=== PATIENT | male | born 1935 | race Caucasian/White ===

== ENCOUNTER 2017-12-18 17:34 | Observation (INO) | payer OTHER ==
[2017-12-18 18:30] LABS: Absolute Lymphocytes (CBC) 0.6 K/uL (0.7-4.9); Absolute Neutrophil 6.5 K/uL (1.8-8.0); Basophils % 0.2 % (0-1.3); Eosinophils % 0.1 % (0-4.4); Hematocrit 42.3 % (39.6-49.0); Lymphocytes % 7.2 % (15.3-44.8); MCH 31.5 pg (27.0-35.0); MCV 92.6 fL (80-100); MPV 8.5 fL (7.6-11.3); Monocytes % 12.8 % (3.3-12.3); RBC Red Blood Cell Count 4.57 M/uL (4.33-5.43)
[2017-12-18] MEDS ORDERED: ONDANSETRON 4 MG/2 ML VIAL ONE (18:49)
[2017-12-18] MEDS ORDERED: NA CHLORIDE 0.9% 500 ML ONE (18:49)
[2017-12-18] MEDS ORDERED: ACETAMINOPHEN 325 MG TABLET ONE (18:49)
[2017-12-18 18:51] LABS: Albumin 3.5 g/dL (3.4-5.0); Bilirubin Direct 0.5 mg/dL (0-0.2); Bilirubin Total 1.7 mg/dL (0.2-1.0); Potassium 3.5 mmol/L (3.5-5.1); Protein, Total 6.7 g/dL (6.4-8.2); Troponin (Emerg Dept Use Only) 0.02 ng/mL (0.0-0.045)
--- NOTE | 2017-12-18 18:55 | RAD REPORT ---
EXAM DESCRIPTION: RAD - Chest Single View - 12/18/2017 6:27 pm CLINICAL HISTORY: Transient alteration of awareness, fever COMPARISON: February 2016 TECHNIQUE: AP portable chest image was obtained 1823 hours . FINDINGS: Chronic interstitial lung disease is evident accentuated by a slightly shallow inspiration . No peripheral consolidation or mass. Mild cardiomegaly is present accentuated by shallow inspiratio n and portable imaging. Left costophrenic angle blunting is present. Minimal pleural effusion on the left is possible. Upper lobe vasculature within normal limits. Sternotomy wires in place. No pneumoth orax. No acute bony abnormality seen. No acute aortic findings suspected. IMPRESSION: Heart, vasculature and lung markings are all minimally prominent. Chest findings are likely the affects of portable imaging and shallow inspiration. However, a mild or very early failure or volume overload are possible.
[2017-12-18 19:14] LABS: Urine Blood 2+ (NEG); Urine Glucose TRACE (NEG); Urine Protein 1+ (NEG); Urine Specific Gravity 1.025 (1.005-1.030); Urine pH 5.5 (5.0-7.0)
[2017-12-18 19:24] LABS: Urine Bacteria <20 /HPF (NONE SEEN); Urine Culture Reflex Order NOT NEEDED; Urine RBC TNTC /HPF (NONE SEEN)
--- NOTE | 2017-12-18 20:06 | RAD REPORT ---
EXAM DESCRIPTION: US - Abdomen Exam Limited - 12/18/2017 7:27 pm COMPARISON: None. FINDINGS: No gallstones, sludge or other abnormalities within the gallbladder lumen. Gallbladder is partially contracted. Patient was not fasting for the examination. The contraction accentuates wall t hickness. True wall thickening or edema are doubtful. No pericholecystic fluid. No common duct stone or biliary tree dilatation identified. IMPRESSION: Normal gallbladder and biliary tree ultrasound in a nonfasting patient.
[2017-12-18] MEDS ORDERED: ALBUTEROL 2.5 MG/3 ML NEB SOL ONE (20:15)
[2017-12-18] MEDS ORDERED: VANCOMYCIN 1 GM/250 ML BAG ONE (20:16)
[2017-12-18] MEDS ORDERED: PIPER/TAZO/NS 3.375gm 3.375 GM/100 ML BAG ONE (20:16)
--- NOTE | 2017-12-18 21:49 | RAD REPORT ---
EXAM DESCRIPTION: CT - Abdomen Pelvis W Contrast - 12/18/2017 9:17 pm CLINICAL HISTORY: Abdominal pain COMPARISON: Gallbladder ultrasound December 18. TECHNIQUE: Biphasic, helical CT imaging of the abdomen and pelvis was performed following 100 ml non -ionic IV contrast. Oral contrast was given. All CT scans are performed using dose optimization technique as appropriate and may include automated exposure control or mA/KV adjustment according to patient size. FINDINGS: Fibrotic lung changes are present. Cardiomegaly present without pericardial thickening or effusion. Multiple benign-appearing cysts are present in a normal size liver. No suspicious liver parenchymal l esion. Spleen and pancreas without suspicious findings. No biliary tree dilatation. Punctate gallston es are suspected in the nondependent portion of the gallbladder. Gallbladder was contracted at the ti me of the ultrasound. Symmetric renal function is seen with no hydronephrosis or suspicious renal mass. Renal cysts are pre sent. Nonobstructing caliceal calculi noted on the right. No urinary bladder abnormality. Prostate gl and without acute finding. No gastric dilatation or wall thickening. No dilated small bowel loops. Sigmoid diverticulosis withou t diverticulitis. No acute colon process seen. No free air, free fluid or inflammatory stranding. N o hernia, mass or bulky lymphadenopathy. No adrenal abnormality. Disc and bony degenerative changes are present. No pathologic bone process seen. Prominent vascular c alcifications are present. Distal left common iliac artery dilated to 2.3 cm. There is dilatation of the distal right common iliac artery to 1.7 cm. Ectasia of the right internal iliac artery origin. Theodore th femoral artery's are prominent. Left femoral artery is dilated to 19 mm. IMPRESSION: No bowel obstruction, free air or surgically emergent finding. Punctate gallstones are suspected. No gallstones were seen on the earlier ultrasound study; however, the patient was not fully fasting for that study and the gallbladder was partially contracted. No pyelonephritis or acute finding. Additional nonacute findings detailed in the body of the report.
--- NOTE | 2017-12-18 22:30 | ER ---
Nurse's Notes [facility] Name: Sudarshan Rao Age: 82 yrs Sex: Male : 1935 Arrival Date: 12/18/2017 Time: 17:35 Bed 7 Private MD: Raj Ferrell Diagnosis: Acute Fever;Altered Mental Status Presentation: 12/18 17:40 Presenting complaint: states: She woke him at 1:00 this afternoon and he was aj1 acting strange, talking to her about a big white bird that flew at him from the tree outside, he's been acting really tired all day and has just wanted to stay in bed. He was hallucinating, he thought his dog was coming to him, but he was petting nothing. Yesterday he was complaining of abdominal pain and back pain. Transition of care: patient was not received from another setting of care. Onset of symptoms was December 18, 2017 at 13:00. Risk Assessment: Do you want to hurt yourself or someone else? Patient reports no desire to harm self or others. Initial Sepsis Screen: Does the patient meet any 2 criteria? Altered Mental Status. HR > 90 bpm. Yes Does the patient have a suspected source of infection? Yes: Other: unknown at this time. If YES to both, name of provider notified: Andrea Berrios MD Care prior to arrival: None. 17:40 Method Of Arrival: Wheelchair aj1 17:40 Acuity: STACEY 3 aj1 Triage Assessment: 17:45 General: Appears uncomfortable, Behavior is calm, cooperative. Pain: Denies pain. aj1 Neuro: Level of Consciousness is awake, alert, obeys commands, Oriented to person, place, time, situation, Egg Processing Supervisor are equal bilaterally Moves all extremities. Full function Speech is normal, Facial symmetry appears normal. Cardiovascular: Patient's skin is warm and dry. Respiratory: Airway is patent Respiratory effort is even, unlabored, Respiratory pattern is regular, symmetrical. Historical: - Allergies: 17:45 sedatives; aj1 - Home Meds: 17:45 aspirin 325 mg Oral TbEC 1 tab once daily [Active]; B1 [Active]; famotidine 20 mg Oral aj1 tab [Active]; memantine 10 mg Oral tab 1 tab 2 times per day [Active]; metoprolol tartrate 25 mg oral tab 2 times per day [Active]; Potassium Chloride Oral [Active]; donepezil 5 mg oral tab 1 tab once daily [Active]; lisinopril 20 mg Oral tab 1 tab once daily [Active]; - PMHx: 17:45 Atrial Fib; CHF; Myocardial infarction; organic dementia; Pneumonia; Sepsis; Sleep aj1 Apnea; - Immunization history:: Flu vaccine is not up to date. - Social history:: Smoking status: Patient/guardian denies using tobacco. - Ebola Screening: : Patient denies travel to an Ebola-affected area in the 21 days before illness onset. - Family history:: not pertinent. - Hospitalizations: : No recent hospitalization is reported. Screenin:55 Abuse screen: Denies threats or abuse. Nutritional screening: No deficits noted. tw2 Tuberculosis screening: No symptoms or risk factors identified. Fall Risk Secondary diagnosis (15 points) dementia. Assessment: 17:50 General: Appears in no apparent distress. comfortable, slender, Behavior is calm, bp cooperative. Pain: Denies pain. Neuro: Level of Consciousness is awake, obeys commands, confused, Oriented to person. Cardiovascular: Rhythm is sinus rhythm. Respiratory: Airway is patent Respiratory effort is even, unlabored, Respiratory pattern is regular, symmetrical. GI: No signs and/or symptoms were reported involving the gastrointestinal system. : No signs and/or symptoms were reported regarding the genitourinary system. EENT: No deficits noted. Derm: No deficits noted. Musculoskeletal: Circulation, motion, and sensation intact. Range of motion: intact in all extremities. 18:53 Reassessment: Patient appears in no apparent distress at this time. No changes from tw2 previously documented assessment. Patient and/or family updated on plan of care and expected duration. Pain level reassessed. 19:14 Reassessment: technical specialist cytogenetics contacted, pt finished oral contrast. ak1 19:24 Reassessment: Patient appears in no apparent distress at this time. Patient and/or ak1 family updated on plan of care and expected duration. Pain level reassessed. Patient is alert, oriented x 3, equal unlabored respirations, skin warm/dry/pink. Patient denies pain at this time. Patient states feeling better. Vital Signs: 17:45 BP 152 / 99; Pulse 91; Resp 20; Temp 102.2; Pulse Ox 96% on R/A; Pain 0/10; aj1 18:00 BP 172 / 81; Pulse 79; Resp 23; Pulse Ox 97% ; bp 18:52 BP 150 / 77; Pulse 65; Resp 22; Pulse Ox 99% on R/A; tw2 19:23 BP 133 / 69; Pulse 69; Resp 20; Temp 99(O); Pulse Ox 97% on R/A; Pain 0/10; ak1 22:13 BP 131 / 64; Pulse 66; Resp 18; Temp 99; Pulse Ox 98% on R/A; Pain 0/10; ak1 ED Course: 17:35 Patient arrived in ED. sb2 17:36 Raj Ferrell DO is Private Physician. sb2 17:42 Triage completed. aj1 17:45 Arm band placed on Patient placed in an exam room. aj1 17:50 Andrea Beriros MD is Attending Physician. rn 17:55 Latesha Rush RN is Primary Nurse. tw2 17:55 Placed in gown. Bed in low position. Side rails up X2. Adult w/ patient. Cardiac tw2 monitor on. Pulse ox on. NIBP on. 18:06 Oral contrast given. jj2 18:28 Chest Single View XRAY In Process Unspecified. EDMS 18:30 Inserted saline lock: 22 gauge in left hand, using aseptic technique. Blood collected. tw2 18:35 Straight cath inserted, using sterile technique, 18 Fr. Specimen obtained. Returned tw2 lali urine. Patient tolerated well. pts remained at bedside at this time. 19:01 Report given to KENRICK Ashton. tw2 19:06 Attending Physician role handed off by Andrea Berrios MD wa 19:06 Jose Carvajal MD is Attending Physician. wa 19:14 Notified ED physician of a critical lab result(s). lactate of 2.7. fc 19:25 US Abdomen Limited In Process Unspecified. EDMS 19:26 Ultrasound completed. Patient tolerated well. cy 20:33 Radiology exam delayed due to IV insertion attempt and/or patient not having vm2 appropriate IV at this time. 20:40 Inserted saline lock: 20 gauge in right antecubital area, using aseptic technique. oe 21:17 CT Abd/Pelvis - W/Contrast In Process Unspecified. EDMS 21:19 Inserted saline lock: 22 gauge in left antecubital area, using aseptic technique. ak1 22:29 David He MD is Hospitalizing Provider. wa 22:47 No provider procedures requiring assistance completed. Patient admitted, IV remains in ak1 place. Administered Medications: 18:40 Drug: Zofran 4 mg Route: IVP; Site: left hand; tw2 19:16 Follow up: Response: No adverse reaction ak1 18:48 Drug: Tylenol 650 mg Route: PO; tw2 19:16 Follow up: Response: No adverse reaction ak1 18:49 Drug: NS 0.9% 500 ml Route: IV; Rate: bolus; Site: left hand; tw2 20:06 Follow up: IV Status: Completed infusion ak1 20:16 Drug: Zosyn 3.375 grams Route: IVPB; Infused Over: 60 mins; Site: left hand; ak1 21:59 Follow up: IV Status: Completed infusion ak1 20:29 Drug: Albuterol 2.5 mg Route: Inhalation; ak1 21:28 Drug: vancoMYCIN 1 grams Route: IVPB; Infused Over: 2 hrs; Site: left forearm; ak1 23:49 Follow up: IV Status: Infusion continued upon admission ak1 Outcome: 22:30 Decision to Hospitalize by Provider. wa 22:47 Condition: good ak1 22:47 Instructed on the need for admit. 23:15 Patient left the ED. ak1 Signatures: Dispatcher [employer] EDMS Maile Chavis RN RN aj1 Yevgeniy Rey Felicia, RN RN fc Nieto, Roman, MD MD rn Krenek, Amber, RN RN ak1 Latesha Rush RN RN 2 Behzad Aquino [facility] Jose Carvajal MD MD wa Peltier, Brian, RN RN bp Yong, Chheannith cy Billeau, Sheri 2 Corrections: (The following items were deleted from the chart) 19:02 17:40 Initial Sepsis Screen: Does the patient meet any 2 criteria? Altered Mental tw2 Status. HR > 90 bpm. Yes aj1
--- NOTE | 2017-12-18 22:30 | EDPHYS ---
Physician Documentation [facility] Name: Sudarshan Rao Age: 82 yrs Sex: Male : 1935 Arrival Date: 12/18/2017 Time: 17:35 Bed 7 Private MD: Raj Ferrell ED Physician Jose Carvajal HPI: 12/18 18:03 This 82 yrs old Male presents to ER via Wheelchair with complaints of Altered rn Mental Status. 18:03 The patient presents with confusion, decreased mental status, disorientation. Onset: rn The symptoms/episode began/occurred last night. Possible causes: unknown. Current symptoms: In the emergency department the patient's symptoms have improved. The patient has experienced a previous episode. reports ams since last night, was birthday, went to dinner, ate well, had large dessert, complained of abd pain and decreased appetite today, this morning noticed more confusion, not making sense, seems to be hallucinating, not eating. No cough/vomiting/diarrhea/rash. . Historical: - Allergies: 17:45 sedatives; aj1 - Home Meds: 17:45 aspirin 325 mg Oral TbEC 1 tab once daily [Active]; B1 [Active]; famotidine 20 mg Oral aj1 tab [Active]; memantine 10 mg Oral tab 1 tab 2 times per day [Active]; metoprolol tartrate 25 mg oral tab 2 times per day [Active]; Potassium Chloride Oral [Active]; donepezil 5 mg oral tab 1 tab once daily [Active]; lisinopril 20 mg Oral tab 1 tab once daily [Active]; - PMHx: 17:45 Atrial Fib; CHF; Myocardial infarction; organic dementia; Pneumonia; Sepsis; Sleep aj1 Apnea; - Immunization history:: Flu vaccine is not up to date. - Social history:: Smoking status: Patient/guardian denies using tobacco. - Ebola Screening: : Patient denies travel to an Ebola-affected area in the 21 days before illness onset. - Family history:: not pertinent. - Hospitalizations: : No recent hospitalization is reported. ROS: 18:03 Constitutional: Negative for weight loss, Eyes: Negative for injury, pain, redness, and thresher broomcorn, ENT: Negative for injury, pain, and discharge, Neck: Negative for injury, pain, and swelling, Cardiovascular: Negative for chest pain, palpitations, and edema, Respiratory: Negative for shortness of breath, cough, wheezing, and pleuritic chest pain, Abdomen/GI: Negative for vomiting, diarrhea, and constipation, Back: Negative for injury and pain, MS/Extremity: Negative for injury and deformity, Skin: Negative for injury, rash, and discoloration, Neuro: Negative for headache, numbness, tingling, and seizure. Exam: 18:03 Constitutional: Thin male, no acute distress, smiling, seems happy but confused rn Head/Face: Normocephalic, atraumatic. Eyes: Pupils equal round and reactive to light, extra-ocular motions intact. Lids and lashes normal. Conjunctiva and sclera are non-icteric and not injected. Cornea within normal limits. Periorbital areas with no swelling, redness, or edema. ENT: dry MM Neck: Non-tender cervical LAD Cardiovascular: Irregular rhythm, normal rate, no murmur Respiratory: Breath sounds diminished bilaterally, no wheezing, no retractions, + mild tachypnea Abdomen/GI: soft, non-tender, no masses MS/ Extremity: Pulses equal, no cyanosis. Neurovascular intact. Full, normal range of motion. Equal circumference. Neuro: Awake and alert, GCS 15, oriented to person, place,and situation. Cranial nerves II-XII grossly intact. Motor strength 5/5 in all extremities. Sensory grossly intact. Vital Signs: 17:45 BP 152 / 99; Pulse 91; Resp 20; Temp 102.2; Pulse Ox 96% on R/A; Pain 0/10; aj1 18:00 BP 172 / 81; Pulse 79; Resp 23; Pulse Ox 97% ; bp 18:52 BP 150 / 77; Pulse 65; Resp 22; Pulse Ox 99% on R/A; tw2 19:23 BP 133 / 69; Pulse 69; Resp 20; Temp 99(O); Pulse Ox 97% on R/A; Pain 0/10; ak1 22:13 BP 131 / 64; Pulse 66; Resp 18; Temp 99; Pulse Ox 98% on R/A; Pain 0/10; ak1 MDM: 17:50 Patient medically screened. rn 20:34 Differential Diagnosis: electrolyte abnormality, pneumonia, sepsis, UTI, volume wa depletion, intraabd infection?. Special discussion: took sign out from Dr. Berrios at 7 pm. Got my own history from pt's spouse as well. Briefly, pt awoke later than usual today, per . noted with fever of 102. pt noted with hallucinations per . denies complaints except c/o abd pain yesterday. deneis abd pain at the moment although history limited due to underlying dementia. my exam noted for course BS and non-productive cough. abd non-tender.. 20:42 Data reviewed: vital signs, nurses notes, lab test result(s), EKG, radiologic studies. wa Test interpretation: by ED physician or midlevel provider: EKG \T\ 1906 hrs. HR 70. noted AFib. diffuse ST-T changes. . 20:43 Test interpretation: by ED physician or midlevel provider: upper Abd US: negative for wa acute process. CXR: minimally prominent vasculature. abnml labs noted for elevated glucose 165. low platelets 122. elevated lactate 2.7. elevated liver enzymes AST 88, ALT 127, T. Bili 1.7. UA noted for TNTC RBCs. . Special discussion: delayed CT abd in elderly male with fever and potential abd pain. covered empirically with zosyn and vanc prior to CT findings. will reassess. 22:28 Test interpretation: by ED physician or midlevel provider: CT abd/pelvis: no acute wa findings to explain fever. . Response to treatment: the patient's symptoms have markedly improved after treatment. Physician consultation: David He MD. Admission orders: after a detailed discussion of the patient's condition and case, the admit orders are written by me. 12/18 18:02 Order name: Basic Metabolic Panel; Complete Time: 18:58 rn 12/18 18:02 Order name: Blood Culture Adult (2) rn 12/18 18:02 Order name: CBC with Diff; Complete Time: 18:47 rn 12/18 18:02 Order name: Lactate; Complete Time: 19:59 rn 12/18 18:02 Order name: LFT's; Complete Time: 18:58 rn 12/18 18:02 Order name: Lipase; Complete Time: 18:58 rn 12/18 18:02 Order name: Procalcitonin; Complete Time: 19:59 rn 12/18 18:02 Order name: Troponin (emerg Dept Use Only); Complete Time: 18:58 rn 12/18 18:02 Order name: Urine Microscopic Only; Complete Time: 19:59 rn 12/18 18:02 Order name: Strep; Complete Time: 18:47 rn 12/18 18:02 Order name: Flu; Complete Time: 18:47 rn 12/18 18:41 Order name: Throat Culture EDW[facility] 12/18 18:47 Order name: Urine Culture 12/18 18:49 Order name: Urine Dipstick--Ancillary (enter results); Complete Time: 19:58 bd 12/18 18:02 Order name: Chest Single View XRAY; Complete Time: 18:58 rn 12/18 18:02 Order name: CT Abd/Pelvis - W/Contrast; Complete Time: 22:24 rn 12/18 18:59 Order name: US Abdomen Limited; Complete Time: 20:39 rn 12/18 20:00 Order name: BNP; Complete Time: 20:39 wa 12/18 20:28 Order name: Lactate; Complete Time: 22:24 ak1 12/18 22:37 Order name: CBC with Automated Diff EDW[facility] 12/18 22:37 Order name: CBC with Automated Diff [facility] 12/18 22:37 Order name: Comprehensive Metabolic Panel [facility] 12/18 22:37 Order name: Comprehensive Metabolic Panel [facility] 12/18 22:38 Order name: Cortisol [facility] 12/18 22:38 Order name: T4 Free [facility] 12/18 22:38 Order name: Thyroid Stimulating Hormone [facility] 12/18 22:38 Order name: Vitamin B12 Level [facility] 12/18 22:38 Order name: Folic Acid, (Folate) [facility] 12/18 18:02 Order name: Cardiac monitoring; Complete Time: 18:10 rn 12/18 18:02 Order name: EKG - Nurse/Tech; Complete Time: 19:13 rn 12/18 18:02 Order name: IV Saline Lock - Large Bore; Complete Time: 20:44 rn 12/18 18:02 Order name: Labs collected and sent; Complete Time: 18:39 rn 12/18 18:02 Order name: O2 Per Protocol; Complete Time: 18:10 rn 12/18 18:02 Order name: O2 Sat Monitoring; Complete Time: 18:10 rn 12/18 18:02 Order name: Urine Dipstick-Ancillary (obtain specimen); Complete Time: 18:39 rn 12/18 22:37 Order name: CONS Pharmacy Consult ED[facility] 12/18 22:37 Order name: Regular EDMS Administered Medications: 18:40 Drug: Zofran 4 mg Route: IVP; Site: left hand; tw2 19:16 Follow up: Response: No adverse reaction ak1 18:48 Drug: Tylenol 650 mg Route: PO; tw2 19:16 Follow up: Response: No adverse reaction ak1 18:49 Drug: NS 0.9% 500 ml Route: IV; Rate: bolus; Site: left hand; tw2 20:06 Follow up: IV Status: Completed infusion ak1 20:16 Drug: Zosyn 3.375 grams Route: IVPB; Infused Over: 60 mins; Site: left hand; ak1 21:59 Follow up: IV Status: Completed infusion ak1 20:29 Drug: Albuterol 2.5 mg Route: Inhalation; ak1 21:28 Drug: vancoMYCIN 1 grams Route: IVPB; Infused Over: 2 hrs; Site: left forearm; ak1 23:49 Follow up: IV Status: Infusion continued upon admission ak1 Disposition: 12/18/17 22:30 Hospitalization ordered by David He for Observation. Preliminary diagnosis are Acute Fever, Altered Mental Status. - Bed requested for Telemetry/MedSurg (observation). - Status is Observation. ak1 - Condition is Stable. - Problem is new. - Symptoms have improved. UTI on Admission? No Signatures: Dispatcher [employer] EDWY Maile Chavis RN RN aj1 Kerri Mendez RN RN mw Nieto, Roman, MD MD rn Krenek, Amber, RN RN ak1 Latesha Rush RN RN tw2 Jose Carvajal MD MD wa Corrections: (The following items were deleted from the chart) 18:49 18:02 Accucheck ordered. rn tw2 22:46 22:30 Hospitalization Ordered by David He MD for Observation. Preliminary mw diagnosis is Acute Fever; Altered Mental Status. Bed requested for Telemetry/MedSurg (observation). Status is Observation. Condition is Stable. Problem is new. Symptoms have improved. UTI on Admission? No. anastacio 23:15 22:46 12/18/2017 22:30 Hospitalization Ordered by David He MD for Observation. ak1 Preliminary diagnosis is Acute Fever; Altered Mental Status. Bed requested for Telemetry/MedSurg (observation). Status is Observation. Condition is Stable. Problem is new. Symptoms have improved. UTI on Admission? No. mw
[2017-12-18] MEDS ORDERED: ACETAMINOPHEN 500 MG TAB PO PRN (22:34)
[2017-12-18] MEDS ORDERED: MORPHINE 2 MG/ML SYR IV PRN (22:34)
[2017-12-18] MEDS ORDERED: ONDANSETRON 4 MG/2 ML VIAL IV PRN (23:00)
[2017-12-18 23:38] VITALS: O2SAT 98
[2017-12-18] MEDS: NA CHLORIDE 0.9% 1,000 ML IV SCH (23:54)
[2017-12-19 00:23] VITALS: BMI 25.5
[2017-12-19 06:00] LABS: Absolute Lymphocytes (CBC) 1.4 K/uL (0.7-4.9); Absolute Monocytes 1.2 K/uL (0.1-1.3); Absolute Neutrophil 4.4 K/uL (1.8-8.0); Basophils % 0.4 % (0-1.3); Eosinophils % 0.7 % (0-4.4); Hematocrit 37.2 % (39.6-49.0); Lymphocytes % 19.4 % (15.3-44.8); MCH 32.2 pg (27.0-35.0); MPV 8.9 fL (7.6-11.3); Monocytes % 17.4 % (3.3-12.3); RBC Red Blood Cell Count 4.04 M/uL (4.33-5.43)
[2017-12-19] MEDS ORDERED: INFLUENZA VACCINE (for 3y+) 0.5 ML DOSE IMVAC ONE (06:00)
[2017-12-19] MEDS ORDERED: PNEUMOCOCCAL VACCINE 0.5 ML IMVAC ONE (06:00)
[2017-12-19 06:47] LABS: ALT/SGPT 95 U/L (12-78); AST/SGOT 58 U/L (15-37); Albumin 2.9 g/dL (3.4-5.0); Alkaline Phosphatase 87 U/L (45-117); BUN Blood Urea Nitrogen 11 mg/dL (7-18); Bicarbonate 28 mmol/L (21-32); Bilirubin Total 1.2 mg/dL (0.2-1.0); Folic Acid, (Folate) > 20.0 ng/mL (3.1-17.5); Glucose Level 122 mg/dL (74-106); Potassium 3.3 mmol/L (3.5-5.1); Protein, Total 5.7 g/dL (6.4-8.2); Sodium Level 144 mmol/L (136-145); Thyroid Stimulating Hormone 0.814 uIU/mL (0.360-3.740)
[2017-12-19 07:08] LABS: HDL Cholesterol 37 mg/dL (40-60); LDL Cholesterol, Calculated 68 (<130)
--- NOTE | 2017-12-19 08:11 | EKG ---
Test Date: 2017-12-18 Test Time: 19:06:52 Vending Machine Technician: DARIUS MEASUREMENT RESULTS: Intervals: Rate: 70 [place]: QRSD: 106 QT: 426 QTc: 460 [place]: P: [place]: QRS: -23 T: 128 INTERPRETIVE STATEMENTS: Atrial fibrillation Minimal voltage criteria for LVH, may be normal variant ST & T wave abnormality, consider lateral ischemia Prolonged QT Abnormal ECG Compared to ECG 03/12/2016 20:20:35 Prolonged QT interval now present ST (T wave) deviation still present Possible ischemia still present Electronically Signed On 12-19-17 08:10:21 DIRECTOR AUTOMOTIVE by Alon Piper
--- NOTE | 2017-12-19 08:32 | RAD REPORT ---
EXAM DESCRIPTION: US - CP - 12/19/2017 7:13 am CLINICAL HISTORY: Syncope, stroke-like symptoms COMPARISON: None. TECHNIQUE: Real-time sonographic evaluation of both carotid systems was performed. [place] scale and Do ppler interrogation were performed with waveform tracing bilaterally. FINDINGS: Normal high resistance waveforms are noted in both external carotid arteries. The common c arotid arteries and internal carotid arteries show normal low resistance waveforms. Calcified plaquing changes are present at the origin of the right internal carotid artery. Noncalcifi ed plaquing seen in the left proximal ICA. On visual inspection no significant luminal narrowing iden tifiable. No suspicious Doppler waveform pattern. The peak systolic velocity values and the ICA/ CCA ratios all fall within a normal range. Antegrade flow seen in both vertebral arteries. Velocity values and ratios were recorded and are retained in the patient's imaging records. IMPRESSION: Calcified and noncalcified plaquing changes are present in the proximal internal carotid artery's. Based on visual inspection, velocity values and ratios, no hemodynamically significant stenosis is id entifiable. Correlation can be made with pending MRA neck examination. No evidence of a hemodynamically significant stenosis.
--- NOTE | 2017-12-19 09:07 | RAD REPORT ---
EXAM DESCRIPTION: CT - Head Brain Wo Cont - 12/19/2017 8:47 am CLINICAL HISTORY: Transient alteration of awareness COMPARISON: CT head January 09, 2016, MR brain same date TECHNIQUE: Axial 5 mm thick images of the head were obtained without IV contrast. All CT scans are performed using dose optimization technique as appropriate and may include automated exposure control or mA/KV adjustment according to patient size. FINDINGS: No intracranial hemorrhage, mass, edema or shift of mid-line structures. No acute infarcti on changes seen. Moderately prominent atrophy and chronic ischemic changes are present. Ventricles ar e in proportion to the volume loss. Intracranial findings are not substantially different from compar amor. Mastoid air cells and visualized portions of the paranasal sinuses are clear. No acute bony findings. IMPRESSION: Prominent atrophy and chronic ischemic change with no acute intracranial finding. No significant change from comparison studies.
--- NOTE | 2017-12-19 09:10 | RAD REPORT ---
EXAM DESCRIPTION: MRI - Brain W/Wo Cont - 12/19/2017 8:47 am CLINICAL HISTORY: Transient alteration of awareness, stroke-like symptoms COMPARISON: CT head 2016, CT head same date TECHNIQUE: Sagittal and axial T1-weighted images were obtained. Axial PD/heavily T2-weighted and T2- FLAIR images were obtained along with axial DWI/ADC mapping sequences. Coronal heavily T2 weighted s equence obtained. Axial and coronal post-contrast T1-weighted images were also obtained. A 18 ml Mul tihance contrast following utilized. FINDINGS: No intracranial hemorrhage, mass or acute infarction. There is no edema or shift of midli ne structures. No extra-axial fluid collections. Redding-matter/white matter junction is preserved. Sig nal voids are seen as a normal finding in the major intracranial vessels. Patient has advanced atrophy and chronic ischemic change. Ventricles are in proportion to the volume loss. These changes are not substantially different from a 2016 study. Major venous sinuses are paten t. Post-contrast images show normal enhancement. No dural thickening. Mastoid air cells and paranasal sinuses are clear. No globe or orbital content acute finding. No sella or supra sella abnormality. Patient has empty shemar la configuration as a normal variant. IMPRESSION: Prominent atrophy and chronic ischemic change similar to 2016. No acute intracranial finding.
--- NOTE | 2017-12-19 09:15 | RAD REPORT ---
EXAM DESCRIPTION: MRI - MRA Head Wo Cont - 12/19/2017 8:45 am CLINICAL HISTORY: Altered mental status, stroke-like symptoms COMPARISON: None. TECHNIQUE: Axial and coronal 3D [id number] image acquisition was performed. 3D rotational images were generated with source and reconstruction images reviewed. Horizontal and vertical axis rotation al views generated using MIP protocol. FINDINGS: Major venous sinuses are patent. No aneurysm or vascular malformation. No basilar or internal carotid artery stenosis. The anterior and middle cerebral artery distribution show no significant findings. Moderate atherosclerotic changes are present throughout the bilateral p osterior cerebral artery distributions. Patient has normal variant persistent origin of each in ternal carotid artery. Small or absent P1 [employer]ELD [employer] segments noted. IMPRESSION: No significant intracranial atherosclerotic disease.
[2017-12-19] MEDS: MEMANTINE HCL 10 MG TABLET PO SCH ×2 (09:31→16:48)
[2017-12-19] MEDS: ASPIRIN EC 81 MG TAB PO SCH (09:31)
[2017-12-19] MEDS: DONEPEZIL HCL 5 MG TAB PO SCH (09:31)
[2017-12-19] MEDS: METOPROLOL TAR 50 MG TAB PO SCH ×2 (09:31→16:48)
[2017-12-19] MEDS: LISINOPRIL 20 MG TAB PO SCH (09:32)
--- NOTE | 2017-12-19 09:49 | RAD REPORT ---
EXAM DESCRIPTION: MRI - MRA Neck W/Wo Cont - 12/19/2017 8:47 am CLINICAL HISTORY: Transient alteration of awareness, stroke-like symptoms COMPARISON: Carotid ultrasound same date TECHNIQUE: Axial and coronal 3D [id number]-[id number] image acquisition was performed. 3D rotational images were generated with source and reconstruction images reviewed. Horizontal and vertical axis rotation al views generated using MIP protocol. FINDINGS: Aortic arch is 3 vessel. Innominate and left subclavian artery origins are well visualized without stenosis. Left subclavian origin is without stenosis. Approximately 2 cm distal to the origi n signal loss in the left subclavian artery is noted. This is believed to be a technical artifact rat her than stenosis or truncated flow. Vertebral artery origin on the left distal to this flow void brock ws no suspicious finding. The earlier carotid ultrasound showed no left vertebral artery flow reversa l. Bilateral common carotid artery show no significant disease. No significant atherosclerotic change at the origin of either internal carotid artery. From origin to skullbase the internal carotid arteries show no dissection or stenosis. Left vertebral artery is dominant. No acute vertebral artery finding. The small distal right vertebra l artery may terminate at the posterior inferior cerebellar artery. No basilar stenosis seen. IMPRESSION: No common carotid or internal carotid artery significant atherosclerotic change. Dominant left vertebral artery with the right vertebral artery probably terminating at the posterior inferior cerebellar artery. The basilar artery abnormality. Signal loss in the left subclavian artery proximal to the vertebral artery origin is believed to be a technical artifact at the edge of the field of view. Sonography showed no evidence of left vertebral flow reversal. Correlation can be made with any significant asymmetry in blood pressure between the upper extremities.
--- NOTE | 2017-12-19 10:16 | P.HP ---
Certification for Inpatient Patient admitted to: Observation With expected LOS: <2 Midnights Patient will require the following post-hospital care: None Practitioner: I am a practitioner with admitting privileges, knowledge of patient current condition, hospital course, and medical plan of care. Services: Services provided to patient in accordance with Admission requirements found in Title 42 Section 412.3 of the Code of Federal Regulations Patient History Date of Service: 12/18/17 Reason for admission: Altered mentation History of Present Illness: Patient is an 82-year-old gentleman who came into the hospital with some confusion. Patient was apparently looking out of the window in the morning. He normally wakes up and he goes to the kitchen and eats breakfast. However, this morning his states he was not coming out of the bedroom. she went to check on him and he was fast asleep. He apparently slipped total about 1:00 p.m.. He states that his dog had continuously checked on him. His dog has been trained to wake the patient up if he has an apneic episode. Apparently the dog had gone up to him throughout the morning and was laying on him to wake him up. She finally got him to wake up but he would not eat. She decided to take him out to get coffee where he was not drinking his coffee either. She got concerned and spoke to her family physician, Dr. Anne, and he advised her to go into the emergency room immediately. Patient arrived in the emergency room and currently is without new complaints. He states he is feeling better. Will probably need to get physical therapy to ambulate him and get imaging of the brain and if this is okay and go home. Allergies sedatives Allergy (Uncoded 06/13/16 04:46) Unknown Home Medications: Donepezil [Aricept*] 5 mg PO DAILY 12/19/17 Lisinopril [Prinivil*] 20 mg PO DAILY 12/19/17 Memantine HCl 10 mg PO BID 12/19/17 Metoprolol Tartrate [Lopressor*] 25 mg PO BID 12/19/17 - Past Medical/Surgical History Has patient received pneumonia vaccine in the past: No Diabetic: No -: afib -: Dementia -: Pneumonia -: [place] -: CABG -: Stent-2011 - Family History Father Medical History: Heart disease Brother Medical History: Heart disease Mother Medical History: Stroke - Social History Smoking Status: Never smoker Alcohol use: No CD- Drugs: No Caffeine use: No Place of Residence: Home Review of Systems 10-point ROS is otherwise unremarkable Physical Examination - Vital Signs Temperature: 97.9 F Blood Pressure: 136/70 Pulse: 53 Respirations: 20 Pulse Ox (%): 97 - Physical Exam General: Alert, In no apparent distress, Oriented x2 HEENT: Atraumatic, PERRLA, Mucous membr. moist/pink, EOMI, Sclerae nonicteric Neck: Supple, 2+ carotid pulse no bruit, No LAD, Without JVD or thyroid abnormality Respiratory: Clear to auscultation bilaterally, Normal air movement Cardiovascular: Regular rate/rhythm, Normal S1 S2, No murmurs Gastrointestinal: Normal bowel sounds, Soft and benign, Non-distended, No tenderness Musculoskeletal: No clubbing, No swelling, No tenderness Integumentary: No rashes Neurological: Normal speech, Normal tone, Sensation intact, Cranial nerves 3-12 intact, Normal affect, Abnormal gait, Abnormal strength Lymphatics: No axilla or inguinal lymphadenopathy - Studies Laboratory Data (last 24 hrs) 12/18/17 18:15: WBC 8.1, Hgb 14.4, Hct 42.3, Plt Count 122 L 12/18/17 18:15: Sodium 139, Potassium 3.5, BUN 12, Creatinine 1.00, Glucose 165 H, Total Bilirubin 1.7 H, AST 88 H, ALT 127 H, Alkaline Phosphatase 110, Lipase 82 Microbiology Data (last 24 hrs): 12/18/17 18:20 Nasopharnyx Influenza Type A Antigen Screen - Final 12/18/17 18:20 Nasopharnyx Influenza Type B Antigen Screen - Final 12/18/17 18:20 Throat Group A Streptococcus Rapid Screen - Final Assessment & Plan - Problems (Diagnosis) (1) Altered mental status Onset Date: 12/19/17 Current Visit: Yes Status: Acute (2) CAD (coronary artery disease) Onset Date: 01/09/16 Current Visit: No Status: Acute (3) CHF exacerbation Onset Date: 01/09/16 Current Visit: No Status: Acute Qualifiers: Qualified Code(s): I50.23 - Acute on chronic systolic (congestive) heart failure (4) CKD (chronic kidney disease), stage III Onset Date: 01/09/16 Current Visit: No Status: Acute (5) Sepsis Current Visit: No Status: Acute - Plan Plan: 1. CT of the brain(vs. MRI) 2. Echocardiogram and carotid Doppler if symptoms are not back to baseline in the am 3. Anti-platelet therapy and statin therapy 4. Neurology consultation if symptoms do not improve 5. Physical therapy evaluation 6. DVT prophylaxis Discharge Plan: Home Plan to discharge in: 48 Hours - Advance Directives Does patient have a Living Will: No Does patient have a Durable POA for Healthcare: No - Code Status/Comfort Care Code Status Assessed: Yes Code Status: Full Code Critical Care: No Time Spent Managing PTS Care (In Minutes): 50
[2017-12-19] MEDS: NA CHLORIDE 0.9% 1,000 ML IV SCH (11:38)
--- NOTE | 2017-12-19 11:48 | ECHO ---
HEIGHT: 5 ft 10 in WEIGHT: 178 lb 3 oz DATE OF STUDY: 12/19/[address]: Karthikeyan Adorno DO 2-DIMENSIONAL: YES M.MODE: YES DOPPLER: YES COLOR FLOW: YES TDS: NO PORTABLE: NO DEFINITY: NO BUBBLE STUDY: NO DIAGNOSIS: CORONARY ARTERY DISEASE CARDIAC HISTORY: CATHERIZATION: YES SURGERY: CABGx3 PROSTHETIC VALVE: NO PACEMAKER: NO MEASUREMENTS (cm) DIASTOLIC (NORMALS) SYSTOLIC (NORMALS) IVSd 1.5 (0.6-1.2) LA Diam 5.4 (1.9-4.0) LVEF 55% LVIDd 5.6 (3.5-5.7) LVIDs 4.0 (2.0-3.5) %FS 29% LVPWd 1.6 (0.6-1.2) Ao Diam 3.8 (2.0-3.7) 2 DIMENSIONAL ASSESSMENT: RIGHT ATRIUM: NORMAL LEFT ATRIUM: NORMAL RIGHT VENTRICLE: NORMAL LEFT VENTRICLE: NORMAL TRICUSPID VALVE: NORMAL MITRAL VALVE: NORMAL PULMONIC VALVE: NORMAL AORTIC VALVE: SCLEROSIS PERICARDIAL EFFUSION: NONE AORTIC ROOT: NORMAL LEFT VENTRICULAR WALL MOTION: NORMAL. DOPPLER/COLOR FLOW: NORMAL. COMMENTS: AORTIC SCLEROSIS NO STENOSIS. NORMAL LEFT VENTRICULAR SIZE AND FUNCTION. NO EFFUSION. EJECTION FRACTION 55%. TECHNOLOGIST: MATT HDEZ
--- NOTE | 2017-12-19 13:31 | P.PN ---
Subjective Date of Service: 12/19/17 Primary Care Provider: Dr. Ferrell; Neurology-Dr. Santos Chief Complaint: Altered mentation Subjective: Other (Patient improved. Patient without hallucinations at this time. Patient appears to be at his baseline level. No cough, congestion, shortness of breath, nausea or vomiting, abdominal pain.) Physical Examination - Vital Signs Temperature: 97.9 F Blood Pressure: 136/70 Pulse: 53 Respirations: 20 Pulse Ox (%): 97 - Physical Exam General: Alert, In no apparent distress, Cooperative, Demented HEENT: Atraumatic Neck: Supple Respiratory: Clear to auscultation bilaterally, Normal air movement Cardiovascular: Normal pulses, Regular rate/rhythm Gastrointestinal: Normal bowel sounds, Soft and benign, Non-distended, No tenderness, No masses, No rebound, No guarding Musculoskeletal: No erythema, No tenderness, No warmth Integumentary: No tenderness/swelling, No erythema, No warmth, No cyanosis Neurological: Normal speech, Normal strength at 5/5 x4 extr, Normal tone, Normal affect, Dementia - Studies Laboratory Data (last 24 hrs) 12/18/17 18:15: WBC 8.1, Hgb 14.4, Hct 42.3, Plt Count 122 L 12/18/17 18:15: Sodium 139, Potassium 3.5, BUN 12, Creatinine 1.00, Glucose 165 H, Total Bilirubin 1.7 H, AST 88 H, ALT 127 H, Alkaline Phosphatase 110, Lipase 82 Microbiology Data (last 24 hrs): 12/18/17 18:20 Nasopharnyx Influenza Type A Antigen Screen - Final 12/18/17 18:20 Nasopharnyx Influenza Type B Antigen Screen - Final 12/18/17 18:20 Throat Group A Streptococcus Rapid Screen - Final Medications List Reviewed: Yes Assessment & Plan Discharge Plan: Home Plan to discharge in: 24 Hours Physician Review Additional Text: Impression: Fever of unknown etiology possible viral infection Hallucinations, altered mental status likely secondary to metabolic versus infectious encephalopathy complicated with history of dementia Acute on chronic diastolic CHF Hypokalemia 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 Patient without fever at this time. Patient remained stable. Will continue monitor closely. Will discuss case further with Neurology. Will monitor overnight. Anticipate discharge tomorrow. Hallucinations, altered mental status likely secondary to metabolic versus infectious encephalopathy complicated with history of dementia: Hallucinations no longer present. Patient appears to be at his baseline level. Will continue with his dementia medication. MRI brain/neck unremarkable. MR brain unremarkable. EEG obtained. Echocardiogram unremarkable. Carotid Doppler unremarkable. Will continue with his dementia medication including Aricept 5 mg daily and Namenda 10 mg 1 pill twice daily. Await further recommendations from neurology. Acute on chronic diastolic CHF: Diastolic CHF possible. Will discontinue IV fluids. Will reassess. Hypokalemia: Will continue monitor and replace appropriately. 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 Will monitor closely. This can be further monitored as an outpatient by nephrology Multiple liver cysts, appears chronic: This appears chronic. Liver function tests elevated. CT abdomen and ultrasound negative. Will send for hepatitis panel. Will check Tylenol level. Fibrotic changes to the lung: Will monitor this closely. Right nonobstructing calculi: Overall stable. Will monitor closely. Hypertension: Will continue with his medication of lisinopril 20 mg daily and metoprolol 25 mg 1 pill twice daily. Hyperlipidemia: Will hold Lipitor. CAD: Will continue with aspirin. Time Spent Managing Pts Care (In Minutes): 55
[2017-12-19] MEDS ORDERED: ATORVASTATIN 40 MG TAB PO SCH (21:00)
--- NOTE | 2017-12-19 22:06 | CON ---
Reason For Consultation: Consultation called by Dr. Adorno because of altered mental status. History Of Present Illness: Mr. Rao is an 82-year-old patient, whom I have seen in clinic fo r advanced vascular dementia. The patient was brought in with more confusion, disorientation along w ith a visual hallucination. The patient's daughter is in the room and helped with information. He b april seeing out of his bedroom window, a large white bird. He said the bird looked straight at him, did not seem to be threatening, would not do any kind of communication with him, but it was a large b ird that was obviously not there. He also had some difficulty tying his shoes and was somewhat more disoriented than usual. He was brought in and found to have a fever. The temperature was up to 102. 2. He did not have an elevated white blood cell count and his toxicology screen was negative. Urina lysis did show red blood cells and protein and he does have hepatitis panel pending. His electrolyte panel showed some slight elevation in chloride with mildly elevated AST and ALT to 58 and 95 respect ively. His TSH was normal, cortisol normal, free T4 normal, B12 normal, folate normal, and liver fun ction studies normal. The patient's daughter said that since his hospitalization, he has actually be en back to baseline and the patient himself denies that he has a problem with the bird, but he is abl e to clearly describe what he is seeing. Workup includes head CT scan remarkable for prominent atrop hy and chronic ischemic change that has been present for at least 3 years. Subsequent brain MRI, str heather protocol, again confirmed prominent global cerebral atrophy that is advanced with ventricles in p roportion increase in size and it was not found to be substantially different from the 2016 study. M RA did not show any significant vascular occlusions. Echocardiogram showed ejection fraction 55% wit h some aortic sclerosis, but no stenosis and carotid artery ultrasound showed calcified and noncalcif ied plaque present and there was no however hemodynamically significant stenosis present. Past Medical History: As indicated in addition to hypertension, atrial fibrillation, myocardial infa rction, and recent pneumonia. Surgical History: Coronary artery bypass grafting and stent of heart vessels. Family History: Heart disease in father and brother. Mother had stroke. Social History: No alcohol, tobacco, or IV drug use. The patient resides at home with family includ ing his . Allergies: TO SEDATIVES. Home Medications: Aricept 5 mg daily, Prinivil 20 mg daily, memantine 10 mg twice daily, and metopro lol 25 mg twice daily. Review of Systems: Per the patient's daughter, no recent nausea or vomiting. He has had fevers as indicated, which have resolved. No myalgias, arthralgias, rash, weight change, or headache. No psychiatric issues. No d ermatological issues. No genitourinary issues. No other positives on a 10-point systems review. Physical Examination: Vital Signs: Blood pressure 131/64, pulse of 66, respiratory rate 18, temperature 97.9, weight 178 p ounds, height 5 feet and 10 inches, and BMI 25.6. General: Mr. Rao is resting comfortably. He was actually walking out of the bathroom back t o his bed and came to his room. HEENT: He is normocephalic, atraumatic. His sclerae are anicteric. Oropharynx is moist and pink. Neck: Supple. Chest: Clear. Heart: Regular. Extremities: Show no edema or cyanosis. Neurological: He is alert, oriented to person, situation, but not time and the exact place. He foll ows all commands appropriately. On cranial nerves, he has no focal deficits noted on 2 through 12. On motor examination, he has equal strength in upper and lower extremities with paratonia noted. Sen calvin exam, he has a stocking-glove loss to light touch and temperature in arms and legs. Reflexes ar e increased with palmomental reflexes being noted. His coordination is slow, but intact in the upper and lower extremities. Gait, he has good stance and stride along with arm swing. Assessment: Mr. Rao is an 82-year-old patient with advanced dementia with psychotic features . The patient may not necessarily have to be treated for psychotic features unless the events are lamar rmful to the patient self or to others. At this point, he had a fever, which may have aggravated the psychotic episodes. That has resolved. He does not have any active neurological issues such as str heather or ongoing evidence of any seizures. Plan: 1.Continue with aspirin 81 mg daily. 2.Continue with Lipitor for his dyslipidemia. 3.Continue with Aricept 5 mg daily. May increase to 10 mg daily in clinic. 4.Continue with Prinivil. 5.Continue with memantine 10 mg twice daily and continue with all medications as indicated. 6.May have available Geodon as needed for psychotic features that are harmful and the patient may be discharged home and follow up in Dr. Santos's clinic 1 month later. FLACA Voice ID: [id number] Report ID: [id number]
[2017-12-20] MEDS ORDERED: HYDRALAZINE HCL 20 MG/ML VIAL IV ONE (04:19)
[2017-12-20 07:54] VITALS: TEMP 98.5
--- NOTE | 2017-12-20 09:04 | P.DS ---
Admission Date: 12/18/17 Discharge Date: 12/20/17 Primary Care Provider: Dr. Ferrell; Neurology-Dr. Santos Disposition: ROUTINE DISCHARGE Discharge Condition: GOOD Reason for Admission: Altered mentation Consultations: Neurology-Dr. Santos Procedures: MRI Brain: COMPARISON: CT head 2016, CT head same date TECHNIQUE: Sagittal and axial T1-weighted images were obtained. Axial PD/ heavily T2-weighted and T2-FLAIR images were obtained along with axial DWI/ADC mapping sequences. Coronal heavily T2 weighted sequence obtained. Axial and coronal post-contrast T1-weighted images were also obtained. A 18 ml Multihance contrast following utilized. FINDINGS: No intracranial hemorrhage, mass or acute infarction. There is no edema or shift of midline structures. No extra-axial fluid collections. Redding- matter/white matter junction is preserved. Signal voids are seen as a normal finding in the major intracranial vessels. Patient has advanced atrophy and chronic ischemic change. Ventricles are in proportion to the volume loss. These changes are not substantially different from a 2016 study. Major venous sinuses are patent. Post-contrast images show normal enhancement. No dural thickening. Mastoid air cells and paranasal sinuses are clear. No globe or orbital content acute finding. No sella or supra sella abnormality. Patient has empty sella configuration as a normal variant. IMPRESSION: Prominent atrophy and chronic ischemic change similar to 2016. No acute intracranial finding. MRI/MRA Brain: COMPARISON: None. TECHNIQUE: Axial and coronal 3D [id number] image acquisition was performed. 3D rotational images were generated with source and reconstruction images reviewed. Horizontal and vertical axis rotational views generated using MIP protocol. FINDINGS: Major venous sinuses are patent. No aneurysm or vascular malformation. No basilar or internal carotid artery stenosis. The anterior and middle cerebral artery distribution show no significant findings. Moderate atherosclerotic changes are present throughout the bilateral posterior cerebral artery distributions. Patient has normal variant persistent origin of each internal carotid artery. Small or absent P1 [employer] segments noted. IMPRESSION: No significant intracranial atherosclerotic disease. MRA Neck: COMPARISON: Carotid ultrasound same date TECHNIQUE: Axial and coronal 3D [id number] image acquisition was performed. 3D rotational images were generated with source and reconstruction images reviewed. Horizontal and vertical axis rotational views generated using MIP protocol. FINDINGS: Aortic arch is 3 vessel. Innominate and left subclavian artery origins are well visualized without stenosis. Left subclavian origin is without stenosis. Approximately 2 cm distal to the origin signal loss in the left subclavian artery is noted. This is believed to be a technical artifact rather than stenosis or truncated flow. Vertebral artery origin on the left distal to this flow void shows no suspicious finding. The earlier carotid ultrasound showed no left vertebral artery flow reversal. Bilateral common carotid artery show no significant disease. No significant atherosclerotic change at the origin of either internal carotid artery. From origin to skullbase the internal carotid arteries show no dissection or stenosis. Left vertebral artery is dominant. No acute vertebral artery finding. The small distal right vertebral artery may terminate at the posterior inferior cerebellar artery. No basilar stenosis seen. IMPRESSION: No common carotid or internal carotid artery significant atherosclerotic change. Dominant left vertebral artery with the right vertebral artery probably terminating at the posterior inferior cerebellar artery. The basilar artery abnormality. Signal loss in the left subclavian artery proximal to the vertebral artery origin is believed to be a technical artifact at the edge of the field of view. Sonography showed no evidence of left vertebral flow reversal. Correlation can be made with any significant asymmetry in blood pressure between the upper extremities. Carotid Doppler: COMPARISON: None. TECHNIQUE: Real-time sonographic evaluation of both carotid systems was performed. Redding scale and Doppler interrogation were performed with waveform tracing bilaterally. FINDINGS: Normal high resistance waveforms are noted in both external carotid arteries. The common carotid arteries and internal carotid arteries show normal low resistance waveforms. Calcified plaquing changes are present at the origin of the right internal carotid artery. Noncalcified plaquing seen in the left proximal ICA. On visual inspection no significant luminal narrowing identifiable. No suspicious Doppler waveform pattern. The peak systolic velocity values and the ICA/ CCA ratios all fall within a normal range. Antegrade flow seen in both vertebral arteries. Velocity values and ratios were recorded and are retained in the patient's imaging records. IMPRESSION: Calcified and noncalcified plaquing changes are present in the proximal internal carotid artery's. Based on visual inspection, velocity values and ratios, no hemodynamically significant stenosis is identifiable. Correlation can be made with pending MRA neck examination. No evidence of a hemodynamically significant stenosis. ECHO: LEFT VENTRICULAR WALL MOTION: NORMAL. DOPPLER/COLOR FLOW: NORMAL. COMMENTS: AORTIC SCLEROSIS NO STENOSIS. NORMAL LEFT VENTRICULAR SIZE AND FUNCTION. NO EFFUSION. EJECTION FRACTION 55%. AbUS: COMPARISON: None. FINDINGS: No gallstones, sludge or other abnormalities within the gallbladder lumen. Gallbladder is partially contracted. Patient was not fasting for the examination. The contraction accentuates wall thickness. True wall thickening or edema are doubtful. No pericholecystic fluid. No common duct stone or biliary tree dilatation identified. IMPRESSION: Normal gallbladder and biliary tree ultrasound in a nonfasting patient. CT Scan: COMPARISON: Gallbladder ultrasound December 18. TECHNIQUE: Biphasic, helical CT imaging of the abdomen and pelvis was performed following 100 ml non-ionic IV contrast. Oral contrast was given. All CT scans are performed using dose optimization technique as appropriate and may include automated exposure control or mA/KV adjustment according to patient size. FINDINGS: Fibrotic lung changes are present. Cardiomegaly present without pericardial thickening or effusion. Multiple benign-appearing cysts are present in a normal size liver. No suspicious liver parenchymal lesion. Spleen and pancreas without suspicious findings. No biliary tree dilatation. Punctate gallstones are suspected in the nondependent portion of the gallbladder. Gallbladder was contracted at the time of the ultrasound. Symmetric renal function is seen with no hydronephrosis or suspicious renal mass. Renal cysts are present. Nonobstructing caliceal calculi noted on the right. No urinary bladder abnormality. Prostate gland without acute finding. No gastric dilatation or wall thickening. No dilated small bowel loops. Sigmoid diverticulosis without diverticulitis. No acute colon process seen. No free air , free fluid or inflammatory stranding. No hernia, mass or bulky lymphadenopathy. No adrenal abnormality. Disc and bony degenerative changes are present. No pathologic bone process seen. Prominent vascular calcifications are present. Distal left common iliac artery dilated to 2.3 cm. There is dilatation of the distal right common iliac artery to 1.7 cm. Ectasia of the right internal iliac artery origin. Both femoral artery's are prominent. Left femoral artery is dilated to 19 mm. IMPRESSION: No bowel obstruction, free air or surgically emergent finding. Punctate gallstones are suspected. No gallstones were seen on the earlier ultrasound study; however, the patient was not fully fasting for that study and the gallbladder was partially contracted. No pyelonephritis or acute finding. 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 Patient was disoriented and had a visual hallucination. He apparently saw white large bird at his window. It did not appear threatening. He also had some difficulty tying his shoes. No significant nausea, vomiting, shortness of breath, chest pain, or palpitations noted. Fever was reported at 102. No sick contacts noted. No significant cough, congestion noted. Patient came to the emergency room for further evaluation. White count slightly elevated. Tox screen unremarkable. Urinalysis showed no evidence of a UTI. Chest x-ray showed no evidence of pneumonia. Slight elevation in AST. Patient admitted for further evaluation. Hospital Course: Patient seen for fever, visual hallucinations and altered mental status. Patient has complicated history of dementia, chronic renal disease, hypertension , hyperlipidemia, CAD and CHF. Patient was admitted for further evaluation. Urinalysis unremarkable. Chest x-ray showed no evidence of pneumonia. Influenza test negative. Strep test negative. Blood cultures negative. Abdominal ultrasound and CT scan of the abdomen showed no acute GI abnormality. Patient has renal cysts, liver cysts, and right nonobstructing calculi. MRI brain showed no acute stroke. MRI/MRA of brain and neck showed no acute or significant stenosis. Carotid Doppler shows some plaque but no significant stenosis. Echocardiogram showed normal ejection fraction at 55%. Patient was monitored overnight. Patient appeared slightly dehydrated. Patient received IV fluids. Fever resolved. Patient back to his baseline. Patient was evaluated by a neurology. Neurology suspects that the patient has advanced dementia with psychotic features. Fever likely provoked hallucinations. Fever likely viral. No need for antibiotics at this time. Patient may take Tylenol as needed for fever. No significant intervention recommended at this time. At discharge neurology recommended for the patient to continue with aspirin 81 mg daily, Lipitor 10 mg daily, Aricept 5 mg daily, Namenda 10 mg 1 pill twice daily. Recommendation for the patient follow up with neurology in 2-4 weeks to monitor his progress. Aricept may need to be increased as an outpatient. Patient may required Geodon as needed for psychotic features. Both medications can be further addressed by neurology as an outpatient. Recommendations the patient follow up with his PCP in 1 week to follow up this hospitalization. Patient has atrial fibrillation not on chronic anti coagulation, carotid arterial disease and CAD. Echocardiogram shows ejection fraction 55%. CT scan revealed distal left common iliac dilation. Left femoral artery also dilated. This can be further addressed and monitored as an outpatient by Cardiology. Carotid Doppler showed plaque but no significant stenosis. Patient will continue Lipitor 10 mg daily and aspirin 81 mg daily for prevention of CVA/[place]. Patient not on chronic anti coagulation therapy due to risk of fall and bleeding. Recommendation for the patient follow up with cardiology to further monitor and address. Patient has hypertension. Patient will continue with his medications of lisinopril 20 mg daily and metoprolol 25 mg 1 pill twice daily. Recommendation is to maintain blood pressures less 150/80. Further adjustment can be done by his PCP. Patient has hyperlipidemia. Patient will continue with Lipitor 10 mg daily for prevention of CVA. Recommendation is to monitor his liver function tests as an outpatient as this was slightly elevated likely from dehydration. Recommendation to recheck CMP in 1 week to monitor his progress. Patient has fibrotic lung changes noted on CT scan. Patient with history of bilateral pneumonia. This can be further followed up as an outpatient. Patient may benefit with pulmonology referral as an outpatient to further address. Patient with multiple liver cysts. LFTs slightly elevated. Recommendation to monitor liver function tests as an outpatient. Recommendation is to follow up with GI in the future to further evaluate. Hepatitis panel pending at discharge. This can be followed up by his PCP. Patient with renal cysts with history of chronic renal disease stage II. Recommendations for the patient follow up with nephrology as an outpatient to further evaluate. Recommendation to recheck lab-CMP in 1 week to monitor his progress. Vital Signs/Physical Exam: Temp Pulse Resp BP Pulse Ox 98.5 F 63 16 167/79 H 95 12/20/17 04:00 12/20/17 05:30 12/20/17 04:00 12/20/17 05:30 12/20/17 04:00 General: Alert, In no apparent distress, Cooperative, Demented HEENT: Atraumatic Neck: Supple Respiratory: Clear to auscultation bilaterally, Normal air movement Cardiovascular: Normal pulses, Regular rate/rhythm Gastrointestinal: Normal bowel sounds, Soft and benign, Non-distended, No tenderness, No masses, No rebound, No guarding Musculoskeletal: No erythema, No tenderness, No warmth Integumentary: No tenderness/swelling, No erythema, No warmth, No cyanosis Neurological: Normal speech, Normal strength at 5/5 x4 extr, Normal tone, Normal affect Laboratory Data at Discharge: WBC 7.1 K/uL (4.3-10.9) 12/19/17 05:30 Hgb 13.0 g/dL (13.6-17.9) L 12/19/17 05:30 Hct 37.2 % (39.6-49.0) L 12/19/17 05:30 Plt Count 113 K/uL (152-406) L 12/19/17 05:30 Sodium 144 mmol/L (136-145) 12/19/17 05:30 Potassium 3.3 mmol/L (3.5-5.1) L 12/19/17 05:30 BUN 11 mg/dL (7-18) 12/19/17 05:30 Creatinine 0.90 mg/dL (0.55-1.3) 12/19/17 05:30 Glucose 122 mg/dL (74-106) H 12/19/17 05:30 Total Bilirubin 1.2 mg/dL (0.2-1.0) H 12/19/17 05:30 AST 58 U/L (15-37) H 12/19/17 05:30 ALT 95 U/L (12-78) H 12/19/17 05:30 Alkaline Phosphatase 87 U/L (45-117) 12/19/17 05:30 Triglycerides Cancelled 12/19/17 06:24 Cholesterol Cancelled 12/19/17 06:24 HDL Cholesterol Cancelled 12/19/17 06:24 Cholesterol/HDL Ratio Cancelled 12/19/17 06:24 Lipase 82 U/L (73-393) 12/18/17 18:15 Home Medications: Donepezil [Aricept*] 5 mg PO DAILY 12/19/17 Lisinopril [Prinivil*] 20 mg PO DAILY 12/19/17 Memantine HCl 10 mg PO BID 12/19/17 Metoprolol Tartrate [Lopressor*] 25 mg PO BID 12/19/17 Aspirin [Aspirin EC 81 MG] 81 mg PO DAILY #90 tablet 12/20/17 Atorvastatin Calcium [Lipitor] 10 mg PO BEDTIME #30 tab 12/20/17 New Medications: Aspirin [Aspirin EC 81 MG] 81 mg PO DAILY #90 tablet. Atorvastatin Calcium [Lipitor] 10 mg PO BEDTIME #30 tab Patient Discharge Instructions: 1. Patient will need a follow up with PCP in 1 week to follow up this hospitalization. 2. Patient seen for fever, visual hallucinations and altered mental status. Patient has complicated history of dementia, chronic renal disease, hypertension, hyperlipidemia, CAD and CHF. Patient was admitted for further evaluation. Urinalysis unremarkable. Chest x- ray showed no evidence of pneumonia. Influenza test negative. Strep test negative. Blood cultures negative. Abdominal ultrasound and CT scan of the abdomen showed no acute GI abnormality. Patient has renal cysts, liver cysts, and right nonobstructing calculi. MRI brain showed no acute stroke. MRI/MRA of brain and neck showed no acute or significant stenosis. Carotid Doppler shows some plaque but no significant stenosis. Echocardiogram showed normal ejection fraction at 55%. Patient was monitored overnight. Patient appeared slightly dehydrated. Patient received IV fluids. Fever resolved. Patient back to his baseline. Patient was evaluated by a neurology. Neurology suspects that the patient has advanced dementia with psychotic features. Fever likely provoked hallucinations. Fever likely viral. No need for antibiotics at this time. Patient may take Tylenol as needed for fever. No significant intervention recommended at this time. At discharge neurology recommended for the patient to continue with aspirin 81 mg daily, Lipitor 10 mg daily, Aricept 5 mg daily, Namenda 10 mg 1 pill twice daily. Recommendation for the patient follow up with neurology in 2-4 weeks to monitor his progress. Aricept may need to be increased as an outpatient. Patient may required Geodon as needed for psychotic features. Both medications can be further addressed by neurology as an outpatient. Recommendations the patient follow up with his PCP in 1 week to follow up this hospitalization. 3. Patient has atrial fibrillation not on chronic anti coagulation, carotid arterial disease and CAD. Echocardiogram shows ejection fraction 55%. CT scan revealed distal left common iliac dilation. Left femoral artery also dilated. This can be further addressed and monitored as an outpatient by Cardiology. Carotid Doppler showed plaque but no significant stenosis. Patient will continue Lipitor 10 mg daily and aspirin 81 mg daily for prevention of CVA/[place]. Patient not on chronic anti coagulation therapy due to risk of fall and bleeding. Recommendation for the patient follow up with cardiology to further monitor and address. 4. Patient has hypertension. Patient will continue with his medications of lisinopril 20 mg daily and metoprolol 25 mg 1 pill twice daily. Recommendation is to maintain blood pressures less 150/80. Further adjustment can be done by his PCP. 5. Patient has hyperlipidemia. Patient will continue with Lipitor 10 mg daily for prevention of CVA. Recommendation is to monitor his liver function tests as an outpatient as this was slightly elevated likely from dehydration. Recommendation to recheck CMP in 1 week to monitor his progress. 6. Patient has fibrotic lung changes noted on CT scan. Patient with history of bilateral pneumonia. This can be further followed up as an outpatient. Patient may benefit with pulmonology referral as an outpatient to further address. 7. Patient with multiple liver cysts. LFTs slightly elevated. Recommendation to monitor liver function tests as an outpatient. Recommendation is to follow up with GI in the future to further evaluate. Hepatitis panel pending at discharge. This can be followed up by his PCP. 8. Patient with renal cysts with history of chronic renal disease stage II. Recommendations for the patient follow up with nephrology as an outpatient to further evaluate. Recommendation to recheck lab-CMP in 1 week to monitor his progress. Diet: AHA Activity: Fall precautions Time spent managing pt's care (in minutes): 55
[2017-12-20] MEDS: MEMANTINE HCL 10 MG TABLET PO SCH (09:08)
[2017-12-20] MEDS: ASPIRIN EC 81 MG TAB PO SCH (09:08)
[2017-12-20] MEDS: METOPROLOL TAR 50 MG TAB PO SCH (09:09)
[2017-12-20] MEDS: LISINOPRIL 20 MG TAB PO SCH (09:09)
[2017-12-20 09:11] VITALS: BP 174/85
[2017-12-20] MEDS: DONEPEZIL HCL 5 MG TAB PO SCH (09:14)
[2017-12-22 03:32] LABS: HBsAG Nonreactive (Nonreactive); Hepatitis A IgM Antibody Nonreactive
--- NOTE | 2017-12-24 14:27 | EEG ---
CHART: [id number] TEST ID#: [id number] DATE OF STUDY: 12/19/17 THE EEG WAS RECORDED PORTABLE IN THE PATIENTS ROOM ON A 17 CHANNEL MACHINE. ELECTRODES WERE APPLIED IN THE USUAL MANNER USING THE INTERNATIONAL 10-20 SYSTEM. THE WAKING BACKGROUND RHYTHM IN THIS RECORD CONSISTS OF FAIRLY WELL DEVELOPED AND FAIRLY WELL ORGANIZED WAVES OF 10 HZ., MAXIMAL IN THE POSTERIOR HEAD REGIONS WHICH ATTENUATE NORMALLY WITH EYE OPENING. LOW-VOLTAGE 18-22 HZ ACTIVITY IS EXPRESSED IN ALL REGIONS. THERE ARE NO FOCAL OR LATERALIZING FEATURES. NO EPILEPTIFORM ACTIVITY APPEARS. SLEEP DID NOT OCCUR. HYPERVENTILATION WAS NOT PREFORMED. PHOTIC STIMULATION PRODUCED FAIR DRIVING BILATERALLY. IMPRESSION: NORMAL EEG FOR THE AGE OF THE PATIENT IN [place].
== END 2017-12-20 10:10 | disposition home or self-care (01) ==
LOC: ER 17:34 → ERHOLD 22:38 → 2ND 23:07
PROVIDERS: ADMIT Hospitalist; ATTEND Hospitalist
DX: R50.9 Fever, unspecified (principal); R44.1 Visual hallucinations; R41.82 Altered mental status, unspecified; I13.0 Hypertensive heart and chronic kidney disease with heart failure and stage 1 through stage 4 chronic kidney disease, or unspecified chronic kidney disease; N18.2 Chronic kidney disease, stage 2 (mild); I50.22 Chronic systolic (congestive) heart failure; E87.6 Hypokalemia; K76.89 Other specified diseases of liver; N20.0 Calculus of kidney; J84.10 Pulmonary fibrosis, unspecified; E78.5 Hyperlipidemia, unspecified; I48.91 Unspecified atrial fibrillation; I25.10 Atherosclerotic heart disease of native coronary artery without angina pectoris; I25.2 Old myocardial infarction; Z95.1 Presence of aortocoronary bypass graft; Z95.5 Presence of coronary angioplasty implant and graft
CPT/HCPCS: 36415; 51702; 70450; 70544; 70549; 70553; 71045; 74177; 76705; 80048; 80053; 80061; 80074; 80076; 80329; 82533; 82607; 82746; 83605 ×2; 83690; 83880; 84145; 84439; 84443; 84484; 85025 ×2; 87040 ×2; 87070; 87081; 87086; 87804 ×2; 93005; 93306; 93880; 95819; 96361; 96365; 96368; 96375; 97163; 99285; A9577; G0378 ×2; J0360; J2405; J2543; J3370; J7030; Q9967; 81003; 81015; 87088

== ENCOUNTER 2018-04-23 16:45 | Inpatient (IN) | payer OTHER ==
--- NOTE | 2018-04-23 17:30 | ER ---
Nurse's Notes [facility] Name: Sudarshan Rao Age: 82 yrs Sex: Male : 1935 Arrival Date: 04/23/2018 Time: 16:46 Bed 16 Private MD: Diagnosis: Syncope and collapse;Atrial fibrillation and flutter;Pneumonia due to other specified bacteria;Cardiomegaly;Elevated white blood cell count Presentation: 04/23 16:57 Presenting complaint: Child states: He has a history of Alzheimer's but Frieda noticed sg today that he is not as alert as he normally is, he is very drowsy and when I ask him what is wrong he reports that he doesn't know, pt daughter reports that he had recently had a history of sepsis with double pneumonia back in 2016, so Im not sure if anything is happening with that or what exactly. Also, today around lunch he got really pale and diaphoretic and just didn't look right, so I checked his BP and it was reading 109/60's which is really low for him so that's concerning as well. Transition of care: patient was not received from another setting of care. Onset of symptoms was April 23, 2018. Risk Assessment: Do you want to hurt yourself or someone else? Patient reports no desire to harm self or others. Initial Sepsis Screen: Does the patient meet any 2 criteria? No. Patient's initial sepsis screen is negative. Does the patient have a suspected source of infection? No. Patient's initial sepsis screen is negative. Care prior to arrival: None. 16:57 Method Of Arrival: Ambulatory 16:57 Acuity: STACEY 3 sg Historical: - Allergies: 17:01 sedatives; causes agitation; sg - PMHx: 17:01 Atrial Fib; CHF; Myocardial infarction; organic dementia; Pneumonia; Sepsis; Sleep sg Apnea; - Immunization history:: Adult Immunizations up to date. - Social history:: Smoking status: Patient/guardian denies using tobacco. - Ebola Screening: : Patient negative for fever greater than or equal to 101.5 degrees Fahrenheit, and additional compatible Ebola Virus Disease symptoms Patient denies exposure to infectious person Patient denies travel to an Ebola-affected area in the 21 days before illness onset No symptoms or risks identified at this time. - Family history:: not pertinent. Screenin:05 Abuse screen: No signs of abuse noted. aa5 17:05 Nutritional screening: No deficits noted. Tuberculosis screening: No symptoms or risk aa5 factors identified. Fall Risk Secondary diagnosis (15 points) Alzheimer's, IV access (20 points). Mental Status- Overestimates/Forgets Limitations (15 pts.). Total Glass Fall Scale indicates High Risk Score (45 or more points). Fall prevention measures have been instituted. Side Rails Up X 2. Assessment: 17:05 General: Appears comfortable, Behavior is calm, cooperative. Pain: Denies pain. Neuro: aa5 Level of Consciousness is awake, obeys commands, confused, Oriented to person, Biology Professor are weak bilaterally Moves all extremities. Speech is normal, Facial symmetry appears normal, Pupils are PERRLA. Cardiovascular: Heart tones S1 S2 present Rhythm is regular. Respiratory: Airway is patent Respiratory effort is even, unlabored, Respiratory pattern is regular, symmetrical, Breath sounds are clear bilaterally. Breath sounds are diminished in left posterior lower lobe, right posterior middle lobe and right posterior lower lobe. GI: Abdomen is round non-distended, Bowel sounds present X 4 quads. Abd is soft and non tender X 4 quads. : No signs and/or symptoms were reported regarding the genitourinary system. EENT: No signs and/or symptoms were reported regarding the EENT system. Derm: Skin is pink, warm \T\ dry. Musculoskeletal: Range of motion: intact in all extremities. 18:00 Neuro: Level of Consciousness is awake, obeys commands, confused, Oriented to person. aa5 Respiratory: Airway is patent Respiratory effort is even, unlabored, Respiratory pattern is regular, symmetrical. Derm: Skin is pink, warm \T\ dry. 19:20 General: Appears in no apparent distress. comfortable, Behavior is calm, cooperative. ao Pain: Denies pain. Neuro: Level of Consciousness is awake, obeys commands, confused, Oriented to person, Biology Professor are weak bilaterally Moves all extremities. Full function Speech is normal, Facial symmetry appears normal, Pupils are PERRLA. Cardiovascular: Heart tones S1 S2 present Rhythm is regular. Respiratory: Airway is patent Respiratory effort is even, unlabored, Respiratory pattern is regular, symmetrical, Breath sounds are clear Breath sounds are diminished. GI: Abdomen is round non-distended, Bowel sounds present X 4 quads. : No signs and/or symptoms were reported regarding the genitourinary system. EENT: No signs and/or symptoms were reported regarding the EENT system. Derm: Skin is pink, warm \T\ dry. normal. Musculoskeletal: Range of motion: intact in all extremities. 20:29 Reassessment: Received an verbal order from Dr He as the hospitalist doctor to ao medicate patient with Ativan 1 mg X2 if needed since patient wasn't able stay still on MRI. 21:30 Reassessment: Patient was brought back from MRI. radio tower technician stated that patient got more ao agitated after Ativan given and was not able to finish MRI. Patient is constant trying to get out of bed. Pt seem confused but is not violent at this time. Significant other at bedside trying to help relax patient. Dr He was notified. 22:50 Reassessment: Pt is waiting on a sitter to be taken to his room. Will wait for orders ao from guest house manager. 23:04 Reassessment: Patient appears in no apparent distress at this time. Patient sleeping ao with no ss of distress. Patient in front of nursing station. 23:06 Reassessment: Patient appears in no apparent distress at this time. Patient still ao anxious trying to get out of bed. Pt is in close observations in front of nursing station. 23:57 Reassessment: Report was given to KENRICK Blackwell. Pt to be taking to his room. ao Vital Signs: 16:59 BP 148 / 77; Pulse 71; Resp 16; Temp 98.2; Pulse Ox 98% on R/A; Weight 97.52 kg; Pain sg 0/10; 19:35 BP 154 / 78; Pulse 71; Resp 22; Temp 99.0(O); Pulse Ox 98% on R/A; Pain 0/10; ao 20:20 BP 147 / 69; Pulse 71; Resp 18; Pulse Ox 98% ; Pain 0/10; ao 21:30 BP 134 / 85; Pulse 82; Resp 18; Pulse Ox 98% on R/A; ao 22:45 BP 127 / 77; Pulse 84; Resp 18; Pulse Ox 100% on R/A; Pain 0/10; ao ED Course: 16:46 Patient arrived in ED. as 16:52 Lorraine Mosley RN is Primary Nurse. aa5 16:57 Noah Baker MD is Attending Physician. jose 16:59 Triage completed. sg 17:01 Arm band placed on. sg 17:05 Patient has correct armband on for positive identification. Placed in gown. Bed in low aa5 position. Call light in reach. Side rails up X2. school lunch monitor on. Pulse ox on. NIBP on. 17:29 Diane Banegas MD is Hospitalizing Provider. jose 17:29 EKG done, by radio tower technician. reviewed by Noah Baker MD. 3 17:30 Missed attempt(s): 22 gauge in left forearm. Bleeding controlled, band aid applied, aa5 catheter tip intact. 17:35 Initial lab(s) drawn, by dc, sent to lab. Inserted saline lock: 22 gauge in right aa5 forearm, using aseptic technique. Blood collected. 17:55 CT Head Brain wo Cont In Process Unspecified. EDMS 18:38 XRAY Chest (1 view) In Process Unspecified. EDMS 18:38 Urine collected: urina,l 40 cc, lali. 3 19:00 Report given to KENRICK Rolon. aa5 22:55 No provider procedures requiring assistance completed. ao 04/24 00:02 Patient admitted, IV remains in place. ao Administered Medications: 03 17:50 Drug: NS 0.9% 1000 ml Route: IV; Rate: 125 ml/hr; Site: right forearm; aa5 19:15 Drug: Zosyn 3.375 grams Route: IVPB; Infused Over: 60 mins; Site: right forearm; ao 21:35 Follow up: IV Status: Completed infusion ao 20:00 Drug: Ativan 1 mg Route: IVP; Site: right forearm; ao 21:35 Follow up: Response: Anxiety increased ao 20:38 Drug: Ativan 1 mg Route: IVP; Site: right forearm; ao 21:35 Follow up: Response: Anxiety increased ao 21:17 Drug: Zithromax 500 mg Route: IVPB; Infused Over: 1 hrs; Site: right forearm; ao 21:35 Follow up: IV Status: Completed infusion ao Outcome: 17:30 Decision to Hospitalize by Provider. jose 23:59 Admitted to Med/surg accompanied by tech, room 214. ao 23:59 Condition: stable 23:59 Instructed on the need for admit. 04/24 00:21 Patient left the ED. ao Signatures: Dispatcher [employer] Bruce Queen RN RN sg Anderson, Corey, MD MD cha Martinez, Amelia as Calderon, Audri, RN RN aa5 Gonzales Haskins RN RN ao Herrera, Paola 3 Priscilla Petty 3
--- NOTE | 2018-04-23 17:30 | EDPHYS ---
Physician Documentation [facility] Name: Sudarshan Rao Age: 82 yrs Sex: Male : 1935 Arrival Date: 04/23/2018 Time: 16:46 Bed 16 Private MD: ED Physician Noah Baker HPI: 04/23 17:16 This 82 yrs old Male presents to ER via Ambulatory with complaints of jose Decreased Appetite, Dizziness. 17:16 The patient presents with dizziness, feeling faint. Onset: The symptoms/episode jose began/occurred just prior to arrival. Context: occurred while the patient was at rest. Modifying factors: The symptoms are alleviated by nothing, the symptoms are aggravated by nothing. Associated signs and symptoms: The patient has no apparent associated signs or symptoms. Severity of symptoms: At their worst the symptoms were mild moderate in the emergency department the symptoms have improved moderately. Patient's baseline: Neuro:. The patient has not experienced similar symptoms in the past. Historical: - Allergies: 17:01 sedatives; causes agitation; sg - PMHx: 17:01 Atrial Fib; CHF; Myocardial infarction; organic dementia; Pneumonia; Sepsis; Sleep sg Apnea; - Immunization history:: Adult Immunizations up to date. - Social history:: Smoking status: Patient/guardian denies using tobacco. - Ebola Screening: : Patient negative for fever greater than or equal to 101.5 degrees Fahrenheit, and additional compatible Ebola Virus Disease symptoms Patient denies exposure to infectious person Patient denies travel to an Ebola-affected area in the 21 days before illness onset No symptoms or risks identified at this time. - Family history:: not pertinent. ROS: 17:17 Constitutional: Negative for fever, chills, and weight loss, Eyes: Negative for injury, jose pain, redness, and discharge, ENT: Negative for injury, pain, and discharge, Neck: Negative for injury, pain, and swelling, Cardiovascular: Negative for chest pain, palpitations, and edema, Respiratory: Negative for shortness of breath, cough, wheezing, and pleuritic chest pain, Abdomen/GI: Negative for abdominal pain, nausea, vomiting, diarrhea, and constipation, Back: Negative for injury and pain, : Negative for injury, bleeding, discharge, and swelling, MS/Extremity: Negative for injury and deformity, Skin: Negative for injury, rash, and discoloration, Psych: Negative for depression, anxiety, suicide ideation, homicidal ideation, and hallucinations, Allergy/Immunology: Negative for hives, rash, and allergies, Endocrine: Negative for neck swelling, polydipsia, polyuria, polyphagia, and marked weight changes, Hematologic/Lymphatic: Negative for swollen nodes, abnormal bleeding, and unusual bruising. 17:17 Neuro: Positive for near syncope, weakness. Exam: 17:17 Constitutional: This is a well developed, well nourished patient who is awake, alert, jose and in no acute distress. Head/Face: Normocephalic, atraumatic. Eyes: Pupils equal round and reactive to light, extra-ocular motions intact. Lids and lashes normal. Conjunctiva and sclera are non-icteric and not injected. Cornea within normal limits. Periorbital areas with no swelling, redness, or edema. ENT: Nares patent. No nasal discharge, no septal abnormalities noted. Tympanic membranes are normal and external auditory canals are clear. Oropharynx with no redness, swelling, or masses, exudates, or evidence of obstruction, uvula midline. Mucous membranes moist. Neck: Trachea midline, no thyromegaly or masses palpated, and no cervical lymphadenopathy. Supple, full range of motion without nuchal rigidity, or vertebral point tenderness. No Meningismus. Chest/axilla: Normal chest wall appearance and motion. Nontender with no deformity. No lesions are appreciated. Cardiovascular: Regular rate and rhythm with a normal S1 and S2. No gallops, murmurs, or rubs. Normal PMI, no JVD. No pulse deficits. Respiratory: Lungs have equal breath sounds bilaterally, clear to auscultation and percussion. No rales, rhonchi or wheezes noted. No increased work of breathing, no retractions or nasal flaring. Abdomen/GI: Soft, non-tender, with normal bowel sounds. No distension or tympany. No guarding or rebound. No evidence of tenderness throughout. Back: No spinal tenderness. No costovertebral tenderness. Full range of motion. Male : Normal genitalia with no discharge or lesions. Skin: Warm, dry with normal turgor. Normal color with no rashes, no lesions, and no evidence of cellulitis. MS/ Extremity: Pulses equal, no cyanosis. Neurovascular intact. Full, normal range of motion. Neuro: Awake and alert, GCS 15, oriented to person, place, time, and situation. Cranial nerves II-XII grossly intact. Motor strength 5/5 in all extremities. Sensory grossly intact. Cerebellar exam normal. Normal gait. Psych: Awake, alert, with orientation to person, place and time. Behavior, mood, and affect are within normal limits. 17:17 Cardiovascular: Rate: normal, Rhythm: irregularly irregular, Pulses: Pulses are 4+ in bilateral radial, brachial, femoral, popliteal, posterior tibial and and dorsalis pedis arteries.. Heart sounds: normal, Edema: is not appreciated, JVD: is not appreciated. Vital Signs: 16:59 BP 148 / 77; Pulse 71; Resp 16; Temp 98.2; Pulse Ox 98% on R/A; Weight 97.52 kg; Pain sg 0/10; 19:35 BP 154 / 78; Pulse 71; Resp 22; Temp 99.0(O); Pulse Ox 98% on R/A; Pain 0/10; ao 20:20 BP 147 / 69; Pulse 71; Resp 18; Pulse Ox 98% ; Pain 0/10; ao 21:30 BP 134 / 85; Pulse 82; Resp 18; Pulse Ox 98% on R/A; ao 22:45 BP 127 / 77; Pulse 84; Resp 18; Pulse Ox 100% on R/A; Pain 0/10; ao MDM: 16:58 Patient medically screened. [facility] 17:18 Data reviewed: vital signs, nurses notes, lab test result(s), EKG, radiologic studies, [facility] CT scan, plain films. 04/23 17:16 Order name: Basic Metabolic Panel [facility] 04/23 17:16 Order name: CBC with Diff [facility] 04/23 17:16 Order name: LFT's; Complete Time: 18:30 [facility] 04/23 17:16 Order name: Magnesium; Complete Time: 18:30 [facility] 04/23 17:16 Order name: NT PRO-BNP; Complete Time: 18:30 [facility] 04/23 17:16 Order name: PT-INR; Complete Time: 18:11 [facility] 04/23 17:16 Order name: Troponin (emerg Dept Use Only); Complete Time: 18:30 [facility] 04/23 17:16 Order name: Lipase; Complete Time: 18:30 [facility] 04/23 17:16 Order name: TSH; Complete Time: 18:30 [facility] 04/23 17:16 Order name: Blood Culture Adult (2) [facility] 04/23 17:16 Order name: Procalcitonin; Complete Time: 18:30 [facility] 04/23 17:17 Order name: Basic Metabolic Panel; Complete Time: 18:30 [facility] 04/23 17:57 Order name: CBC Smear Scan [facility] 04/23 18:39 Order name: Urine Culture dh3 04/23 17:16 Order name: XRAY Chest (1 view) [facility] 04/23 17:16 Order name: EKG; Complete Time: 17:17 [facility] 04/23 17:16 Order name: Cardiac monitoring; Complete Time: 17:51 [facility] 04/23 17:16 Order name: EKG - Nurse/Tech; Complete Time: 17:51 [facility] 04/23 17:16 Order name: CT Head Brain wo Cont; Complete Time: 18:11 [facility] 04/23 18:47 Order name: MRA Head Wo Cont [facility] 04/23 18:47 Order name: Brain W/Wo Cont [facility] 04/23 18:47 Order name: MRA Neck W/Wo Cont [facility] 04/23 18:54 Order name: Urine Dipstick--Ancillary (enter results) 04/23 18:56 Order name: Urine Dipstick-Ancillary [facility] 04/23 17:16 Order name: IV Saline Lock; Complete Time: 17:51 [facility] 04/23 17:16 Order name: Labs collected and sent; Complete Time: 17:51 [facility] 04/23 17:16 Order name: O2 Per Protocol; Complete Time: 17:51 [facility] 04/23 17:16 Order name: O2 Sat Monitoring; Complete Time: 17:51 [facility] Administered Medications: 17:50 Drug: NS 0.9% 1000 ml Route: IV; Rate: 125 ml/hr; Site: right forearm; aa5 19:15 Drug: Zosyn 3.375 grams Route: IVPB; Infused Over: 60 mins; Site: right forearm; ao 21:35 Follow up: IV Status: Completed infusion ao 20:00 Drug: Ativan 1 mg Route: IVP; Site: right forearm; ao 21:35 Follow up: Response: Anxiety increased ao 20:38 Drug: Ativan 1 mg Route: IVP; Site: right forearm; ao 21:35 Follow up: Response: Anxiety increased ao 21:17 Drug: Zithromax 500 mg Route: IVPB; Infused Over: 1 hrs; Site: right forearm; ao 21:35 Follow up: IV Status: Completed infusion ao Disposition: 04/23/18 17:30 Hospitalization ordered by Diane Banegas for Inpatient Admission. Preliminary diagnosis are Syncope and collapse, Atrial fibrillation and flutter, Pneumonia due to other specified bacteria, Cardiomegaly, Elevated white blood cell count. - Bed requested for Telemetry/MedSurg (Inpatient). - Status is Inpatient Admission. ao - Condition is Fair. - Problem is new. - Symptoms have improved. UTI on Admission? No Signatures: Dispatcher [employer] EDDC Bruce Nick RN RN sg Noah Baker MD MD cha Calderon, Audri RN RN aa5 Idalmis Rome RN RN cg Ortiz, Alex, RN RN ao Corrections: (The following items were deleted from the chart) 17:30 17:30 Hospitalization Ordered by Diane Banegas MD for Observation. Preliminary jose diagnosis is Syncope and collapse. Bed requested for Telemetry/MedSurg (observation). Status is Observation. Condition is Fair. Problem is new. Symptoms have improved. UTI on Admission? No. jose 18:14 17:30 04/23/2018 17:30 Hospitalization Ordered by Diane Banegas MD for Observation. jose Preliminary diagnosis is Syncope and collapse; Atrial fibrillation and flutter. Bed requested for Telemetry/MedSurg (observation). Status is Observation. Condition is Fair. Problem is new. Symptoms have improved. UTI on Admission? No. jose 18:32 18:14 04/23/2018 17:30 Hospitalization Ordered by Diane Banegas MD for Inpatient jose Admission. Preliminary diagnosis is Syncope and collapse; Atrial fibrillation and flutter; Pneumonia due to other specified bacteria. Bed requested for Telemetry/MedSurg (Inpatient). Status is Inpatient Admission. Condition is Fair. Problem is new. Symptoms have improved. UTI on Admission? No. jose 18:47 18:32 Stroke Protocol ordered. [facility] 20:04 18:32 04/23/2018 17:30 Hospitalization Ordered by Diane Banegas MD for Inpatient cg Admission. Preliminary diagnosis is Syncope and collapse; Atrial fibrillation and flutter; Pneumonia due to other specified bacteria; Cardiomegaly; Elevated white blood cell count. Bed requested for Telemetry/MedSurg (Inpatient). Status is Inpatient Admission. Condition is Fair. Problem is new. Symptoms have improved. UTI on Admission? No. jose 23:55 17:16 Urine Dipstick-Ancillary ordered. jose ao 04/24 00:21 04/23 20:04 04/23/2018 17:30 Hospitalization Ordered by Diane Banegas MD for Inpatient ao Admission. Preliminary diagnosis is Syncope and collapse; Atrial fibrillation and flutter; Pneumonia due to other specified bacteria; Cardiomegaly; Elevated white blood cell count. Bed requested for Telemetry/MedSurg (Inpatient). Status is Inpatient Admission. Condition is Fair. Problem is new. Symptoms have improved. UTI on Admission? No.
[2018-04-23 17:51] LABS: Absolute Monocytes 1.2 K/uL (0.1-1.3); Absolute Neutrophil 16.2 K/uL (1.8-8.0); Basophils % 0.3 % (0-1.3); Eosinophils % 0.1 % (0-4.4); Hematocrit 43.8 % (39.6-49.0); Lymphocytes % 5.2 % (15.3-44.8); MPV 9.2 fL (7.6-11.3); Monocytes % 6.5 % (3.3-12.3); RBC Red Blood Cell Count 4.84 M/uL (4.33-5.43)
[2018-04-23 17:54] LABS: Protime INR 1.17
[2018-04-23] MEDS ORDERED: NA CHLORIDE 0.9% 1,000 ML ONE (17:59)
--- NOTE | 2018-04-23 18:02 | RAD REPORT ---
EXAM DESCRIPTION: CT - Head Brain Wo Cont - 04/23/2018 5:54 pm CLINICAL HISTORY: Dizziness, weakness, syncope COMPARISON: December 2017 TECHNIQUE: Axial 5 mm thick images of the head were obtained without IV contrast. All CT scans are performed using dose optimization technique as appropriate and may include automated exposure control or mA/KV adjustment according to patient size. FINDINGS: No intracranial hemorrhage, mass, edema or shift of mid-line structures. No acute cortical based infarction. No cortical edema or sulcal effacement. Advanced atrophy and chronic ischemic emerson ges are present not substantially different from comparison. Old infarction change seen near the ante rior limb left internal capsule. No abnormal extra-axial fluid collections. Ventricles are in proport ion to volume loss. Arterial calcifications are present. Mastoid air cells and visualized portions of the paranasal sinuses are clear. No acute bony findings. IMPRESSION: No hemorrhage, mass or acute intracranial finding. No cortical based infarction seen. Patient has advanced atrophy and chronic ischemic change. The conversion man bogdan ischemic change can potentially mask nonhemorrhagic CVA.
[2018-04-23 18:17] LABS: ALT/SGPT 29 U/L (12-78); AST/SGOT 25 U/L (15-37); Albumin 3.6 g/dL (3.4-5.0); Alkaline Phosphatase 87 U/L (45-117); BUN Blood Urea Nitrogen 14 mg/dL (7-18); Bicarbonate 26 mmol/L (21-32); Bilirubin Direct 0.5 mg/dL (0-0.2); Bilirubin Total 1.6 mg/dL (0.2-1.0); Glucose Level 142 mg/dL (74-106); Lipase 62 U/L (73-393); Magnesium 1.9 mg/dL (1.8-2.4); NT PRO-BNP 8248 pg/mL (<450); Potassium 3.8 mmol/L (3.5-5.1); Protein, Total 7.3 g/dL (6.4-8.2); Sodium Level 140 mmol/L (136-145); Troponin (Emerg Dept Use Only) < 0.02 ng/mL (0.0-0.045)
[2018-04-23] MEDS: CEFTRIAXONE/SWI 1gm 1 GM/10 ML SYR IVP SCH (18:45)
[2018-04-23 18:46] LABS: Blood Morphology Comment NOT SEEN (NOT SEEN); Platelet Estimate ADEQ; Urine White Blood Cell Casts OK
[2018-04-23 18:56] LABS: Urine Blood TRACE (NEG); Urine Glucose NEGATIVE (NEG); Urine Protein 1+ (NEG)
--- NOTE | 2018-04-23 18:56 | RAD REPORT ---
EXAM DESCRIPTION: RAD - Chest Single View - 04/23/2018 6:34 pm CLINICAL HISTORY: Cough, altered mental status COMPARISON: December 2017 TECHNIQUE: AP portable chest image was obtained 1745 hours . FINDINGS: Lungs are fibrotic as a baseline. Interstitial and alveolar opacities have developed at th e right lung base. Cardiomegaly is present and stable. No vascular engorgement. No measurable pleural effusion and no pneumothorax. No acute bony abnormality seen. No acute aortic findings suspected. 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
[2018-04-23] MEDS: AZITHROMYCIN IV 500 MG in NA CHLORIDE 0.9% 250 ML IVPB SCH (19:00)
[2018-04-23] MEDS ORDERED: PIPER/TAZO/NS 3.375gm 3.375 GM/100 ML BAG IV ONE (19:00)
[2018-04-23] MEDS: NA CHLORIDE 0.9% 1,000 ML IV SCH (19:00)
[2018-04-23] MEDS ORDERED: LORazepam 2 MG/ML VIAL ONE (20:28)
[2018-04-24] MEDS ORDERED: ONDANSETRON 4 MG/2 ML VIAL IV PRN (00:08)
[2018-04-24] MEDS: INSULIN -REGULAR HUMAN 50 UNIT/0.5 ML ML SQ SCH ×5 (00:08→20:52)
[2018-04-24] MEDS ORDERED: CEFTRIAXONE 1000 MG/VIAL ONE (01:11)
[2018-04-24] MEDS ORDERED: NA CHLORIDE 0.9% 50 ML ONE (01:11)
[2018-04-24 06:08] LABS: Absolute Lymphocytes (CBC) 1.6 K/uL (0.7-4.9); Absolute Monocytes 0.9 K/uL (0.1-1.3); Basophils % 0.1 % (0-1.3); Eosinophils % 0.1 % (0-4.4); Hematocrit 43.7 % (39.6-49.0); MPV 9.8 fL (7.6-11.3); Monocytes % 6.1 % (3.3-12.3); RBC Red Blood Cell Count 4.82 M/uL (4.33-5.43)
[2018-04-24 06:23] LABS: Albumin 3.4 g/dL (3.4-5.0); Bilirubin Total 1.6 mg/dL (0.2-1.0); Magnesium 1.9 mg/dL (1.8-2.4); Potassium 3.2 mmol/L (3.5-5.1); Protein, Total 7.2 g/dL (6.4-8.2)
[2018-04-24] MEDS ORDERED: POTASSIUM PHOS IN 0.9 % NACL 15 MMOL/250 ML BAG IV ONE (08:00)
[2018-04-24] MEDS ORDERED: POTASSIUM 25 MEQ EFFERV TAB PO ONE (08:00)
[2018-04-24] MEDS: AZITHROMYCIN IV 500 MG in NA CHLORIDE 0.9% 250 ML IVPB SCH (09:41)
[2018-04-24] MEDS: NA CHLORIDE 0.9% 1,000 ML IV SCH (09:42)
[2018-04-24] MEDS: CEFTRIAXONE/SWI 1gm 1 GM/10 ML SYR IVP SCH (09:42)
--- NOTE | 2018-04-24 10:13 | P.HP ---
Certification for Inpatient Patient admitted to: Observation With expected LOS: <2 Midnights Patient will require the following post-hospital care: None Practitioner: I am a practitioner with admitting privileges, knowledge of patient current condition, hospital course, and medical plan of care. Services: Services provided to patient in accordance with Admission requirements found in Title 42 Section 412.3 of the Code of Federal Regulations Patient History Date of Service: 04/23/18 Reason for admission: Altered mental status History of Present Illness: Patient is an 82-year-old gentleman who came into the hospital with dizziness and anorexia. Patient is a history of at Alzheimer's dementia. He apparently has been getting worse over the last 24 hr. He really was able to identify and will was wrong with him. But today around lunch time he got really diaphoretic and his blood pressure was much lower than it normally res. The daughter brought him in for further workup. In the emergency room he had multiple studies done. Patient was found to have a right lower lobe pneumonia. Pt also had atrial fibrillation and near syncope. Patient was also scheduled to get an MRI of the brain. He was very agitated and would not rest so he was given Ativan. This made his symptoms worse. He became difficult to control. He will need a sitter with him at this time. Patient will be admitted to the hospital for further evaluation. Allergies sedatives Allergy (Uncoded 06/13/16 04:46) Unknown Home Medications: Ascorbic Acid [Vitamin C with Neyda Hips] 1 tab PO DAILY 04/24/18 Aspirin [Aspirin EC 81 MG] 81 mg PO DAILY 04/24/18 Atorvastatin Calcium [Lipitor] 10 mg PO BEDTIME 04/24/18 Donepezil [Aricept*] 5 mg PO DAILY 04/24/18 Ferrous Fumarate/Vit Bcomp&C [Super B-Complex Caplet] 1 tab PO DAILY 04/24/18 Lisinopril [Prinivil] 20 mg PO DAILY 04/24/18 Memantine HCl [Namenda*] 10 mg PO BID 04/24/18 Metoprolol Tartrate [Lopressor*] 25 mg PO BID 04/24/18 - Past Medical/Surgical History Has patient received pneumonia vaccine in the past: No Diabetic: No -: Atrial fibrillation -: Alzheimer's Dementia -: Pneumonia -: [place] -: CABG -: Stent-2011 - Family History Father Medical History: Heart disease Brother Medical History: Heart disease Mother Medical History: Stroke - Social History Smoking Status: Former smoker Alcohol use: No CD- Drugs: No Caffeine use: Yes Place of Residence: Home Review of Systems 10-point ROS is otherwise unremarkable Physical Examination - Vital Signs Temperature: 98.1 F Blood Pressure: 143/85 Pulse: 84 Respirations: 15 Pulse Ox (%): 97 - Physical Exam General: Alert, In no apparent distress, Confused HEENT: Atraumatic, PERRLA, Mucous membr. moist/pink, EOMI, Sclerae nonicteric Neck: Supple, 2+ carotid pulse no bruit, No LAD, Without JVD or thyroid abnormality Respiratory: Diminished, Rhonchi/gurgles Cardiovascular: Regular rate/rhythm, Normal S1 S2, No murmurs Gastrointestinal: Normal bowel sounds, Soft and benign, Non-distended, No tenderness, No rebound, No guarding Musculoskeletal: No clubbing, No swelling, No tenderness Integumentary: No rashes Neurological: Sensation intact, Cranial nerves 3-12 intact, Normal affect, Abnormal gait, Abnormal strength Lymphatics: No axilla or inguinal lymphadenopathy - Studies Laboratory Data (last 24 hrs) 04/23/18 17:35: PT 13.7 H, INR 1.17 04/23/18 17:35: WBC 18.4 H, Hgb 14.8, Hct 43.8, Plt Count 162 04/23/18 17:35: Sodium 140, Potassium 3.8, BUN 14, Creatinine 1.09, Glucose 142 H, Magnesium 1.9, Total Bilirubin 1.6 H, AST 25, ALT 29, Alkaline Phosphatase 87 , Lipase 62 L Assessment & Plan - Problems (Diagnosis) (1) Alzheimer's dementia Current Visit: Yes Status: Acute (2) Right lower lobe pneumonia Current Visit: Yes Status: Acute (3) Altered mental status Onset Date: 12/19/17 Current Visit: No Status: Acute (4) CAD (coronary artery disease) Onset Date: 01/09/16 Current Visit: No Status: Acute (5) CHF exacerbation Onset Date: 01/09/16 Current Visit: No Status: Acute Qualifiers: Qualified Code(s): I50.23 - Acute on chronic systolic (congestive) heart failure (6) CKD (chronic kidney disease), stage III Onset Date: 01/09/16 Current Visit: No Status: Acute - Plan 1. Continue with IV antibiotics 2. Awaiting sputum and blood culture 3. Repeat chest x-ray 4. Will proceed with CT scan of the chest if pneumonia is not improved 5. Hold all sedatives as it apparently has the opposite affect on the patient. Given Ativan for MRI and he became very difficult to handle. 6. Continue with nebs as needed 7. O2 per protocol 8. Continue with gentle hydration 9. Repeat labs including CBC and renal function in a.m. 10. GI and DVT prophylaxis Discharge Plan: Home Plan to discharge in: Greater than 2 days - Advance Directives Does patient have a Living Will: No Does patient have a Durable POA for Healthcare: No - Code Status/Comfort Care Code Status Assessed: Yes Code Status: Full Code Critical Care: No Time Spent Managing PTS Care (In Minutes): 50
--- NOTE | 2018-04-24 10:33 | EKG ---
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
[2018-04-24] MEDS ORDERED: HALOPERIDOL LACT 5 MG/ML INJ IV PRN (11:12)
[2018-04-24] MEDS ORDERED: HALOPERIDOL LACT 5 MG/ML INJ IV ONE (11:15)
--- NOTE | 2018-04-24 14:50 | P.PN ---
Subjective Date of Service: 04/24/18 Chief Complaint: Altered mental status Review of Systems 10-point ROS is otherwise unremarkable Physical Examination - Vital Signs Temperature: 98.9 F Blood Pressure: 142/83 Pulse: 99 Respirations: 15 Pulse Ox (%): 97 - Physical Exam General: In no apparent distress, Demented HEENT: Atraumatic, PERRLA, EOMI Neck: Supple, JVD not distended Respiratory: Clear to auscultation bilaterally, Normal air movement Cardiovascular: Regular rate/rhythm, Normal S1 S2 Gastrointestinal: Normal bowel sounds, No tenderness Musculoskeletal: No tenderness Integumentary: No rashes Neurological: Normal tone, Normal affect, Abnormal speech Lymphatics: No axilla or inguinal lymphadenopathy - Studies Laboratory Data (last 24 hrs) 04/24/18 05:31: Sodium 140, Potassium 3.2 L, BUN 13, Creatinine 0.97, Glucose 128 H, Phosphorus 2.0 L, Magnesium 1.9, Total Bilirubin 1.6 H, AST 16, ALT 26, Alkaline Phosphatase 80 04/24/18 05:31: WBC 14.5 H D, Hgb 14.9, Hct 43.7, Plt Count 146 L 04/23/18 17:35: PT 13.7 H, INR 1.17 04/23/18 17:35: WBC 18.4 H, Hgb 14.8, Hct 43.8, Plt Count 162 04/23/18 17:35: Sodium 140, Potassium 3.8, BUN 14, Creatinine 1.09, Glucose 142 H, Magnesium 1.9, Total Bilirubin 1.6 H, AST 25, ALT 29, Alkaline Phosphatase 87 , Lipase 62 L Medications List Reviewed: Yes Assessment And Plan - Current Problems (Diagnosis) (1) Altered mental status Onset Date: 12/19/17 Current Visit: No Status: Acute Plan: Most Likely Toxic Encephalopathy 2.2 to PNA -AAOx2 with underlying dementia. -Will monitor closely Qualifiers: Altered mental status type: delirium Qualified Code(s): R41.0 - Disorientation, unspecified (2) Right lower lobe pneumonia Current Visit: Yes Status: Acute Plan: RLL PNA -WBC trending down. procal Negative -Sputum Culture pending -Continue IV abx till culture result Qualifiers: Pneumonia type: due to unspecified organism Qualified Code(s): J18.1 - Lobar pneumonia, unspecified organism (3) Alzheimer's dementia Current Visit: Yes Status: Chronic Qualifiers: Alzheimer's disease onset: late-onset (4) CAD (coronary artery disease) Onset Date: 01/09/16 Current Visit: No Status: Chronic Qualifiers: Coronary Disease-Associated Artery/Lesion type: [place] artery [place] vs. transplanted heart: [place] heart Associated angina: without angina Qualified Code(s): I25.10 - Atherosclerotic heart disease of [place] coronary artery without angina pectoris (5) CHF exacerbation Onset Date: 01/09/16 Current Visit: No Status: Chronic Qualifiers: Qualified Code(s): I50.23 - Acute on chronic systolic (congestive) heart failure (6) CKD (chronic kidney disease), stage III Onset Date: 01/09/16 Current Visit: No Status: Chronic - Plan Awaiting Clinical Improvement. Pending culture. Continue IV abx till then. Awaiting discussion with family who are not present at bedside for placement and disposition. Discharge Plan: Other Plan to discharge in: Greater than 2 days - Code Status/Comfort Care Code Status Assessed: Yes Critical Care: No
[2018-04-24] MEDS ORDERED: METOPROLOL TARTRATE 5 MG/5 ML INJ IV STA (22:10)
[2018-04-24] MEDS: METOPROLOL TAR 25 MG TAB PO SCH (23:15)
[2018-04-25] MEDS: NA CHLORIDE 0.9% 1,000 ML IV SCH ×2 (01:04→12:22)
[2018-04-25 03:39] VITALS: BMI 20.3
[2018-04-25 06:11] LABS: Absolute Lymphocytes (CBC) 1.3 K/uL (0.7-4.9); Absolute Monocytes 1.1 K/uL (0.1-1.3); Absolute Neutrophil 9.3 K/uL (1.8-8.0); Basophils % 0.5 % (0-1.3); Eosinophils % 0.1 % (0-4.4); Hematocrit 42.1 % (39.6-49.0); Lymphocytes % 10.9 % (15.3-44.8); MPV 9.6 fL (7.6-11.3); Monocytes % 9.6 % (3.3-12.3); RBC Red Blood Cell Count 4.64 M/uL (4.33-5.43)
[2018-04-25 06:17] LABS: ALT/SGPT 27 U/L (12-78); AST/SGOT 71 U/L (15-37); Albumin 3.4 g/dL (3.4-5.0); Alkaline Phosphatase 77 U/L (45-117); BUN Blood Urea Nitrogen 10 mg/dL (7-18); Bicarbonate 26 mmol/L (21-32); Bilirubin Total 1.8 mg/dL (0.2-1.0); Glucose Level 122 mg/dL (74-106); Magnesium 1.8 mg/dL (1.8-2.4); Phosphorus 1.9 mg/dL (2.5-4.9); Potassium 3.5 mmol/L (3.5-5.1); Protein, Total 7.1 g/dL (6.4-8.2); Sodium Level 143 mmol/L (136-145)
[2018-04-25] MEDS: INSULIN -REGULAR HUMAN 50 UNIT/0.5 ML ML SQ SCH ×4 (07:30→21:00)
[2018-04-25] MEDS ORDERED: MAGNESIUM SULFATE 1 gm IVPB 1 GM/100 ML BAG IV ONE (08:00)
[2018-04-25] MEDS ORDERED: POTASSIUM PHOS IN 0.9 % NACL 15 MMOL/250 ML BAG IV ONE (09:00)
[2018-04-25] MEDS ORDERED: ASCORBIC ACID PO SCH (09:00)
[2018-04-25] MEDS ORDERED: BENZONATATE 100 MG CAP PO PRN (09:01)
--- NOTE | 2018-04-25 09:08 | P.DS ---
Admission Date: 04/24/18 Discharge Date: 04/25/18 Reason for Admission: Altered mental status - Problems (1) Right lower lobe pneumonia Current Visit: Yes Status: Acute Qualifiers: Pneumonia type: due to unspecified organism Qualified Code(s): J18.1 - Lobar pneumonia, unspecified organism (2) Alzheimer's dementia Current Visit: Yes Status: Chronic Qualifiers: Alzheimer's disease onset: late-onset (3) CKD (chronic kidney disease), stage III Onset Date: 01/09/16 Current Visit: No Status: Chronic Brief History of Present Illness: Mr. Rao was initially admitted for pneumonia. Patient had been on antibiotics and fluids. Doing much better. Without any complaint or acute physical exam findings. Patient well enough and strong enough to go home. Has adequate support at home. We are having social work assess for home health as well. <Eric Shankar - Last Filed: 04/25/18 09:03> Admission Date: 04/24/18 Discharge Date: 04/25/18 Consultations: Neurology-Dr. Santos Hospital Course: Patient with Dementia, HTN, chronic atrial fibrillation, and Chronic renal disease. He presented to the hospital with anorexia and dizziness. He was found to have RLL pneumonia. He was admitted for treatment. During the course of his stay, WBC improved. Procalcitonin was normal. Blood and urine cultures were also normal. Patient was restless during his stay. Patient was to get MRI brain but reports side effects with sedation medication. Initial CT head showed no acute findings. When I evaluated the patient with MARCIA Del Toro this am, he appeared to be at his baseline. I recommended discharge for the patient. was upset that he was not being evaluated for his hematuria. Notes and lab reviewed. Initial UA showed trace blood. But will order repeat UA and bladder US to address. If unremarkable, I will proceed with discharge. also upset that the patient is restless and had been given sedation during his stay. Patient was given sedation prior to CT head. This am he appeared stable. Patient with significant dementia. I will have Dr. Santos-Neurology evaluate his current mental state. Patient appears to be at his baseline. In my conversation with the , she was being very difficult and at times unreasonable about what was being done with the patient. I proceeded to explain to the that if workup unremarkable then patient may be discharged home. She reports that the patient has caregiver services at home. does not want any sedation for the patient. This makes it difficult to treat his restlessness and behavior issues. Await Neurology recommendations. <MarshallKarthikeyan menjivar - Last Filed: 04/25/18 14:14> Disposition: DC HOME/HOME HEALTH CARE Discharge Condition: GOOD Vital Signs/Physical Exam: Temp Pulse Resp BP Pulse Ox 98.6 F 96 H 16 165/76 H 98 04/25/18 08:00 04/25/18 08:00 04/25/18 08:00 04/25/18 08:00 04/25/18 08:00 General: Alert, In no apparent distress, Oriented x3, Demented HEENT: Normocephalic, PERRLA, Mucous membr. moist/pink Neck: Supple, JVD not distended, No Thyromegaly Respiratory: Clear to auscultation bilaterally, Normal air movement Cardiovascular: No edema, Normal pulses, Regular rate/rhythm, Normal S1 S2, No gallops, No rubs, No murmurs Capillary refill: <2 Seconds Gastrointestinal: Normal bowel sounds, Soft and benign, Non-distended, No tenderness, No masses, No rebound, No guarding Musculoskeletal: No clubbing, No swelling, No contractures, No erythema, No tenderness, No warmth Integumentary: No rashes, No breakdown, No significant lesion, No tenderness/ swelling, No erythema, No warmth, No cyanosis Neurological: Normal speech, Normal strength at 5/5 x4 extr, Normal tone, Sensation intact, Cranial nerves 3-12 intact, Normal reflexes 2+, Normal affect Laboratory Data at Discharge: WBC 11.8 K/uL (4.3-10.9) H D 04/25/18 05:08 Hgb 14.1 g/dL (13.6-17.9) 04/25/18 05:08 Hct 42.1 % (39.6-49.0) 04/25/18 05:08 Plt Count 155 K/uL (152-406) 04/25/18 05:08 PT 13.7 SECONDS (9.5-12.5) H 04/23/18 17:35 INR 1.17 04/23/18 17:35 Sodium 143 mmol/L (136-145) 04/25/18 05:00 Potassium 3.5 mmol/L (3.5-5.1) 04/25/18 05:00 BUN 10 mg/dL (7-18) 04/25/18 05:00 Creatinine 0.81 mg/dL (0.55-1.3) 04/25/18 05:00 Glucose 122 mg/dL (74-106) H 04/25/18 05:00 Phosphorus 1.9 mg/dL (2.5-4.9) L 04/25/18 05:00 Magnesium 1.8 mg/dL (1.8-2.4) 04/25/18 05:00 Total Bilirubin 1.8 mg/dL (0.2-1.0) H 04/25/18 05:00 AST 71 U/L (15-37) H 04/25/18 05:00 ALT 27 U/L (12-78) 04/25/18 05:00 Alkaline Phosphatase 77 U/L (45-117) 04/25/18 05:00 Lipase 62 U/L (73-393) L 04/23/18 17:35 <Eric Shankar - Last Filed: 04/25/18 09:03> Vital Signs/Physical Exam: Temp Pulse Resp BP Pulse Ox 98.6 F 77 16 152/80 H 95 04/25/18 12:00 04/25/18 12:00 04/25/18 12:00 04/25/18 12:00 04/25/18 12:00 Laboratory Data at Discharge: WBC 11.8 K/uL (4.3-10.9) H D 04/25/18 05:08 Hgb 14.1 g/dL (13.6-17.9) 04/25/18 05:08 Hct 42.1 % (39.6-49.0) 04/25/18 05:08 Plt Count 155 K/uL (152-406) 04/25/18 05:08 PT 13.7 SECONDS (9.5-12.5) H 04/23/18 17:35 INR 1.17 04/23/18 17:35 Sodium 143 mmol/L (136-145) 04/25/18 05:00 Potassium 3.5 mmol/L (3.5-5.1) 04/25/18 05:00 BUN 10 mg/dL (7-18) 04/25/18 05:00 Creatinine 0.81 mg/dL (0.55-1.3) 04/25/18 05:00 Glucose 122 mg/dL (74-106) H 04/25/18 05:00 Phosphorus 1.9 mg/dL (2.5-4.9) L 04/25/18 05:00 Magnesium 1.8 mg/dL (1.8-2.4) 04/25/18 05:00 Total Bilirubin 1.8 mg/dL (0.2-1.0) H 04/25/18 05:00 AST 71 U/L (15-37) H 04/25/18 05:00 ALT 27 U/L (12-78) 04/25/18 05:00 Alkaline Phosphatase 77 U/L (45-117) 04/25/18 05:00 Lipase 62 U/L (73-393) L 04/23/18 17:35 <Karthikeyan Adorno - Last Filed: 04/25/18 14:14> Patient Discharge Instructions: Continue and finish all antibiotics prescribed. Continue to hydrate with fluids. Continue home medicines otherwise prescribed by your PCP Diet: Regular Activity: Ad jameel <Eric Shankar - Last Filed: 04/25/18 09:03> Time spent managing pt's care (in minutes): 55 <Karthikeyan Adorno - Last Filed: 04/25/18 14:14> Home Medications: Ascorbic Acid [Vitamin C with Neyda Hips] 1 tab PO DAILY 04/24/18 Aspirin [Aspirin EC 81 MG] 81 mg PO DAILY 04/24/18 Atorvastatin Calcium [Lipitor*] 10 mg PO BEDTIME 04/24/18 Donepezil [Aricept*] 5 mg PO DAILY 04/24/18 Ferrous Fumarate/Vit Bcomp&C [Super B-Complex Caplet] 1 tab PO DAILY 04/24/18 Lisinopril [Prinivil*] 20 mg PO DAILY 04/24/18 Memantine HCl [Namenda*] 10 mg PO BID 04/24/18 Metoprolol Tartrate [Lopressor*] 25 mg PO BID 04/24/18 Amox/Clavulanate [Augmentin 500-125 mg Tab*] 500 mg PO BID #14 tab 04/25/18 New Medications: Amox/Clavulanate [Augmentin 500-125 mg Tab*] 500 mg PO BID #14 tab
[2018-04-25] MEDS: MEMANTINE HCL 10 MG TABLET PO SCH ×2 (09:34→22:13)
[2018-04-25] MEDS: VITAMIN B COMPLEX 1 CAP PO SCH (09:34)
[2018-04-25] MEDS: ASCORBIC ACID 500 MG TABLET PO SCH (09:35)
[2018-04-25] MEDS: METOPROLOL TAR 25 MG TAB PO SCH ×2 (09:35→22:13)
[2018-04-25] MEDS: LISINOPRIL 20 MG TAB PO SCH (09:36)
[2018-04-25] MEDS: DONEPEZIL HCL 5 MG TAB PO SCH (09:37)
[2018-04-25] MEDS: AMOX/K CLAV 500 MG TAB PO SCH ×2 (09:37→22:13)
[2018-04-25] MEDS: ASPIRIN EC 81 MG TAB PO SCH (09:37)
[2018-04-25] MEDS ORDERED: D50W 25 GM/50 ML SYRINGE IV PRN (14:11)
[2018-04-25] MEDS ORDERED: GLUCAGON 1 MG/VIAL IM PRN (14:11)
[2018-04-25 14:12] LABS: Urine Appearance CLOUDY; Urine Bilirubin NEGATIVE (NEG); Urine Blood 3+ (NEG); Urine Color DK YELLOW; Urine Glucose NEGATIVE (NEG); Urine Protein 2+ (NEG); Urine pH 5.5 (5.0-7.0)
[2018-04-25 14:16] LABS: Urine Microscopic Reflex ORDER UMIC
--- NOTE | 2018-04-25 14:22 | P.PN ---
Subjective Date of Service: 04/25/18 Chief Complaint: Altered mental status Subjective: No new changes, No C/O voiced, Tolerating diet, Ambulating Patient doing well this morning. Eating breakfast. Had done well throughout the night. No complaints when asked. Patient up and walking with help. WBC improved <Eric Shankar - Last Filed: 04/25/18 14:13> Date of Service: 04/25/18 <Karthikeyan Adorno - Last Filed: 04/25/18 14:47> Review of Systems General: Unremarkable Eyes: Unremarkable ENT: Unremarkable Respiratory: Unremarkable Cardiovascular: Unremarkable Gastrointestinal: Unremarkable Genitourinary: Unremarkable Musculoskeletal: Unremarkable Integumentary: Unremarkable Neurological: Confusion <Eric Shankar - Last Filed: 04/25/18 14:13> Physical Examination - Vital Signs Temperature: 98.6 F Blood Pressure: 152/80 Pulse: 77 Respirations: 16 Pulse Ox (%): 95 - Physical Exam General: Alert, In no apparent distress, Oriented x2 HEENT: Normocephalic, PERRLA, Mucous membr. moist/pink Neck: Supple, 2+ carotid pulse no bruit, No Thyromegaly Respiratory: Clear to auscultation bilaterally, Normal air movement Cardiovascular: No edema, Normal pulses, Regular rate/rhythm, Normal S1 S2, No gallops, No rubs, No murmurs Capillary refill: <2 Seconds Gastrointestinal: Normal bowel sounds, Soft and benign, Non-distended, No tenderness, No masses, No rebound, No guarding Musculoskeletal: No clubbing, No swelling, No contractures, No erythema, No tenderness, No warmth Integumentary: No rashes, No breakdown, No significant lesion, No tenderness/ swelling, No erythema, No warmth, No cyanosis Neurological: Normal speech, Normal strength at 5/5 x4 extr, Normal tone, Sensation intact, Cranial nerves 3-12 intact, Normal reflexes 2+, Normal affect - Studies Microbiology Data (last 24 hrs): 04/23/18 18:36 Clean Catch Urine Watson Count - Final 04/23/18 18:36 Clean Catch Urine - Final No growth. Medications List Reviewed: Yes <Eric Shankar - Last Filed: 04/25/18 14:13> - Studies Microbiology Data (last 24 hrs): 04/23/18 18:36 Clean Catch Urine Watson Count - Final 04/23/18 18:36 Clean Catch Urine - Final No growth. <Karthikeyan Adorno - Last Filed: 04/25/18 14:47> Assessment & Plan - Problems (Diagnosis) (1) Right lower lobe pneumonia Current Visit: Yes Status: Acute Qualifiers: (2) Alzheimer's dementia Current Visit: Yes Status: Chronic (3) CKD (chronic kidney disease), stage III Onset Date: 01/09/16 Current Visit: No Status: Chronic Discharge Plan: Home Physician Review Additional Text: Dr. Adorno had detailed discussion with patients daughter about how he has improved and does not meet criteria for Custodial home. Daughter was very irritated and non cooperative. Stated that she is worried for blood in urine that she found and that he has not slept for over 40 hours. Went on to say that he walked him and now is better. Wants Dr. Santos to assess him as well because he is hallucinating. Dr. Adorno tried to explain to family that it probably is dementia that is causing some of the confusion. Patient had no UTI but that we would re run urine, get another CXR, and more blood work along with Dr. Santos to consult patient. Patient understood but continued to argue with Dr. Adorno. We are now pending consult, labs, and imaging before sending him home <Eric Shankar - Last Filed: 04/25/18 14:13> Physician Review Additional Text: Case discussed with Dr. Santos. He recommends to continue with plan of care for discharge, if lab unremarkable. Patient may need to follow up with Urology as outpatient. <Karthikeyan Adorno - Last Filed: 04/25/18 14:47>
[2018-04-25 14:31] LABS: Urine Bacteria 20-50 /HPF (NONE SEEN); Urine Mucus 1+ /HPF (NONE SEEN)
[2018-04-25 14:34] LABS: Urine Culture Reflex Order NOT NEEDED
--- NOTE | 2018-04-25 14:39 | RAD REPORT ---
EXAM DESCRIPTION: RAD - Chest Single View - 04/25/2018 2:26 pm CLINICAL HISTORY: Shortness breath, pneumonia COMPARISON: April 23 TECHNIQUE: AP portable chest image was obtained 1424 hours . FINDINGS: Baseline chronic interstitial lung pattern is again noted. Right lung base pneumonia torres es are again identified. There has been no improvement. No substantial progression identifiable. Lung markings in the right upper lung field have increased slightly. This is not definitive for pneumonia and can be monitored on subsequent imaging. No new or progressive left lung field finding. Heart and vasculature are normal. No measurable pleural effusion and no pneumothorax. No acute bony abnormality seen. No acute aortic findings suspected. IMPRESSION: No improvement in the right lung base pneumonia findings. Slight increase in right upper lung field interstitial markings that can be monitored on subsequent i maging.
--- NOTE | 2018-04-25 18:39 | RAD REPORT ---
EXAM DESCRIPTION: US - Urinary Bladder - 04/25/2018 6:17 pm CLINICAL HISTORY: Hematuria FINDINGS: Bladder volume measures 120 cc. A mass is not seen. The prostate gland is mildly to moderately enlarged. No ascites noted IMPRESSION: No gross abnormality of bladder is seen
[2018-04-25] MEDS ORDERED: POTASSIUM 25 MEQ EFFERV TAB PO ONE (20:34)
[2018-04-25] MEDS: POTASS/SODIUM PHOSPHATE 1 PKT POWD.PACK PO SCH ×2 (22:11→23:36)
[2018-04-25] MEDS: ATORVASTATIN 10 MG TAB PO SCH (22:14)
[2018-04-26] MEDS: NA CHLORIDE 0.9% 1,000 ML IV SCH ×2 (00:20→13:40)
[2018-04-26] MEDS: POTASS/SODIUM PHOSPHATE 1 PKT POWD.PACK PO SCH (00:23)
[2018-04-26 06:27] LABS: Absolute Lymphocytes (CBC) 1.5 K/uL (0.7-4.9); Absolute Monocytes 1.1 K/uL (0.1-1.3); Absolute Neutrophil 6.2 K/uL (1.8-8.0); Basophils % 0.3 % (0-1.3); Eosinophils % 0.8 % (0-4.4); Hematocrit 38.4 % (39.6-49.0); Lymphocytes % 17.4 % (15.3-44.8); MPV 9.5 fL (7.6-11.3); Monocytes % 11.9 % (3.3-12.3); RBC Red Blood Cell Count 4.25 M/uL (4.33-5.43)
[2018-04-26 06:33] LABS: ALT/SGPT 27 U/L (12-78); AST/SGOT 63 U/L (15-37); Alkaline Phosphatase 60 U/L (45-117); BUN Blood Urea Nitrogen 13 mg/dL (7-18); Bicarbonate 23 mmol/L (21-32); Bilirubin Total 1.9 mg/dL (0.2-1.0); Glucose Level 108 mg/dL (74-106); Phosphorus 2.6 mg/dL (2.5-4.9); Potassium 3.4 mmol/L (3.5-5.1); Protein, Total 6.3 g/dL (6.4-8.2); Sodium Level 142 mmol/L (136-145)
[2018-04-26] MEDS: INSULIN -REGULAR HUMAN 50 UNIT/0.5 ML ML SQ SCH ×4 (07:30→20:05)
[2018-04-26] MEDS ORDERED: POTASSIUM 25 MEQ EFFERV TAB PO ONE (09:00)
[2018-04-26] MEDS: AMOX/K CLAV 500 MG TAB PO SCH ×2 (09:13→20:04)
[2018-04-26] MEDS: LISINOPRIL 20 MG TAB PO SCH (09:13)
[2018-04-26] MEDS: METOPROLOL TAR 25 MG TAB PO SCH ×2 (09:13→20:04)
[2018-04-26] MEDS: ASPIRIN EC 81 MG TAB PO SCH (09:13)
[2018-04-26] MEDS: DONEPEZIL HCL 5 MG TAB PO SCH (09:13)
[2018-04-26] MEDS: VITAMIN B COMPLEX 1 CAP PO SCH (09:13)
[2018-04-26] MEDS: ASCORBIC ACID 500 MG TABLET PO SCH (09:13)
[2018-04-26] MEDS: MEMANTINE HCL 10 MG TABLET PO SCH ×2 (09:13→20:04)
--- NOTE | 2018-04-26 16:27 | PN ---
Date of Progress Note: 04/26/2018 Subjective: Patient seen and examined. Chart reviewed and case discussed with RN. The patient's also present at the bedside. The patient seems to have improved significantly in terms of his medical condition. He is awake and alert , back to baseline. The patient has been able to tolerate his diet. No further episodes of agitation. According the , she refused any sedation due to previous reaction at a different hospitalization. Medications: List reviewed. Code Status: Full. Physical Examination: Vital Signs: Temperature 98.6, heart rate 63, blood pressure 151/72, respirations 17, O2 96% on room air. General: Awake, alert, and oriented x3, not in any acute distress, elderly male. CV: S1, S2, irregularly irregular. Peripheral pulses present. Respiratory: Moving air well bilaterally. No wheezing or stridor gastrointestinal. Abdomen: Abdomen is soft, nontender, nondistended. Positive bowel sounds. Extremities: No clubbing, cyanosis, or edema. Neuro: Cranial nerves 2-12 intact grossly. No focal neurological deficit. Speech is normal. Laboratory Data: Sodium 142, potassium 3.4, chloride 109 CO2 23, BUN 13, creatinine 0.77, glucose 108, calcium 8.2, phosphorus 2.6, magnesium 2. WBC 8.9 , H and H 13.5 and 38.4, platelets 145, neutrophils 69%. Blood cultures no growth to date. Wound culture shows no growth. Bladder ultrasound shows no gross abnormalities. Assessment And Plan: An 82-year-old male with. 1. Right lower lobe pneumonia, improving. Blood culture is negative to date. Continue antibiotics. The patient is not on any supplemental oxygenation. 2. Alzheimer's dementia, early onset with behavioral disturbance. Significantly improved with no further disturbances. The patient's mental status seems to be back to baseline. at the bedside confirms. 3. Chronic kidney disease stage 3, chronic. The patient's creatinine is normal and GFR is greater than 90. 4. Hypokalemia. We will replace and monitor. 5. Hypoalbuminemia. 6. Hematuria resolved. The patient will need outpatient urology workup including cystoscopy to rule out any sort of bladder mass, likely secondary to enlarged prostate. 7. DVT prophylaxis, addressed. Plan: Discharge home once appeal has been processed. The patient may need to be set up with home health. at this time states that the patient does not need a longterm facility. We will continue to monitor closely. Avoid any sedatives for agitation. Monitor kidney function. /JAY Voice ID: [id number] Report ID: [id number] [place]
[2018-04-26] MEDS: ATORVASTATIN 10 MG TAB PO SCH (20:04)
[2018-04-27] MEDS: NA CHLORIDE 0.9% 1,000 ML IV SCH ×2 (03:00→16:20)
[2018-04-27 06:50] LABS: BUN Blood Urea Nitrogen 14 mg/dL (7-18); Bicarbonate 24 mmol/L (21-32); Glucose Level 98 mg/dL (74-106); Potassium 3.4 mmol/L (3.5-5.1); Sodium Level 143 mmol/L (136-145)
[2018-04-27] MEDS: INSULIN -REGULAR HUMAN 50 UNIT/0.5 ML ML SQ SCH ×4 (07:17→21:00)
[2018-04-27] MEDS: VITAMIN B COMPLEX 1 CAP PO SCH (08:25)
[2018-04-27] MEDS: ASPIRIN EC 81 MG TAB PO SCH (08:25)
[2018-04-27] MEDS: AMOX/K CLAV 500 MG TAB PO SCH ×2 (08:25→20:29)
[2018-04-27] MEDS: ASCORBIC ACID 500 MG TABLET PO SCH (08:25)
[2018-04-27] MEDS: MEMANTINE HCL 10 MG TABLET PO SCH ×2 (08:25→20:30)
[2018-04-27] MEDS: DONEPEZIL HCL 5 MG TAB PO SCH ×2 (08:25→20:29)
[2018-04-27] MEDS: LISINOPRIL 20 MG TAB PO SCH (08:26)
[2018-04-27] MEDS: METOPROLOL TAR 25 MG TAB PO SCH ×2 (08:26→20:30)
[2018-04-27] MEDS ORDERED: POTASSIUM 25 MEQ EFFERV TAB PO ONE (09:00)
--- NOTE | 2018-04-27 17:50 | PN ---
Date of Progress Note: 04/27/2018 Subjective: The patient was seen and examined, chart reviewed and case discussed with RN. not present at the bedside. No family present at the bedside. The patient still has his discharged appealed by the , currently awaiting decision from Medicare. Medications: List reviewed. Physical Examination: Vital Signs: Temperature 98.2, heart rate 61, blood pressure 121/62, respirations 20, O2 96% on room air. General: Awake, alert, oriented x3, not in any acute distress, elderly male. CV: S1, S2, irregularly irregular. Peripheral pulses present. Respiratory: Moving air well bilaterally. No wheezing or stridor. Gastrointestinal: Abdomen is soft, nontender, nondistended. Positive bowel sounds. No guarding or rigidity. Extremities: No clubbing, cyanosis, or edema. Neurologic: Nonfocal. Laboratory Data: Sodium 143, potassium 3.4, chloride 109, CO2 of 24, BUN 14, creatinine 0.81, glucose 98, calcium 8.3. WBC pending. Cultures, negative to date. Assessment And Plan: An 82-year-old male with: 1. Right lower lobe pneumonia, improving. Cultures negative. White count normal. Continue antibiotics. The patient, not required any supplemental oxygen. 2. Alzheimer's dementia, early onset with behavioral disturbance, improved. Has not had any acute events overnight. No agitation, back at baseline. 3. Chronic kidney disease stage 3. Creatinine normal. GFR greater than 90. 4. Hypokalemia. We will replace and monitor. 5. Hypoalbuminemia. Plan, await decision process for Medicare regarding appeal. 6. Deep vein thrombosis prophylaxis, addressed. 7. Hematuria. The patient will need outpatient urology workup including cystoscopy to rule out malignancy. The patient is low risk. Does not smoke. Likely hematuria was caused by enlarged prostate. 8. Prostatic hyperplasia SA/MODL Voice ID: [id number] Report ID: [id number] [place]
[2018-04-27] MEDS: ATORVASTATIN 10 MG TAB PO SCH (20:30)
[2018-04-28] MEDS: NA CHLORIDE 0.9% 1,000 ML IV SCH (04:38)
[2018-04-28 06:04] LABS: BUN Blood Urea Nitrogen 15 mg/dL (7-18); Bicarbonate 25 mmol/L (21-32); Glucose Level 105 mg/dL (74-106); Potassium 3.7 mmol/L (3.5-5.1); Sodium Level 142 mmol/L (136-145)
[2018-04-28] MEDS: INSULIN -REGULAR HUMAN 50 UNIT/0.5 ML ML SQ SCH ×4 (07:30→21:00)
[2018-04-28] MEDS: ASCORBIC ACID 500 MG TABLET PO SCH (08:27)
[2018-04-28] MEDS: ASPIRIN EC 81 MG TAB PO SCH (08:27)
[2018-04-28] MEDS: MEMANTINE HCL 10 MG TABLET PO SCH ×2 (08:27→21:39)
[2018-04-28] MEDS: LISINOPRIL 20 MG TAB PO SCH (08:28)
[2018-04-28] MEDS: AMOX/K CLAV 500 MG TAB PO SCH ×2 (08:28→21:39)
[2018-04-28] MEDS: VITAMIN B COMPLEX 1 CAP PO SCH (08:28)
[2018-04-28] MEDS: METOPROLOL TAR 25 MG TAB PO SCH ×2 (08:29→21:40)
[2018-04-28] MEDS ORDERED: POTASSIUM 25 MEQ EFFERV TAB PO ONE (09:00)
--- NOTE | 2018-04-28 09:54 | CON ---
Reason For Consultation: Consultation called by Dr. Adorno because of altered mental status. History Of Present Illness: Mr. Rao is an 82-year-old right-handed patient who was seen in clinic for advanced vascular dementia and who comes in with altered mental status. The patient's daughter is at the bedside and helped with information. He was in his usual self until about 24-hours prior to admission on . He became more disoriented, confused and was not following any instructions and was more diaphoretic. The patient was brought back to the hospital by his daughter, found that his blood pressure was lower than usual. His evaluation identified a right lower lobe pneumonia and atrial fibrillation. He had CT scan, showed no acute ischemic change but identified advanced small vessel ischemic disease. The patient was given Ativan because of agitation; however it had paradoxical effect and became more agitated and was admitted for further evaluation and management. Since his admission over the last day and a half to 2 days, he has actually improved as the medication effect wore off. However, he did have some hallucinations about less than 24- hours ago. His daughter said he was reaching for things and seeing things not there. However, from earlier today to now he has been towards his baseline, no more hallucinations, interacting as he usually he does. He has been treated for his pneumonia with azithromycin and ceftriaxone. He was continued on donepezil and Memantine for his dementia. He was put on DVT prophylaxis with Lovenox and subsequently he had some blood in the urine. That is currently being evaluated. It should be noted that he is continued on oral antibiotics Augmentin scheduled from the to 14 of next month. Past Medical History: Significant for his atrial fibrillation, vascular dementia with Alzheimer's component, pneumonia, myocardial infarction, coronary artery bypass grafting. Surgery History: Stent placed in 2001. Family History: Heart disease in father, brother, and mother with strokes. Social History: Smoked in the past. Used caffeinated beverages. Alcohol or IV drug use, and I think he resided at home with daughter. Allergies: Per chart Medications At Home: Aspirin 81 mg daily, vitamin C 1000 mg daily, Lipitor 10 mg at bedtime, donepezil 5 mg daily, Super B complex daily, Namenda 10 mg twice daily, Prinivil 20 mg daily, Lopressor 25 mg twice daily. Review of Systems: There are no recent fevers, chills, nausea, vomiting, myalgias, arthralgias, headaches, weight changes, rash. No recent psychiatric issues, gastrointestinal or genitourinary issues. Physical Examination: Vital Signs: Blood pressure 152/80, pulse 77, respiration 16, temperature 98.6 , oxygen saturation 95%, weight 150 pounds, height 6 feet, BMI 20.3. General: Mr. Rao is sitting at side of his bed. Daughter at the bedside. He is no acute distress. HEENT: He is normocephalic, atraumatic. Sclerae anicteric. Oropharynx is pink and moist. Neck: Supple. Chest: Clear. Heart: Regular. Extremities: Show no significant edema, cyanosis or clubbing. Neurologic: He is alert and oriented to person if not the place, time and situation. He is able to tell us day versus night. His cranial nerve examination reveal no focal deficits in terms of facial asymmetry. Visual confrontation responses are full bilaterally. Tongue and palate are in midline. Motor examination, he has normal tone, but mild paratonia in the upper extremities and symmetrical strength in upper and lower extremities without focal deficits, at least 4+ bilaterally proximally and distally. Sensory exam shows stocking glove loss to light touch and temperature. Reflexes are present in upper and lower extremities. Coordination, slow but intact in the upper and lower extremities. Gait is intact, good stance and stride. Laboratory Studies: White blood cell count was 13.4 with 87.9% neutrophils on 04/23, is now 11.8 with 78.9% neutrophils on 04/25. His electrolyte panel unremarkable. Glucose ranged from 119 to 150s. Calcium 8.7. Liver function studies show slightly elevated AST of 71. He has procalcitonin 0.19. TSH 1.690 and urinalysis on admission showed 2+ estrace, 3+ blood but urine culture showed no growth. His electrocardiogram showed atrial fibrillation and chest x- ray showed right lung base pneumonia superimposed on fibrosis, but repeat chest x-ray today shows resolved pneumonia. Assessment: Mr. 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 Mr. Rao also has paradoxical reaction to the Ativan, which was given prior to attempted brain MRI, which could not be done due to his agitation. His neurologic exam and CT scan do not support the findings of a possible new stroke which is unlikely. At this point, he is resolving towards his baseline given his treatment for the pneumonia. His is worried about possible lung cancer manifesting with hematuria. Plan: Continue with Aricept and Namenda schedule. Continue aspirin 81 mg and folate 1 mg for stroke risk reduction. Consider full anticoagulation for his atrial fibrillation; either Eliquis, Xarelto, or Coumadin, that should be done with his learning and development coordinator involvement. OK to have urine cytology to work up for possible lung cancer and Mr. Rao will followup with urology for further workup. Followup with Dr. Santos in one month. The patient may be discharged home and follow up in Dr. Santos in clinic in 1 month. RUBEN/JAY Voice ID: [id number] Report ID: [id number] MTDD
[2018-04-28 10:34] LABS: Absolute Lymphocytes (CBC) 1.3 K/uL (0.7-4.9); Absolute Monocytes 1.2 K/uL (0.1-1.3); Absolute Neutrophil 5.3 K/uL (1.8-8.0); Basophils % 0.4 % (0-1.3); Eosinophils % 1.2 % (0-4.4); Lymphocytes % 16.9 % (15.3-44.8); MPV 9.1 fL (7.6-11.3); Monocytes % 14.7 % (3.3-12.3); RBC Red Blood Cell Count 4.57 M/uL (4.33-5.43)
--- NOTE | 2018-04-28 11:08 | RAD REPORT ---
EXAM DESCRIPTION: RAD - Chest Pa And Lat (2 Views) - 04/28/2018 10:43 am CLINICAL HISTORY: follow up pneumonia Chest pain. COMPARISON: Chest Single View dated 04/25/2018; Chest Single View dated 04/23/2018; Chest Single View dated 12/18/2017; Chest Pa And Lat (2 Views) dated 03/12/2016 FINDINGS: The lungs are emphysematous but clear. Minimal right base postinflammatory residual suspec gio, however the majority of the previously noted pneumonia has resolved. The heart is moderately enl arged in size with sternotomy wires present. No displaced fractures.
--- NOTE | 2018-04-28 16:37 | P.PN ---
Subjective Date of Service: 04/28/18 Chief Complaint: Altered mental status Subjective: Improving Physical Examination - Vital Signs Temperature: 98 F Blood Pressure: 127/73 Pulse: 83 Respirations: 18 Pulse Ox (%): 95 - Physical Exam General: Alert, In no apparent distress, Demented HEENT: Atraumatic Neck: Supple Respiratory: Clear to auscultation bilaterally, Normal air movement Cardiovascular: Normal pulses, Regular rate/rhythm Gastrointestinal: Normal bowel sounds, Soft and benign, Non-distended, No tenderness, No masses, No rebound, No guarding Musculoskeletal: No erythema, No tenderness, No warmth Integumentary: No tenderness/swelling, No erythema, No warmth, No cyanosis Neurological: Normal speech, Normal strength at 5/5 x4 extr, Normal tone, Dementia - Studies Medications List Reviewed: Yes Assessment & Plan Discharge Plan: Other (Skilled placement facility) Plan to discharge in: 24 Hours Physician Review Additional Text: Impression: Right lower lobe pneumonia Hypertension Alzheimer's dementia with behavioral disturbance Hematuria likely related to BPH Plan: Right lower lobe pneumonia: Repeat chest x-ray shows resolution of pneumonia. CBC unremarkable. Electrolytes unremarkable. Patient stable for discharge. Case discussed with Neurology and . Will pursue skilled placement facility placement. Social work to help in this process. Continue course of antibiotic therapy. Hypertension: Continue medication Alzheimer's dementia with behavioral disturbance: Continue medication. Education on dementia provided by neurology to . Hematuria likely related to BPH: Will send for cytology. Recommend urology evaluation as an outpatient. Patient will likely require further evaluation including cystoscopy. Time Spent Managing Pts Care (In Minutes): 55
[2018-04-28] MEDS: ATORVASTATIN 10 MG TAB PO SCH (21:39)
[2018-04-28] MEDS: DONEPEZIL HCL 5 MG TAB PO SCH (21:39)
[2018-04-29 06:53] LABS: Magnesium 2.3 mg/dL (1.8-2.4); Phosphorus 3.3 mg/dL (2.5-4.9)
[2018-04-29] MEDS: INSULIN -REGULAR HUMAN 50 UNIT/0.5 ML ML SQ SCH ×3 (07:30→16:30)
[2018-04-29] MEDS: VITAMIN B COMPLEX 1 CAP PO SCH (08:52)
[2018-04-29] MEDS: METOPROLOL TAR 25 MG TAB PO SCH (08:52)
[2018-04-29] MEDS: ASCORBIC ACID 500 MG TABLET PO SCH (08:52)
[2018-04-29] MEDS: ASPIRIN EC 81 MG TAB PO SCH (08:52)
[2018-04-29] MEDS: MEMANTINE HCL 10 MG TABLET PO SCH (08:52)
[2018-04-29] MEDS: LISINOPRIL 20 MG TAB PO SCH (08:53)
[2018-04-29] MEDS: AMOX/K CLAV 500 MG TAB PO SCH (08:53)
[2018-04-29 09:00] VITALS: O2SAT 95
[2018-04-29 13:42] VITALS: BP 137/65; TEMP 97
--- NOTE | 2018-04-29 14:14 | P.DS ---
Admission Date: 04/24/18 Discharge Date: 04/29/18 Primary Care Provider: Dr. Ferrell Disposition: DC HOME/HOME HEALTH CARE Discharge Condition: GOOD Reason for Admission: Altered mental status Consultations: Neurology-Dr. Santos Procedures: CXR: FINDINGS: The lungs are emphysematous but clear. Minimal right base postinflammatory residual suspected, however the majority of the previously noted pneumonia has resolved. The heart is moderately enlarged in size with sternotomy wires present. No displaced fractures Bladder US: FINDINGS: Bladder volume measures 120 cc. A mass is not seen. The prostate gland is mildly to moderately enlarged. No ascites noted IMPRESSION: No gross abnormality of bladder is seen Medical Problem List: Right lower lobe pneumonia Hypertension Alzheimer's dementia with behavioral disturbance Hematuria likely related to BPH Chronic atrial fibrillation Brief History of Present Illness: 82-year-old male presented emergency room with fatigue and mild shortness of breath. Patient found have right lower lobe pneumonia. This was complicated with history of chronic atrial fibrillation, hypertension, and dementia. Patient was admitted for treatment. Hospital Course: Patient was admitted for right lower lobe pneumonia. The patient received IV antibiotic therapy. This was transitioned to oral medication. At discharge chest x-ray shows significant improvement. White count within normal range. At discharge patient will go to a skilled facility to continue rehabilitation. Patient with hypertension and chronic atrial fibrillation. This has remained stable. Patient will continue with his current medication. Patient not on chronic anti coagulation therapy due to his risk of fall and bleeding. Patient with Alzheimer's dementia with behavioral disturbance. Patient was evaluated by neurology. Patient had some mild behavioral disturbance during his stay. This resolved. Patient back to his baseline status. At discharge she will continue the medication. Education on dementia provided by neurology to the . Patient did have some hematuria. This resolved. Bladder ultrasound shows enlarged prostate. Cytology of the urine was obtained. This can be followed up as an outpatient. Recommend to follow up with urology as an outpatient to further evaluate. Patient will likely require cystoscopy. Vital Signs/Physical Exam: Temp Pulse Resp BP Pulse Ox 97 F 58 17 137/65 96 04/29/18 11:00 04/29/18 11:00 04/29/18 11:00 04/29/18 11:00 04/29/18 11:00 General: Alert, In no apparent distress, Oriented x3, Cooperative HEENT: Atraumatic Neck: Supple Respiratory: Clear to auscultation bilaterally, Normal air movement Cardiovascular: Normal pulses, Regular rate/rhythm Gastrointestinal: Normal bowel sounds, Soft and benign, Non-distended, No tenderness, No masses, No rebound, No guarding Musculoskeletal: No erythema, No tenderness, No warmth Integumentary: No tenderness/swelling, No erythema, No warmth, No cyanosis Neurological: Normal speech, Normal strength at 5/5 x4 extr, Normal tone, Normal affect Laboratory Data at Discharge: WBC 8.0 K/uL (4.3-10.9) 04/28/18 10:18 Hgb 14.2 g/dL (13.6-17.9) 04/28/18 10:18 Hct 41.0 % (39.6-49.0) 04/28/18 10:18 Plt Count 182 K/uL (152-406) D 04/28/18 10:18 PT 13.7 SECONDS (9.5-12.5) H 04/23/18 17:35 INR 1.17 04/23/18 17:35 Sodium 144 mmol/L (136-145) 04/29/18 06:21 Potassium 4.0 mmol/L (3.5-5.1) 04/29/18 06:21 BUN 17 mg/dL (7-18) 04/29/18 06:21 Creatinine 0.97 mg/dL (0.55-1.3) 04/29/18 06:21 Glucose 101 mg/dL (74-106) 04/29/18 06:21 Phosphorus 3.3 mg/dL (2.5-4.9) 04/29/18 06:21 Magnesium 2.3 mg/dL (1.8-2.4) 04/29/18 06:21 Total Bilirubin 1.9 mg/dL (0.2-1.0) H 04/26/18 06:01 AST 63 U/L (15-37) H 04/26/18 06:01 ALT 27 U/L (12-78) 04/26/18 06:01 Alkaline Phosphatase 60 U/L (45-117) 04/26/18 06:01 Lipase 62 U/L (73-393) L 04/23/18 17:35 Home Medications: Ascorbic Acid [Vitamin C with Neyda Hips] 1 tab PO DAILY 04/24/18 Aspirin [Aspirin EC 81 MG] 81 mg PO DAILY 04/24/18 Atorvastatin Calcium [Lipitor*] 10 mg PO BEDTIME 04/24/18 Donepezil [Aricept*] 5 mg PO DAILY 04/24/18 Ferrous Fumarate/Vit Bcomp&C [Super B-Complex Caplet] 1 tab PO DAILY 04/24/18 Lisinopril [Prinivil*] 20 mg PO DAILY 04/24/18 Memantine HCl [Namenda*] 10 mg PO BID 04/24/18 Metoprolol Tartrate [Lopressor*] 25 mg PO BID 04/24/18 Amoxicillin/Potassium Clav [Augmentin 500-125 Tablet] 1 each PO BID #4 tablet New Medications: Amoxicillin/Potassium Clav [Augmentin 500-125 Tablet] 1 each PO BID #4 tablet Patient Discharge Instructions: 1. Patient be transferred to skilled facility. Patient will continue with his antibiotic therapy for right lower lobe pneumonia. 2. Patient with hypertension, chronic atrial fibrillation, Alzheimer's dementia with behavioral disturbance. Patient will continue with his current medication. Recommend to follow up with neurology in 2-4 weeks to monitor his progress. 3. Patient with hematuria. Bladder ultrasound shows BPH. Recommend to follow up with urology as an outpatient to further evaluate. Patient will likely require a cystoscopy. This can be done as an outpatient. Urine cytology obtained. This can be followed up by his PCP. Diet: Regular Activity: Ad jameel Time spent managing pt's care (in minutes): 55
== END 2018-04-29 18:08 | DRG 193 ==
LOC: ER 16:45 → ERHOLD 18:28 → 2ND 23:42 → OBSVTOIN 04-24 12:22
PROVIDERS: ADMIT Family Medicine; ATTEND Family Medicine
DX: J18.1 Lobar pneumonia, unspecified organism (principal); I50.23 Acute on chronic systolic (congestive) heart failure; I13.0 Hypertensive heart and chronic kidney disease with heart failure and stage 1 through stage 4 chronic kidney disease, or unspecified chronic kidney disease; F02.81 Dementia in other diseases classified elsewhere, unspecified severity, with behavioral disturbance; G93.49 Other encephalopathy; I10 Essential (primary) hypertension; N40.1 Benign prostatic hyperplasia with lower urinary tract symptoms; R31.9 Hematuria, unspecified; I48.2 Chronic atrial fibrillation; Z87.891 Personal history of nicotine dependence; N18.3 Chronic kidney disease, stage 3 (moderate); I25.10 Atherosclerotic heart disease of native coronary artery without angina pectoris; E87.6 Hypokalemia; E88.09 Other disorders of plasma-protein metabolism, not elsewhere classified; G30.0 Alzheimer's disease with early onset
CPT/HCPCS: 36415; 70450; 71045; 71046; 76857; 80048; 80053; 80076; 81003; 81015; 82962; 83690; 83735; 83880; 84100; 84132; 84145; 84443; 84484; 85025; 85610; 87040; 87086; 87088; 88108; 93005; 96365; 96375; 97163; 97166; 99285; G0378; J0456; J0696; J1630; J2543; J3475; J7030

== ENCOUNTER 2018-10-19 22:24 | Inpatient (IN) | payer OTHER ==
--- NOTE | 2018-10-19 23:51 | RAD REPORT ---
EXAM DESCRIPTION: RAD - Chest Single View - 10/19/2018 11:42 pm CLINICAL HISTORY: CHEST PAIN Chest pain. COMPARISON: Chest Pa And Lat (2 Views) dated 04/28/2018; Chest Single View dated 04/25/2018; Chest Sin gle View dated 04/23/2018; Chest Single View dated 12/18/2017 FINDINGS: Portable technique limits examination quality. Mild interstitial pulmonary edema seen. The heart is significantly enlarged in size with sternotomy w ires present. No displaced fractures.Tortuous thoracic aorta. IMPRESSION: Mild CHF versus volume overload pattern.
[2018-10-19 23:55] LABS: Bilirubin Direct 0.3 mg/dL (0-0.2); Magnesium 2.1 mg/dL (1.8-2.4); Potassium 4.2 mmol/L (3.5-5.1); Protein, Total 7.5 g/dL (6.4-8.2)
[2018-10-20 00:15] LABS: Troponin (Emerg Dept Use Only) 0.14 ng/mL (0.0-0.045)
[2018-10-20 00:19] LABS: Absolute Lymphocytes (CBC) 1.7 K/uL (0.7-4.9); Basophils % 0.3 % (0-1.3); Hematocrit 41.9 % (39.6-49.0); Lymphocytes % 21.3 % (15.3-44.8); MPV 9.4 fL (7.6-11.3)
[2018-10-20 00:20] LABS: Protime INR 1.1
[2018-10-20] MEDS ORDERED: FUROSEMIDE 40 MG/4 ML VIAL ONE (00:30)
[2018-10-20] MEDS ORDERED: ENALAPRILAT 1.25 MG/ML VIAL IV ONE (01:20)
[2018-10-20] MEDS ORDERED: ASPIRIN 81 MG CHEWABLE TABLET ONE (02:43)
--- NOTE | 2018-10-20 03:26 | P.HP ---
Certification for Inpatient Patient admitted to: Inpatient With expected LOS: >2 Midnights Patient will require the following post-hospital care: None Practitioner: I am a practitioner with admitting privileges, knowledge of patient current condition, hospital course, and medical plan of care. Services: Services provided to patient in accordance with Admission requirements found in Title 42 Section 412.3 of the Code of Federal Regulations Patient History Date of Service: 10/20/18 Primary Care Provider: Dr. Ferrell; Cardiology-Dr. Piper Reason for admission: Chest pain, fatigue with exertion History of Present Illness: 82-year-old male with history of hypertension, CAD with prior CABG x3 vessel, chronic atrial fibrillation, Alzheimer's dementia and hyperlipidemia. Patient presented with chest pain. Most of the information came from the as the patient has moderate to severe dementia. reported that over the past 3 days patient has been having chest pain. It has been associated with fatigue with exertion. He reports shortness of breath as well. The other day she gave aspirin for the chest pain. Apparently this all started when he picked up a bag of dog food into the house. He started to have some chest pain. thought it was a muscle sprain. The following day they went on his normal daily walk when she noted that he was more fatigued than normal. Today it chest pain continued. See also reported that blood pressure was elevated. She came to the ER with the patient to further address. In the ER patient evaluated. Blood pressure slightly elevated. EKG did not show significant ST elevation. Troponin was elevated at 0.63. BNP 5200. White count 7.9, hemoglobin 14. Sodium 143, potassium 4.3. BUN of 14, creatinine 1.28 with a GFR 54. Chest x-ray showed mild fluid overload. Patient received IV Lasix in the emergency room. Patient admitted for further evaluation. When I saw the patient the ER, he appeared comfortable. at bedside Allergies sedatives Allergy (Uncoded 06/13/16 04:46) Unknown Home medications list reviewed: Yes Home Medications: Ascorbic Acid [Vitamin C with Neyda Hips] 1 tab PO DAILY 04/24/18 Aspirin [Aspirin EC 81 MG] 81 mg PO DAILY 04/24/18 Atorvastatin Calcium [Lipitor*] 10 mg PO BEDTIME 04/24/18 Donepezil [Aricept*] 5 mg PO DAILY 04/24/18 Ferrous Fumarate/Vit Bcomp&C [Super B-Complex Caplet] 1 tab PO DAILY 04/24/18 Lisinopril [Prinivil*] 20 mg PO DAILY 04/24/18 Memantine HCl [Namenda*] 10 mg PO BID 04/24/18 Metoprolol Tartrate [Lopressor*] 25 mg PO BID 04/24/18 Amoxicillin/Potassium Clav [Augmentin 500-125 Tablet] 1 each PO BID #4 tablet - Past Medical/Surgical History Diabetic: No -: Chronic atrial fibrillation not on chronic anti coagulation therapy -: 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 He lives with the who takes care of him. - Family History Father -: Heart disease Brother -: Heart disease Mother -: Stroke - Social History Smoking Status: Unknown if ever smoked Alcohol use: No CD- Drugs: No Caffeine use: Yes Place of Residence: Home Review of Systems General: Weakness, As per HPI Eyes: Unremarkable ENT: Unremarkable Respiratory: SOB with Excertion, As per HPI Cardiovascular: Chest Pain, As per HPI Gastrointestinal: Unremarkable Genitourinary: Unremarkable Musculoskeletal: Unremarkable Integumentary: Unremarkable Neurological: Unremarkable Lymphatics: Unremarkable Physical Examination - Physical Exam General: Alert, In no apparent distress, Cooperative, Demented (Moderate to severe dementia) HEENT: Atraumatic, Normocephalic, Mucous membr. moist/pink Neck: Supple, No Thyromegaly Respiratory: Clear to auscultation bilaterally, Normal air movement Cardiovascular: Irregular heart rate/rhythm (Atrial fibrillation, rate controlled) Gastrointestinal: Normal bowel sounds, Soft and benign, Non-distended, No tenderness, No masses, No rebound, No guarding Musculoskeletal: No erythema, No tenderness, No warmth Integumentary: No tenderness/swelling, No erythema, No warmth, No cyanosis Neurological: Normal speech, Normal strength at 5/5 x4 extr, Normal tone, Dementia (Moderate to severe dementia) - Studies Laboratory Data (last 24 hrs) 10/20/18 00:05: PT 12.9 H, INR 1.10 10/20/18 00:05: WBC 7.9, Hgb 14.7, Hct 41.9, Plt Count 130 L 10/19/18 23:20: Sodium 143, Potassium 4.2, BUN 14, Creatinine 1.28, Glucose 100 , Magnesium 2.1, Total Bilirubin 1.0, AST 39 H, ALT 54, Alkaline Phosphatase 87 Assessment and Plan - Plan Impression: Chest pain, shortness of breath with exertion secondary to NSTEMI with history of CAD/CABG x3 vessel Hypertension Hyperlipidemia Moderate severe Alzheimer's dementia Highly sensitive to sedation medication Plan: Chest pain, shortness of breath with exertion secondary to NSTEMI with history of CAD/CABG x3 vessel: Patient will be admitted for further evaluation and treatment. Will keep the patient NPO as the patient will likely require heart catheterization to further evaluate. Cardiology consulted for further recommendation. Will start aspirin 81 mg daily, Lovenox at 1 milligram/ kilogram subcu twice daily, metoprolol 25 mg 1 pill twice daily, and lisinopril 20 mg daily. Will provide nitro as needed. Advanced directives address with the . Patient is do not resuscitate. also also mentions that the patient is highly sensitive to sedation medication. She would like to discuss with cardiology about plan of care. If sedation is required for heart catheterization she may not want this as this may increase risk for further complication. Risk and benefit addressed in detail with the patient's . Await recommendations from cardiology. Patient may benefit with medical management only. Will order echocardiogram to further evaluate. Continue to monitor cardiac enzymes and telemetry. Hospital team will continue his care. Hypertension: Restart lisinopril 20 mg daily, metoprolol 25 mg 1 pill twice daily. Will monitor and adjust appropriately. Hyperlipidemia: Will obtain fasting lipid panel. Increase Lipitor to 40 mg daily. Moderate/severe Alzheimer's dementia: Continue medication for Alzheimer's- Aricept 5 mg daily and Namenda 10 mg 1 pill twice daily. No sedation medication is to be given due to risk of complications Highly sensitive to sedation medication: NO SEDATION MEDICATION PER . Discharge Plan: Home Plan to discharge in: 48 Hours - Advance Directives Does patient have a Living Will: No Does patient have a Durable POA for Healthcare: No - Code Status/Comfort Care Code Status Assessed: Yes (PATIENT IS DO NOT RESUSCITATE. This was discussed in detail with ) Time Spent Managing Pts Care (In Minutes): 55
--- NOTE | 2018-10-20 03:32 | ER ---
Nurse's Notes [facility] Name: Sudarshan Rao Age: 82 yrs Sex: Male : 1935 Arrival Date: 10/19/2018 Time: 22:25 Bed 30 Private MD: Raj Ferrell Diagnosis: Acute systolic (congestive) heart failure;Non-ST elevation (NSTEMI) myocardial infarction Presentation: 10/19 22:50 Presenting complaint: daughter states pt has been c/o chest pain for the last 3 nights bb pt has cardiac history of bypass and stents. Transition of care: patient was not received from another setting of care. Onset of symptoms was October 16, 2018. Risk Assessment: Do you want to hurt yourself or someone else? Patient reports no desire to harm self or others. Initial Sepsis Screen: Does the patient meet any 2 criteria? No. Patient's initial sepsis screen is negative. Does the patient have a suspected source of infection? No. Patient's initial sepsis screen is negative. Care prior to arrival: None. 22:50 Method Of Arrival: Ambulatory bb 22:50 Acuity: STACEY 2 bb Historical: - Allergies: 23:03 sedatives; causes agitation; bb - Home Meds: 23:03 aspirin 325 mg Oral TbEC 1 tab once daily [Active]; B1 [Active]; d3 [Active]; donepezil bb 5 mg Oral tab 1 tab once daily [Active]; famotidine 20 mg Oral tab [Active]; Ferrous Sulfate Oral [Active]; lisinopril 20 mg Oral tab 1 tab once daily [Active]; memantine 10 mg Oral tab 1 tab 2 times per day [Active]; metoprolol tartrate 25 mg Oral tab 2 times per day [Active]; Potassium Chloride Oral [Active]; - PMHx: 23:03 Atrial Fib; CHF; Myocardial infarction; organic dementia; Pneumonia; Sepsis; Sleep bb Apnea; - PSHx: 23:03 CABG; Heart stents; bb - Immunization history:: Adult Immunizations not up to date. - Social history:: Smoking status: Patient/guardian denies using tobacco. - Ebola Screening: : No symptoms or risks identified at this time. Screenin/09 00:05 Abuse screen: Denies threats or abuse. Denies injuries from another. Nutritional wh screening: No deficits noted. Tuberculosis screening: No symptoms or risk factors identified. Fall Risk None identified. Assessment: 00:05 General: Appears in no apparent distress. Behavior is calm, cooperative, appropriate wh for age. Pain: Complains of pain in chest Pain does not radiate. Pain currently is 4 out of 10 on a pain scale. Quality of pain is described as aching, Pain began 2-3 days ago. Is intermittent. Neuro: Level of Consciousness is awake, alert, obeys commands, Oriented to person, place, time, Legal Billing Analyst are equal bilaterally. Cardiovascular: Heart tones S1 S2 Capillary refill < 3 seconds Rhythm is regular. Respiratory: Airway is patent Respiratory effort is even, unlabored, Respiratory pattern is regular, symmetrical, Breath sounds are clear bilaterally. GI: Abdomen is flat, non-distended, Abd is soft and non tender X 4 quads. : No signs and/or symptoms were reported regarding the genitourinary system. EENT: No signs and/or symptoms were reported regarding the EENT system. Derm: Skin is intact, is healthy with good turgor, Skin is pink, warm \T\ dry. normal. Musculoskeletal: Circulation, motion, and sensation intact. 01:15 Reassessment: Patient appears in no apparent distress at this time. No changes from previously documented assessment. Patient and/or family updated on plan of care and expected duration. Pain level reassessed. Patient is alert, oriented x 3, equal unlabored respirations, skin warm/dry/pink. 02:30 Reassessment: Patient appears in no apparent distress at this time. No changes from wh previously documented assessment. Patient and/or family updated on plan of care and expected duration. Pain level reassessed. Patient is alert, oriented x 3, equal unlabored respirations, skin warm/dry/pink. Dr Chaudhary explained Plan of care to family. Awaiting Admitting orders. 03:30 Reassessment: Patient appears in no apparent distress at this time. No changes from previously documented assessment. Patient and/or family updated on plan of care and expected duration. Pain level reassessed. Patient is alert, oriented x 3, equal unlabored respirations, skin warm/dry/pink. 04:47 Reassessment: Patient appears in no apparent distress at this time. No changes from previously documented assessment. Patient and/or family updated on plan of care and expected duration. Pain level reassessed. Patient is alert, oriented x 3, equal unlabored respirations, skin warm/dry/pink. Vital Signs: 10/19 23:03 BP 182 / 105; Pulse 77; Resp 14 S; Temp 98.1(O); Pulse Ox 99% on R/A; Weight 72.57 kg bb (R); Height 5 ft. 9 in. (175.26 cm) (R); Pain 0/10; 10/20 00:05 BP 179 / 95; Pulse 78; Resp 18; Pulse Ox 96% on R/A; wh 01:00 BP 176 / 99; Pulse 72; Resp 18; Pulse Ox 100% on R/A; wh 02:00 BP 164 / 88; Pulse 79; Resp 18; Pulse Ox 99% on R/A; wh 03:00 BP 160 / 96; Pulse 65; Resp 18; Pulse Ox 97% on R/A; wh 04:00 BP 170 / 92; Pulse 61; Resp 18; Pulse Ox 97% on R/A; wh 10/19 23:03 Body Mass Index 23.63 (72.57 kg, 175.26 cm) bb ED Course: 10/19 22:25 Patient arrived in ED. mr 22:25 Raj Ferrell DO is Private Physician. mr 22:58 Daniel Chaudhary MD is Attending Physician. gs 23:02 Triage completed. bb 23:03 Arm band placed on Patient placed in an exam room, on a stretcher, on site monitor, bb on pulse oximetry. EKG completed in triage. Results shown to MD. 23:11 Kevon Lang, KENRICK is Primary Nurse. rv 23:12 Sara Sylvester is Primary Nurse. wh 23:44 XRAY Chest (1 view) In Process Unspecified. EDMS 10/20 00:05 Patient has correct armband on for positive identification. Placed in gown. Bed in low wh position. Call light in reach. Side rails up X 1. monitor worker on. Pulse ox on. NIBP on. 00:05 Missed attempt(s): 20 gauge in right antecubital area. Bleeding controlled, band aid wh applied, catheter tip intact. 00:05 Patient maintains SpO2 saturation greater than 95% on room air. wh 00:10 Inserted saline lock: 22 gauge in right wrist, using aseptic technique. Blood collected.bb 03:30 Prezas, Karthikeyan, DO is Hospitalizing Provider. 04:47 No provider procedures requiring assistance completed. Patient admitted, IV remains in place. Administered Medications: 00:33 Drug: Lasix 40 mg Route: IVP; Site: right hand; 02:10 Follow up: Response: No adverse reaction; Blood pressure is lowered 01:26 Drug: Enalaprilat 1.25 mg Route: IV; Rate: bolus; Site: right hand; 02:10 Follow up: Response: No adverse reaction; Blood pressure is lowered; IV Status: Completed infusion 02:49 Drug: Aspirin Chewable Tablet 324 mg {Note: Only 3 aspirin given. Pt already took 1 aspirin CREDIT ANALYST.} Route: PO; 04:50 Follow up: Response: No adverse reaction Outcome: 03:31 Decision to Hospitalize by Provider. 04:32 Patient left the ED. bb 04:47 Admitted to Med/surg accompanied by nurse, family with patient, via wheelchair, room 202, with chart, Report called to Elizabeth Mcdowell RN 04:47 Condition: good 04:47 Instructed on the need for admit. Signatures: Dispatcher [employer] THERESETX Indy Bolden Brenda, RN RN Sara Sylvester Daniel Chaudhary MD MD gs Vicente, Ronaldo RN RN rv Corrections: (The following items were deleted from the chart) 02:08 00:05 Immunization history: Adult Immunizations up to date, [facility]
--- NOTE | 2018-10-20 03:33 | EDPHYS ---
Physician Documentation [facility] Name: Sudarshan Rao Age: 82 yrs Sex: Male : 1935 Arrival Date: 10/19/2018 Time: 22:25 Bed 30 Private MD: Raj Ferrell ED Physician Daniel Chaudhary HPI: 10/20 03:06 This 82 yrs old Male presents to ER via Ambulatory with complaints of Chest gs Pain. 03:06 The patient or guardian reports chest pain that is located primarily in the anterior gs chest wall. Onset: 3 day(s) ago. Associated signs and symptoms: Pertinent negatives: diaphoresis. Duration: The patient or guardian reports multiple episodes, that wax and wane. Modifying factors: the symptoms are aggravated by exertion. Severity of pain: At its worst the pain was moderate in the emergency department the pain has resolved and did so just prior to arrival. Historical: - Allergies: 10/19 23:03 sedatives; causes agitation; bb - Home Meds: 23:03 aspirin 325 mg Oral TbEC 1 tab once daily [Active]; B1 [Active]; d3 [Active]; donepezil bb 5 mg Oral tab 1 tab once daily [Active]; famotidine 20 mg Oral tab [Active]; Ferrous Sulfate Oral [Active]; lisinopril 20 mg Oral tab 1 tab once daily [Active]; memantine 10 mg Oral tab 1 tab 2 times per day [Active]; metoprolol tartrate 25 mg Oral tab 2 times per day [Active]; Potassium Chloride Oral [Active]; - PMHx: 23:03 Atrial Fib; CHF; Myocardial infarction; organic dementia; Pneumonia; Sepsis; Sleep bb Apnea; - PSHx: 23:03 CABG; Heart stents; bb - Immunization history:: Adult Immunizations not up to date. - Social history:: Smoking status: Patient/guardian denies using tobacco. - Ebola Screening: : No symptoms or risks identified at this time. ROS: 10/20 03:06 Unable to obtain ROS due to baseline dementia. gs Exam: 03:06 Head/Face: Normocephalic, atraumatic. Eyes: Pupils equal round and reactive to light, gs extra-ocular motions intact. Lids and lashes normal. Conjunctiva and sclera are non-icteric and not injected. Cornea within normal limits. Periorbital areas with no swelling, redness, or edema. ENT: Nares patent. No nasal discharge, no septal abnormalities noted. Tympanic membranes are normal and external auditory canals are clear. Oropharynx with no redness, swelling, or masses, exudates, or evidence of obstruction, uvula midline. Mucous membranes moist. Neck: Trachea midline, no thyromegaly or masses palpated, and no cervical lymphadenopathy. Supple, full range of motion without nuchal rigidity, or vertebral point tenderness. No Meningismus. Chest/axilla: Normal chest wall appearance and motion. Nontender with no deformity. No lesions are appreciated. Cardiovascular: Regular rate and rhythm with a normal S1 and S2. No gallops, murmurs, or rubs. Normal PMI, no JVD. No pulse deficits. Respiratory: Lungs have equal breath sounds bilaterally, clear to auscultation and percussion. No rales, rhonchi or wheezes noted. No increased work of breathing, no retractions or nasal flaring. Abdomen/GI: Soft, non-tender, with normal bowel sounds. No distension or tympany. No guarding or rebound. No evidence of tenderness throughout. Back: No spinal tenderness. No costovertebral tenderness. Full range of motion. Skin: Warm, dry with normal turgor. Normal color with no rashes, no lesions, and no evidence of cellulitis. MS/ Extremity: Pulses equal, no cyanosis. Neurovascular intact. Full, normal range of motion. Neuro: Awake and alert, GCS 15, oriented to person, place, time, and situation. Cranial nerves II-XII grossly intact. Motor strength 5/5 in all extremities. Sensory grossly intact. Cerebellar exam normal. Normal gait. 03:06 Constitutional: The patient appears in no acute distress, alert, awake. 03:06 ECG was reviewed by the Attending Physician. Vital Signs: 10/19 23:03 BP 182 / 105; Pulse 77; Resp 14 S; Temp 98.1(O); Pulse Ox 99% on R/A; Weight 72.57 kg bb (R); Height 5 ft. 9 in. (175.26 cm) (R); Pain 0/10; 10/20 00:05 BP 179 / 95; Pulse 78; Resp 18; Pulse Ox 96% on R/A; wh 01:00 BP 176 / 99; Pulse 72; Resp 18; Pulse Ox 100% on R/A; 02:00 BP 164 / 88; Pulse 79; Resp 18; Pulse Ox 99% on R/A; 03:00 BP 160 / 96; Pulse 65; Resp 18; Pulse Ox 97% on R/A; wh 04:00 BP 170 / 92; Pulse 61; Resp 18; Pulse Ox 97% on R/A; 10/19 23:03 Body Mass Index 23.63 (72.57 kg, 175.26 cm) bb MDM: 00:11 Patient medically screened. 03:06 Data reviewed: vital signs, nurses notes. 03:31 Response to treatment: the patient's symptoms have resolved after treatment, the patient's pain is gone. 10/19 22:58 Order name: Basic Metabolic Panel; Complete Time: 00:12 10/19 22:58 Order name: CBC with Diff; Complete Time: 01:05 10/19 22:58 Order name: LFT's; Complete Time: 00:12 10/19 22:58 Order name: Magnesium; Complete Time: 00:12 10/19 22:58 Order name: NT PRO-BNP; Complete Time: 01:05 10/19 22:58 Order name: PT-INR; Complete Time: 01:05 10/19 22:58 Order name: Troponin (emerg Dept Use Only); Complete Time: 01:05 10/19 22:58 Order name: XRAY Chest (1 view); Complete Time: 00:12 10/19 22:58 Order name: EKG; Complete Time: 23:00 10/19 22:58 Order name: Cardiac monitoring; Complete Time: 23:33 10/20 01:08 Order name: Troponin (emerg Dept Use Only); Complete Time: 02:24 10/19 22:58 Order name: EKG - Nurse/Tech; Complete Time: 23:33 10/19 22:58 Order name: IV Saline Lock; Complete Time: 23:33 10/19 22:58 Order name: Labs collected and sent; Complete Time: 23:33 10/19 22:58 Order name: O2 Per Protocol; Complete Time: 23:33 10/19 22:58 Order name: O2 Sat Monitoring; Complete Time: 23:33 10/19 23:38 Order name: Labs - recollect needed; Complete Time: 00:05 em1 10/20 02:31 Order name: EKG - Nurse/Tech; Complete Time: 02:44 gs EC:06 Rate is 76 beats/min. Rhythm is regular. PA interval is normal. QRS interval is gs prolonged. T waves are Inverted in leads I, aVL. Clinical impression: NSR w/ Non-specific ST/T Changes and Cardiac ischemia. Interpreted by me. Administered Medications: 00:33 Drug: Lasix 40 mg Route: IVP; Site: right hand; 02:10 Follow up: Response: No adverse reaction; Blood pressure is lowered 01:26 Drug: Enalaprilat 1.25 mg Route: IV; Rate: bolus; Site: right hand; 02:10 Follow up: Response: No adverse reaction; Blood pressure is lowered; IV Status: Completed infusion 02:49 Drug: Aspirin Chewable Tablet 324 mg {Note: Only 3 aspirin given. Pt already took 1 aspirin IMMUNOLOGIST.} Route: PO; 04:50 Follow up: Response: No adverse reaction Disposition: 10/20/18 03:31 Hospitalization ordered by Karthikeyan Adorno for Inpatient Admission. Preliminary diagnosis are Acute systolic (congestive) heart failure, Non-ST elevation (NSTEMI) myocardial infarction. - Bed requested for Telemetry/MedSurg (Inpatient). - Status is Inpatient Admission. bb - Condition is Stable. - Problem is new. - Symptoms have improved. UTI on Admission? No Signatures: Dispatcher [employer] EDMS Adilene Loomis RN RN bb Martinez, Eric em1 Idalmis Rome RN RN cg Habalo, Winsy Daniel Chaudhary MD MD gs Corrections: (The following items were deleted from the chart) 02:08 00:05 Immunization history: Adult Immunizations up to date, [facility] 03:41 03:31 Hospitalization Ordered by Karthikeyan Adorno DO for Inpatient Admission. Preliminary diagnosis is Acute systolic (congestive) heart failure; Non-ST elevation (NSTEMI) myocardial infarction. Bed requested for Telemetry/MedSurg (Inpatient). Status is Inpatient Admission. Condition is Stable. Problem is new. Symptoms have improved. UTI on Admission? No. 04:32 03:41 10/20/2018 03:31 Hospitalization Ordered by Karthikeyan Adorno DO for Inpatient bb Admission. Preliminary diagnosis is Acute systolic (congestive) heart failure; Non-ST elevation (NSTEMI) myocardial infarction. Bed requested for Telemetry/MedSurg (Inpatient). Status is Inpatient Admission. Condition is Stable. Problem is new. Symptoms have improved. UTI on Admission? No. cg
[2018-10-20] MEDS ORDERED: ACETAMINOPHEN 650MG/RECT SUPP RECT PRN (04:42)
[2018-10-20] MEDS ORDERED: ASPIRIN 81 MG CHEWABLE TABLET PO ONE (04:42)
[2018-10-20] MEDS ORDERED: ACETAMINOPHEN 500 MG TAB PO PRN (04:42)
[2018-10-20] MEDS ORDERED: ONDANSETRON 4 MG/2 ML VIAL IV PRN (04:42)
[2018-10-20] MEDS ORDERED: NITROGLYCERIN 0.4 MG/TAB SL PRN (04:42)
[2018-10-20] MEDS: METOPROLOL TAR 25 MG TAB PO SCH ×2 (06:25→18:02)
[2018-10-20 07:39] LABS: Urine Appearance CLEAR; Urine Bilirubin NEGATIVE (NEG); Urine Blood NEGATIVE (NEG); Urine Color YELLOW; Urine Glucose NEGATIVE (NEG); Urine Protein NEGATIVE (NEG); Urine Specific Gravity <=1.005 (1.005-1.030); Urine Urobilinogen 0.2 mg/dL (0.2-1.0)
[2018-10-20 07:49] LABS: Urine Microscopic Reflex ORDER UMIC
[2018-10-20 07:58] LABS: Urine Bacteria <20 /HPF (NONE SEEN); Urine Culture Reflex Order REFLEXED; Urine RBC NONE SEEN /HPF (NONE SEEN)
--- NOTE | 2018-10-20 08:01 | EKG ---
Test Date: 2018-10-20 Test Time: 02:35:53 Granite Installer: MONICA MEASUREMENT RESULTS: Intervals: Rate: 80 NV: QRSD: 112 QT: 410 QTc: 472 [place]: P: NV: QRS: -27 T: 106 INTERPRETIVE STATEMENTS: Atrial fibrillation Minimal voltage criteria for LVH, may be normal variant T wave abnormality, consider lateral ischemia Prolonged QT Abnormal ECG Compared to ECG 04/23/2018 17:09:11 T-wave abnormality now present Possible ischemia now present Prolonged QT interval now present Sinus rhythm is no longer present Electronically Signed On 10-20-18 08:01:13 CDT by Jaiden Minor
[2018-10-20] MEDS ORDERED: ENOXAPARIN 100 MG/ML SYR SQ SCH (09:00)
[2018-10-20] MEDS: ENOXAPARIN 80 MG/0.8 ML SQ SCH ×2 (09:10→20:08)
[2018-10-20] MEDS: LISINOPRIL 20 MG TAB PO SCH (09:11)
[2018-10-20] MEDS: ASCORBIC ACID 500 MG TABLET PO SCH (09:11)
[2018-10-20] MEDS: MEMANTINE HCL 10 MG TABLET PO SCH ×2 (09:12→20:08)
[2018-10-20 10:07] LABS: CKMB Creatine Kinase MB 12.4 ng/mL (0.3-3.6); Troponin I 4.39 ng/mL (0.0-0.045)
[2018-10-20] MEDS ORDERED: HYDRALAZINE HCL 20 MG/ML VIAL IV PRN (10:10)
--- NOTE | 2018-10-20 16:57 | EKG ---
Test Date: 2018-10-19 Test Time: 22:37:54 Public Improvement Inspector: MONICA MEASUREMENT RESULTS: Intervals: Rate: 76 NC: 182 QRSD: 106 QT: 408 QTc: 459 [place]: P: NC: 182 QRS: -33 T: 109 INTERPRETIVE STATEMENTS: Sinus rhythm with marked sinus arrhythmia Left axis deviation Left ventricular hypertrophy with repolarization abnormality Abnormal ECG Compared to ECG 04/23/2018 17:09:11 Left-axis deviation now present Electronically Signed On 10-20-18 16:55:20 CDT by Alon Piper
[2018-10-20 18:33] LABS: CKMB Creatine Kinase MB 11.2 ng/mL (0.3-3.6); Troponin I 6.49 ng/mL (0.0-0.045)
[2018-10-20] MEDS: ATORVASTATIN 40 MG TAB PO SCH (20:08)
[2018-10-20] MEDS: DONEPEZIL HCL 5 MG TAB PO SCH (20:08)
--- NOTE | 2018-10-21 01:55 | CON ---
Date of Consultation: 10/20/[address] Chao's service on 10/20/2018. I saw the patient on 10/20/2018. Reason For Consultation: Atrial fibrillation and non-ST elevation myocardial infarction. History Of Present Illness: Mr. Rao is an 82-year-old male has a history of CABG, PCIs, hype rtension, dyslipidemia, atrial fibrillation, dementia, congestive heart failure, and sleep apnea. He came in with chest pain, positive troponin. Atrial fibrillation. He is a do not resuscitate. He d enied PND, orthopnea, pedal edema, palpitations, or syncope. Allergies: TO SEDATIVES. Review of Systems: Negative. Social History: Negative. Family History: Noncontributory. Medications: Include Augmentin, aspirin Lipitor, Aricept, lisinopril, metoprolol, iron, Namenda, and Aricept. Physical Examination: Vital Signs: His blood pressure was 194/97. He was in atrial fibrillation with controlled rate when I saw him. HEENT: Negative. Neck: Supple without any bruit, lymphadenopathy, JVD, or thyromegaly. Chest: Reveals rales both bases. Cardiac: Revealed atrial fibrillation. Abdomen: Benign. Extremities: Revealed no clubbing, cyanosis, or edema. Skin: Dry and intact. Neurological: He was actually nonfocal. His pulses were present distally and bilaterally. Diagnostic Data: His troponin was 0.63. BNP was 5297. Chest x-ray showed mild failure. EKG showed atrial fibrillation. Heart catheterization in 2011 revealed the patent graft to the LAD and RCA. H is circumflex was okay. He had a carotid and an echocardiogram in December of 2017 that were negativ e. Impression And Plan: 1.History of coronary artery disease, status post coronary artery bypass grafting and stent with non -ST elevation myocardial infarction. I would like him to get a 2D echocardiogram. The family and th e patient are hesitant to have a heart catheterization considering he is DNR and has significant juan jose ntia. He is also allergic to sedatives. We will see what the echocardiogram shows prior to making a ny final decision and I will readdress the issue with the family again. We will see if he has any fu rther chest pain or further elevation with troponin. 2.Hypertension, poorly controlled. We need to go up on the metoprolol dose or lisinopril dose. 3.Mild congestive heart failure, probably diastolic. We will see what the echo shows. 4.Dyslipidemia, on Lipitor. 5.Dementia, on Aricept and Namenda. 6.Atrial fibrillation rate control. Patient is probably not a good candidate for anticoagulation, b ut I would at least put him on aspirin. 7.Sleep apnea, which is stable. DARWIN/JAY Voice ID: [id number] Report ID: [id number]
[2018-10-21] MEDS: METOPROLOL TAR 25 MG TAB PO SCH ×2 (05:02→17:31)
[2018-10-21 05:54] LABS: Absolute Lymphocytes (CBC) 2.4 K/uL (0.7-4.9); Basophils % 0.2 % (0-1.3); Hematocrit 44.6 % (39.6-49.0); Lymphocytes % 32.5 % (15.3-44.8); MPV 9.2 fL (7.6-11.3); RBC Red Blood Cell Count 4.98 M/uL (4.33-5.43)
[2018-10-21 05:59] LABS: Magnesium 2.2 mg/dL (1.8-2.4); Potassium 3.5 mmol/L (3.5-5.1)
--- NOTE | 2018-10-21 07:51 | ECHO ---
HEIGHT: 5 ft 9 in WEIGHT: 158 lb 14.4 oz DATE OF STUDY: 10/20/[address]: Karthikeyan Adorno DO 2-DIMENSIONAL: YES M.MODE: YES DOPPLER: YES COLOR FLOW: YES TDS: NO PORTABLE: NO DEFINITY: NO BUBBLE STUDY: NO DIAGNOSIS: NSTEMI CARDIAC HISTORY: CATHERIZATION: SURGERY: PROSTHETIC VALVE: PACEMAKER: MEASUREMENTS (cm) DIASTOLIC (NORMALS) SYSTOLIC (NORMALS) IVSd 1.5 (0.6-1.2) LA Diam 4.8 (1.9-4.0) LVEF 51% LVIDd 6.0 (3.5-5.7) LVIDs 3.6 (2.0-3.5) %FS % LVPWd 1.4 (0.6-1.2) Ao Diam 3.7 (2.0-3.7) 2 DIMENSIONAL ASSESSMENT: RIGHT ATRIUM: NORMAL LEFT ATRIUM: DILATED RIGHT VENTRICLE: NORMAL LEFT VENTRICLE: LEFT VENTRICULAR HYPERTROPHY TRICUSPID VALVE: NORMAL MITRAL VALVE: NORMAL PULMONIC VALVE: NORMAL AORTIC VALVE: NORMAL PERICARDIAL EFFUSION: NONE AORTIC ROOT: NORMAL LEFT VENTRICULAR WALL MOTION: ANTEROAPICAL HYPOKINESIS. DOPPLER/COLOR FLOW: MILD TRICUSPID REGURGITATION. COMMENTS: ANTEROAPICAL HYPOKINESIS CONSISTANT WITH CORONARY ARTERY DISEASE. NORMAL OVERALL LEFT VENTRICULAR EJECTION FRACTION. LEFT ATRIAL ENLARGEMENT. LEFT VENTRICULAR HYPERTROPHY. MILD TRICUSPID REGURGITATION. TECHNOLOGIST: Franki FARIAS
[2018-10-21] MEDS: MEMANTINE HCL 10 MG TABLET PO SCH ×2 (08:48→20:17)
[2018-10-21] MEDS: ASCORBIC ACID 500 MG TABLET PO SCH (08:48)
[2018-10-21] MEDS: LISINOPRIL 20 MG TAB PO SCH (08:48)
[2018-10-21] MEDS ORDERED: POTASSIUM CL SA 10 MEQ TAB PO ONE (09:00)
[2018-10-21] MEDS ORDERED: ENOXAPARIN 80 MG/0.8 ML SQ SCH (09:00)
--- NOTE | 2018-10-21 11:50 | P.PN ---
Subjective Date of Service: 10/21/18 Primary Care Provider: Dr. Ferrell; Cardiology-Dr. Piper Chief Complaint: Chest pain, fatigue with exertion Subjective: No C/O voiced Patient seen and examined at bedside. at bedside. Chart reviewed and case discussed with nursing staff. Reports a good night, no complaints or concerns this morning. Review of Systems 10-point ROS is otherwise unremarkable Physical Examination - Vital Signs Temperature: 97.9 F Blood Pressure: 143/77 Pulse: 60 Respirations: 17 Pulse Ox (%): 99 - Physical Exam General: Alert, In no apparent distress, Demented HEENT: Atraumatic, PERRLA, EOMI Neck: Supple, JVD not distended Respiratory: Clear to auscultation bilaterally, Normal air movement Cardiovascular: Normal S1 S2, Irregular heart rate/rhythm (Atrial fibrillation, rate control) Gastrointestinal: Normal bowel sounds, No tenderness Musculoskeletal: No tenderness Integumentary: No rashes Neurological: Normal speech, Normal tone, Normal affect Lymphatics: No axilla or inguinal lymphadenopathy Assessment And Plan - Current Problems (Diagnosis) (1) NSTEMI (non-ST elevated myocardial infarction) Current Visit: Yes Status: Acute Plan: Cardiology consulted, recommendations appreciated. -patient pending cardiac catheterization today -continue to keep NPO for further cardiac catheterization -continued chest pain guidelines: Aspirin 81 mg, Lovenox 1 made for gait, metoprolol 25 mg twice a day and lisinopril 20 mg. -nitro as needed for pain -echo: decreased ejection fraction and hypokinesis compared to previous echocardiogram. -continue to monitor via tele (2) HTN (hypertension) Current Visit: Yes Status: Chronic Plan: Continue current blood pressure medications. We will continue to monitor and adjust as needed Qualifiers: Hypertension type: essential hypertension Qualified Code(s): I10 - Essential (primary) hypertension (3) HLD (hyperlipidemia) Current Visit: No Status: Chronic Plan: Continue statin Qualifiers: Hyperlipidemia type: unspecified Qualified Code(s): E78.5 - Hyperlipidemia , unspecified (4) Alzheimer's dementia Current Visit: No Status: Chronic Plan: Continue medication for Alzheimer's-Aricept 5 mg daily and Namenda 10 mg 1 pill twice daily. No sedation medication is to be given due to risk of complications Qualifiers: Alzheimer's disease onset: late-onset (5) CAD (coronary artery disease) Onset Date: 01/09/16 Current Visit: No Status: Chronic Qualifiers: Coronary Disease-Associated Artery/Lesion type: [place] artery [place] vs. transplanted heart: [place] heart Associated angina: without angina Qualified Code(s): I25.10 - Atherosclerotic heart disease of [place] coronary artery without angina pectoris (6) Sensitive to Sedation Current Visit: Yes Status: Acute Plan: NO SEDATION MEDICATION PER . - Plan Disposition: Patient currently pending cardiac catheterization today. Anticipate discharge in the next 24-48 hr postcatheterization, pending clinical improvement.
[2018-10-21] MEDS ORDERED: HEPA 1000U/500MLS 2,000 UNIT/1,000 ML BAG IV ONE (14:18)
[2018-10-21] MEDS ORDERED: NA CHLORIDE 0.9% 500 ML ONE (14:18)
[2018-10-21] MEDS ORDERED: NA CHLORIDE 0.9% 0 ML ONE (14:19)
[2018-10-21] MEDS ORDERED: ATROPINE SULF 1 MG/10 ML SYR IV ONE (14:19)
--- NOTE | 2018-10-21 17:36 | PN ---
Subjective: Mr. Rao was seen yesterday with a non-ST elevation myocardial infarction. Has h ad a history of bypass in the past. He had a normal ejection fraction in December of 2017. However, an echocardiogram yesterday showed new wall motion abnormalities in the anterior apical wall. The c ase was discussed with the family. Patient is a DNR and has Alzheimer's, but I think doing a cathete rization on him to define his coronary anatomy would be reasonable. Hopefully, there will be somethi ng that we can treat medically or with a stent. We will avoid sedatives as he is very sensitive to t hat. They agreed to proceed with the catheterization. They understand the risks and the benefits of the procedure. We will proceed with the catheterization later on this afternoon. DARWIN/JAY Voice ID: [id number] Report ID: [id number]
[2018-10-21] MEDS: ENOXAPARIN 80 MG/0.8 ML SQ SCH (20:16)
[2018-10-21] MEDS: DONEPEZIL HCL 5 MG TAB PO SCH (20:17)
[2018-10-21] MEDS: ATORVASTATIN 40 MG TAB PO SCH (20:17)
--- NOTE | 2018-10-22 01:22 | OP ---
Date of Procedure: 10/21/2018 Surgeon: Alon Piper MD Watch Crystal Cutter: Yevgeniy Rojas. We will continue patient by medical therapy at home. Double up his metoprolol. Add nitroglycerin as needed. He can go home today and we will see him in the office in about 2 weeks. Procedure: Left heart catheterization, left internal mammary artery injection, selective vein graft injection. Indication: Non-ST elevation myocardial infarction with history of coronary artery disease. History Of Present Illness: Mr. Rao is 82, came in with a non-ST elevation myocardial infarc tion. The initial plan was conservative medical therapy. However, he continued to have some chest p ain. An echocardiogram showed some anteroapical hypokinesis. A decision along with discussion with the family was made to do a catheterization to see if we can intervene. Description Of Procedure: The patient was brought to the pathology laboratory aide as an inpatient, was given no padmini tion because of his allergy to sedatives. He was prepped and draped in the routine sterile fashion. A 6-[place] Citizen sheath was introduced in the right common femoral artery. Angiography there was normal. Angio-Seal was used to close the case. The 6-[place] Citizen catheters were used to do the angiography. A 6 -[place] Citizen Edwin JL4 catheter was used to cannulate the left main. He was found to have a totally occ luded mid LAD, totally occluded distal circumflex and 99% ostial LAD. The JR4 catheter was used to c annulate the RCA that was completely occluded. He had a vein graft that was a jump graft from the RC A, PDA to the obtuse marginal from the circumflex that was patent with about 50% distal stenosis. Th e DAO was patent, but it was very small with diffuse disease distally below the anastomotic site. Final Diagnosis: Severe coronary artery disease. Plan: Plan is for medical therapy. Complications: There were no complications. Blood Loss: 5 cc. Anesthesia: Total conscious sedation was 30 minutes. DARWIN/JAY Voice ID: [id number] Report ID: [id number]
[2018-10-22 01:29] VITALS: O2SAT 98
[2018-10-22] MEDS: METOPROLOL TAR 25 MG TAB PO SCH (05:22)
[2018-10-22 06:23] LABS: Absolute Lymphocytes (CBC) 2.3 K/uL (0.7-4.9); Basophils % 0.4 % (0-1.3); Hematocrit 49.2 % (39.6-49.0); Lymphocytes % 34.9 % (15.3-44.8); MPV 10.2 fL (7.6-11.3); RBC Red Blood Cell Count 5.43 M/uL (4.33-5.43)
[2018-10-22 06:28] LABS: Magnesium 2.3 mg/dL (1.8-2.4); Potassium 3.8 mmol/L (3.5-5.1)
[2018-10-22 06:55] VITALS: BMI 23.6
[2018-10-22] MEDS ORDERED: POTASSIUM CL SA 10 MEQ TAB PO ONE (09:00)
[2018-10-22] MEDS: LISINOPRIL 20 MG TAB PO SCH (09:49)
[2018-10-22] MEDS: ENOXAPARIN 80 MG/0.8 ML SQ SCH (09:50)
[2018-10-22] MEDS: ASCORBIC ACID 500 MG TABLET PO SCH (09:50)
[2018-10-22] MEDS: MEMANTINE HCL 10 MG TABLET PO SCH (09:50)
[2018-10-22 10:25] VITALS: BP 140/70; TEMP 97.3
--- NOTE | 2018-10-22 17:07 | P.DS ---
Admission Date: 10/20/18 Discharge Date: 10/22/18 Primary Care Provider: Dr. Ferrell; Cardiology-Dr. Piper Disposition: ROUTINE DISCHARGE Discharge Condition: GOOD Reason for Admission: Chest pain, fatigue with exertion Consultations: Cardiology Procedures: 10/21/2018: Cardiac catheterization, no interventions - Problems (1) NSTEMI (non-ST elevated myocardial infarction) Status: Acute (2) HTN (hypertension) Status: Chronic Qualifiers: Hypertension type: essential hypertension Qualified Code(s): I10 - Essential (primary) hypertension (3) HLD (hyperlipidemia) Status: Chronic Qualifiers: Hyperlipidemia type: unspecified Qualified Code(s): E78.5 - Hyperlipidemia , unspecified (4) Alzheimer's dementia Status: Chronic Qualifiers: Alzheimer's disease onset: late-onset (5) CAD (coronary artery disease) Onset Date: 01/09/16 Status: Chronic Qualifiers: Coronary Disease-Associated Artery/Lesion type: [place] artery [place] vs. transplanted heart: kas[place] heart Associated angina: without angina Qualified Code(s): I25.10 - Atherosclerotic heart disease of [place] coronary artery without angina pectoris (6) Sensitive to Sedation Status: Acute Brief History of Present Illness: 82-year-old male with history of hypertension, CAD with prior CABG x3 vessel, chronic atrial fibrillation, Alzheimer's dementia and hyperlipidemia. Patient presented with chest pain. Most of the information came from the as the patient has moderate to severe dementia. reported that over the past 3 days patient has been having chest pain. It has been associated with fatigue with exertion. He reports shortness of breath as well. The other day she gave aspirin for the chest pain. Apparently this all started when he picked up a bag of dog food into the house. He started to have some chest pain. thought it was a muscle sprain. The following day they went on his normal daily walk when she noted that he was more fatigued than normal. Today it chest pain continued. See also reported that blood pressure was elevated. She came to the ER with the patient to further address. In the ER patient evaluated. Blood pressure slightly elevated. EKG did not show significant ST elevation. Troponin was elevated at 0.63. BNP 5200. White count 7.9, hemoglobin 14. Sodium 143, potassium 4.3. BUN of 14, creatinine 1.28 with a GFR 54. Chest x-ray showed mild fluid overload. Patient received IV Lasix in the emergency room. Patient admitted for further evaluation. When I saw the patient the ER, he appeared comfortable. at bedside Hospital Course: Patient is admitted for chest pain, found to have non ST elevation myocardial infarction. Cardiology was consulted. An echocardiogram was done, which showed decreased ejection fraction and hypokinesis compared to the previous echocardiogram. He was continued on chest pain guidelines with aspirin, Lovenox , metoprolol and lisinopril. He underwent a cardiac catheterization, without any interventions. Per cardiology, he was cleared for discharge with outpatient follow up with cardiology in 2 weeks. Patient also has a history of Alzheimer's dementia, this remained stable on home medications. No sedation medication was to be given during risk complications as states that patient is very sensitive to sedation medications. Otherwise she remained stable throughout the stay. His diagnoses and treatment plan was explained to him and his at bedside. All questions were answered and they verbalized understanding. He was then discharged home in a safe and stable manner. He will follow up with cardiology in 2 weeks. Vital Signs/Physical Exam: Temp Pulse Resp BP Pulse Ox 97.3 F 57 18 140/70 98 10/22/18 08:00 10/22/18 08:00 10/22/18 08:00 10/22/18 08:00 10/22/18 08:00 General: Alert, In no apparent distress, Demented HEENT: Atraumatic, PERRLA, EOMI Neck: Supple, JVD not distended Respiratory: Clear to auscultation bilaterally, Normal air movement Cardiovascular: Regular rate/rhythm, Normal S1 S2 Gastrointestinal: Normal bowel sounds, No tenderness Musculoskeletal: No tenderness Integumentary: No rashes Neurological: Normal speech, Normal tone, Normal affect Lymphatics: No axilla or inguinal lymphadenopathy Laboratory Data at Discharge: WBC 6.5 K/uL (4.3-10.9) 10/22/18 05:47 Hgb 17.0 g/dL (13.6-17.9) 10/22/18 05:47 Hct 49.2 % (39.6-49.0) H 10/22/18 05:47 Plt Count 121 K/uL (152-406) L 10/22/18 05:47 PT 12.9 SECONDS (9.5-12.5) H 10/20/18 00:05 INR 1.10 10/20/18 00:05 Sodium 140 mmol/L (136-145) 10/22/18 05:47 Potassium 3.8 mmol/L (3.5-5.1) 10/22/18 05:47 BUN 21 mg/dL (7-18) H 10/22/18 05:47 Creatinine 1.02 mg/dL (0.55-1.3) 10/22/18 05:47 Glucose 83 mg/dL (74-106) 10/22/18 05:47 Magnesium 2.3 mg/dL (1.8-2.4) 10/22/18 05:47 Total Bilirubin 1.0 mg/dL (0.2-1.0) 10/19/18 23:20 AST 39 U/L (15-37) H 10/19/18 23:20 ALT 54 U/L (12-78) 10/19/18 23:20 Alkaline Phosphatase 87 U/L (45-117) 10/19/18 23:20 Troponin I 6.49 ng/mL (0.0-0.045) H* 10/20/18 17:16 Triglycerides 71 mg/dL (<150) 10/20/18 06:22 Cholesterol 149 mg/dL (<200) 10/20/18 06:22 HDL Cholesterol 51 mg/dL (40-60) 10/20/18 06:22 Cholesterol/HDL Ratio 2.92 10/20/18 06:22 Home Medications: Ascorbic Acid [Vitamin C with Neyda Hips] 1 tab PO DAILY 04/24/18 Aspirin [Aspirin EC 81 MG] 81 mg PO DAILY 04/24/18 Donepezil [Aricept*] 5 mg PO DAILY 04/24/18 Lisinopril [Prinivil*] 20 mg PO DAILY 04/24/18 Memantine HCl [Namenda*] 10 mg PO BID 04/24/18 B-Complex with Vitamin C [Super B Complex-Vitamin C] 1 tab PO DAILY 10/20/18 Atorvastatin Calcium [Lipitor] 40 mg PO BEDTIME #30 tab 10/22/18 Metoprolol Tartrate [Lopressor] 25 mg PO BID 6AM 6PM #60 tab 10/22/18 Nitroglycerin [Nitrostat*] 0.4 mg SL UD PRN #20 tab 10/22/18 New Medications: Atorvastatin Calcium [Lipitor] 40 mg PO BEDTIME #30 tab Metoprolol Tartrate [Lopressor] 25 mg PO BID 6AM 6PM #60 tab Nitroglycerin [Nitrostat*] 0.4 mg SL UD PRN #20 tab PRN Reason: Pain Scale 2-4 (Mild) Patient Discharge Instructions: Please follow up with the primary care physician in 2-3 days. Please follow up with cardiology in 2 weeks. Return to the emergency room for worsening symptoms. Diet: AHA Activity: Ad jameel Followup: Alon Piper MD [ACTIVE - CAN ADMIT] - 1-2 Weeks Raj Ferrell DO [Primary Care Provider] - 1-2 Weeks Time spent managing pt's care (in minutes): 55
--- NOTE | 2018-10-22 21:11 | PN ---
Date of Progress Note: 10/22/2018 Subjective: Mr. Rao underwent a heart catheterization yesterday after a ldd-MD-uqmpfwuae brenda cardial infarction. Decision was made to treat him medically. He had a DAO to the LAD that is open with severely diffuse distal disease after the anastomotic site. He had a jump graft to the circumf colin, OM, and the PDA of the RCA that was patent with about a 50% distal stenosis. Patient is asympto matic. He is in atrial fibrillation that is chronic. He is not a candidate for anticoagulation. He is a DNR and have significant dementia. Plan: We will send him home on his home medication. I would like to have the Lipitor increased to 8 0 mg daily and increase the metoprolol to 50 mg b.i.d. and I will see him in the office in the next 2 weeks. DARWIN Voice ID: [id number] Report ID: [id number]
== END 2018-10-22 11:22 | disposition home or self-care (01) | DRG 281 ==
LOC: ER 22:24 → ERHOLD 10-20 03:13 → 2ND 10-20 04:24
PROVIDERS: ADMIT Family Medicine; ATTEND Family Medicine
PROC: 4A023N7 Measurement of Cardiac Sampling and Pressure, Left Heart, Percutaneous Approach (ICD-10-PCS; principal; 2018-10-21)
PROC: B201YZZ Plain Radiography of Multiple Coronary Arteries using Other Contrast (ICD-10-PCS; 2018-10-21)
PROC: B203YZZ Plain Radiography of Multiple Coronary Artery Bypass Grafts using Other Contrast (ICD-10-PCS; 2018-10-21)
PROC: B205YZZ Plain Radiography of Left Heart using Other Contrast (ICD-10-PCS; 2018-10-21)
DX: I21.4 Non-ST elevation (NSTEMI) myocardial infarction (principal); I50.32 Chronic diastolic (congestive) heart failure; I10 Essential (primary) hypertension; E78.5 Hyperlipidemia, unspecified; G30.1 Alzheimer's disease with late onset; F02.80 Dementia in other diseases classified elsewhere, unspecified severity, without behavioral disturbance, psychotic disturbance, mood disturbance, and anxiety; I25.10 Atherosclerotic heart disease of native coronary artery without angina pectoris; Z66 Do not resuscitate; Z95.1 Presence of aortocoronary bypass graft; I48.91 Unspecified atrial fibrillation; I11.0 Hypertensive heart disease with heart failure; Z88.8 Allergy status to other drugs, medicaments and biological substances
CPT/HCPCS: 36415; 71045; 80048; 80061; 80076; 81003; 81015; 82550; 82553; 83735; 83880; 84439; 84443; 84484; 85025; 85610; 87086; 87088; 93005; 93306; 93455; 96365; 96375; 97116; 97161; 99285; C1760; C1893; J0360; J0583; J1650; J1940

== ENCOUNTER 2018-11-01 00:35 | Emergency (ER) | payer OTHER ==
[2018-11-01] MEDS ORDERED: NITROGLYCERIN 0.4 MG/TAB SL ONE (01:37)
[2018-11-01 01:42] LABS: Absolute Lymphocytes (CBC) 2.2 K/uL (0.7-4.9); Basophils % 0.4 % (0-1.3); Hematocrit 42.9 % (39.6-49.0); Lymphocytes % 29.9 % (15.3-44.8); MPV 9.5 fL (7.6-11.3); RBC Red Blood Cell Count 4.72 M/uL (4.33-5.43)
[2018-11-01 01:48] LABS: Protime INR 1.05
[2018-11-01 02:01] LABS: ALT/SGPT 45 U/L (12-78); AST/SGOT 25 U/L (15-37); Alkaline Phosphatase 74 U/L (45-117); BUN Blood Urea Nitrogen 16 mg/dL (7-18); Bicarbonate 28 mmol/L (21-32); Bilirubin Direct 0.3 mg/dL (0-0.2); Bilirubin Total 0.7 mg/dL (0.2-1.0); Glucose Level 96 mg/dL (74-106); Magnesium 2.3 mg/dL (1.8-2.4); NT PRO-BNP 4782 pg/mL (<450); Protein, Total 7.1 g/dL (6.4-8.2); Sodium Level 141 mmol/L (136-145); Troponin (Emerg Dept Use Only) < 0.02 ng/mL (0.0-0.045)
[2018-11-01] MEDS ORDERED: ONDANSETRON 4 MG/2 ML VIAL ONE (02:48)
[2018-11-01] MEDS ORDERED: MORPHINE 4 MG/ML SYR ONE (02:48)
--- NOTE | 2018-11-01 05:25 | EDPHYS ---
Physician Documentation [facility] Name: Sudarshan Rao Age: 82 yrs Sex: Male : 1935 Arrival Date: 11/01/2018 Time: 00:37 Bed 6 Private MD: ED Physician Noah Baker HPI: 11/01 01:00 This 82 yrs old Male presents to ER via Ambulatory with complaints of Chest pm1 Pain. 01:00 The patient or guardian reports chest pain that is located primarily in the mid-sternal pm1 area. Onset: yesterday, at 11:55. The pain does not radiate. Associated signs and symptoms: The patient has no apparent associated signs or symptoms, Pertinent negatives: abdominal pain, cough, diaphoresis, nausea, shortness of breath, vomiting. Duration: The patient or guardian reports a single episode. Modifying factors: The symptoms are alleviated by NTG, X1. the symptoms are aggravated by nothing. Severity of pain: in the emergency department the pain has resolved. The patient has not experienced similar symptoms in the past. The patient has been recently been admitted at [facility], was discharged a couple of weeks ago, for similar complaints, Diagnosed with NSTEMI and discharged home with medical management post heart cath. Historical: - Allergies: 00:50 sedatives; causes agitation; rv - PMHx: 00:50 Atrial Fib; CHF; Myocardial infarction; organic dementia; Pneumonia; Sepsis; Sleep rv Apnea; - PSHx: 00:50 cabg 2002; heart stent 2010; rv - Immunization history:: Adult Immunizations not up to date. - Social history:: Smoking status: Patient/guardian denies using tobacco. - Ebola Screening: : No symptoms or risks identified at this time. ROS: 01:00 Constitutional: Negative for fever, chills, and weight loss, Eyes: Negative for injury, pm1 pain, redness, and discharge, ENT: Negative for injury, pain, and discharge, Neck: Negative for injury, pain, and swelling. 01:00 Respiratory: Negative for shortness of breath, cough, wheezing, and pleuritic chest pain, Abdomen/GI: Negative for abdominal pain, nausea, vomiting, diarrhea, and constipation, Back: Negative for injury and pain, : Negative for injury, bleeding, discharge, and swelling, MS/Extremity: Negative for injury and deformity, Skin: Negative for injury, rash, and discoloration, Neuro: Negative for headache, weakness, numbness, tingling, and seizure. 01:00 Cardiovascular: Positive for chest pain, Negative for edema, orthopnea, palpitations. Exam: 01:00 Constitutional: This is a well developed, well nourished patient who is awake, alert, pm1 and in no acute distress. Head/Face: Normocephalic, atraumatic. Eyes: Pupils equal round and reactive to light, extra-ocular motions intact. Lids and lashes normal. Conjunctiva and sclera are non-icteric and not injected. Cornea within normal limits. Periorbital areas with no swelling, redness, or edema. ENT: Nares patent. No nasal discharge, no septal abnormalities noted. Tympanic membranes are normal and external auditory canals are clear. Oropharynx with no redness, swelling, or masses, exudates, or evidence of obstruction, uvula midline. Mucous membranes moist. Neck: Trachea midline, no thyromegaly or masses palpated, and no cervical lymphadenopathy. Supple, full range of motion without nuchal rigidity, or vertebral point tenderness. No Meningismus. Chest/axilla: Normal chest wall appearance and motion. Nontender with no deformity. No lesions are appreciated. Cardiovascular: Regular rate and rhythm with a normal S1 and S2. No gallops, murmurs, or rubs. Normal PMI, no JVD. No pulse deficits. Respiratory: Lungs have equal breath sounds bilaterally, clear to auscultation and percussion. No rales, rhonchi or wheezes noted. No increased work of breathing, no retractions or nasal flaring. Abdomen/GI: Soft, non-tender, with normal bowel sounds. No distension or tympany. No guarding or rebound. No evidence of tenderness throughout. Back: No spinal tenderness. No costovertebral tenderness. Full range of motion. Skin: Warm, dry with normal turgor. Normal color with no rashes, no lesions, and no evidence of cellulitis. MS/ Extremity: Pulses equal, no cyanosis. Neurovascular intact. Full, normal range of motion. 01:00 Neuro: Orientation: to person, Motor: is normal, moves all fours, Sensation: is normal, no obvious gross deficits. Vital Signs: 00:49 BP 180 / 101; Pulse 75; Resp 17; Pulse Ox 100% on R/A; rv 00:52 BP 178 / 105; Pulse 65; Resp 15; Pulse Ox 99% on R/A; rv 01:41 BP 188 / 94; Pulse 72; Resp 18; Pulse Ox 96% on R/A; ak1 02:09 BP 138 / 86; Pulse 62; Resp 16; Pulse Ox 99% on R/A; ak1 02:30 BP 166 / 92; Pulse 66; Resp 14; Pulse Ox 100% on R/A; ak1 03:00 BP 180 / 86; Pulse 81; Resp 14; Pulse Ox 100% on R/A; ak1 04:14 BP 182 / 104; Pulse 81; Resp 13 S; Pulse Ox 98% on R/A; cc3 04:59 BP 162 / 99; Pulse 76; Resp 12; Pulse Ox 98% on R/A; ak1 MDM: 00:55 Patient medically screened. pm1 02:30 Physician consultation: Karthikeyan Adorno DO was called at 02:30, was contacted at 02:30, pm1 regarding admission, patient's condition, would like further tests performed, repeat troponin prior to disposition decision. 02:38 Data reviewed: vital signs. Data interpreted: Pulse oximetry: on room air is 99 %. pm1 Interpretation: normal. 03:35 ED course: 325 ASA given at home prior to arrival. pm1 05:00 ED course: Patient's second troponin 4 hours after onset of chest pain negative. pm1 Pending return call from cardiology. 05:16 Physician consultation: Alon Piper MD was contacted at 05:17, regarding consult, pm1 patient's condition, and will see patient office on Saturday at 0830. would like medications started, Imdur 40 mg PO daily. 11/01 00:52 Order name: Basic Metabolic Panel rv 11/01 00:52 Order name: CBC with Diff; Complete Time: 01:54 11/01 00:52 Order name: LFT's; Complete Time: 02:14 11/01 00:52 Order name: Magnesium; Complete Time: 02:14 11/01 00:52 Order name: NT PRO-BNP; Complete Time: 02:14 11/01 00:52 Order name: PT-INR; Complete Time: 02:14 11/01 00:52 Order name: Troponin (emerg Dept Use Only); Complete Time: 02:14 rv 11/01 00:52 Order name: XRAY Chest (1 view) rv 11/01 00:52 Order name: EKG; Complete Time: 00:53 rv 11/01 00:53 Order name: Basic Metabolic Panel; Complete Time: 02:14 EDMS 11/01 03:49 Order name: Troponin (emerg Dept Use Only): Draw at 0400; Complete Time: 04:54 pm1 11/01 00:52 Order name: Cardiac monitoring; Complete Time: 00:52 rv 11/01 00:52 Order name: EKG - Nurse/Tech; Complete Time: 00:52 11/01 00:52 Order name: IV Saline Lock; Complete Time: 01:23 rv 11/01 00:52 Order name: Labs collected and sent; Complete Time: 00:56 11/01 00:52 Order name: O2 Per Protocol; Complete Time: 00:52 11/01 00:52 Order name: O2 Sat Monitoring; Complete Time: 00:52 rv 11/01 01:28 Order name: EKG - Nurse/Tech; Complete Time: 01:37 pm1 11/01 01:30 Order name: Labs - recollect needed; Complete Time: 01:43 em1 Administered Medications: 01:41 Drug: Nitroglycerin 0.4 mg Route: Sublingual; ak1 03:06 Follow up: Response: No adverse reaction ak1 02:51 Drug: morphine 4 mg Route: IVP; Site: left wrist; ak1 03:05 Follow up: Response: No adverse reaction; RASS: Alert and Calm (0) ak1 02:51 Drug: Zofran 4 mg Route: IVP; Site: left wrist; ak1 03:05 Follow up: Response: No adverse reaction ak1 Disposition: 11/01/18 05:24 Discharged to Home. Impression: Chest pain, unspecified. - Condition is Stable. - Discharge Instructions: Nonspecific Chest Pain. - Prescriptions for isosorbide mononitrate 20 mg Oral tablet - take 1 tablet by ORAL route 2 times per day given 7 hours apart; 30 tablet. - Medication Reconciliation Form, Thank You Letter, Antibiotic Education, Prescription Opioid Use form. - Follow up: Alon Piper MD; When: 11/03/2018; Reason: Recheck today's complaints, Continuance of care, Re-evaluation by your physician, at 0830. - Problem is new. - Symptoms have improved. Addendum: 11/03/2018 09:19 Co-signature as Attending Physician, Noah Baker MD I agree with the assessment and c lamar plan of care. Signatures: Dispatcher [employer] EDMS Noah Baker MD MD cha Martinez, Eric em1 Daisha Block RN RN ak1 Tyler Nichole, CLOTH BOIL OFF MACHINE OPERATOR CLOTH BOIL OFF MACHINE OPERATOR pm1 Kevon Lang RN RN rv Corrections: (The following items were deleted from the chart) 11/01 05:44 05:24 11/01/2018 05:24 Discharged to Home. Impression: Chest pain, unspecified. ak1 Condition is Stable. Forms are Medication Reconciliation Form, Thank You Letter, Antibiotic Education, Prescription Opioid Use. Follow up: Alon Piper; When: 11/03/2018; Reason: Recheck today's complaints, Continuance of care, Re-evaluation by your physician, at 0830. Problem is new. Symptoms have improved. pm1
--- NOTE | 2018-11-01 05:25 | ER ---
Nurse's Notes [facility] Name: Sudarshan Rao Age: 82 yrs Sex: Male : 1935 Arrival Date: 11/01/2018 Time: 00:37 Bed 6 Private MD: Diagnosis: Chest pain, unspecified Presentation: 11/01 00:47 Presenting complaint: family: I saw him at the hallway at 1155pm, grabbing his chest. rv he told me he's been in pain for a while now. I gave him Nitroglycerin and 1 big Aspirin. he has history of Alzheimer's so I am not sure how long has he been having the pain. Transition of care: patient was not received from another setting of care. Onset of symptoms was October 31, 2018 at 23:55. Risk Assessment: Do you want to hurt yourself or someone else? Patient reports no desire to harm self or others. Initial Sepsis Screen: Does the patient meet any 2 criteria? No. Patient's initial sepsis screen is negative. Does the patient have a suspected source of infection? No. Patient's initial sepsis screen is negative. Care prior to arrival: None. 00:47 Method Of Arrival: Ambulatory rv 00:47 Acuity: STACEY 3 rv Historical: - Allergies: 00:50 sedatives; causes agitation; rv - PMHx: 00:50 Atrial Fib; CHF; Myocardial infarction; organic dementia; Pneumonia; Sepsis; Sleep rv Apnea; - PSHx: 00:50 cabg 2002; heart stent 2010; rv - Immunization history:: Adult Immunizations not up to date. - Social history:: Smoking status: Patient/guardian denies using tobacco. - Ebola Screening: : No symptoms or risks identified at this time. Screenin:51 Abuse screen: Denies threats or abuse. Denies injuries from another. Nutritional rv screening: No deficits noted. Tuberculosis screening: No symptoms or risk factors identified. Fall Risk None identified. Assessment: 01:00 General: Appears in no apparent distress. Behavior is calm, cooperative, appropriate rv for age. Pain: Complains of pain in chest Pain does not radiate. Pain began. Neuro: Level of Consciousness is awake, alert, obeys commands, Oriented to person, situation, Moves all extremities. Cardiovascular: Reports chest pain, Denies nausea, shortness of breath, vomiting, Heart tones S1 S2. Respiratory: Airway is patent Respiratory effort is even, unlabored, Respiratory pattern is regular. GI: No signs and/or symptoms were reported involving the gastrointestinal system. : No signs and/or symptoms were reported regarding the genitourinary system. EENT: No signs and/or symptoms were reported regarding the EENT system. Derm: No signs and/or symptoms reported regarding the dermatologic system. Musculoskeletal: No signs and/or symptoms reported regarding the musculoskeletal system. 01:41 General: pt denies chest pain at this time. . ak1 02:51 Reassessment: pt c/o to provider of chest pain that is in center of chest. pt denies ak1 pain radiation. 05:29 Reassessment: Patient appears in no apparent distress at this time. Patient and/or ak1 family updated on plan of care and expected duration. Pain level reassessed. Patient is alert, oriented x 3, equal unlabored respirations, skin warm/dry/pink. provider at bedside speaking with family after speaking with graphic design intern. Patient denies pain at this time. Patient states feeling better. Vital Signs: 00:49 BP 180 / 101; Pulse 75; Resp 17; Pulse Ox 100% on R/A; rv 00:52 BP 178 / 105; Pulse 65; Resp 15; Pulse Ox 99% on R/A; rv 01:41 BP 188 / 94; Pulse 72; Resp 18; Pulse Ox 96% on R/A; ak1 02:09 BP 138 / 86; Pulse 62; Resp 16; Pulse Ox 99% on R/A; ak1 02:30 BP 166 / 92; Pulse 66; Resp 14; Pulse Ox 100% on R/A; ak1 03:00 BP 180 / 86; Pulse 81; Resp 14; Pulse Ox 100% on R/A; ak1 04:14 BP 182 / 104; Pulse 81; Resp 13 S; Pulse Ox 98% on R/A; cc3 04:59 BP 162 / 99; Pulse 76; Resp 12; Pulse Ox 98% on R/A; ak1 ED Course: 00:37 Patient arrived in ED. cl3 00:49 Triage completed. rv 00:50 Arm band placed on right wrist. cc3 00:55 Tyler Nichole NP is PHCP. pm1 00:55 Noah Baker MD is Attending Physician. pm1 01:00 Patient has correct armband on for positive identification. Placed in gown. Bed in low rv position. Call light in reach. Side rails up X 1. Adult w/ patient. color television console monitor on. Pulse ox on. NIBP on. 01:00 Missed attempt(s): 20 gauge in right antecubital area. Bleeding controlled, band aid rv applied, catheter tip intact. 01:00 Patient maintains SpO2 saturation greater than 95% on room air. rv 01:02 Kevon Lang RN is Primary Nurse. rv 01:05 Missed attempt(s): 20 gauge in right antecubital area. fc 01:07 Primary Nurse role handed off by Kevon Lang RN ak1 01:07 Daisha Block RN is Primary Nurse. ak1 01:08 XRAY Chest (1 view) In Process Unspecified. EDMS 01:20 Inserted saline lock: 22 gauge in left forearm, using aseptic technique. fc 04:17 Repeat lab(s) drawn. by bobcat driver/labor, sent to lab. ak1 05:23 Alon Piper MD is Referral Physician. pm1 05:25 No provider procedures requiring assistance completed. ak1 05:44 IV discontinued, intact, bleeding controlled, No redness/swelling at site. Pressure ak1 dressing applied. Administered Medications: 01:41 Drug: Nitroglycerin 0.4 mg Route: Sublingual; ak1 03:06 Follow up: Response: No adverse reaction ak1 02:51 Drug: morphine 4 mg Route: IVP; Site: left wrist; ak1 03:05 Follow up: Response: No adverse reaction; RASS: Alert and Calm (0) ak1 02:51 Drug: Zofran 4 mg Route: IVP; Site: left wrist; ak1 03:05 Follow up: Response: No adverse reaction ak1 Outcome: 05:24 Discharge ordered by . pm1 05:25 Condition: stable ak1 05:44 Discharged to home via wheelchair, with family. ak1 05:44 Discharge instructions given to family, Instructed on discharge instructions, follow up and referral plans. medication usage, Demonstrated understanding of instructions, follow-up care, medications, Prescriptions given X 1. 05:44 Patient left the ED. ak1 Signatures: Dispatcher [employer] EDMO Deb Watt RN RN Daisha Block RN RN ak1 Tyler Nichole, RUG BACKING STENCILER RUG BACKING STENCILER pm1 Kevon Lang, RN RN Shannon Candelario cc3 Judith Negro cl3 Corrections: (The following items were deleted from the chart) 02:57 01:20 Inserted saline lock: 22 gauge in left forearm, using aseptic technique. [facility] 05:25 05:25 Patient admitted, IV remains in place. ak1 ak1
[2018-11-01 06:41] VITALS: BP 182/104; O2SAT 98
--- NOTE | 2018-11-01 11:33 | RAD REPORT ---
EXAM DESCRIPTION: RAD - Chest Single View - 11/01/2018 1:09 am CLINICAL HISTORY: CHEST PAIN Chest pain. COMPARISON: Chest Single View dated 10/19/2018; Chest Pa And Lat (2 Views) dated 04/28/2018; Chest Sing le View dated 04/25/2018; Chest Single View dated 04/23/2018 FINDINGS: Portable technique limits examination quality. The lungs are emphysematous but grossly clear. The heart is significantly enlarged with sternotomy wi res present. No displaced fractures. IMPRESSION: COPD.
--- NOTE | 2018-11-01 14:14 | EKG ---
Test Date: 2018-11-01 Test Time: 01:35:51 Shipping Specialist: PUJA MEASUREMENT RESULTS: Intervals: Rate: 70 DE: QRSD: 108 QT: 422 QTc: 455 [place]: P: DE: QRS: -35 T: 106 INTERPRETIVE STATEMENTS: Atrial fibrillation Left axis deviation Incomplete left bundle branch block Voltage criteria for left ventricular hypertrophy ST & T wave abnormality, consider lateral ischemia or digitalis effect Abnormal ECG Compared to ECG 11/01/2018 00:50:23 Left bundle-branch block now present ST (T wave) deviation now present Possible ischemia now present Early repolarization no longer present Prolonged QT interval no longer present Electronically Signed On 11-01-18 14:13:21 CDT by Alon Piper
--- NOTE | 2018-11-01 14:14 | EKG ---
Test Date: 2018-11-01 Test Time: 00:50:23 Informaticist: MARGARITA MEASUREMENT RESULTS: Intervals: Rate: 76 AK: QRSD: 108 QT: 450 QTc: 506 [place]: P: AK: QRS: -30 T: 103 INTERPRETIVE STATEMENTS: Undetermined rhythm Left axis deviation Left ventricular hypertrophy with repolarization abnormality Prolonged QT Abnormal ECG Compared to ECG 10/20/2018 02:35:53 Left-axis deviation now present Early repolarization now present Atrial fibrillation no longer present T-wave abnormality no longer present Possible ischemia no longer present Electronically Signed On 11-01-18 14:13:23 CDT by Alon Piper
== END 2018-11-01 05:44 | disposition home or self-care (01) ==
LOC: ER 00:35
DX: R07.9 Chest pain, unspecified (principal); Z95.5 Presence of coronary angioplasty implant and graft; Z95.1 Presence of aortocoronary bypass graft
CPT/HCPCS: 93005 ×2; 85025; 80048; 36415; 83735; 85610; 80076; 84484 ×2; 83880; 71045; 96375; 96374; 99285; J2405

== ENCOUNTER 2020-06-24 17:19 | Inpatient (IN) | payer OTHER ==
[2020-06-24 18:08] LABS: Urine Blood 2+ (Negative); Urine Glucose Negative (Negative); Urine Protein 1+ (Negative); Urine Specific Gravity 1.025 (1.005-1.030)
[2020-06-24 18:12] LABS: Absolute Lymphocytes (CBC) 0.7 K/uL (0.7-4.9); Basophils % 0.2 % (0-1.3); Lymphocytes % 13.6 % (15.3-44.8); MPV 9.5 fL (7.6-11.3); RBC Red Blood Cell Count 4.16 M/uL (4.33-5.43)
[2020-06-24 18:25] LABS: Protime INR 1.25
[2020-06-24 18:25] LABS: Urine Bacteria 20-50 /HPF (NONE SEEN); Urine RBC >50 /HPF (NONE SEEN)
[2020-06-24 18:36] LABS: Albumin 3.6 g/dL (3.4-5.0); Bilirubin Direct 0.3 mg/dL (0-0.2); Bilirubin Total 0.9 mg/dL (0.2-1.0); Potassium 3.6 mmol/L (3.5-5.1); Protein, Total 6.5 g/dL (6.4-8.2); Troponin (Emerg Dept Use Only) 0.08 ng/mL (0.0-0.045)
--- NOTE | 2020-06-24 18:56 | RAD REPORT ---
EXAM DESCRIPTION: Nadege Single View06/24/2020 6:15 pm CLINICAL HISTORY: Fever COMPARISON: 2019 FINDINGS: The lungs appear clear of acute infiltrate. The heart is moderately to markedly enlarged. Postsurgical changes involve the chest. IMPRESSION: No acute abnormalities displayed
[2020-06-24 19:00] LABS: Blood Morphology Comment NOT SEEN (NOT SEEN); Platelet Estimate DECR; White Blood Cell Scan OK (OK)
--- NOTE | 2020-06-24 19:05 | EDPHYS ---
Physician Documentation [facility] Name: Sudarshan Rao Age: 84 yrs Sex: Male : 1935 Arrival Date: 06/24/2020 Time: 17:23 Bed 5 Private MD: ED Physician Noah Baker HPI: 06/24 18:53 This 84 yrs old Male presents to ER via Ambulatory with complaints of jr8 Confusion. 18:53 Onset: The symptoms/episode began/occurred gradually, 1 day(s) ago. Possible causes: jr8 unknown. Associated signs and symptoms: Pertinent positives: fever. Current symptoms: In the emergency department the patient's symptoms are unchanged from the initial presentation. Patient's baseline: Neuro: alert but confused, Motor: no deficits, Ambulation: walks without assistance, Speech: normal. It is unknown whether or not the patient has had similar symptoms in the past. The patient has not recently seen a physician. Family member of patient stated that he has baseline dementia history but today noticed drastic change in mental acuity. Stated that he felt hot and took temperature at home. Found that he had fever of 102. Given aspirin at home which brought fever down. Patient currently without complaints but does show confusion at this time as to place, time, and event . Historical: - Allergies: 17:40 sedatives; causes agitation; aa5 - PMHx: 17:40 Atrial Fib; CHF; Myocardial infarction; Pneumonia; Sepsis; Sleep Apnea; Enlarged aa5 Prostate; Dementia; - PSHx: 17:40 Triple Heart Bypass; aa5 - Immunization history:: Adult Immunizations unknown. - Social history:: Smoking status: Patient/guardian denies using tobacco. ROS: 18:53 Unable to obtain ROS due to altered mental status. jr8 Exam: 18:53 Eyes: Pupils equal round and reactive to light, extra-ocular motions intact. Lids and jr8 lashes normal. Conjunctiva and sclera are non-icteric and not injected. Cornea within normal limits. Periorbital areas with no swelling, redness, or edema. ENT: Nares patent. No nasal discharge, no septal abnormalities noted. Tympanic membranes are normal and external auditory canals are clear. Oropharynx with no redness, swelling, or masses, exudates, or evidence of obstruction, uvula midline. Mucous membranes moist. Neck: Trachea midline, no thyromegaly or masses palpated, and no cervical lymphadenopathy. Supple, full range of motion without nuchal rigidity, or vertebral point tenderness. No Meningismus. Cardiovascular: Regular rate and rhythm with a normal S1 and S2. No gallops, murmurs, or rubs. Normal PMI, no JVD. No pulse deficits. Respiratory: Lungs have equal breath sounds bilaterally, clear to auscultation and percussion. No rales, rhonchi or wheezes noted. No increased work of breathing, no retractions or nasal flaring. Abdomen/GI: Soft, non-tender, with normal bowel sounds. No distension or tympany. No guarding or rebound. No evidence of tenderness throughout. Skin: Warm, dry with normal turgor. Normal color with no rashes, no lesions, and no evidence of cellulitis. MS/ Extremity: Pulses equal, no cyanosis. Neurovascular intact. Full, normal range of motion. 18:53 Neuro: Orientation: to person, Mentation: able to follow commands, slow to respond, Memory: immediate memory is intact, remote memory is impaired, recent memory is impaired, Cranial nerves: CN I not tested, CN II- XII are normal as tested, extraocular movements are intact, Facial palsy and sensory deficits are absent. Speech is clear and appropriate. Tongue strength is normal, Motor: moves all fours, Sensation: no obvious gross deficits, seizure activity, is not displayed by the patient, Abnormal movements: there are no abnormal movements. Vital Signs: 17:24 BP 145 / 77; Pulse 83; Resp 24 S; Temp 98.3(O); Pulse Ox 100% on R/A; Weight 74.84 kg aa5 (R); Height 5 ft. 10 in. (177.80 cm) (R); 19:04 BP 146 / 71; Pulse 80; Resp 19; Pulse Ox 100% ; jl7 20:08 BP 168 / 88; Pulse 75; Resp 16; Pulse Ox 98% ; rr5 23:13 BP 160 / 78; Pulse 99; Resp 18; Pulse Ox 99% ; ea 06/25 02:40 BP 156 / 79; Pulse 70; Resp 16; Temp 98.9; Pulse Ox 98% on R/A; ea 04:00 BP 126 / 72; Pulse 68; Resp 16; Pulse Ox 97% ; ea 06/24 17:24 Body Mass Index 23.67 (74.84 kg, 177.80 cm) aa5 MDM: 06/24 17:31 Patient medically screened. [facility] 19:03 Data reviewed: vital signs, nurses notes, lab test result(s), EKG, radiologic studies, [facility] CT scan, plain films. Data interpreted: Pulse oximetry: on room air is 100 %. Interpretation: normal. Counseling: I had a detailed discussion with the patient and/or guardian regarding: the historical points, exam findings, and any diagnostic results supporting the discharge/admit diagnosis, lab results, radiology results, the need for further work-up and treatment in the hospital. 06/24 17:38 Order name: Basic Metabolic Panel [facility] 06/24 17:38 Order name: Blood Culture Adult (2) [facility] 06/24 17:38 Order name: CBC with Diff [facility] 06/24 17:38 Order name: Lactate; Complete Time: 18:28 [facility] 06/24 17:38 Order name: LFT's; Complete Time: 18:56 [facility] 06/24 17:38 Order name: Lipase; Complete Time: 18:56 [facility] 06/24 17:38 Order name: Protime (+inr); Complete Time: 18:56 [facility] 06/24 17:38 Order name: Ptt, Activated; Complete Time: 18:56 [facility] 06/24 17:38 Order name: Troponin (emerg Dept Use Only); Complete Time: 18:56 [facility] 06/24 17:38 Order name: Urine Microscopic Only; Complete Time: 18:28 [facility] 06/24 17:38 Order name: Basic Metabolic Panel; Complete Time: 18:56 [facility] 06/24 17:38 Order name: Blood Culture [facility] 06/24 17:38 Order name: CBC with Automated Diff; Complete Time: 19:02 [facility] 06/24 18:08 Order name: Urine Dipstick-Ancillary; Complete Time: 18:10 [facility] 06/24 18:26 Order name: Urine Culture [facility] 06/24 19:00 Order name: CBC Smear Scan; Complete Time: 19:02 [facility] 06/24 21:15 Order name: SARS-COV-2 RT PCR; Complete Time: 00:56 [facility] 06/24 21:45 Order name: CRP la1 06/24 21:45 Order name: Ferritin la1 06/25 00:21 Order name: C-Reactive Protein; Complete Time: 00:56 EDMS 06/25 00:21 Order name: Ferritin; Complete Time: 00:56 EDMS 06/25 00:35 Order name: Troponin I; Complete Time: 00:56 EDMS 06/25 05:48 Order name: CBC with Automated Diff EDMS 06/25 06:13 Order name: Comprehensive Metabolic Panel EDMS 06/25 06:13 Order name: T4 Free EDMS 06/25 06:13 Order name: Magnesium EDMS 06/25 06:13 Order name: Thyroid Stimulating Hormone EDMS 06/25 06:16 Order name: C-Reactive Protein EDPA 06/24 17:38 Order name: Chest Single View XRAY; Complete Time: 18:58 [facility] 06/24 17:38 Order name: Accucheck; Complete Time: 19:04 [facility] 06/24 17:38 Order name: Cardiac monitoring; Complete Time: 19:00 [facility] 06/24 17:38 Order name: EKG - Nurse/Tech; Complete Time: 20:03 [facility] 06/24 17:38 Order name: IV Saline Lock - Large Bore; Complete Time: 19:00 [facility] 06/24 17:38 Order name: Labs collected and sent; Complete Time: 19:04 [facility] 06/24 17:38 Order name: O2 Per Protocol; Complete Time: 19:00 [facility] 06/24 17:38 Order name: O2 Sat Monitoring; Complete Time: 19:00 [facility] 06/24 17:38 Order name: Urine Dipstick-Ancillary (obtain specimen); Complete Time: 19:04 [facility] 06/24 19:02 Order name: CT Head Brain wo Cont; Complete Time: 20:27 8 06/25 06:16 Order name: Ferritin EDPA 06/25 10:23 Order name: Manual Differential EDMS Administered Medications: 18:55 Drug: Rocephin (cefTRIAXone) 1 grams Route: IV; Rate: calculated rate; Site: right ap3 antecubital; 18:58 Follow up: Response: No adverse reaction; IV Status: Completed infusion jl7 19:30 Drug: NS 0.9% 1000 ml Route: IV; Rate: 75 ml/hr; Site: right forearm; rr5 06/25 00:07 Follow up: IV Status: Infusion continued upon admission ea Disposition: 05/16 06:56 Co-signature as Attending Physician, Noah Baker MD I agree with the assessment and [facility] plan of care. Disposition: 06/24/20 19:04 Hospitalization ordered by Karthikeyan Adorno for Inpatient Admission. Preliminary diagnosis are Altered mental status, unspecified, Acute cystitis. - Bed requested for Intensive Care Unit. - Status is Inpatient Admission. bp - Condition is Stable. - Problem is new. - Symptoms have improved. Signatures: Dispatcher [employer] [facility] Noah Baker MD MD cha Martinez Kenny em1 Lorraine Mosley, RN RN aa5 Jack Shankar PA PA jr8 Priscillaa, Esvin, MILLED RICE BROKER-C MILLED RICE BROKER-Cla1 Idalmis [place], RN RN cg Dario Thorpe RN Sury Holley, RN RN ap3 Brennan Marshall, RN RN rr5 Yang Sunshine RN jl7 Elizabeth Giang RN, ea Corrections: (The following items were deleted from the chart) 06/24 19:54 17:39 CORONAVIRUS+MR.LAB.BRZ ordered. [facility] 22:14 19:04 Hospitalization Ordered by Karthikeyan Adorno DO for Inpatient Admission. Preliminary cg diagnosis is Altered mental status, unspecified; Acute cystitis. Bed requested for Telemetry/MedSurg (Inpatient). Status is Inpatient Admission. Condition is Stable. Problem is new. Symptoms have improved. jr8 06/25 14:00 06/24 22:14 06/24/2020 19:04 Hospitalization Ordered by Karthikeyan Adorno DO for Inpatient em1 Admission. Preliminary diagnosis is Altered mental status, unspecified; Acute cystitis. Bed requested for [facility] ER HOLD. Status is Inpatient Admission. Condition is Stable. Problem is new. Symptoms have improved. 06/25 15:11 14:00 06/24/2020 19:04 Hospitalization Ordered by Karthikeyan Adorno DO for Inpatient bp Admission. Preliminary diagnosis is Altered mental status, unspecified; Acute cystitis. Bed requested for Intensive Care Unit. Status is Inpatient Admission. Condition is Stable. Problem is new. Symptoms have improved. em1
--- NOTE | 2020-06-24 19:05 | ER ---
Nurse's Notes [facility] Name: Sudarshan Rao Age: 84 yrs Sex: Male : 1935 Arrival Date: 06/24/2020 Time: 17:23 Bed 5 Private MD: Diagnosis: Altered mental status, unspecified;Acute cystitis Presentation: 06/24 17:24 Chief complaint: Pt's family reports increased confusion today, fever up to 102*F. aa5 17:24 Coronavirus screen: fever. Ebola Screen: Patient negative for fever greater than or aa5 equal to 101.5 degrees Fahrenheit, and additional compatible Ebola Virus Disease symptoms. Risk Assessment: Do you want to hurt yourself or someone else? Unable to obtain. Onset of symptoms was June 24, 2020. 17:24 Method Of Arrival: Ambulatory aa5 17:24 Acuity: STACEY 3 aa5 Historical: - Allergies: 17:40 sedatives; causes agitation; aa5 - PMHx: 17:40 Atrial Fib; CHF; Myocardial infarction; Pneumonia; Sepsis; Sleep Apnea; Enlarged aa5 Prostate; Dementia; - PSHx: 17:40 Triple Heart Bypass; aa5 - Immunization history:: Adult Immunizations unknown. - Social history:: Smoking status: Patient/guardian denies using tobacco. Screenin:07 Abuse screen: Denies threats or abuse. Denies injuries from another. Nutritional jl7 screening: No deficits noted. Tuberculosis screening: No symptoms or risk factors identified. Fall Risk IV access (20 points). Total Glass Fall Scale indicates No Risk (0-24 pts). Assessment: 18:07 General: Appears in no apparent distress. uncomfortable, Behavior is calm, cooperative, jl7 appropriate for age. Pain: Denies pain. Neuro: Level of Consciousness is awake, alert, pt attempts to obey commands but does not understand. Instructed to sit down on the bed and pt needed to be guided to the bed and assisted to sit down. Oriented to person. Cardiovascular: Patient's skin is warm and dry. Respiratory: Airway is patent Respiratory effort is even, unlabored, Respiratory pattern is regular, symmetrical. : Denies burning with urination, Parent/caregiver report the patient having incontinence caregiver reports pt does not normally have incontinence. Derm: Skin is pink, warm \T\ dry. 19:45 General: Appears in no apparent distress. Behavior is calm, cooperative, appropriate ea for age. Pain: Denies pain. Neuro: Level of Consciousness is awake, alert, Oriented to person. Cardiovascular: Patient's skin is warm and dry. Respiratory: Airway is patent Respiratory effort is even, unlabored, Respiratory pattern is regular, symmetrical. Derm: Skin is pink, warm \T\ dry. 20:33 Reassessment: Patient appears in no apparent distress at this time. awaiting for covid rr5 result. 06/25 01:48 Reassessment: Gena [id number]. ea 02:30 Reassessment: Patient and/or family updated on plan of care and expected duration. Pain ea level reassessed. Pt resting with eyes closed, respirations even and unlabored. Chest expansions even and symmetrical. 04:46 Reassessment: Patient and/or family updated on plan of care and expected duration. Pain ea level reassessed. Pt resting with eyes closed, respirations even and unlabored. Chest expansions even and symmetrical. Vital Signs: 06/24 17:24 BP 145 / 77; Pulse 83; Resp 24 S; Temp 98.3(O); Pulse Ox 100% on R/A; Weight 74.84 kg aa5 (R); Height 5 ft. 10 in. (177.80 cm) (R); 19:04 BP 146 / 71; Pulse 80; Resp 19; Pulse Ox 100% ; jl7 20:08 BP 168 / 88; Pulse 75; Resp 16; Pulse Ox 98% ; rr5 23:13 BP 160 / 78; Pulse 99; Resp 18; Pulse Ox 99% ; ea 06/25 02:40 BP 156 / 79; Pulse 70; Resp 16; Temp 98.9; Pulse Ox 98% on R/A; ea 04:00 BP 126 / 72; Pulse 68; Resp 16; Pulse Ox 97% ; ea 06/24 17:24 Body Mass Index 23.67 (74.84 kg, 177.80 cm) aa5 ED Course: 06/24 17:23 Patient arrived in ED. mr 17:24 Arm band placed on Patient placed in an exam room, on a stretcher. aa5 17:26 Yang Sunshine RN is Primary Nurse. jl7 17:31 Jack Shankar PA is PHCP. jr8 17:31 Noah Baker MD is Attending Physician. jr8 17:38 Triage completed. aa5 18:07 Patient has correct armband on for positive identification. Placed in gown. Bed in low jl7 position. Call light in reach. Side rails up X 1. Adult w/ patient. crystal mounter on. Pulse ox on. NIBP on. 18:07 Initial lab(s) drawn, by me, sent to lab. Urine collected: clean catch specimen, jl7 cloudy. Inserted saline lock: 20 gauge in right forearm, using aseptic technique. Blood collected. 18:15 Chest Single View XRAY In Process Unspecified. EDMS 19:04 Karthikeyan Adorno DO is Hospitalizing Provider. jr8 19:31 CT Head Brain wo Cont In Process Unspecified. EDMS 19:46 No provider procedures requiring assistance completed. Patient admitted, IV remains in ea place. 06/25 10:55 Primary Nurse role handed off by Yang Sunshine RN bp 10:55 Dario Thorpe, KENRICK is Primary Nurse. bp Administered Medications: 06/24 18:55 Drug: Rocephin (cefTRIAXone) 1 grams Route: IV; Rate: calculated rate; Site: right ap3 antecubital; 18:58 Follow up: Response: No adverse reaction; IV Status: Completed infusion jl7 19:30 Drug: NS 0.9% 1000 ml Route: IV; Rate: 75 ml/hr; Site: right forearm; rr5 06/25 00:07 Follow up: IV Status: Infusion continued upon admission ea Output: 06/24 20:33 Urine: 350ml (Voided); Total: 350ml. rr5 Outcome: 19:04 Decision to Hospitalize by Provider. jr8 19:46 Instructed on the need for admit. ea 23:12 Admitted to ER Hold. Please see [facility] for further documentation. ea 23:12 Condition: stable 06/25 15:11 Patient left the ED. bp Signatures: Dispatcher [employer] EDMD Indy BoldenLorraine, RN RN aa5 Jack Shankar PA PA jr8 Yang Sunshine, KENRICK RN jl7 Elizabeth Giang RN RN ea Dario Thorpe, RN RN bp Sury Hyde RN RN ap3 Marshall, Brennan, RN RN rr5 Corrections: (The following items were deleted from the chart) 06/24 17:38 17:24 Acuity: STACEY 2 aa5 aa5
[2020-06-24] MEDS ORDERED: CEFTRIAXONE/SWI 1gm 1 GM/10 ML SYR ONE (19:08)
[2020-06-24] MEDS ORDERED: NA CHLORIDE 0.9% 1,000 ML ONE (19:56)
--- NOTE | 2020-06-24 20:08 | RAD REPORT ---
EXAM DESCRIPTION: CT - Head Brain Wo Cont - 06/24/2020 7:31 pm CLINICAL HISTORY: Alteration of awareness/confusion COMPARISON: 2019 TECHNIQUE: Computed axial tomography of the head was obtained. IV contrast was not requested. All CT scans are performed using dose optimization technique as appropriate and may include automated exposure control or mA/KV adjustment according to patient size. FINDINGS: An intracranial bleed is not seen . The ventricles are normal in caliber. No extra-axial fluid collection is noted. Prominent cerebral atrophy. . Fluid within the sinuses/ mastoids is not seen. IMPRESSION: No acute intracranial abnormality is seen. If patient's symptoms persist MRI of the bra in would be recommended.
--- NOTE | 2020-06-24 21:01 | P.HP ---
Certification for Inpatient Patient admitted to: Inpatient With expected LOS: >2 Midnights Patient will require the following post-hospital care: None Practitioner: I am a practitioner with admitting privileges, knowledge of patient current condition, hospital course, and medical plan of care. Services: Services provided to patient in accordance with Admission requirements found in Title 42 Section 412.3 of the Code of Federal Regulations Patient History Date of Service: 06/24/20 Reason for admission: UTI, fever, AMS History of Present Illness: 84-year-old male with history of CAD status post CABG, dementia, atrial fibrillation, CHF presents emergency department for fever, confusion. reports that patient was noted to be more confused than normal and febrile today. Evaluation in the emergency department significant for your microscopic with 20-50 bacteria greater than 50 red blood cell greater than 50 white blood cell troponin 0.08 hemoglobin 13.3 hematocrit 39.0, platelets 111. CT head without any acute abnormalities chest x-ray negative. Patient is still confused, ED provider wishes to admit for further evaluation and management. Allergies sedatives Allergy (Uncoded 06/13/16 04:46) Unknown Home Medications: Ascorbic Acid [Vitamin C with Neyda Hips] 1 tab PO DAILY 04/24/18 Aspirin [Aspirin EC 81 MG] 81 mg PO DAILY 04/24/18 Donepezil [Aricept*] 5 mg PO DAILY 04/24/18 Memantine HCl [Namenda*] 10 mg PO BID 04/24/18 lisinopriL [Prinivil*] 20 mg PO DAILY 04/24/18 B-Complex with Vitamin C [Super B Complex-Vitamin C] 1 tab PO DAILY 10/20/18 Atorvastatin Calcium [Lipitor] 40 mg PO BEDTIME #30 tab 10/22/18 Metoprolol Tartrate [Lopressor] 25 mg PO BID 6AM 6PM #60 tab 10/22/18 Nitroglycerin [Nitrostat*] 0.4 mg SL UD PRN #20 tab 10/22/18 - Past Medical/Surgical History Diabetic: No -: Chronic atrial fibrillation not on chronic anti coagulation therapy -: 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 He lives with the who takes care of him. - Family History Father -: Heart disease Brother -: Heart disease Mother -: Stroke - Social History Alcohol use: No CD- Drugs: No Caffeine use: Yes Place of Residence: Home Review of Systems is unable to be obtained Physical Examination - Physical Exam General: Alert, In no apparent distress, Oriented x1 HEENT: Atraumatic, Normocephalic Neck: Supple Respiratory: Clear to auscultation bilaterally, Normal air movement Cardiovascular: Regular rate/rhythm, Normal S1 S2 Capillary refill: <2 Seconds Gastrointestinal: Normal bowel sounds, Soft and benign, No tenderness, No masses, No rebound Musculoskeletal: No contractures, No erythema, No tenderness Integumentary: No tenderness/swelling, No erythema, No warmth Neurological: Normal speech, Normal tone - Studies Laboratory Data (last 24 hrs) 06/24/20 18:00: PT 14.4 H, INR 1.25, APTT 33.4 06/24/20 18:00: WBC 5.50, Hgb 13.3 L, Hct 39.0 L, Plt Count 111 L 06/24/20 18:00: Sodium 139, Potassium 3.6, BUN 12, Creatinine 0.90, Glucose 106, Total Bilirubin 0.9, AST 25, ALT 29, Alkaline Phosphatase 54, Lipase 61 L Assessment and Plan - Plan Assessment Fever, metabolic encephalopathy secondary to urinary tract infection CAD s/p CABG with recent DC without intervention Chronic atrial fibrillation not on anticoagulation therapy Hypertension Hyperlipidemia Plan Fever, metabolic encephalopathy secondary to urinary tract infection: Continue with IV Rocephin, blood in urine cultures obtained will follow. Fall/aspiration precautions, bed check, sitter required when is not around patient extremely high risk for fall. DVT prophylaxis Lovenox 40 mg subcutaneous once daily. Anticipate clinical improvement next 24-48 hr. CAD s/p CABG with recent DC without intervention: Patient had myocardial infarction approximately 1 month ago heart catheter was deferred due to DNR status and advanced dementia. Troponin 0.08, will continue to follow troponins, no chest pain doubt any intervention necessary. Chronic atrial fibrillation not on anticoagulation therapy: Monitor on telemetry, rate controlled at this time. Continue home meds Hypertension: Obtain and continue home meds Hyperlipidemia: Obtain and continue home meds Discharge Plan: Home Plan to discharge in: 48 Hours - Advance Directives Does patient have a Living Will: No Does patient have a Durable POA for Healthcare: No - Code Status/Comfort Care Code Status Assessed: Yes (DNR) Critical Care: No Time Spent Managing Pts Care (In Minutes): 55
[2020-06-24] MEDS ORDERED: ACETAMINOPHEN 500 MG TAB ONE (23:25)
[2020-06-25] MEDS: NA CHLORIDE 0.9% 1,000 ML IV SCH ×4 (00:01→15:44)
[2020-06-25] MEDS ORDERED: ONDANSETRON 4 MG/2 ML VIAL IV PRN (00:01)
[2020-06-25 00:21] LABS: Ferritin 188.5 ng/mL (26-388)
[2020-06-25 05:45] LABS: Basophils % 0.5 % (0-1.3); Hematocrit 39.5 % (39.6-49.0); Lymphocytes % 26.9 % (15.3-44.8); MPV 9.4 fL (7.6-11.3); RBC Red Blood Cell Count 4.25 M/uL (4.33-5.43)
[2020-06-25 06:12] LABS: ALT/SGPT 31 U/L (12-78); AST/SGOT 28 U/L (15-37); Albumin 3.2 g/dL (3.4-5.0); Alkaline Phosphatase 49 U/L (45-117); BUN Blood Urea Nitrogen 13 mg/dL (7-18); Bicarbonate 26 mmol/L (21-32); Bilirubin Total 0.9 mg/dL (0.2-1.0); Glucose Level 92 mg/dL (74-106); Magnesium 2.1 mg/dL (1.8-2.4); Potassium 3.4 mmol/L (3.5-5.1); Protein, Total 6.1 g/dL (6.4-8.2); Sodium Level 141 mmol/L (136-145)
[2020-06-25 06:16] LABS: C-Reactive Protein 80.1 mg/L (<3.00); Ferritin 249.7 ng/mL (26-388)
[2020-06-25] MEDS ORDERED: ENOXAPARIN 40 MG/0.4 ML SQ SCH (09:00)
[2020-06-25] MEDS ORDERED: CEFTRIAXONE 1 GM/NS 50 ML 1 GM/50 ML BAG IV SCH (09:00)
[2020-06-25 10:22] LABS: Platelet Estimate DECR
[2020-06-25 10:23] LABS: Blood Morphology Comment NOT SEEN (NOT SEEN)
--- NOTE | 2020-06-25 13:00 | P.PN ---
Subjective Date of Service: 06/25/20 Chief Complaint: UTI, fever, AMS Subjective: Doing well, Demented Physical Examination - Vital Signs Temperature: 99.5 F Blood Pressure: 154/89 Pulse: 88 Respirations: 17 Pulse Ox (%): 95 - Studies Laboratory Data (last 24 hrs) 06/24/20 18:00: PT 14.4 H, INR 1.25, APTT 33.4 06/24/20 18:00: WBC 5.50, Hgb 13.3 L, Hct 39.0 L, Plt Count 111 L 06/24/20 18:00: Sodium 139, Potassium 3.6, BUN 12, Creatinine 0.90, Glucose 106, Total Bilirubin 0.9, AST 25, ALT 29, Alkaline Phosphatase 54, Lipase 61 L Assessment & Plan Discharge Plan: Home Plan to discharge in: Greater than 2 days Physician Review Additional Text: Physical Exam: GENERAL: Patient with dementia. VITAL SIGNS: [Reviewed] HEENT: Nares patent. NECK: [Supple. No carotid bruits. No lymphadenopathy or thyromegaly.] LUNGS: [Clear to auscultation. No crackles or wheezes are heard.] HEART: Rate and rhythm, ABDOMEN: [Soft, nontender, and nondistended. Positive bowel sounds. No hepatosplenomegaly was noted.] EXTREMITIES: [Without any cyanosis, clubbing, rash, lesions or peripheral edema.] NEUROLOGIC: Dementia noted SKIN: [Normal color, turgor and temperature. No ulcerations or rashes noted.] Assessment Fever, metabolic encephalopathy secondary to urinary tract infection CAD s/p CABG with recent [place] without intervention Chronic atrial fibrillation not on anticoagulation therapy Hypertension Hyperlipidemia Dementia Plan Fever, metabolic encephalopathy secondary to urinary tract infection: Patient reports improvement. Continue IV antibiotic therapy. Continue to monitor closely. DVT prophylaxis in place. Will need to discuss with family about plan of care. CAD s/p CABG with recent [place] without intervention: Patient had myocardial infarction approximately 1 month ago heart catheterization was not done due to DNR status and advanced dementia. Will monitor troponin Chronic atrial fibrillation not on anticoagulation therapy: Monitor on telemetry, rate controlled at this time. Continue home meds Hypertension: Obtain and restart home medication Hyperlipidemia: Obtain and restart home medication Dementia: Continue medication Code Status: Patient is DNR DVT prophylaxis: [Lovenox] Advanced Care Planning-30 minutes: This was addressed by midlevel last night. Patient is DNR. Will discuss with family about plan of care. Time Spent Managing Pts Care (In Minutes): 55
[2020-06-25] MEDS: METOPROLOL TAR 25 MG TAB PO SCH (17:22)
[2020-06-25] MEDS ORDERED: CEFTRIAXONE/SWI 1gm 1 GM/10 ML SYR IV SCH (18:00)
[2020-06-25] MEDS: ATORVASTATIN 40 MG TAB PO SCH (20:05)
[2020-06-25] MEDS: MEMANTINE HCL 10 MG TABLET PO SCH (20:05)
[2020-06-25] MEDS: ACETAMINOPHEN 500 MG TAB PO PRN (20:08)
[2020-06-26] MEDS: ACETAMINOPHEN 500 MG TAB PO PRN ×3 (04:04→19:36)
[2020-06-26 05:00] LABS: Absolute Lymphocytes (CBC) 0.8 K/uL (0.7-4.9); Basophils % 0.2 % (0-1.3); Hematocrit 38.5 % (39.6-49.0); Lymphocytes % 19.1 % (15.3-44.8); MPV 9.7 fL (7.6-11.3); RBC Red Blood Cell Count 4.13 M/uL (4.33-5.43)
[2020-06-26 05:43] LABS: Albumin 3.2 g/dL (3.4-5.0); Ferritin 483.6 ng/mL (26-388); Potassium 3.5 mmol/L (3.5-5.1); Protein, Total 6.2 g/dL (6.4-8.2)
[2020-06-26] MEDS: METOPROLOL TAR 25 MG TAB PO SCH ×2 (05:43→17:12)
[2020-06-26] MEDS ORDERED: POTASSIUM CL SA 10 MEQ TAB PO ONE (08:00)
[2020-06-26] MEDS: MEMANTINE HCL 10 MG TABLET PO SCH ×2 (08:42→19:36)
[2020-06-26] MEDS: DONEPEZIL HCL 5 MG TAB PO SCH (08:43)
[2020-06-26] MEDS: ASPIRIN EC 81 MG TAB PO SCH (08:43)
[2020-06-26] MEDS: lisinopriL 20 MG TAB PO SCH (08:44)
[2020-06-26] MEDS: [UNRECOGNIZED DRUG - OTHER] PO SCH (08:45)
[2020-06-26] MEDS: [UNRECOGNIZED DRUG - MIXTURE] PO SCH (08:46)
--- NOTE | 2020-06-26 08:52 | P.PN ---
Subjective Date of Service: 06/26/20 Chief Complaint: UTI, fever, AMS Subjective: Improving, Demented Physical Examination - Vital Signs Temperature: 99.1 F Blood Pressure: 143/75 Pulse: 56 Respirations: 23 Pulse Ox (%): 98 Assessment & Plan Discharge Plan: Home Plan to discharge in: 24 Hours Physician Review Additional Text: Physical Exam: GENERAL: Patient with dementia. Patient alert. Cooperative. VITAL SIGNS: Reviewed HEENT: Nares patent. NECK: Supple. No carotid bruits. No lymphadenopathy or thyromegaly. LUNGS: Clear to auscultation. No crackles or wheezes are heard. HEART: Rate and rhythm, ABDOMEN: Soft, nontender, and nondistended. Positive bowel sounds. No hepatosplenomegaly was noted. EXTREMITIES: Without any cyanosis, clubbing, rash, lesions or peripheral edema. NEUROLOGIC: Dementia noted SKIN: Normal color, turgor and temperature. No ulcerations or rashes noted. Assessment Fever, metabolic encephalopathy secondary to urinary tract infection CAD s/p CABG with recent [place] without intervention Chronic atrial fibrillation not on anticoagulation therapy Hypertension Hyperlipidemia Advanced dementia COVID-19 positive, asymptomatic Plan Fever, metabolic encephalopathy secondary to urinary tract infection: Patient has done well. Patient with underlying dementia. Blood culture negative. Urine culture shows mixed leonarda. Will transition to oral medicationAugmentin. Continue DVT prophylaxis. Continue home medication. Will discuss with family about the possibility of likely discharge today if stable if not tomorrow. Anticipate continued improvement. Will turn to service over to the hospitalist team tomorrow. I will go plan of care with him. CAD s/p CABG with recent [place] without intervention: Patient had myocardial infarction approximately 1 month ago. Cardiology had recommended heart catheterization but this was not done due to his advanced dementia and DNR status. Overall stable. Chronic atrial fibrillation not on anticoagulation therapy: Rate controlled. Continue home medications. Hypertension: Continue home medication Hyperlipidemia: Continue home medication Advanced dementia: Patient with significant dementia. Overall stable. Patient appears to be at his baseline level. COVID-19 positive, asymptomatic: No evidence of pneumonia. No need for oxygen. No need for steroids. Will monitor closely. Continue COVID-19 isolation. Code Status: Patient is DNR DVT prophylaxis: Lovenox Advanced Care Planning-30 minutes: This was addressed by midlevel last night. Patient is DNR. Will discuss with family about plan of care. Time Spent Managing Pts Care (In Minutes): 55
[2020-06-26] MEDS: NA CHLORIDE 0.9% 1,000 ML IV SCH (08:55)
[2020-06-26] MEDS: AMOX/K CLAV 500 MG TAB PO SCH ×2 (10:34→19:36)
[2020-06-26] MEDS: ATORVASTATIN 40 MG TAB PO SCH (19:36)
[2020-06-26] MEDS: ENSURE ENLIVE 237 ML CAN PO SCH (19:37)
[2020-06-27 05:21] LABS: Absolute Lymphocytes (CBC) 0.9 K/uL (0.7-4.9); Basophils % 0.2 % (0-1.3); Hematocrit 39.6 % (39.6-49.0); Lymphocytes % 26.1 % (15.3-44.8); MPV 10.1 fL (7.6-11.3)
[2020-06-27] MEDS: METOPROLOL TAR 25 MG TAB PO SCH ×2 (05:42→19:02)
[2020-06-27] MEDS: ACETAMINOPHEN 500 MG TAB PO PRN ×2 (05:42→19:48)
[2020-06-27 05:54] LABS: BUN Blood Urea Nitrogen 17 mg/dL (7-18); Bicarbonate 23 mmol/L (21-32); Ferritin 1010.1 ng/mL (26-388); Glucose Level 80 mg/dL (74-106); Potassium 3.4 mmol/L (3.5-5.1); Sodium Level 136 mmol/L (136-145)
[2020-06-27] MEDS: ENOXAPARIN 40 MG/0.4 ML SQ SCH (08:18)
[2020-06-27] MEDS: lisinopriL 20 MG TAB PO SCH (08:18)
[2020-06-27] MEDS: ASPIRIN EC 81 MG TAB PO SCH (08:19)
[2020-06-27] MEDS: MEMANTINE HCL 10 MG TABLET PO SCH ×2 (08:20→19:46)
[2020-06-27] MEDS: AMOX/K CLAV 500 MG TAB PO SCH ×2 (08:20→19:46)
[2020-06-27] MEDS: DONEPEZIL HCL 5 MG TAB PO SCH (08:20)
[2020-06-27] MEDS: [UNRECOGNIZED DRUG - OTHER] PO SCH (08:21)
[2020-06-27] MEDS: [UNRECOGNIZED DRUG - MIXTURE] PO SCH (08:21)
[2020-06-27] MEDS: ENSURE ENLIVE 237 ML CAN PO SCH ×2 (08:21→19:46)
[2020-06-27] MEDS ORDERED: POTASSIUM CL SA 10 MEQ TAB PO ONE (09:00)
[2020-06-27] MEDS: ATORVASTATIN 40 MG TAB PO SCH (19:46)
[2020-06-28] MEDS: METOPROLOL TAR 25 MG TAB PO SCH ×2 (05:13→17:23)
[2020-06-28 05:17] LABS: BUN Blood Urea Nitrogen 16 mg/dL (7-18); Bicarbonate 24 mmol/L (21-32); Ferritin 1568.3 ng/mL (26-388); Glucose Level 85 mg/dL (74-106); Potassium 3.7 mmol/L (3.5-5.1); Sodium Level 139 mmol/L (136-145)
[2020-06-28 06:28] LABS: Basophils % 0.4 % (0-1.3); Hematocrit 40.8 % (39.6-49.0); Lymphocytes % 34.1 % (15.3-44.8); MPV 9.8 fL (7.6-11.3); RBC Red Blood Cell Count 4.44 M/uL (4.33-5.43)
[2020-06-28] MEDS ORDERED: POTASSIUM 25 MEQ EFFERV TAB PO ONE (09:00)
[2020-06-28] MEDS: ENSURE ENLIVE 237 ML CAN PO SCH ×2 (09:00→20:10)
[2020-06-28] MEDS: ENOXAPARIN 40 MG/0.4 ML SQ SCH (09:00)
[2020-06-28] MEDS: [UNRECOGNIZED DRUG - OTHER] PO SCH (09:00)
[2020-06-28] MEDS: [UNRECOGNIZED DRUG - MIXTURE] PO SCH (09:00)
[2020-06-28] MEDS: DONEPEZIL HCL 5 MG TAB PO SCH (09:08)
[2020-06-28] MEDS: AMOX/K CLAV 500 MG TAB PO SCH ×2 (09:08→20:09)
[2020-06-28] MEDS: ASPIRIN EC 81 MG TAB PO SCH (09:08)
[2020-06-28] MEDS: lisinopriL 20 MG TAB PO SCH (09:09)
[2020-06-28] MEDS: MEMANTINE HCL 10 MG TABLET PO SCH ×2 (09:09→20:10)
[2020-06-28] MEDS: ACETAMINOPHEN 500 MG TAB PO PRN (16:12)
[2020-06-28] MEDS: ATORVASTATIN 40 MG TAB PO SCH (20:09)
[2020-06-29] MEDS: ACETAMINOPHEN 500 MG TAB PO PRN ×2 (03:48→08:40)
[2020-06-29 04:51] LABS: Urine Appearance CLEAR (Clear); Urine Bilirubin NEGATIVE (Negative); Urine Blood NEGATIVE (Negative); Urine Color DK YELLOW (Yellow); Urine Glucose NEGATIVE (Negative); Urine Protein 2+ (Negative)
[2020-06-29 04:51] LABS: Basophils % 0.3 % (0-1.3); Hematocrit 41.1 % (39.6-49.0); Lymphocytes % 32.2 % (15.3-44.8); MPV 9.7 fL (7.6-11.3); RBC Red Blood Cell Count 4.47 M/uL (4.33-5.43)
[2020-06-29 04:59] LABS: Urine Microscopic Reflex ORDER UMIC
[2020-06-29 05:05] LABS: BUN Blood Urea Nitrogen 16 mg/dL (7-18); Bicarbonate 26 mmol/L (21-32); Glucose Level 101 mg/dL (74-106); Potassium 3.6 mmol/L (3.5-5.1); Sodium Level 140 mmol/L (136-145)
[2020-06-29 05:10] LABS: Urine Bacteria <20 /HPF (NONE SEEN); Urine RBC <5 /HPF (NONE SEEN); Urine Urothelial Cells <5 /HPF (NONE SEEN); Urine Yeast MANY (NONE SEEN)
[2020-06-29] MEDS: METOPROLOL TAR 25 MG TAB PO SCH ×2 (05:20→17:13)
[2020-06-29] MEDS: AMOX/K CLAV 500 MG TAB PO SCH ×2 (08:39→21:03)
[2020-06-29] MEDS: lisinopriL 20 MG TAB PO SCH (08:40)
[2020-06-29] MEDS: MEMANTINE HCL 10 MG TABLET PO SCH ×2 (08:40→21:03)
[2020-06-29] MEDS: ASPIRIN EC 81 MG TAB PO SCH (08:41)
[2020-06-29] MEDS: DONEPEZIL HCL 5 MG TAB PO SCH (08:41)
[2020-06-29] MEDS: [UNRECOGNIZED DRUG - OTHER] PO SCH (08:41)
[2020-06-29] MEDS: [UNRECOGNIZED DRUG - MIXTURE] PO SCH (08:42)
[2020-06-29] MEDS: ENOXAPARIN 40 MG/0.4 ML SQ SCH (08:42)
[2020-06-29] MEDS: ENSURE ENLIVE 237 ML CAN PO SCH ×2 (08:42→21:03)
[2020-06-29] MEDS ORDERED: POTASSIUM 25 MEQ EFFERV TAB PO ONE (09:00)
--- NOTE | 2020-06-29 10:59 | P.PN ---
Subjective Date of Service: 06/27/20 Subjective: No new changes, No C/O voiced, Improving Review of Systems 10-point ROS is otherwise unremarkable Physical Examination - Vital Signs Temperature: 98.4 F Blood Pressure: 113/72 Pulse: 60 Respirations: 19 Pulse Ox (%): 97 - Physical Exam General: Alert, In no apparent distress, Demented, Other Respiratory: Clear to auscultation bilaterally, Normal air movement Cardiovascular: Regular rate/rhythm, Normal S1 S2 Gastrointestinal: Normal bowel sounds, Soft and benign, Non-distended, No tenderness Musculoskeletal: No clubbing, No swelling Neurological: Sensation intact, Cranial nerves 3-12 intact, Abnormal strength Assessment & Plan - Problems (Diagnosis) (1) Alzheimer's dementia Current Visit: No Status: Chronic (2) CAD (coronary artery disease) Onset Date: 01/09/16 Current Visit: No Status: Chronic Qualifiers: Coronary Disease-Associated Artery/Lesion type: [place] artery [place] vs. transplanted heart: [place] heart Associated angina: without angina Qualified Code(s): I25.10 - Atherosclerotic heart disease of [place] coronary artery without angina pectoris (3) CHF exacerbation Onset Date: 01/09/16 Current Visit: No Status: Chronic Qualifiers: Qualified Code(s): I50.23 - Acute on chronic systolic (congestive) heart failure (4) CKD (chronic kidney disease), stage III Onset Date: 01/09/16 Current Visit: No Status: Chronic (5) HLD (hyperlipidemia) Current Visit: No Status: Chronic Qualifiers: Hyperlipidemia type: unspecified Qualified Code(s): E78.5 - Hyperlipidemia, unspecified (6) HTN (hypertension) Current Visit: No Status: Chronic Qualifiers: Hypertension type: essential hypertension Qualified Code(s): I10 - Essential (primary) hypertension - Plan Plan: 1. Working on placement 2. Supportive care with continued medication 3. Physical therapy evaluation is appreciated 4. Monitor labs every other day 5. GI and DVT prophylaxis Discharge Plan: [facility] Plan to discharge in: Greater than 2 days - Advance Directives Does patient have a Living Will: No Does patient have a Durable POA for Healthcare: No - Code Status/Comfort Care Code Status Assessed: Yes Code Status: Full Code Critical Care: No Time Spent Managing PTS Care (In Minutes): 35
--- NOTE | 2020-06-29 11:01 | P.PN ---
Date of Service: 06/29/20 Subjective No new changes Review of Systems Difficult to obtain because of his dementia Physical Examination - Vital Signs Reviewed - Physical Exam General: Alert, In no apparent distress, Demented, Respiratory: Clear to auscultation bilaterally, Normal air movement Cardiovascular: Regular rate/rhythm, Normal S1 S2 Gastrointestinal: Normal bowel sounds, Soft and benign, Non-distended, No tenderness Neurological: Demented and unable to follow directions appropriately; Abnormal strength Assessment & Plan - Problems (Diagnosis) (1) Alzheimer's dementia Current Visit: No Status: Chronic (2) CAD (coronary artery disease) Onset Date: 01/09/16 Current Visit: No Status: Chronic Coronary Disease-Associated Artery/Lesion type: [place] artery [place] vs. transplanted heart: [place] heart Associated angina: without angina Qualified Code(s): I25.10 - Atherosclerotic heart disease of [place] coronary artery without angina pectoris (3) CHF exacerbation Onset Date: 01/09/16 Current Visit: No Status: Chronic Qualified Code(s): I50.23 - Acute on chronic systolic (congestive) heart failure (4) CKD (chronic kidney disease), stage III Onset Date: 01/09/16 Current Visit: No Status: Chronic (5) HLD (hyperlipidemia) Current Visit: No Status: Chronic Hyperlipidemia type: unspecified Qualified Code(s): E78.5 - Hyperlipidemia, unspecified (6) HTN (hypertension) Current Visit: No Status: Chronic Hypertension type: essential hypertension Qualified Code(s): I10 - Essential (primary) hypertension - Plan Plan: Plan of care as mentioned below 1. Working on placement 2. Supportive care with continued medication 3. Physical therapy evaluation is appreciated 4. Monitor labs every other day 5. GI and DVT prophylaxis
--- NOTE | 2020-06-29 11:01 | P.PN ---
Date of Service: 06/28/20 Subjective No significant changes. Review of Systems Difficult to obtain because of his dementia Physical Examination - Vital Signs Reviewed - Physical Exam General: Alert, In no apparent distress, Demented, Other Respiratory: Clear to auscultation bilaterally, Normal air movement Cardiovascular: Regular rate/rhythm, Normal S1 S2 Gastrointestinal: Normal bowel sounds, Soft and benign, Non-distended, No tenderness Musculoskeletal: No clubbing, No swelling Neurological: Sensation intact, Cranial nerves 3-12 intact, Abnormal strength Assessment & Plan - Problems (Diagnosis) (1) Alzheimer's dementia Current Visit: No Status: Chronic (2) CAD (coronary artery disease) Onset Date: 01/09/16 Current Visit: No Status: Chronic Qualifiers: Coronary Disease-Associated Artery/Lesion type: [place] artery [place] vs. transplanted heart: [place] heart Associated angina: without angina Qualified Code(s): I25.10 - Atherosclerotic heart disease of [place] coronary artery without angina pectoris (3) CHF exacerbation Onset Date: 01/09/16 Current Visit: No Status: Chronic Qualifiers: Qualified Code(s): I50.23 - Acute on chronic systolic (congestive) heart failure (4) CKD (chronic kidney disease), stage III Onset Date: 01/09/16 Current Visit: No Status: Chronic (5) HLD (hyperlipidemia) Current Visit: No Status: Chronic Qualifiers: Hyperlipidemia type: unspecified Qualified Code(s): E78.5 - Hyperlipidemia, unspecified (6) HTN (hypertension) Current Visit: No Status: Chronic Qualifiers: Hypertension type: essential hypertension Qualified Code(s): I10 - Essential (primary) hypertension - Plan Plan: Plan of care as mentioned below 1. Working on placement 2. Supportive care with continued medication 3. Physical therapy evaluation is appreciated 4. Monitor labs every other day 5. GI and DVT prophylaxis
[2020-06-29] MEDS: ATORVASTATIN 40 MG TAB PO SCH (21:03)
[2020-06-30] MEDS: METOPROLOL TAR 25 MG TAB PO SCH ×2 (05:22→17:33)
[2020-06-30 05:31] LABS: Absolute Lymphocytes (CBC) 1.3 K/uL (0.7-4.9); Basophils % 0.2 % (0-1.3); Hematocrit 41.2 % (39.6-49.0); Lymphocytes % 38.8 % (15.3-44.8); MPV 10.2 fL (7.6-11.3); RBC Red Blood Cell Count 4.48 M/uL (4.33-5.43)
[2020-06-30 05:45] LABS: BUN Blood Urea Nitrogen 18 mg/dL (7-18); Bicarbonate 25 mmol/L (21-32); Ferritin 1871.3 ng/mL (26-388); Glucose Level 87 mg/dL (74-106); Magnesium 2.1 mg/dL (1.8-2.4); Potassium 3.6 mmol/L (3.5-5.1); Sodium Level 140 mmol/L (136-145)
[2020-06-30] MEDS: MEMANTINE HCL 10 MG TABLET PO SCH ×2 (07:58→20:29)
[2020-06-30] MEDS: lisinopriL 20 MG TAB PO SCH (07:58)
[2020-06-30] MEDS: [UNRECOGNIZED DRUG - OTHER] PO SCH (07:58)
[2020-06-30] MEDS: [UNRECOGNIZED DRUG - MIXTURE] PO SCH (07:59)
[2020-06-30] MEDS: ENSURE ENLIVE 237 ML CAN PO SCH ×2 (07:59→20:29)
[2020-06-30] MEDS: DONEPEZIL HCL 5 MG TAB PO SCH (07:59)
[2020-06-30] MEDS: ASPIRIN EC 81 MG TAB PO SCH (07:59)
[2020-06-30] MEDS: ENOXAPARIN 40 MG/0.4 ML SQ SCH (08:00)
[2020-06-30] MEDS ORDERED: POTASSIUM 25 MEQ EFFERV TAB PO ONE (08:00)
[2020-06-30] MEDS: AMOX/K CLAV 500 MG TAB PO SCH ×2 (08:01→20:28)
[2020-06-30] MEDS: ATORVASTATIN 40 MG TAB PO SCH (20:29)
[2020-07-01] MEDS: METOPROLOL TAR 25 MG TAB PO SCH ×2 (05:27→17:34)
[2020-07-01 06:34] LABS: BUN Blood Urea Nitrogen 19 mg/dL (7-18); Bicarbonate 26 mmol/L (21-32); Ferritin 2277.5 ng/mL (26-388); Glucose Level 93 mg/dL (74-106); Potassium 3.5 mmol/L (3.5-5.1); Sodium Level 143 mmol/L (136-145)
[2020-07-01] MEDS: ACETAMINOPHEN 500 MG TAB PO PRN (07:52)
[2020-07-01] MEDS: MEMANTINE HCL 10 MG TABLET PO SCH ×2 (07:53→20:58)
[2020-07-01] MEDS: ASPIRIN EC 81 MG TAB PO SCH (07:53)
[2020-07-01] MEDS: DONEPEZIL HCL 5 MG TAB PO SCH (07:53)
[2020-07-01] MEDS: lisinopriL 20 MG TAB PO SCH (07:53)
[2020-07-01] MEDS: [UNRECOGNIZED DRUG - OTHER] PO SCH (07:53)
[2020-07-01] MEDS: [UNRECOGNIZED DRUG - MIXTURE] PO SCH (07:54)
[2020-07-01] MEDS: ENSURE ENLIVE 237 ML CAN PO SCH ×2 (07:54→20:58)
[2020-07-01] MEDS: ENOXAPARIN 40 MG/0.4 ML SQ SCH (07:55)
[2020-07-01] MEDS: AMOX/K CLAV 500 MG TAB PO SCH ×2 (07:57→20:57)
[2020-07-01] MEDS ORDERED: KCL 20 MEQ/100 mL IVPB 20 MEQ/100 ML BAG IV SCH (08:00)
[2020-07-01] MEDS ORDERED: NA CHLORIDE 0.9% 250 ML ONE (08:16)
[2020-07-01] MEDS: ATORVASTATIN 40 MG TAB PO SCH (20:57)
[2020-07-02 05:20] LABS: Absolute Lymphocytes (CBC) 1.1 K/uL (0.7-4.9); Basophils % 0.3 % (0-1.3); Hematocrit 43.4 % (39.6-49.0); Lymphocytes % 26.4 % (15.3-44.8); MPV 10.1 fL (7.6-11.3); RBC Red Blood Cell Count 4.71 M/uL (4.33-5.43)
[2020-07-02] MEDS: METOPROLOL TAR 25 MG TAB PO SCH ×2 (05:31→17:08)
[2020-07-02 06:02] LABS: BUN Blood Urea Nitrogen 20 mg/dL (7-18); Bicarbonate 24 mmol/L (21-32); Ferritin 2193.6 ng/mL (26-388); Glucose Level 97 mg/dL (74-106); Potassium 3.8 mmol/L (3.5-5.1); Sodium Level 144 mmol/L (136-145)
[2020-07-02] MEDS ORDERED: KCL 20 MEQ/100 mL IVPB 20 MEQ/100 ML BAG IV SCH (07:00)
[2020-07-02] MEDS ORDERED: NA CHLORIDE 0.9% 250 ML ONE (07:31)
[2020-07-02] MEDS: lisinopriL 20 MG TAB PO SCH (08:27)
[2020-07-02] MEDS: ATORVASTATIN 40 MG TAB PO SCH (08:27)
[2020-07-02] MEDS: MEMANTINE HCL 10 MG TABLET PO SCH ×2 (08:27→20:53)
[2020-07-02] MEDS: ASPIRIN EC 81 MG TAB PO SCH (08:27)
[2020-07-02] MEDS: AMOX/K CLAV 500 MG TAB PO SCH ×2 (08:27→20:52)
[2020-07-02] MEDS: DONEPEZIL HCL 5 MG TAB PO SCH (08:27)
[2020-07-02] MEDS: [UNRECOGNIZED DRUG - OTHER] PO SCH (08:28)
[2020-07-02] MEDS: [UNRECOGNIZED DRUG - MIXTURE] PO SCH (08:28)
[2020-07-02] MEDS: ENOXAPARIN 40 MG/0.4 ML SQ SCH (08:30)
[2020-07-02] MEDS: ENSURE ENLIVE 237 ML CAN PO SCH ×2 (08:30→21:00)
[2020-07-02] MEDS: ACETAMINOPHEN 500 MG TAB PO PRN (08:41)
--- NOTE | 2020-07-03 01:26 | P.PN ---
Date of Service: 06/30/20 Subjective Patient continues to improve with no new changes. Symptoms are stable; continue to await placement Review of Systems Difficult to obtain because of his dementia Physical Examination - Vital Signs Reviewed - Physical Exam General: Alert, In no apparent distress, Demented, Respiratory: Clear to auscultation bilaterally, Normal air movement Cardiovascular: Regular rate/rhythm, Normal S1 S2 Gastrointestinal: Normal bowel sounds, Soft and benign, Non-distended, No tenderness Neurological: Demented and unable to follow directions appropriately; Abnormal strength Assessment & Plan - Problems (Diagnosis) (1) Alzheimer's dementia Current Visit: No Status: Chronic (2) CAD (coronary artery disease) Onset Date: 01/09/16 Current Visit: No Status: Chronic Coronary Disease-Associated Artery/Lesion type: [place] artery [place] vs. transplanted heart: [place] heart Associated angina: without angina Qualified Code(s): I25.10 - Atherosclerotic heart disease of [place] coronary artery without angina pectoris (3) CHF exacerbation Onset Date: 01/09/16 Current Visit: No Status: Chronic Qualified Code(s): I50.23 - Acute on chronic systolic (congestive) heart failure (4) CKD (chronic kidney disease), stage III Onset Date: 01/09/16 Current Visit: No Status: Chronic (5) HLD (hyperlipidemia) Current Visit: No Status: Chronic Hyperlipidemia type: unspecified Qualified Code(s): E78.5 - Hyperlipidemia, unspecified (6) HTN (hypertension) Current Visit: No Status: Chronic Hypertension type: essential hypertension Qualified Code(s): I10 - Essential (primary) hypertension - Plan Plan: Plan of care as mentioned below 1. Working on placement 2. Supportive care with continued medication 3. Physical therapy evaluation is appreciated 4. Monitor labs every other day 5. GI and DVT prophylaxis
--- NOTE | 2020-07-03 01:27 | P.PN ---
Date of Service: 07/01/20 Subjective No significant changes. Patient clinical symptoms are improving Review of Systems Difficult to obtain because of his dementia Physical Examination - Vital Signs Reviewed - Physical Exam General: Alert, In no apparent distress, Demented, Respiratory: Clear to auscultation bilaterally, Normal air movement Cardiovascular: Regular rate/rhythm, Normal S1 S2 Gastrointestinal: Normal bowel sounds, Soft and benign, Non-distended, No tenderness Neurological: Demented and unable to follow directions appropriately; Abnormal strength Assessment & Plan - Problems (Diagnosis) (1) Alzheimer's dementia Current Visit: No Status: Chronic (2) CAD (coronary artery disease) Onset Date: 01/09/16 Current Visit: No Status: Chronic Coronary Disease-Associated Artery/Lesion type: [place] artery [place] vs. transplanted heart: [place] heart Associated angina: without angina Qualified Code(s): I25.10 - Atherosclerotic heart disease of [place] coronary artery without angina pectoris (3) CHF exacerbation Onset Date: 01/09/16 Current Visit: No Status: Chronic Qualified Code(s): I50.23 - Acute on chronic systolic (congestive) heart failure (4) CKD (chronic kidney disease), stage III Onset Date: 01/09/16 Current Visit: No Status: Chronic (5) HLD (hyperlipidemia) Current Visit: No Status: Chronic Hyperlipidemia type: unspecified Qualified Code(s): E78.5 - Hyperlipidemia, unspecified (6) HTN (hypertension) Current Visit: No Status: Chronic Hypertension type: essential hypertension Qualified Code(s): I10 - Essential (primary) hypertension - Plan Plan: Plan of care as mentioned below 1. Working on placement 2. Supportive care with continued medication; labs are stable. Cardiac status is stable as well 3. Physical therapy evaluation is appreciated 4. GI and DVT prophylaxis
--- NOTE | 2020-07-03 01:31 | P.PN ---
Date of Service: 07/03/20 Subjective Patient doing well with no new complaints; awaiting for transfer to a [facility] facility that accepts COVID-19 positive patients Review of Systems Difficult to obtain because of his dementia Physical Examination - Vital Signs Reviewed - Physical Exam General: Alert, In no apparent distress, Demented, Respiratory: Clear to auscultation bilaterally, Normal air movement Cardiovascular: Regular rate/rhythm, Normal S1 S2 Gastrointestinal: Normal bowel sounds, Soft and benign, Non-distended, No tenderness Neurological: Demented and unable to follow directions appropriately; Abnormal strength Assessment & Plan - Problems (Diagnosis) (1) Alzheimer's dementia Current Visit: No Status: Chronic (2) CAD (coronary artery disease) Onset Date: 01/09/16 Current Visit: No Status: Chronic Coronary Disease-Associated Artery/Lesion type: [place] artery [place] vs. transplanted heart: [place] heart Associated angina: without angina Qualified Code(s): I25.10 - Atherosclerotic heart disease of [place] coronary artery without angina pectoris (3) CHF exacerbation Onset Date: 01/09/16 Current Visit: No Status: Chronic Qualified Code(s): I50.23 - Acute on chronic systolic (congestive) heart failure (4) CKD (chronic kidney disease), stage III Onset Date: 01/09/16 Current Visit: No Status: Chronic (5) HLD (hyperlipidemia) Current Visit: No Status: Chronic Hyperlipidemia type: unspecified Qualified Code(s): E78.5 - Hyperlipidemia, unspecified (6) HTN (hypertension) Current Visit: No Status: Chronic Hypertension type: essential hypertension Qualified Code(s): I10 - Essential (primary) hypertension - Plan Plan: Plan of care as mentioned below 1. Working on placement; been waiting on placement for the last week 2. Supportive care with continued medication; labs are stable. Cardiac status is stable as well 3. Physical therapy evaluation is appreciated 4. Cardiac status is stable and renal function is stable; labs are pending 5. GI and DVT prophylaxis
--- NOTE | 2020-07-03 01:31 | P.PN ---
Date of Service: 07/02/20 Subjective Patient with no significant changes; awaiting placement Review of Systems Difficult to obtain because of his dementia Physical Examination - Vital Signs Reviewed - Physical Exam General: Alert, In no apparent distress, Demented, Respiratory: Clear to auscultation bilaterally, Normal air movement Cardiovascular: Regular rate/rhythm, Normal S1 S2 Gastrointestinal: Normal bowel sounds, Soft and benign, Non-distended, No tenderness Neurological: Demented and unable to follow directions appropriately; Abnormal strength Assessment & Plan - Problems (Diagnosis) (1) Alzheimer's dementia Current Visit: No Status: Chronic (2) CAD (coronary artery disease) Onset Date: 01/09/16 Current Visit: No Status: Chronic Coronary Disease-Associated Artery/Lesion type: [place] artery [place] vs. transplanted heart: [place] heart Associated angina: without angina Qualified Code(s): I25.10 - Atherosclerotic heart disease of [place] coronary artery without angina pectoris (3) CHF exacerbation Onset Date: 01/09/16 Current Visit: No Status: Chronic Qualified Code(s): I50.23 - Acute on chronic systolic (congestive) heart failure (4) CKD (chronic kidney disease), stage III Onset Date: 01/09/16 Current Visit: No Status: Chronic (5) HLD (hyperlipidemia) Current Visit: No Status: Chronic Hyperlipidemia type: unspecified Qualified Code(s): E78.5 - Hyperlipidemia, unspecified (6) HTN (hypertension) Current Visit: No Status: Chronic Hypertension type: essential hypertension Qualified Code(s): I10 - Essential (primary) hypertension - Plan Plan: Plan of care as mentioned below 1. Working on placement; been waiting on placement for the last 4-5 days 2. Supportive care with continued medication; labs are stable. Cardiac status is stable as well 3. Physical therapy evaluation is appreciated 4. Cardiac status is stable and renal function is stable; labs are pending 5. GI and DVT prophylaxis
[2020-07-03 04:26] LABS: Absolute Lymphocytes (CBC) 0.5 K/uL (0.7-4.9); Basophils % 0.2 % (0-1.3); Lymphocytes % 15.9 % (15.3-44.8); MPV 10.2 fL (7.6-11.3); RBC Red Blood Cell Count 4.66 M/uL (4.33-5.43)
[2020-07-03 05:44] LABS: BUN Blood Urea Nitrogen 21 mg/dL (7-18); Bicarbonate 23 mmol/L (21-32); Ferritin 2142.6 ng/mL (26-388); Glucose Level 178 mg/dL (74-106); Potassium 3.9 mmol/L (3.5-5.1); Sodium Level 144 mmol/L (136-145)
[2020-07-03] MEDS ORDERED: METHYLPREDNISOLONE 125 MG INJ IV SCH (06:00)
[2020-07-03] MEDS: METOPROLOL TAR 25 MG TAB PO SCH ×2 (07:07→17:31)
[2020-07-03] MEDS ORDERED: POTASSIUM 25 MEQ EFFERV TAB PO ONE (07:30)
[2020-07-03] MEDS: lisinopriL 20 MG TAB PO SCH (08:09)
[2020-07-03] MEDS: MEMANTINE HCL 10 MG TABLET PO SCH ×2 (08:09→21:11)
[2020-07-03] MEDS: DONEPEZIL HCL 5 MG TAB PO SCH (08:09)
[2020-07-03] MEDS: AMOX/K CLAV 500 MG TAB PO SCH ×2 (08:09→21:11)
[2020-07-03] MEDS: ASPIRIN EC 81 MG TAB PO SCH (08:10)
[2020-07-03] MEDS: [UNRECOGNIZED DRUG - MIXTURE] PO SCH (08:10)
[2020-07-03] MEDS: [UNRECOGNIZED DRUG - OTHER] PO SCH (08:10)
[2020-07-03] MEDS: ENOXAPARIN 40 MG/0.4 ML SQ SCH (08:10)
[2020-07-03] MEDS: ENSURE ENLIVE 237 ML CAN PO SCH ×2 (08:11→21:00)
[2020-07-03] MEDS: ATORVASTATIN 40 MG TAB PO SCH (21:11)
[2020-07-04 05:22] LABS: Absolute Lymphocytes (CBC) 0.8 K/uL (0.7-4.9); Basophils % 0.1 % (0-1.3); Lymphocytes % 10.9 % (15.3-44.8); MPV 10.4 fL (7.6-11.3); RBC Red Blood Cell Count 4.71 M/uL (4.33-5.43)
[2020-07-04 05:38] LABS: C-Reactive Protein 54.4 mg/L (<3.00)
[2020-07-04] MEDS: METOPROLOL TAR 25 MG TAB PO SCH ×2 (06:00→17:33)
[2020-07-04] MEDS: AMOX/K CLAV 500 MG TAB PO SCH (08:52)
[2020-07-04] MEDS: DONEPEZIL HCL 5 MG TAB PO SCH (08:52)
[2020-07-04] MEDS: MEMANTINE HCL 10 MG TABLET PO SCH ×2 (08:52→20:35)
[2020-07-04] MEDS: lisinopriL 20 MG TAB PO SCH (08:52)
[2020-07-04] MEDS: ASPIRIN EC 81 MG TAB PO SCH (08:52)
[2020-07-04] MEDS: [UNRECOGNIZED DRUG - MIXTURE] PO SCH (08:53)
[2020-07-04] MEDS: [UNRECOGNIZED DRUG - OTHER] PO SCH (08:53)
[2020-07-04] MEDS: ENOXAPARIN 40 MG/0.4 ML SQ SCH (08:53)
[2020-07-04] MEDS: ENSURE ENLIVE 237 ML CAN PO SCH ×2 (08:54→20:34)
--- NOTE | 2020-07-04 15:16 | P.PN ---
Subjective Date of Service: 07/04/20 Chief Complaint: UTI, fever, AMS Subjective: Improving, Doing well, Demented, Other (Patient doing well. Patient not requiring sitter at this time.) Physical Examination - Vital Signs Temperature: 97.7 F Blood Pressure: 139/82 Pulse: 76 Respirations: 25 Pulse Ox (%): 96 Assessment & Plan Discharge Plan: Other ([facility] facility) Plan to discharge in: 24 Hours Physician Review Additional Text: Physical Exam: GENERAL: Patient with dementia. Patient alert. Cooperative. Patient doing well. Not requiring any sitter at this time. VITAL SIGNS: Reviewed HEENT: Nares patent. NECK: Supple. No carotid bruits. No lymphadenopathy or thyromegaly. LUNGS: Clear to auscultation. No crackles or wheezes are heard. HEART: A. fib rate controlled ABDOMEN: Soft, nontender, and nondistended. Positive bowel sounds. No hepatosplenomegaly was noted. EXTREMITIES: Without any cyanosis, clubbing, rash, lesions or peripheral edema. NEUROLOGIC: Dementia noted SKIN: Normal color, turgor and temperature. No ulcerations or rashes noted. Assessment Fever, metabolic encephalopathy secondary to urinary tract infection CAD s/p CABG with recent [place] without intervention Chronic atrial fibrillation not on anticoagulation therapy Hypertension Hyperlipidemia Advanced dementia COVID-19 positive, asymptomatic Plan Fever, metabolic encephalopathy secondary to urinary tract infection: Patient back to baseline. Patient has done well. Patient has finished course of antibiotic therapy. Doing well at this time. Continue physical therapy. Patient on DVT prophylaxis. Awaiting approval to go to a skilled facility. Not requiring any sitter at this time. CAD s/p CABG with recent [place] without intervention: Patient had myocardial infarction approximately 1 month ago. Cardiology had recommended heart catheterization but this was not done due to his advanced dementia and DNR status. Overall stable. Chronic atrial fibrillation not on anticoagulation therapy: Rate controlled. Continue home medications. Hypertension: Continue home medication Hyperlipidemia: Continue home medication Advanced dementia: Patient with significant dementia. Overall stable. Patient appears to be at his baseline level. No requirement for sitter at this time. Continue dementia medication. COVID-19 positive, asymptomatic: No evidence of pneumonia. No need for oxygen. No need for steroids. Will monitor closely. Continue COVID-19 isolation. Code Status: Patient is DNR DVT prophylaxis: Lovenox Advanced Care Planning-30 minutes: Awaiting approval for skilled placement. Time Spent Managing Pts Care (In Minutes): 55
[2020-07-04] MEDS: ATORVASTATIN 40 MG TAB PO SCH (20:35)
[2020-07-05 05:18] LABS: Albumin 2.8 g/dL (3.4-5.0); Bilirubin Total 1.1 mg/dL (0.2-1.0); Magnesium 2.4 mg/dL (1.8-2.4); Potassium 3.4 mmol/L (3.5-5.1); Protein, Total 6.2 g/dL (6.4-8.2)
[2020-07-05] MEDS: METOPROLOL TAR 25 MG TAB PO SCH ×2 (05:58→17:30)
[2020-07-05] MEDS: KCL 20 MEQ/100 mL IVPB 20 MEQ/100 ML BAG IV SCH ×2 (06:26→09:34)
[2020-07-05] MEDS: D5W 1,000 ML IV SCH (06:26)
[2020-07-05] MEDS: ENOXAPARIN 40 MG/0.4 ML SQ SCH (08:44)
[2020-07-05] MEDS: [UNRECOGNIZED DRUG - MIXTURE] PO SCH (08:44)
[2020-07-05] MEDS: ASPIRIN EC 81 MG TAB PO SCH (08:44)
[2020-07-05] MEDS: MEMANTINE HCL 10 MG TABLET PO SCH ×2 (08:44→20:06)
[2020-07-05] MEDS: lisinopriL 20 MG TAB PO SCH (08:44)
[2020-07-05] MEDS: DONEPEZIL HCL 5 MG TAB PO SCH (08:44)
[2020-07-05] MEDS: [UNRECOGNIZED DRUG - OTHER] PO SCH (08:44)
[2020-07-05] MEDS: ENSURE ENLIVE 237 ML CAN PO SCH ×2 (08:44→20:06)
[2020-07-05 13:06] LABS: BUN Blood Urea Nitrogen 36 mg/dL (7-18); Bicarbonate 25 mmol/L (21-32); Glucose Level 150 mg/dL (74-106); Sodium Level 147 mmol/L (136-145)
--- NOTE | 2020-07-05 16:01 | P.PN ---
Subjective Date of Service: 07/05/20 Chief Complaint: UTI, fever, AMS Subjective: Improving, Doing well, Demented Physical Examination - Vital Signs Temperature: 98 F Blood Pressure: 134/92 Pulse: 85 Respirations: 25 Pulse Ox (%): 96 Assessment & Plan Discharge Plan: Other (halfway facility) Plan to discharge in: 24 Hours Physician Review Additional Text: Physical Exam: GENERAL: Patient with dementia. Patient alert. Cooperative. Patient doing well. Not requiring any sitter at this time. VITAL SIGNS: Reviewed HEENT: Nares patent. NECK: Supple. No carotid bruits. No lymphadenopathy or thyromegaly. LUNGS: Clear to auscultation. No crackles or wheezes are heard. HEART: A. fib rate controlled ABDOMEN: Soft, nontender, and nondistended. Positive bowel sounds. No hepatosplenomegaly was noted. EXTREMITIES: Without any cyanosis, clubbing, rash, lesions or peripheral edema. NEUROLOGIC: Dementia noted SKIN: Normal color, turgor and temperature. No ulcerations or rashes noted. Assessment Fever, metabolic encephalopathy secondary to urinary tract infection CAD s/p CABG with recent [place] without intervention Chronic atrial fibrillation not on anticoagulation therapy Hypertension Hyperlipidemia Advanced dementia COVID-19 positive, asymptomatic Plan Fever, metabolic encephalopathy secondary to urinary tract infection: UTI has resolved. Patient doing well this time. Patient continues to do well with physical therapy. Patient not requiring any sitter at this time. Awaiting approval for skilled placement. Continue DVT prophylaxis. CAD s/p CABG with recent [place] without intervention: Patient had myocardial infarction approximately 1 month ago. Cardiology had recommended heart catheterization but this was not done due to his advanced dementia and DNR status. Overall stable. Chronic atrial fibrillation not on anticoagulation therapy: Rate controlled. Continue home medications. Hypertension: Continue home medication Hyperlipidemia: Continue home medication Advanced dementia: Patient with significant dementia. Overall stable. Patient appears to be at his baseline level. No requirement for sitter at this time. Continue dementia medication. COVID-19 positive, asymptomatic: No evidence of pneumonia. No need for oxygen. No need for steroids. Will monitor closely. Continue COVID-19 isolation. Code Status: Patient is DNR DVT prophylaxis: Lovenox Advanced Care Planning-30 minutes: Spoke with concerning plan of care. She agrees for the patient to go to a skilled facility. She is looking at the opportunity for long-term placement after skilled placement. Time Spent Managing Pts Care (In Minutes): 55
[2020-07-05] MEDS: ATORVASTATIN 40 MG TAB PO SCH (20:06)
[2020-07-06] MEDS: D5W 1,000 ML IV SCH (02:59)
[2020-07-06 05:08] LABS: ALT/SGPT 58 U/L (12-78); AST/SGOT 30 U/L (15-37); Albumin 2.6 g/dL (3.4-5.0); Alkaline Phosphatase 55 U/L (45-117); BUN Blood Urea Nitrogen 25 mg/dL (7-18); Bicarbonate 26 mmol/L (21-32); Bilirubin Total 1.3 mg/dL (0.2-1.0); Glucose Level 110 mg/dL (74-106); Magnesium 2.1 mg/dL (1.8-2.4); Potassium 3.4 mmol/L (3.5-5.1); Protein, Total 5.8 g/dL (6.4-8.2); Sodium Level 146 mmol/L (136-145)
[2020-07-06] MEDS: METOPROLOL TAR 25 MG TAB PO SCH ×2 (05:26→17:00)
[2020-07-06] MEDS: KCL 20 MEQ/100 mL IVPB 20 MEQ/100 ML BAG IV SCH ×2 (05:53→08:15)
[2020-07-06] MEDS: lisinopriL 20 MG TAB PO SCH (07:52)
[2020-07-06] MEDS: DONEPEZIL HCL 5 MG TAB PO SCH (07:52)
[2020-07-06] MEDS: MEMANTINE HCL 10 MG TABLET PO SCH ×2 (07:52→20:25)
[2020-07-06] MEDS: [UNRECOGNIZED DRUG - MIXTURE] PO SCH (07:53)
[2020-07-06] MEDS: [UNRECOGNIZED DRUG - OTHER] PO SCH (07:53)
[2020-07-06] MEDS: ENSURE ENLIVE 237 ML CAN PO SCH ×2 (07:53→20:26)
[2020-07-06] MEDS: ENOXAPARIN 40 MG/0.4 ML SQ SCH (07:53)
[2020-07-06] MEDS: ASPIRIN EC 81 MG TAB PO SCH (08:15)
--- NOTE | 2020-07-06 12:21 | P.PN ---
Subjective Date of Service: 07/06/20 Chief Complaint: UTI, fever, AMS Subjective: Improving, Doing well Physical Examination - Vital Signs Temperature: 97.4 F Blood Pressure: 126/65 Pulse: 56 Respirations: 20 Pulse Ox (%): 94 Assessment & Plan Discharge Plan: Other (Home with home health versus long-term care.) Plan to discharge in: 24 Hours Physician Review Additional Text: Physical Exam: GENERAL: Patient with dementia. Patient alert. Cooperative. Patient doing well. Not requiring any sitter at this time. Physical therapy reports patient able to walk more than 200 feet. VITAL SIGNS: Reviewed HEENT: Nares patent. NECK: Supple. No carotid bruits. No lymphadenopathy or thyromegaly. LUNGS: Clear to auscultation. No crackles or wheezes are heard. HEART: A. fib rate controlled ABDOMEN: Soft, nontender, and nondistended. Positive bowel sounds. No hepatosplenomegaly was noted. EXTREMITIES: Without any cyanosis, clubbing, rash, lesions or peripheral edema. NEUROLOGIC: Dementia noted SKIN: Normal color, turgor and temperature. No ulcerations or rashes noted. Assessment Fever, metabolic encephalopathy secondary to urinary tract infection CAD s/p CABG with recent [place] without intervention Chronic atrial fibrillation not on anticoagulation therapy Hypertension Hyperlipidemia Advanced dementia COVID-19 positive, asymptomatic Plan Fever, metabolic encephalopathy secondary to urinary tract infection: UTI has resolved. Patient doing well at this time. Spoke with insurance on a peer to peer evaluation to appeal denied skilled placement. Insurance medical historian noted patient is able to ambulate 200 feet. Therefore patient has been denied skilled placement. Will need to discuss with family about options of care including home health with physical therapy or long-term care. Continue DVT prophylaxis. CAD s/p CABG with recent ID without intervention: Patient had myocardial infarction approximately 1 month ago. Cardiology had recommended heart catheterization but this was not done due to his advanced dementia and DNR status. Overall stable. Chronic atrial fibrillation not on anticoagulation therapy: Rate controlled. Continue home medications. Hypertension: Continue home medication Hyperlipidemia: Continue home medication Advanced dementia: Patient with significant dementia. Overall stable. Patient appears to be at his baseline level. No requirement for sitter at this time. Continue dementia medication. COVID-19 positive, asymptomatic: No evidence of pneumonia. No need for oxygen. No need for steroids. Will monitor closely. Continue COVID-19 isolation. Code Status: Patient is DNR DVT prophylaxis: Magnolianox Advanced Care Planning-30 minutes: We will speak to about [id number] denial. Options will include appeal, home health with physical therapy or long-term care.. Time Spent Managing Pts Care (In Minutes): 55
[2020-07-06] MEDS: ATORVASTATIN 40 MG TAB PO SCH (20:25)
[2020-07-06] MEDS ORDERED: KCL 20 MEQ/100 mL IVPB 20 MEQ/100 ML BAG IV SCH (22:00)
[2020-07-06] MEDS ORDERED: LORazepam 2 MG/ML VIAL IV ONE (23:10)
[2020-07-07] MEDS: D5W 1,000 ML IV SCH ×2 (01:13→17:35)
[2020-07-07] MEDS ORDERED: MORPHINE 2 MG/ML SYR IV ONE (02:30)
[2020-07-07] MEDS ORDERED: MORPHINE 2 MG/ML SYR ONE (02:50)
[2020-07-07] MEDS: METOPROLOL TAR 25 MG TAB PO SCH (06:00)
[2020-07-07 06:03] LABS: Sodium Level 142 mmol/L (136-145)
[2020-07-07 06:04] LABS: BUN Blood Urea Nitrogen 20 mg/dL (7-18); Bicarbonate 22 mmol/L (21-32); Ferritin 887.6 ng/mL (26-388); Glucose Level 101 mg/dL (74-106); Magnesium 2.1 mg/dL (1.8-2.4); Potassium 3.7 mmol/L (3.5-5.1)
[2020-07-07] MEDS ORDERED: KCL 20 MEQ/100 mL IVPB 20 MEQ/100 ML BAG IV SCH (07:00)
[2020-07-07] MEDS: [UNRECOGNIZED DRUG - MIXTURE] PO SCH (08:21)
[2020-07-07] MEDS: [UNRECOGNIZED DRUG - OTHER] PO SCH (08:21)
[2020-07-07] MEDS: ENOXAPARIN 40 MG/0.4 ML SQ SCH (08:22)
[2020-07-07] MEDS: ASPIRIN EC 81 MG TAB PO SCH (08:24)
[2020-07-07] MEDS: lisinopriL 20 MG TAB PO SCH (08:24)
[2020-07-07] MEDS: ENSURE ENLIVE 237 ML CAN PO SCH ×2 (08:25→20:00)
[2020-07-07] MEDS: MEMANTINE HCL 10 MG TABLET PO SCH ×2 (08:25→19:59)
[2020-07-07] MEDS: DONEPEZIL HCL 5 MG TAB PO SCH (08:25)
--- NOTE | 2020-07-07 08:41 | P.PN ---
Subjective Date of Service: 07/07/20 Chief Complaint: UTI, fever, AMS Subjective: Doing well, Demented Physical Examination - Vital Signs Temperature: 98.4 F Blood Pressure: 119/84 Pulse: 92 Respirations: 14 Pulse Ox (%): 65 Assessment & Plan Discharge Plan: Home Plan to discharge in: 24 Hours Physician Review Additional Text: Physical Exam: GENERAL: Patient with dementia. Patient alert. Cooperative. Patient doing well. Not requiring any sitter at this time. Physical therapy reports patient able to walk more than 200 feet. VITAL SIGNS: Reviewed HEENT: Nares patent. NECK: Supple. No carotid bruits. No lymphadenopathy or thyromegaly. LUNGS: Clear to auscultation. No crackles or wheezes are heard. HEART: A. fib rate controlled ABDOMEN: Soft, nontender, and nondistended. Positive bowel sounds. No hepat osplenomegaly was noted. EXTREMITIES: Without any cyanosis, clubbing, rash, lesions or peripheral edema. NEUROLOGIC: Dementia noted SKIN: Normal color, turgor and temperature. No ulcerations or rashes noted. Assessment Fever, metabolic encephalopathy secondary to urinary tract infection CAD s/p CABG with recent [place] without intervention Chronic atrial fibrillation not on anticoagulation therapy Hypertension Hyperlipidemia Advanced dementia COVID-19 positive, asymptomatic Plan Fever, metabolic encephalopathy secondary to urinary tract infection: UTI has resolved. Patient doing well at this time. Spoke with insurance yesterday on [id number] evaluation for skilled placement. Insurance has denied skilled placement. This was discussed in detail with the . Discussed options of care for the to include home health with physical therapy with provider services or long-term care. recently hospitalized for Covid. Will need to make arrangements to set up meeting with family to discuss discharge plan of care. Patient able to ambulate appropriately therefore options may be limited to just going home. She may need help from family members to help with her situation. Will discuss with psychiatric social worker supervisor and in detail. CAD s/p CABG with recent [place] without intervention: Patient had myocardial infarction approximately 1 month ago. Cardiology had recommended heart catheterization but this was not done due to his advanced dementia and DNR status. Overall stable. Chronic atrial fibrillation not on anticoagulation therapy: Rate controlled. Continue home medications. Hypertension: Continue home medication Hyperlipidemia: Continue home medication Advanced dementia: Patient with significant dementia. Overall stable. Patient appears to be at his baseline level. No requirement for sitter at this time. Continue dementia medication. COVID-19 positive, asymptomatic: No evidence of pneumonia. No need for oxygen. No need for steroids. Will monitor closely. Continue COVID-19 isolation. Code Status: Patient is DNR DVT prophylaxis: Lovenox Advanced Care Planning-30 minutes: Patient denied skilled placement. Case discussed in detail with yesterday. We will need to rediscuss with about plan of care. Options include home health with physical therapy with caregiver services or long-term care. Will discuss with psychiatric social worker supervisor to help arrange.. Time Spent Managing Pts Care (In Minutes): 55
--- NOTE | 2020-07-07 13:49 | P.DS ---
Admission Date: 06/24/20 Discharge Date: 07/07/20 Primary Care Provider: Dr. Banegas Disposition: DC HOME/HOME HEALTH CARE Discharge Condition: GOOD Reason for Admission: UTI, fever, AMS Consultations: none Procedures: COVID: Positive CT Head: FINDINGS: An intracranial bleed is not seen . The ventricles are normal in caliber. No extra-axial fluid collection is noted. Prominent cerebral atrophy. . Fluid within the sinuses/ mastoids is not seen. IMPRESSION: No acute intracranial abnormality is seen. Medical Problem List: Fever, metabolic encephalopathy secondary to urinary tract infection CAD s/p CABG with recent ID without intervention Chronic atrial fibrillation not on anticoagulation therapy Hypertension Hyperlipidemia Advanced dementia COVID-19 positive, asymptomatic Brief History of Present Illness: 84-year-old male with history of CAD status post CABG, dementia, atrial fibrillation, CHF presents emergency department for fever, confusion. reports that patient was noted to be more confused than normal and febrile today. Evaluation in the emergency department significant for your microscopic with 20-50 bacteria greater than 50 red blood cell greater than 50 white blood cell troponin 0.08 hemoglobin 13.3 hematocrit 39.0, platelets 111. CT head without any acute abnormalities chest x-ray negative. Patient was admitted for further evaluate of his confusion. Hospital Course: Presented with fever, metabolic encephalopathy related to UTI. Patient was admitted for treatment. The patient did well during the course of his stay. The patient was evaluated for intermediate facility. The patient was denied by insurance as the patient was able to move appropriately. Plan of care discussed in detail with the . Only option is for the patient to continue at home with home health, physical therapy, occupational therapy and bath aide. Arrangements for all were made by social scientist. This was addressed in detail. Advance care directives also addressed. Patient is DNR. Patient will return home with . Fall precautions in place. Continue with home health, physical therapy, occupational therapy and bath aide. Commend follow-up with PCP in 1 week to follow-up with his hospitalization. Patient with CAD status post CABG with recent ID without intervention, chronic atrial fibrillation not on chronic anticoagulation therapy, hypertension, hyperlipidemia. At discharge medications have been adjusted during the course of his stay. Metoprolol and lisinopril were decreased. At discharge patient will continue with lisinopril 10 mg daily and metoprolol 25 mg daily. Patient will also continue with Lipitor 40 mg daily and aspirin 81 mg daily. Recommend follow-up with PCP in 1 week to follow-up hospitalization. Patient with advanced dementia. At discharge patient will continue with Aricept 5 mg daily and Namenda 10 mg 1 pill twice daily. Patient with COVID-19 positive. Patient asymptomatic. No need for oxygen, steroids. Vital Signs/Physical Exam: Temp Pulse Resp BP Pulse Ox 98.4 F 70 26 H 93/59 L 65 L 07/07/20 12:00 07/07/20 12:00 07/07/20 12:00 07/07/20 12:00 07/07/20 08:41 General: Alert, In no apparent distress, Cooperative, Demented (Advanced dementia ) HEENT: Atraumatic Neck: Supple Respiratory: Clear to auscultation bilaterally, Normal air movement Cardiovascular: Normal pulses, Regular rate/rhythm Gastrointestinal: Normal bowel sounds, No tenderness, No masses, No rebound, No guarding Musculoskeletal: No tenderness, No warmth Neurological: Normal strength at 5/5 x4 extr, Dementia Laboratory Data at Discharge: WBC 7.40 K/uL (4.3-10.9) D 07/04/20 04:46 Hgb 14.7 g/dL (13.6-17.9) 07/04/20 04:46 Hct 43.0 % (39.6-49.0) 07/04/20 04:46 Plt Count 156 K/uL (152-406) D 07/04/20 04:46 PT 14.4 SECONDS (9.5-12.5) H 06/24/20 18:00 INR 1.25 06/24/20 18:00 APTT 33.4 SECONDS (24.3-36.9) 06/24/20 18:00 Sodium 142 mmol/L (136-145) 07/07/20 04:57 Potassium 3.7 mmol/L (3.5-5.1) 07/07/20 04:57 BUN 20 mg/dL (7-18) H 07/07/20 04:57 Creatinine 0.69 mg/dL (0.55-1.3) 07/07/20 04:57 Glucose 101 mg/dL (74-106) 07/07/20 04:57 Magnesium 2.1 mg/dL (1.8-2.4) 07/07/20 04:57 Total Bilirubin 1.3 mg/dL (0.2-1.0) H 07/06/20 04:22 AST 30 U/L (15-37) 07/06/20 04:22 ALT 58 U/L (12-78) 07/06/20 04:22 Alkaline Phosphatase 55 U/L (45-117) 07/06/20 04:22 Troponin I 0.10 ng/mL (0.0-0.045) H 06/24/20 23:50 Lipase 61 U/L (73-393) L 06/24/20 18:00 Home Medications: Ascorbic Acid [Vitamin C with Neyda Hips] 1 tab PO DAILY 04/24/18 Aspirin [Aspirin EC 81 MG] 81 mg PO DAILY 04/24/18 Donepezil [Aricept*] 5 mg PO DAILY 04/24/18 Memantine HCl [Namenda*] 10 mg PO BID 04/24/18 B-Complex with Vitamin C [Super B Complex-Vitamin C] 1 tab PO DAILY 10/20/18 Atorvastatin Calcium [Lipitor] 40 mg PO BEDTIME #30 tab 10/22/18 Nitroglycerin [Nitrostat*] 0.4 mg SL UD PRN #20 tab 10/22/18 Lisinopril [Zestril] 10 mg PO DAILY #30 tablet 07/07/20 Metoprolol Tartrate [Lopressor*] 25 mg PO DAILY #30 tab 07/07/20 New Medications: Metoprolol Tartrate [Lopressor*] 25 mg PO DAILY #30 tab Lisinopril [Zestril] 10 mg PO DAILY #30 tablet Physician Discharge Instructions: Presented with fever, metabolic encephalopathy related to UTI. Patient was admitted for treatment. The patient did well during the course of his stay. The patient was evaluated for intermediate facility. The patient was denied by insurance as the patient was able to move appropriately. Plan of care discussed in detail with the . Only option is for the patient to continue at home with home health, physical therapy, occupational therapy and bath aide. Arrangements for all were made by social scientist. This was addressed in detail. Advance care directives also addressed. Patient is DNR. Patient will return home with . Fall precautions in place. Continue with home health, physical therapy, occupational therapy and bath aide. Commend follow-up with PCP in 1 week to follow-up with his hospitalization. Patient with CAD status post CABG with recent ID without intervention, chronic atrial fibrillation not on chronic anticoagulation therapy, hypertension, hyperlipidemia. At discharge medications have been adjusted during the course of his stay. Metoprolol and lisinopril were decreased. At discharge patient will continue with lisinopril 10 mg daily and metoprolol 25 mg daily. Patient will also continue with Lipitor 40 mg daily and aspirin 81 mg daily. Recommend follow-up with PCP in 1 week to follow-up hospitalization. Patient with advanced dementia. At discharge patient will continue with Aricept 5 mg daily and Namenda 10 mg 1 pill twice daily. Patient with COVID-19 positive. Patient asymptomatic. No need for oxygen, steroids. Diet: AHA Activity: Fall precautions Followup: Yaron Banegas DO [Primary Care Provider] - Time spent managing pt's care (in minutes): 55
[2020-07-07] MEDS: ACETAMINOPHEN 500 MG TAB PO PRN (19:59)
[2020-07-07] MEDS: ATORVASTATIN 40 MG TAB PO SCH (19:59)
[2020-07-08 06:36] LABS: BUN Blood Urea Nitrogen 20 mg/dL (7-18); Bicarbonate 21 mmol/L (21-32); Ferritin 927.2 ng/mL (26-388); Glucose Level 91 mg/dL (74-106); Magnesium 2.3 mg/dL (1.8-2.4); Potassium 3.7 mmol/L (3.5-5.1); Sodium Level 144 mmol/L (136-145)
[2020-07-08] MEDS ORDERED: POTASSIUM 25 MEQ EFFERV TAB PO ONE (08:00)
--- NOTE | 2020-07-08 08:11 | P.DS ---
Admission Date: 06/24/20 Discharge Date: 07/08/20 Primary Care Provider: Dr. Banegas Disposition: DC HOME/HOME HEALTH CARE Discharge Condition: GOOD Reason for Admission: UTI, fever, AMS Consultations: none Procedures: COVID: Positive CXR: COMPARISON: 2019 FINDINGS: The lungs appear clear of acute infiltrate. The heart is moderately to markedly enlarged. Postsurgical changes involve the chest. IMPRESSION: No acute abnormalities displayed CT Head: FINDINGS: An intracranial bleed is not seen . The ventricles are normal in caliber. No extra-axial fluid collection is noted. Prominent cerebral atrophy. . Fluid within the sinuses/ mastoids is not seen. IMPRESSION: No acute intracranial abnormality is seen. Medical Problem List: Fever, metabolic encephalopathy secondary to urinary tract infection CAD s/p CABG with recent [place] without intervention Chronic atrial fibrillation not on anticoagulation therapy Hypertension Hyperlipidemia Advanced dementia COVID-19 positive, asymptomatic Brief History of Present Illness: 84-year-old male with history of CAD status post CABG, dementia, atrial fibrillation, CHF presents emergency department for fever, confusion. reports that patient was noted to be more confused than normal and febrile today. Evaluation in the emergency department significant for your microscopic with 20-50 bacteria greater than 50 red blood cell greater than 50 white blood cell troponin 0.08 hemoglobin 13.3 hematocrit 39.0, platelets 111. CT head without any acute abnormalities chest x-ray negative. Patient was admitted for further evaluate of his confusion. Hospital Course: Patient presented with fever, metabolic encephalopathy related to UTI. Patient was admitted for treatment. The patient did well during the course of his stay. UTI resolved. The patient was evaluated for [facility] facility. The patient was denied by insurance as the patient was able to move appropriately. Plan of care discussed in detail with the . Only option is for the patient to continue at home with home health, physical therapy, occupational therapy and bath aide. Arrangements for all were made by manager social work. This was addressed in detail. Advance care directives also addressed. Patient is DNR. Patient will return home with . Fall precautions in place. Continue with home health, physical therapy, occupational therapy and bath aide. Discharge was delayed as family was trying to arrange for appropriate measures at home. Recommend follow-up with PCP in 1 week to follow-up with his hospitalization. Patient with CAD status post CABG with recent [place] without intervention, chronic atrial fibrillation not on chronic anticoagulation therapy, hypertension, hyperlipidemia. At discharge medications have been adjusted during the course of his stay. Metoprolol was decreased. Lisinopril discontinued. At discharge blood pressure stable on metoprolol. At discharge patient will continue with m etoprolol 25 mg daily. Recommend to monitor blood pressure daily. Recommend to hold metoprolol if blood pressure less than 110 systolic or heart rate less than 50. Further adjustment may be required. This can be done with the help of his PCP. Patient will also continue with Lipitor 40 mg daily and aspirin 81 mg daily. Recommend follow-up with PCP in 1 week to follow-up hospitalization. Patient with advanced dementia. At discharge patient will continue with Aricept 5 mg daily and Namenda 10 mg 1 pill twice daily. Patient with COVID-19 positive. Patient asymptomatic. No need for oxygen, steroids. Vital Signs/Physical Exam: Temp Pulse Resp BP Pulse Ox 98.1 F 60 18 97/66 94 07/08/20 04:00 07/08/20 04:00 07/08/20 04:00 07/08/20 04:00 07/08/20 04:00 General: Alert, Demented Neck: Supple Respiratory: Clear to auscultation bilaterally Cardiovascular: Normal pulses, Regular rate/rhythm Gastrointestinal: Normal bowel sounds, No guarding Integumentary: No tenderness/swelling Neurological: Normal speech, Normal strength at 5/5 x4 extr, Normal tone, Dementia (Advanced dementia) Laboratory Data at Discharge: WBC 7.40 K/uL (4.3-10.9) D 07/04/20 04:46 Hgb 14.7 g/dL (13.6-17.9) 07/04/20 04:46 Hct 43.0 % (39.6-49.0) 07/04/20 04:46 Plt Count 156 K/uL (152-406) D 07/04/20 04:46 PT 14.4 SECONDS (9.5-12.5) H 06/24/20 18:00 INR 1.25 06/24/20 18:00 APTT 33.4 SECONDS (24.3-36.9) 06/24/20 18:00 Sodium 144 mmol/L (136-145) 07/08/20 04:42 Potassium 3.7 mmol/L (3.5-5.1) 07/08/20 04:42 BUN 20 mg/dL (7-18) H 07/08/20 04:42 Creatinine 0.70 mg/dL (0.55-1.3) 07/08/20 04:42 Glucose 91 mg/dL (74-106) 07/08/20 04:42 Magnesium 2.3 mg/dL (1.8-2.4) 07/08/20 04:42 Total Bilirubin 1.3 mg/dL (0.2-1.0) H 07/06/20 04:22 AST 30 U/L (15-37) 07/06/20 04:22 ALT 58 U/L (12-78) 07/06/20 04:22 Alkaline Phosphatase 55 U/L (45-117) 07/06/20 04:22 Troponin I 0.10 ng/mL (0.0-0.045) H 06/24/20 23:50 Lipase 61 U/L (73-393) L 06/24/20 18:00 Home Medications: Ascorbic Acid [Vitamin C with Neyda Hips] 1 tab PO DAILY 04/24/18 Aspirin [Aspirin EC 81 MG] 81 mg PO DAILY 04/24/18 Donepezil [Aricept*] 5 mg PO DAILY 04/24/18 Memantine HCl [Namenda*] 10 mg PO BID 04/24/18 B-Complex with Vitamin C [Super B Complex-Vitamin C] 1 tab PO DAILY 10/20/18 Atorvastatin Calcium [Lipitor] 40 mg PO BEDTIME #30 tab 10/22/18 Nitroglycerin [Nitrostat*] 0.4 mg SL UD PRN #20 tab 10/22/18 Metoprolol Tartrate [Lopressor*] 25 mg PO DAILY #30 tab 07/08/20 New Medications: Metoprolol Tartrate [Lopressor*] 25 mg PO DAILY #30 tab Physician Discharge Instructions: PROBLEM: COVID-19 , UTI, Metabolic encephalopathy GOAL: Clear understanding of disease process INSTRUCTIONS: Patient presented with fever, metabolic encephalopathy related to UTI. Patient was admitted for treatment. The patient did well during the course of his stay. UTI resolved. The patient was evaluated for penitentiary facility. The patient was denied by insurance as the patient was able to move appropriately. Plan of care discussed in detail with the . Only option is for the patient to continue at home with home health, physical therapy, occupational therapy and bath aide. Arrangements for all were made by manager social work. This was addressed in detail. Advance care directives also addressed. Patient is DNR. Patient will return home with . Fall precautions in place. Continue with home health, physical therapy, occupational therapy and bath aide. Discharge was delayed as family was trying to arrange for appropriate measures at home. Recommend follow-up with PCP in 1 week to follow-up with his hospitalization. Patient with CAD status post CABG with recent [place] without intervention, chronic atrial fibrillation not on chronic anticoagulation therapy, hypertension, hyperlipidemia. At discharge medications have been adjusted during the course of his stay. Metoprolol was decreased. Lisinopril discontinued. At discharge blood pressure stable on metoprolol. At discharge patient will continue with metoprolol 25 mg daily. Recommend to monitor blood pressure daily. Recommend to hold metoprolol if blood pressure less than 110 systolic or heart rate less than 50. Further adjustment may be required. This can be done with the help of his PCP. Patient will also continue with Lipitor 40 mg daily and aspirin 81 mg daily. Recommend follow-up with PCP in 1 week to follow-up hospitalization. Patient with advanced dementia. At discharge patient will continue with Aricept 5 mg daily and Namenda 10 mg 1 pill twice daily. Patient with COVID-19 positive. Patient asymptomatic. No need for oxygen, steroids. If symptoms worsen, please go to the ER. If you have any questions regarding hospital stay, feel free to call . Diet: AHA Activity: Fall precautions DME DME: Date Ordered: Name of Company: [employer] Services Needed: Name of Company: Date or Referral: IMMUNIZATION Influenza Vaccine Indicated: Influenza Vaccine Given: Date Given: Pneumonia Vaccine Indicated: Pneumonia Vaccine Given: Date Given: Diet: AHA Activity: Fall precautions Followup: Yaron Banegas DO [Primary Care Provider] - Time spent managing pt's care (in minutes): 55
[2020-07-08] MEDS: MEMANTINE HCL 10 MG TABLET PO SCH ×2 (08:51→20:04)
[2020-07-08] MEDS: ENOXAPARIN 40 MG/0.4 ML SQ SCH (08:52)
[2020-07-08] MEDS: METOPROLOL TAR 25 MG TAB PO SCH (08:52)
[2020-07-08] MEDS: ASPIRIN EC 81 MG TAB PO SCH (08:52)
[2020-07-08] MEDS: DONEPEZIL HCL 5 MG TAB PO SCH (08:53)
[2020-07-08] MEDS: [UNRECOGNIZED DRUG - OTHER] PO SCH (08:53)
[2020-07-08] MEDS: [UNRECOGNIZED DRUG - MIXTURE] PO SCH (08:54)
[2020-07-08] MEDS: ENSURE ENLIVE 237 ML CAN PO SCH ×2 (08:54→20:04)
[2020-07-08] MEDS ORDERED: lisinopriL 20 MG TAB PO SCH (09:00)
[2020-07-08] MEDS: D5W 1,000 ML IV SCH (14:00)
[2020-07-08] MEDS: ATORVASTATIN 40 MG TAB PO SCH (20:04)
[2020-07-09] MEDS: MEMANTINE HCL 10 MG TABLET PO SCH ×2 (08:19→20:07)
[2020-07-09] MEDS: DONEPEZIL HCL 5 MG TAB PO SCH (08:19)
[2020-07-09] MEDS: ENOXAPARIN 40 MG/0.4 ML SQ SCH (08:19)
[2020-07-09] MEDS: ASPIRIN EC 81 MG TAB PO SCH (08:19)
[2020-07-09] MEDS: [UNRECOGNIZED DRUG - MIXTURE] PO SCH (08:20)
[2020-07-09] MEDS: [UNRECOGNIZED DRUG - OTHER] PO SCH (08:20)
[2020-07-09] MEDS: ENSURE ENLIVE 237 ML CAN PO SCH ×2 (08:21→20:08)
--- NOTE | 2020-07-09 08:26 | P.PN ---
Subjective Date of Service: 07/09/20 Primary Care Provider: Dr. Banegas Chief Complaint: UTI, fever, AMS Subjective: Other (Patient doing well at this time. Discharge was held as family is actively trying to get patient to long-term care.) Physical Examination - Vital Signs Temperature: 98.3 F Blood Pressure: 100/63 Pulse: 60 Respirations: 20 Pulse Ox (%): 98 Assessment & Plan Discharge Plan: [facility] (Long-term care) Plan to discharge in: Greater than 2 days Physician Review Additional Text: Physical Exam: GENERAL: Patient with dementia. Patient alert. Cooperative. Patient doing well. Not requiring any sitter at this time. VITAL SIGNS: Reviewed HEENT: Nares patent. NECK: Supple. No carotid bruits. No lymphadenopathy or thyromegaly. LUNGS: Clear to auscultation. No crackles or wheezes are heard. HEART: A. fib rate controlled ABDOMEN: Soft, nontender, and nondistended. Positive bowel sounds. No hepatosplenomegaly was noted. EXTREMITIES: Without any cyanosis, clubbing, rash, lesions or peripheral edema. NEUROLOGIC: Dementia noted SKIN: Normal color, turgor and temperature. No ulcerations or rashes noted. Assessment Fever, metabolic encephalopathy secondary to urinary tract infection CAD s/p CABG with recent [place] without intervention Chronic atrial fibrillation not on anticoagulation therapy Hypertension Hyperlipidemia Advanced dementia COVID-19 positive, asymptomatic Plan Fever, metabolic encephalopathy secondary to urinary tract infection: UTI has resolved. Patient doing well at this time. Patient was denied skilled placement. Patient was to be discharged home but family is actively trying to get him to a long-term care facility/usp. Patient unsafe to discharge due to recently having Covid. Patient is high risk for fall. Family prefers patient to go to long-term care. Social work working on this at this time. Family also trying to actively get him to the most appropriate facility. This will likely occur Saturday or Saturday. Continue with current care at this time. CAD s/p CABG with recent [place] without intervention: Patient had myocardial infarction approximately 1 month ago. Cardiology had recommended heart catheterization but this was not done due to his advanced dementia and DNR status. Overall stable. Chronic atrial fibrillation not on anticoagulation therapy: Rate controlled. Continue metoprolol. Hypertension: Medications have been adjusted. Continue with metoprolol. Lisinopril has been discontinued Hyperlipidemia: Continue home medicationLipitor Advanced dementia: Patient with significant dementia. Overall stable. Patient appears to be at his baseline level. No requirement for sitter at this time. Continue dementia medicationAricept and Namenda. COVID-19 positive, asymptomatic: No evidence of pneumonia. No need for oxygen. No need for steroids. Will monitor closely. Continue COVID-19 isolation. Code Status: Patient is DNR DVT prophylaxis: Lovenox Advanced Care Planning-30 minutes: Patient denied skilled placement. Spoke with yesterday. Family trying to actively send patient to long-term care/usp. Anticipate likely discharge to [facility] on Saturday or Saturday. Time Spent Managing Pts Care (In Minutes): 55
[2020-07-09] MEDS: METOPROLOL TAR 25 MG TAB PO SCH (09:54)
[2020-07-09] MEDS: ATORVASTATIN 40 MG TAB PO SCH (20:07)
[2020-07-10 05:32] LABS: BUN Blood Urea Nitrogen 25 mg/dL (7-18); Bicarbonate 26 mmol/L (21-32); Glucose Level 89 mg/dL (74-106); Magnesium 2.2 mg/dL (1.8-2.4); Potassium 3.7 mmol/L (3.5-5.1); Sodium Level 145 mmol/L (136-145)
[2020-07-10 05:47] LABS: C-Reactive Protein 66.4 mg/L (<3.00); Ferritin 599.2 ng/mL (26-388)
[2020-07-10 06:52] LABS: Absolute Lymphocytes (CBC) 1.3 K/uL (0.7-4.9); Basophils % 0.9 % (0-1.3); Hematocrit 36.8 % (39.6-49.0); MPV 10.1 fL (7.6-11.3); RBC Red Blood Cell Count 4.01 M/uL (4.33-5.43)
[2020-07-10] MEDS: [UNRECOGNIZED DRUG - MIXTURE] PO SCH (08:11)
[2020-07-10] MEDS: [UNRECOGNIZED DRUG - OTHER] PO SCH (08:11)
[2020-07-10] MEDS: ASPIRIN EC 81 MG TAB PO SCH (08:12)
[2020-07-10] MEDS: MEMANTINE HCL 10 MG TABLET PO SCH ×2 (08:13→20:36)
[2020-07-10] MEDS: ENSURE ENLIVE 237 ML CAN PO SCH ×2 (08:14→20:36)
[2020-07-10] MEDS: METOPROLOL TAR 25 MG TAB PO SCH (08:15)
[2020-07-10] MEDS: ENOXAPARIN 40 MG/0.4 ML SQ SCH (08:20)
[2020-07-10] MEDS: DONEPEZIL HCL 5 MG TAB PO SCH (08:20)
[2020-07-10] MEDS ORDERED: POTASSIUM 25 MEQ EFFERV TAB PO ONE (09:00)
--- NOTE | 2020-07-10 11:30 | P.PN ---
Subjective Date of Service: 07/10/20 Primary Care Provider: Dr. Banegas Chief Complaint: UTI, fever, AMS Subjective: Doing well, Demented Physical Examination - Vital Signs Temperature: 98.3 F Blood Pressure: 102/68 Pulse: 52 Respirations: 19 Pulse Ox (%): 93 Assessment & Plan Discharge Plan: Other (Long-term care facility) Plan to discharge in: 48 Hours Physician Review Additional Text: Physical Exam: GENERAL: Patient with dementia. Patient alert. Cooperative. Patient doing well. Not requiring any sitter at this time. VITAL SIGNS: Reviewed HEENT: Nares patent. NECK: Supple. No carotid bruits. No lymphadenopathy or thyromegaly. LUNGS: Clear to auscultation. No crackles or wheezes are heard. HEART: A. fib rate controlled ABDOMEN: Soft, nontender, and nondistended. Positive bowel sounds. No hepatosplenomegaly was noted. EXTREMITIES: Without any cyanosis, clubbing, rash, lesions or peripheral edema. NEUROLOGIC: Dementia noted SKIN: Normal color, turgor and temperature. No ulcerations or rashes noted. Assessment Fever, metabolic encephalopathy secondary to urinary tract infection CAD s/p CABG with recent [place] without intervention Chronic atrial fibrillation not on anticoagulation therapy Hypertension Hyperlipidemia Advanced dementia COVID-19 positive, asymptomatic Plan Fever, metabolic encephalopathy secondary to urinary tract infection: UTI has resolved. Patient doing well at this time. Patient was denied skilled placement. Patient was to be discharged home but family is actively trying to get him to a long-term care facility/[facility]. Patient unsafe to discharge due to recently having Covid. Patient is high risk for fall. Family prefers patient to go to long-term care. Social work working on this at this time. Continue to pursue long-term care with the help of the family. This will likely occur Saturday. Anticipate discharge once approved. I will turn the service over to the hospitalist team tomorrow. I will go plan of care with him. CAD s/p CABG with recent [place] without intervention: Patient had myocardial infarction approximately 1 month ago. Cardiology had recommended heart catheterization but this was not done due to his advanced dementia and DNR status. Overall stable. Chronic atrial fibrillation not on anticoagulation therapy: Rate controlled. Continue metoprolol. Hypertension: Medications have been adjusted. Continue with metoprolol. May need to hold metoprolol if heart rate less than 60 or blood pressure less than 110. Lisinopril has been discontinued Hyperlipidemia: Continue home medicationLipitor Advanced dementia: Patient with significant dementia. Overall stable. Patient appears to be at his baseline level. No requirement for sitter at this time. Continue dementia medicationAricept and Namenda. COVID-19 positive, asymptomatic: No evidence of pneumonia. No need for oxygen. No need for steroids. Will monitor closely. Continue COVID-19 isolation. Code Status: Patient is DNR DVT prophylaxis: Lovenox Advanced Care Planning-30 minutes: Patient denied skilled placement. Family trying to actively send patient to long-term care/[facility]. Anticipate likely discharge to [facility] on Saturday or Saturday once approved and paperwork signed by family. Time Spent Managing Pts Care (In Minutes): 55
[2020-07-10] MEDS: ATORVASTATIN 40 MG TAB PO SCH (20:36)
[2020-07-11 05:11] LABS: Absolute Lymphocytes (CBC) 1.3 K/uL (0.7-4.9); Basophils % 0.7 % (0-1.3); Hematocrit 35.4 % (39.6-49.0); Lymphocytes % 22.2 % (15.3-44.8); MPV 9.8 fL (7.6-11.3)
[2020-07-11 05:39] LABS: BUN Blood Urea Nitrogen 21 mg/dL (7-18); Bicarbonate 27 mmol/L (21-32); Ferritin 524.4 ng/mL (26-388); Glucose Level 93 mg/dL (74-106); Magnesium 2.2 mg/dL (1.8-2.4); Phosphorus 3.2 mg/dL (2.5-4.9); Potassium 3.8 mmol/L (3.5-5.1); Sodium Level 146 mmol/L (136-145)
[2020-07-11] MEDS ORDERED: POTASSIUM CL SA 10 MEQ TAB PO ONE (09:00)
[2020-07-11] MEDS: [UNRECOGNIZED DRUG - MIXTURE] PO SCH (09:00)
[2020-07-11] MEDS: ENSURE ENLIVE 237 ML CAN PO SCH ×2 (09:00→20:15)
[2020-07-11] MEDS: [UNRECOGNIZED DRUG - OTHER] PO SCH (09:00)
[2020-07-11] MEDS: ASPIRIN EC 81 MG TAB PO SCH (09:22)
[2020-07-11] MEDS: MEMANTINE HCL 10 MG TABLET PO SCH ×2 (09:22→20:20)
[2020-07-11] MEDS: METOPROLOL TAR 25 MG TAB PO SCH (09:22)
[2020-07-11] MEDS: ENOXAPARIN 40 MG/0.4 ML SQ SCH (09:23)
[2020-07-11] MEDS: DONEPEZIL HCL 5 MG TAB PO SCH (20:20)
[2020-07-11] MEDS: ATORVASTATIN 40 MG TAB PO SCH (20:20)
[2020-07-12 05:17] LABS: ALT/SGPT 49 U/L (12-78); AST/SGOT 29 U/L (15-37); Albumin 2.4 g/dL (3.4-5.0); Alkaline Phosphatase 60 U/L (45-117); BUN Blood Urea Nitrogen 18 mg/dL (7-18); Bicarbonate 26 mmol/L (21-32); Bilirubin Total 0.9 mg/dL (0.2-1.0); Glucose Level 94 mg/dL (74-106); Magnesium 2.1 mg/dL (1.8-2.4); Potassium 3.8 mmol/L (3.5-5.1); Protein, Total 5.7 g/dL (6.4-8.2); Sodium Level 145 mmol/L (136-145)
[2020-07-12] MEDS: [UNRECOGNIZED DRUG - MIXTURE] PO SCH (07:20)
[2020-07-12] MEDS: [UNRECOGNIZED DRUG - OTHER] PO SCH (07:20)
[2020-07-12] MEDS: ENOXAPARIN 40 MG/0.4 ML SQ SCH (08:46)
[2020-07-12] MEDS: METOPROLOL TAR 25 MG TAB PO SCH (08:46)
[2020-07-12] MEDS: ASPIRIN EC 81 MG TAB PO SCH (08:47)
[2020-07-12] MEDS: MEMANTINE HCL 10 MG TABLET PO SCH ×2 (08:47→20:01)
[2020-07-12] MEDS: ENSURE ENLIVE 237 ML CAN PO SCH ×2 (08:47→20:02)
[2020-07-12] MEDS ORDERED: POTASSIUM CL SA 10 MEQ TAB PO ONE (09:00)
[2020-07-12] MEDS: ATORVASTATIN 40 MG TAB PO SCH (20:01)
[2020-07-12] MEDS: DONEPEZIL HCL 5 MG TAB PO SCH (20:02)
[2020-07-13 05:39] LABS: BUN Blood Urea Nitrogen 22 mg/dL (7-18); Bicarbonate 26 mmol/L (21-32); Ferritin 439.1 ng/mL (26-388); Glucose Level 91 mg/dL (74-106); Magnesium 2.1 mg/dL (1.8-2.4); Potassium 3.9 mmol/L (3.5-5.1); Sodium Level 144 mmol/L (136-145)
[2020-07-13] MEDS ORDERED: POTASSIUM 25 MEQ EFFERV TAB PO ONE (08:00)
[2020-07-13] MEDS: ENOXAPARIN 40 MG/0.4 ML SQ SCH (08:52)
[2020-07-13] MEDS: ASPIRIN EC 81 MG TAB PO SCH (08:52)
[2020-07-13] MEDS: METOPROLOL TAR 25 MG TAB PO SCH (08:52)
[2020-07-13] MEDS: [UNRECOGNIZED DRUG - OTHER] PO SCH (08:53)
[2020-07-13] MEDS: MEMANTINE HCL 10 MG TABLET PO SCH ×2 (08:53→20:03)
[2020-07-13] MEDS: ENSURE ENLIVE 237 ML CAN PO SCH ×2 (08:53→20:03)
[2020-07-13] MEDS: [UNRECOGNIZED DRUG - MIXTURE] PO SCH (08:53)
[2020-07-13] MEDS ORDERED: POTASSIUM 25 MEQ EFFERV TAB ONE (09:11)
--- NOTE | 2020-07-13 10:25 | P.PN ---
Date of Service: 07/11/20 Subjective Patient is doing well with no new complaints. Awaiting for placement for numerous days Review of Systems Difficult to obtain because of his dementia Physical Examination - Vital Signs Reviewed - Physical Exam General: Alert, In no apparent distress, Demented, Respiratory: Clear to auscultation bilaterally, Normal air movement Cardiovascular: Regular rate/rhythm, Normal S1 S2 Gastrointestinal: Normal bowel sounds, Soft and benign, Non-distended, No tenderness Neurological: Demented and unable to follow directions appropriately; Abnormal strength Assessment & Plan - Problems (Diagnosis) (1) Alzheimer's dementia Current Visit: No Status: Chronic (2) CAD (coronary artery disease) Onset Date: 01/09/16 Current Visit: No Status: Chronic Coronary Disease-Associated Artery/Lesion type: [place] artery [place] vs. transplanted heart: [place] heart Associated angina: without angina Qualified Code(s): I25.10 - Atherosclerotic heart disease of [place] coronary artery without angina pectoris (3) CHF exacerbation Onset Date: 01/09/16 Current Visit: No Status: Chronic Qualified Code(s): I50.23 - Acute on chronic systolic (congestive) heart failure (4) CKD (chronic kidney disease), stage III Onset Date: 01/09/16 Current Visit: No Status: Chronic (5) HLD (hyperlipidemia) Current Visit: No Status: Chronic Hyperlipidemia type: unspecified Qualified Code(s): E78.5 - Hyperlipidemia, unspecified (6) HTN (hypertension) Current Visit: No Status: Chronic Hypertension type: essential hypertension Qualified Code(s): I10 - Essential (primary) hypertension - Plan Plan: Plan of care as mentioned below 1. Working on placement; been waiting on placement for the last 2 weeks 2. Supportive care with continued medication; labs are stable. Cardiac status is stable as well 3. Physical therapy evaluation is appreciated 4. GI and DVT prophylaxis
--- NOTE | 2020-07-13 10:28 | P.PN ---
Date of Service: 07/13/20 Subjective Patient with no new complaints. Patient is doing well. Review of Systems Difficult to obtain because of his dementia Physical Examination - Vital Signs Reviewed - Physical Exam General: Alert, In no apparent distress, Demented, Respiratory: Clear to auscultation bilaterally, Normal air movement Cardiovascular: Regular rate/rhythm, Normal S1 S2 Gastrointestinal: Normal bowel sounds, Soft and benign, Non-distended, No tenderness Neurological: Demented and unable to follow directions appropriately; Abnormal strength Assessment & Plan - Problems (Diagnosis) (1) Alzheimer's dementia Current Visit: No Status: Chronic (2) CAD (coronary artery disease) Onset Date: 01/09/16 Current Visit: No Status: Chronic Coronary Disease-Associated Artery/Lesion type: [place] artery [place] vs. transplanted heart: [place] heart Associated angina: without angina Qualified Code(s): I25.10 - Atherosclerotic heart disease of [place] coronary artery without angina pectoris (3) CHF exacerbation Onset Date: 01/09/16 Current Visit: No Status: Chronic Qualified Code(s): I50.23 - Acute on chronic systolic (congestive) heart failure (4) CKD (chronic kidney disease), stage III Onset Date: 01/09/16 Current Visit: No Status: Chronic (5) HLD (hyperlipidemia) Current Visit: No Status: Chronic Hyperlipidemia type: unspecified Qualified Code(s): E78.5 - Hyperlipidemia, unspecified (6) HTN (hypertension) Current Visit: No Status: Chronic Hypertension type: essential hypertension Qualified Code(s): I10 - Essential (primary) hypertension - Plan Plan: Plan of care as mentioned below 1. Working on placement; been waiting on placement for the last 2 weeks 2. Supportive care with continued medication; labs are stable. Cardiac status is stable as well 3. Physical therapy evaluation is appreciated 4. GI and DVT prophylaxis
--- NOTE | 2020-07-13 10:29 | P.PN ---
Date of Service: 07/12/20 Subjective No changes Review of Systems Difficult to obtain because of his dementia Physical Examination - Vital Signs Reviewed - Physical Exam General: Alert, In no apparent distress, Demented, Respiratory: Clear to auscultation bilaterally, Normal air movement Cardiovascular: Regular rate/rhythm, Normal S1 S2 Gastrointestinal: Normal bowel sounds, Soft and benign, Non-distended, No tenderness Neurological: Demented and unable to follow directions appropriately; Abnormal strength Assessment & Plan - Problems (Diagnosis) (1) Alzheimer's dementia Current Visit: No Status: Chronic (2) CAD (coronary artery disease) Onset Date: 01/09/16 Current Visit: No Status: Chronic Coronary Disease-Associated Artery/Lesion type: [place] artery [place] vs. transplanted heart: [place] heart Associated angina: without angina Qualified Code(s): I25.10 - Atherosclerotic heart disease of [place] coronary artery without angina pectoris (3) CHF exacerbation Onset Date: 01/09/16 Current Visit: No Status: Chronic Qualified Code(s): I50.23 - Acute on chronic systolic (congestive) heart failure (4) CKD (chronic kidney disease), stage III Onset Date: 01/09/16 Current Visit: No Status: Chronic (5) HLD (hyperlipidemia) Current Visit: No Status: Chronic Hyperlipidemia type: unspecified Qualified Code(s): E78.5 - Hyperlipidemia, unspecified (6) HTN (hypertension) Current Visit: No Status: Chronic Hypertension type: essential hypertension Qualified Code(s): I10 - Essential (primary) hypertension - Plan Plan: Plan of care as mentioned below 1. Working on placement; we have been waiting on placement for the last 2 weeks 2. Supportive care with continued medication; labs are stable. Cardiac status is stable as well 3. Physical therapy evaluation is appreciated 4. GI and DVT prophylaxis
[2020-07-13] MEDS: ATORVASTATIN 40 MG TAB PO SCH (20:02)
[2020-07-13] MEDS: DONEPEZIL HCL 5 MG TAB PO SCH (20:02)
[2020-07-14 05:15] LABS: BUN Blood Urea Nitrogen 19 mg/dL (7-18); Bicarbonate 26 mmol/L (21-32); Ferritin 414.9 ng/mL (26-388); Glucose Level 85 mg/dL (74-106); Potassium 3.9 mmol/L (3.5-5.1); Sodium Level 142 mmol/L (136-145)
[2020-07-14] MEDS: ENSURE ENLIVE 237 ML CAN PO SCH ×2 (09:00→20:45)
[2020-07-14] MEDS: [UNRECOGNIZED DRUG - MIXTURE] PO SCH (09:00)
[2020-07-14] MEDS: [UNRECOGNIZED DRUG - OTHER] PO SCH (09:00)
[2020-07-14] MEDS: METOPROLOL TAR 25 MG TAB PO SCH (09:21)
[2020-07-14] MEDS: ASPIRIN EC 81 MG TAB PO SCH (09:21)
[2020-07-14] MEDS: MEMANTINE HCL 10 MG TABLET PO SCH ×2 (09:22→20:45)
[2020-07-14] MEDS: ENOXAPARIN 40 MG/0.4 ML SQ SCH (09:22)
--- NOTE | 2020-07-14 09:24 | P.PN ---
Date of Service: 07/14/20 Subjective COVID-19 test still remains positive. Awaiting placement Review of Systems Difficult to obtain because of his dementia Physical Examination - Vital Signs Reviewed - Physical Exam General: Alert, In no apparent distress, Demented, Respiratory: Clear to auscultation bilaterally, Normal air movement Cardiovascular: Regular rate/rhythm, Normal S1 S2 Gastrointestinal: Normal bowel sounds, Soft and benign, Non-distended, No tenderness Neurological: Demented and unable to follow directions appropriately; Abnormal strength Assessment & Plan - Problems (Diagnosis) (1) Alzheimer's dementia Current Visit: No Status: Chronic (2) CAD (coronary artery disease) Onset Date: 01/09/16 Current Visit: No Status: Chronic Coronary Disease-Associated Artery/Lesion type: [place] artery [place] vs. transplanted heart: [place] heart Associated angina: without angina Qualified Code(s): I25.10 - Atherosclerotic heart disease of [place] coronary artery without angina pectoris (3) CHF exacerbation Onset Date: 01/09/16 Current Visit: No Status: Chronic Qualified Code(s): I50.23 - Acute on chronic systolic (congestive) heart failure (4) CKD (chronic kidney disease), stage III Onset Date: 01/09/16 Current Visit: No Status: Chronic (5) HLD (hyperlipidemia) Current Visit: No Status: Chronic Hyperlipidemia type: unspecified Qualified Code(s): E78.5 - Hyperlipidemia, unspecified (6) HTN (hypertension) Current Visit: No Status: Chronic Hypertension type: essential hypertension Qualified Code(s): I10 - Essential (primary) hypertension - Plan Plan of care as mentioned below: 1. Still awaiting placement. We have been waiting on placement for the last 3 weeks 2. Supportive care with continued medication; labs are stable. Cardiac status is stable as well 3. Physical therapy evaluation is appreciated 4. GI and DVT prophylaxis
[2020-07-14] MEDS: ATORVASTATIN 40 MG TAB PO SCH (20:45)
[2020-07-14] MEDS: DONEPEZIL HCL 5 MG TAB PO SCH (20:45)
[2020-07-14] MEDS ORDERED: WATER FOR INJ,STERILE 10 ML IM PRN (20:50)
[2020-07-14] MEDS ORDERED: ZIPRASIDONE MESYLA 20 MG/VIAL IM ONE (20:50)
[2020-07-14] MEDS ORDERED: LORazepam 2 MG/ML VIAL IV ONE (23:40)
[2020-07-15 06:04] VITALS: BMI 21.2
[2020-07-15] MEDS: [UNRECOGNIZED DRUG - MIXTURE] PO SCH (09:00)
[2020-07-15] MEDS: ENSURE ENLIVE 237 ML CAN PO SCH (09:00)
[2020-07-15] MEDS: [UNRECOGNIZED DRUG - OTHER] PO SCH (09:00)
[2020-07-15] MEDS: ASPIRIN EC 81 MG TAB PO SCH (09:32)
[2020-07-15] MEDS: ENOXAPARIN 40 MG/0.4 ML SQ SCH (09:32)
[2020-07-15] MEDS: METOPROLOL TAR 25 MG TAB PO SCH (09:32)
[2020-07-15] MEDS: MEMANTINE HCL 10 MG TABLET PO SCH (09:32)
[2020-07-15 16:20] VITALS: TEMP 97.6
[2020-07-15 16:24] VITALS: BP 113/60; O2SAT 100
--- NOTE | 2020-07-18 05:32 | P.DS ---
Discharge Date: 07/15/20 Primary Care Provider: Dr. Banegas Disposition: TRANSFER TO LONGTERM Discharge Condition: GOOD Reason for Admission: UTI, fever, AMS - Problems (1) Alzheimer's dementia Status: Chronic (2) CAD (coronary artery disease) Onset Date: 01/09/16 Status: Chronic Qualifiers: Coronary Disease-Associated Artery/Lesion type: [place] artery [place] vs. transplanted heart: [place] heart Associated angina: without angina Qualified Code(s): I25.10 - Atherosclerotic heart disease of [place] coronary artery without angina pectoris (3) CHF exacerbation Onset Date: 01/09/16 Status: Chronic Qualifiers: Qualified Code(s): I50.23 - Acute on chronic systolic (congestive) heart failure (4) CKD (chronic kidney disease), stage III Onset Date: 01/09/16 Status: Chronic (5) HLD (hyperlipidemia) Status: Chronic Qualifiers: Hyperlipidemia type: unspecified Qualified Code(s): E78.5 - Hyperlipidemia, unspecified (6) HTN (hypertension) Status: Chronic Qualifiers: Hypertension type: essential hypertension Qualified Code(s): I10 - Essential (primary) hypertension Brief History of Present Illness: Patient is an 84-year-old male with history of CAD status post CABG, dementia, atrial fibrillation, CHF presents emergency department for fever, confusion. reports that patient was noted to be more confused than normal and febrile today. Evaluation in the emergency department significant for your microscopic with 20-50 bacteria greater than 50 red blood cell greater than 50 white blood cell troponin 0.08 hemoglobin 13.3 hematocrit 39.0, platelets 111. CT head without any acute abnormalities chest x-ray negative. Patient is still confused, ED provider wishes to admit for further evaluation and management. Hospital Course: Patient has done well during hospital stay. Patient really did have a lot of COVID-19 symptoms. Patient was never hypoxic. We just had a very difficult time finding a place for him to go since he was COVID-19 positive. Patient is clinically doing well. At this time, patient is stable for discharge to nursing facility Vital Signs/Physical Exam: Temp Pulse Resp BP Pulse Ox 97.6 F 58 14 113/60 95 07/15/20 16:00 07/15/20 16:00 07/15/20 16:00 07/15/20 16:00 07/15/20 00:00 General: Alert, In no apparent distress, Demented Laboratory Data at Discharge: WBC 5.70 K/uL (4.3-10.9) 07/11/20 04:59 Hgb 12.6 g/dL (13.6-17.9) L 07/11/20 04:59 Hct 35.4 % (39.6-49.0) L 07/11/20 04:59 Plt Count 233 K/uL (152-406) 07/11/20 04:59 PT 14.4 SECONDS (9.5-12.5) H 06/24/20 18:00 INR 1.25 06/24/20 18:00 APTT 33.4 SECONDS (24.3-36.9) 06/24/20 18:00 Sodium 142 mmol/L (136-145) 07/14/20 04:40 Potassium 3.9 mmol/L (3.5-5.1) 07/14/20 04:40 BUN 19 mg/dL (7-18) H 07/14/20 04:40 Creatinine 0.63 mg/dL (0.55-1.3) 07/14/20 04:40 Glucose 85 mg/dL (74-106) 07/14/20 04:40 Phosphorus 3.2 mg/dL (2.5-4.9) 07/11/20 04:59 Magnesium 2.1 mg/dL (1.8-2.4) 07/13/20 04:46 Total Bilirubin 0.9 mg/dL (0.2-1.0) 07/12/20 04:26 AST 29 U/L (15-37) 07/12/20 04:26 ALT 49 U/L (12-78) 07/12/20 04:26 Alkaline Phosphatase 60 U/L (45-117) 07/12/20 04:26 Troponin I 0.10 ng/mL (0.0-0.045) H 06/24/20 23:50 Lipase 61 U/L (73-393) L 06/24/20 18:00 Home Medications: Ascorbic Acid [Vitamin C with Neyda Hips] 1 tab PO DAILY 04/24/18 Aspirin [Aspirin EC 81 MG] 81 mg PO DAILY 04/24/18 Donepezil [Aricept*] 5 mg PO DAILY 04/24/18 Memantine HCl [Namenda*] 10 mg PO BID 04/24/18 B-Complex with Vitamin C [Super B Complex-Vitamin C] 1 tab PO DAILY 10/20/18 Atorvastatin Calcium [Lipitor] 40 mg PO BEDTIME #30 tab 10/22/18 Nitroglycerin [Nitrostat*] 0.4 mg SL UD PRN #20 tab 10/22/18 Ensure Enlive 237 ml PO BID #60 can 07/15/20 Metoprolol Tartrate [Lopressor*] 12.5 mg PO DAILY #30 tab 07/15/20 New Medications: Ensure Enlive 237 ml PO BID #60 can Metoprolol Tartrate [Lopressor*] 12.5 mg PO DAILY #30 tab Physician Discharge Instructions: PROBLEM: COVID-19 , UTI, Metabolic encephalopathy GOAL: Clear understanding of disease process INSTRUCTIONS: Patient presented with fever, metabolic encephalopathy related to UTI. Patient was admitted for treatment. The patient did well during the course of his stay. UTI resolved. The patient was evaluated for correction facility. The patient was denied by insurance as the patient was able to move appropriately. Plan of care discussed in detail with the . Only option is for the patient to continue at home with home health, physical therapy, occupational therapy and bath aide. Arrangements for all were made by social worker delinquency prevention. This was addressed in detail. Advance care directives also addressed. Patient is DNR. Fall precautions in place. Continue with home health, physical therapy, occupational therapy and bath aide. Discharge was delayed as family was trying to arrange for appropriate measures at home. Recommend follow-up with PCP in 1 week to follow-up with his hospitalization. Patient with CAD status post CABG with recent [place] without intervention, chronic atrial fibrillation not on chronic anticoagulation therapy, hypertension, hyperlipidemia. At discharge medications have been adjusted during the course of his stay. Metoprolol was decreased. Lisinopril discontinued. At discharge blood pressure stable on metoprolol. At discharge patient will continue with metoprolol 25 mg daily. Recommend to monitor blood pressure daily. Recommend to hold metoprolol if blood pressure less than 110 systolic or heart rate less than 50. Further adjustment may be required. This can be done with the help of his PCP. Patient will also continue with Lipitor 40 mg daily and aspirin 81 mg daily. Recommend follow-up with PCP in 1 week to follow-up hospitalization. Patient with advanced dementia. At discharge patient will continue with Aricept 5 mg daily and Namenda 10 mg 1 pill twice daily. Patient with COVID-19 positive. Patient asymptomatic. No need for oxygen, steroids. If symptoms worsen, please go to the ER. If you have any questions regarding hospital stay, feel free to call [phone]. Diet: AHA Activity: Fall precautions DME DME: Date Ordered: Name of Company: [employer] Services Needed: Name of Company: Date or Referral: IMMUNIZATION Influenza Vaccine Indicated: Influenza Vaccine Given: Date Given: Pneumonia Vaccine Indicated: Pneumonia Vaccine Given: Date Given: Diet: AHA Activity: Fall precautions Followup: Yaron Banegas, DO [Primary Care Provider] - Time spent managing pt's care (in minutes): 35
== END 2020-07-15 16:10 | DRG 689 ==
LOC: ER 17:19 → ERHOLD 20:00 → 3RD-ICU 06-25 14:59
PROVIDERS: ADMIT Family Medicine; ATTEND Family Medicine
DX: N39.0 Urinary tract infection, site not specified (principal); G93.41 Metabolic encephalopathy; U07.1 COVID-19; I48.20 Chronic atrial fibrillation, unspecified; I50.22 Chronic systolic (congestive) heart failure; I25.10 Atherosclerotic heart disease of native coronary artery without angina pectoris; E78.5 Hyperlipidemia, unspecified; I11.0 Hypertensive heart disease with heart failure; G30.9 Alzheimer's disease, unspecified; F02.80 Dementia in other diseases classified elsewhere, unspecified severity, without behavioral disturbance, psychotic disturbance, mood disturbance, and anxiety; Z95.1 Presence of aortocoronary bypass graft; I25.2 Old myocardial infarction; Z66 Do not resuscitate
CPT/HCPCS: 36415; 70450; 71045; 80048; 80053; 80076; 81003; 81015; 82728; 83605; 83690; 83735; 84100; 84132; 84439; 84443; 84484; 85025; 85610; 85730; 86140; 87040; 87086; 87088; 92610; 93005; 96361; 96374; 97110; 97112; 97116; 97161; 97530; 97535; 99285; J0696; J1650; J2270; J2930; J3480; J3486; J7030; J7050; U0003

== ENCOUNTER 2023-09-30 09:43 | Emergency (ER) | payer OTHER ==
--- NOTE | 2023-09-30 10:59 | RAD REPORT ---
EXAM DESCRIPTION: CT - [id number] - 09/30/2023 10:08 am CLINICAL HISTORY: fall COMPARISON: Head Brain Wo Cont dated 06/24/2020 TECHNIQUE: Axial thin cut noncontrast CT images of the head were obtained. Axial thin cut noncontrast CT images of the cervical spine were obtained. Multiplanar reformatted images were generated and reviewed. All CT scans are performed using dose optimization technique as appropriate and may include automated exposure control or mA/KV adjustment according to patient size. FINDINGS: Motion artifact limits evaluation especially of the head CT images. CT HEAD WITHOUT CONTRAST: No acute hemorrhage, hydrocephalus or extra-axial collection is identified. Diffusely increased calib er of the ventricular system, least pronounced along the first ventricle. Some peritrigonal hypodensi ty on the right, suggesting CSF egression. No areas of brain edema or midline shift. The paranasal sinuses and mastoids are clear.The calvarium is intact. CT CERVICAL SPINE WITHOUT CONTRAST: No fracture or subluxation.No prevertebral soft tissues swelling is identified. Multilevel mild-to-m oderate degenerative changes without high-grade canal stenosis. Left moderate neural foraminal narrow ing at C4-5 secondary to facet spurring. IMPRESSION: Allowing for motion artifact, there is worsening hydrocephalus, somewhat sparing the fou rth ventricle, could relate to obstruction/ stenosis at the level of the aqueduct. No other acute intracranial or cervical spine process. The findings were communicated to Finn Monterroso on 09/30/2023 at 10:55 hours.
--- NOTE | 2023-09-30 11:33 | ER ---
Nurse's Notes [facility] Name: Sudarshan Rao Age: 87 yrs Sex: Male : 1935 Arrival Date: 09/30/2023 Time: 09:43 Bed 8 Private MD: Diagnosis: Hydrocephalus, unspecified;Fall on same level, unspecified Presentation: 09/29 09:45 Chief complaint: EMS states: Pt brought in via EMS for fall from standing. Witnessed dd2 fall by another dementia patient that stated pt hit head but pt states he did not hit his head. Pt is at mental baseline with no apparent injuries. Coronavirus screen: At this time, the client does not indicate any symptoms associated with coronavirus-19. Ebola Screen: No symptoms or risks identified at this time. Initial Sepsis Screen: Does the patient meet any 2 criteria? No. Patient's initial sepsis screen is negative. Does the patient have a suspected source of infection? No. Patient's initial sepsis screen is negative. Risk Assessment: Do you want to hurt yourself or someone else? Unable to obtain. Onset of symptoms was September 30, 2023. 09:45 Method Of Arrival: EMS: [facility] dd2 09:45 Acuity: STACEY 3 dd2 09:50 Care prior to arrival: Glucose check: 109 IV obtained to the Lt forearm. Pt pulled IV dd2 out while EMS en route to ER. Bruise noted to area. Triage Assessment: 09:48 General: Appears in no apparent distress. Behavior is calm, cooperative. Pain: Denies dd2 pain. Historical: - Allergies: 09:48 sedatives; causes agitation; dd2 - PMHx: 09:48 Atrial Fib; CHF; Dementia; enlarged prostate; Myocardial infarction; organic dementia; dd2 Pneumonia; Sepsis; Sleep Apnea; - PSHx: 09:48 Unable to Obtain; dd2 - Immunization history:: Adult Immunizations unknown. - Infectious Disease History:: Denies. - Social history:: Smoking status: unknown. Screenin:05 [facility] ED Fall Risk Assessment (Adult) History of falling in the last 3 months, dd2 including since admission Yes- single mechanical fall (1 pt) Confusion or Disorientation No (0 pts) Intoxicated or Sedated No (0 pts) Impaired Gait Yes (1 pt) Mobility Assist Device Used Yes (1 pt) Altered Elimination No (0 pt) Score/Fall Risk Level 3 or more points = High Risk Oriented to surroundings, Maintained a safe environment, Hourly rounding (assess needs \T\ fall precautionary measures) done, Used ambulatory aids as needed (educated on \T\ assisted with). Abuse screen: Denies threats or abuse. Nutritional screening: No deficits noted. Tuberculosis screening: No symptoms or risk factors identified. Assessment: 10:05 General: Appears in no apparent distress. Behavior is calm, cooperative. Pain: Denies dd2 pain. Neuro: No deficits noted. Cardiovascular: No deficits noted. Respiratory: No deficits noted. GI: No deficits noted. : No deficits noted. EENT: No deficits noted. Derm: Bruising that is dark purple, on dorsal aspect of left forearm. Musculoskeletal: No deficits noted. Vital Signs: 09:45 BP 131 / 83; Pulse 79; Resp 15; Temp 98.1; Pulse Ox 97% ; dd2 11:07 BP 138 / 78; Pulse 87; Resp 15; Pulse Ox 97% ; dd2 13:07 BP 104 / 81; Pulse 77; Resp 15; Pulse Ox 97% ; dd2 15:25 BP 120 / 74; Pulse 78; Resp 16; Pulse Ox 98% ; dd2 ED Course: 09:44 Patient arrived in ED. dd2 09:44 TAYLOR NIELSEN, RN is Primary Nurse. dd2 09:45 Finn Monterroso DO is Attending Physician. ms3 09:48 Triage completed. dd2 09:48 Arm band placed on right wrist. Patient placed in an exam room, on a stretcher, on dd2 pulse oximetry. 10:05 Patient has correct armband on for positive identification. Bed in low position. Call dd2 light in reach. Side rails up X2. Provided Education on: call light, procedures, fall risk. Client placed on continuous cardiac and pulse oximetry monitoring. NIBP monitoring applied. Warm blanket given. 10:05 No provider procedures requiring assistance completed. Patient did not have IV access dd2 during this emergency room visit. 10:10 CT Head C Spine In Process Unspecified. EDMS 11:57 CMP Sent. dd2 11:57 CBC with Diff Sent. dd2 13:[address] [facility]. bd 14:09 pt accepted in transfer to [facility] 22 tower rm [id number] Villanueva admin approval bd given by CHANEL Ryan. 14:46 CT Neck Angio In Process Unspecified. EDMS 14:46 Head angio In Process Unspecified. EDMS 15:28 Inserted saline lock: 20 gauge in right antecubital area, using aseptic technique. dd2 Blood collected. Flushed with 10 mL NS Patient transferred, IV remains in place. Administered Medications: No medications were administered Medication: 10:05 VIS not applicable for this client. dd2 Outcome: 11:32 ER care complete, transfer ordered by . ms3 15:28 Transferred by ground EMS to [facility], Transfer form completed. dd2 15:28 Condition: stable 15:28 Instructed on the need for transfer, 15:45 Patient left the ED. dd2 Signatures: Dispatcher [employer] EDAnna Zafar Marcus, DO DO ms3 TAYLOR NIELSEN, RN RN dd2
--- NOTE | 2023-09-30 11:33 | EDPHYS ---
Physician Documentation [facility] Name: Sudarshan Rao Age: 87 yrs Sex: Male : 1935 Arrival Date: 09/30/2023 Time: 09:43 Bed 8 Private MD: ED Physician Finn Monterroso HPI: 09/29 10:49 This 87 yrs old Unknown Male presents to ER via EMS with complaints of Fall Injury. ms3 10:49 87-year-old male with past medical history of atrial fibrillation, CHF, dementia, ms3 enlarged prostate, myocardial infarction presents to the emergency department via [facility] for fall. On arrival patient is without complaints. Per EMS patient is at baseline. Historical: - Allergies: 09:48 sedatives; causes agitation; dd2 - PMHx: 09:48 Atrial Fib; CHF; Dementia; enlarged prostate; Myocardial infarction; organic dementia; dd2 Pneumonia; Sepsis; Sleep Apnea; - PSHx: 09:48 Unable to Obtain; dd2 - Immunization history:: Adult Immunizations unknown. - Infectious Disease History:: Denies. - Social history:: Smoking status: unknown. ROS: 10:49 Unable to obtain ROS due to baseline dementia, ms3 Exam: 10:49 Constitutional: This is a well developed, well nourished patient who is awake, alert, ms3 and in no acute distress. Head/Face: Normocephalic, atraumatic. Neck: Trachea midline, no cervical lymphadenopathy. Supple, full range of motion without nuchal rigidity, or vertebral point tenderness. No Meningismus. Chest/axilla: Normal chest wall appearance and motion. Nontender with no deformity. Cardiovascular: Regular rate and rhythm with a normal S1 and S2. No gallops, murmurs, or rubs. Normal PMI, no JVD. No pulse deficits. Respiratory: Lungs have equal breath sounds bilaterally, clear to auscultation and percussion. No rales, rhonchi or wheezes noted. No increased work of breathing, no retractions or nasal flaring. Abdomen/GI: Soft, non-tender, with normal bowel sounds. No distension or tympany. No guarding or rebound. No evidence of tenderness throughout. Skin: Warm, dry with normal turgor. Normal color with no rashes, no lesions, and no evidence of cellulitis. MS/ Extremity: Pulses equal, no cyanosis. Neurovascular intact. Full, normal range of motion. Vital Signs: 09:45 BP 131 / 83; Pulse 79; Resp 15; Temp 98.1; Pulse Ox 97% ; dd2 11:07 BP 138 / 78; Pulse 87; Resp 15; Pulse Ox 97% ; dd2 13:07 BP 104 / 81; Pulse 77; Resp 15; Pulse Ox 97% ; dd2 15:25 BP 120 / 74; Pulse 78; Resp 16; Pulse Ox 98% ; dd2 MDM: 09:53 Patient medically screened. ms3 10:49 Differential diagnosis: closed head injury, fracture, sprain, strain. ms3 13:57 Data reviewed: vital signs, nurses notes, and as a result, I will transfer. ms3 Consideration of Admission/Observation Will transfer. Management of patient was discussed with the following: Hospitalist: . Insole Rounder: Neuro ICU. Independent interpretation of the following test(s) in the Emergency Department CT Scan: My interpretation is CT head without contrast images reviewed by me does not reveal ICH. Historians other than the Patient: EMS: [facility]. Counseling: I had a detailed discussion with the patient and/or guardian regarding the historical points, exam findings, and any diagnostic results supporting the discharge/admit diagnosis, lab results, radiology results, the need to transfer to another facility, for higher level of care. ED course: Discussed case with Neuro ICU resident and hospitalist. Neuro would like CTA head and neck prior to transfer.. 09/29 11:28 Order name: CBC with Diff; Complete Time: 13:07 ms3 09/29 11:28 Order name: CMP; Complete Time: 13:07 ms3 09/29 09:54 Order name: CT Head C Spine; Complete Time: 11:00 ms3 09/29 13:57 Order name: CT Neck Angio; Complete Time: 15:25 ms3 09/29 14:07 Order name: Head angio; Complete Time: 15:25 EDMS Administered Medications: No medications were administered Disposition: 17:39 Chart complete. ms3 Disposition Summary: 09/30/23 11:32 Transfer Ordered Notes: Transfer Location: [facility] ms3 Reason: Higher level of care ms3 Condition: Stable ms3 Problem: new ms3 Symptoms: are unchanged ms3 Accepting Physician: (09/30/23 15:45) dd2 Diagnosis - Hydrocephalus, unspecified ms3 - Fall on same level, unspecified ms3 Forms: - Medication Reconciliation Form ms3 - SBAR form ms3 Signatures: Dispatcher [employer] EDMS Finn Monterroso, DO ms3 TAYLOR NIELSEN RN RN dd2 Corrections: (The following items were deleted from the chart) 09:55 09:55 Head C Spine MPR Wo Con+CT.RAD.BRZ ordered. EDMS EDMS 13:58 13:58 Neck Angio+CT.RAD.BRZ ordered. EDMS EDMS 15:45 11:32 ms3 dd2
[2023-09-30 12:10] LABS: Absolute Lymphocytes (CBC) 1.4 K/uL (0.7-4.9); Absolute Monocytes 0.6 K/uL (0.1-1.3); Absolute Neutrophil 5.9 K/uL (1.8-8.0); Basophils % 0.3 % (0-1.3); Eosinophils % 0.5 % (0-4.4); Hematocrit 44.1 % (39.6-49.0); Hemoglobin 14.7 g/dL (13.6-17.9); Lymphocytes % 17.6 % (15.3-44.8); MCH 31.2 pg (27.0-35.0); MCHC 33.5 g/dL (32.0-36.0); MCV 93.3 fL (80-100); MPV 9.9 fL (7.6-11.3); Monocytes % 7.4 % (3.3-12.3); Neutrophils % 74.2 % (41.7-73.7); Nucleated Red Blood Cells % 0.1 % (0-0); Platelets 132 thou/uL (152-406); RBC Red Blood Cell Count 4.72 M/uL (4.33-5.43); Red Cell Distribution Width 14.4 % (12.1-15.2)
[2023-09-30 12:20] LABS: Albumin 3.6 g/dL (3.4-5.0); Albumin/Globulin Ratio 1.1 (1.1-1.8); Anion Gap 7.5 mEq/L (5.0-15.0); Globulin 3.4 g/dL (2.3-3.5); Potassium 3.5 mEq/L (3.5-5.1)
--- NOTE | 2023-09-30 15:11 | RAD REPORT ---
EXAM DESCRIPTION: CT - Neck Angio - 09/30/2023 2:44 pm CLINICAL HISTORY: hydrocephallus COMPARISON: Head C Spine Mpr Wo Con dated 09/30/2023 TECHNIQUE: Axial CT angiography images of the neck was performed with multiplanar and maximum intens ity projection reconstructions. Images performed following intravenous administration of 100mL Isovue 370. All CT scans are performed using dose optimization technique as appropriate and may include automated exposure control or mA/KV adjustment according to patient size. Quantification of carotid stenosis, if any, is performed according to NASCET criteria. FINDINGS: A left aortic arch is identified with some tortuosity of the great vessels. The bilateral common carotid origins are not included on the exam, with no abnormalities of the included vertebral origins. No significant flow abnormality is seen of the common carotid bilaterally. No significant stenosis is identified involving the cervical segments of both internal carotid arteri es. Moderate atherosclerotic calcific plaque at the carotid bifurcations. Diminutive caliber of the right vertebral artery starting at its origin, likely developmental. At least moderate degenerative changes of the cervical spine. IMPRESSION: No significant flow abnormality of the neck vessels is identified. Diminutive caliber of the right vertebral artery starting at its origin, likely of developmental in n ature. CAROTID STENOSIS REFERENCE USING NASCET CRITERIA: % ICA stenosis = (1 - narrowest ICA diameter/diameter of distal cervical ICA) x 100. Mild - <50% stenosis. Moderate - 50-69% stenosis. Severe - 70-94% stenosis. Near occlusion - 95-99% stenosis. Occluded - 100% stenosis.
--- NOTE | 2023-09-30 15:14 | RAD REPORT ---
EXAM DESCRIPTION: CT - Head angio - 09/30/2023 2:44 pm CLINICAL HISTORY: HYDROCEPHALUS COMPARISON: Head Brain Wo Cont dated 06/24/2020; Head Brain Wo Cont dated 04/23/2018; Head C Spine Mpr Wo Con dated 09/30/2023 TECHNIQUE: Axial CT angiography images of the head was performed with multiplanar and maximum intens ity projection reconstructions. Images performed following intravenous administration of 100mL Isovue 370. All CT scans are performed using dose optimization technique as appropriate and may include automated exposure control or mA/KV adjustment according to patient size. FINDINGS: No evidence of large vessel occlusion. No evidence of aneurysm or dissection flap is detec gio. No flow-limiting stenosis or vascular malformation identified. Antegrade flow is seen in the vertebral arteries. The vertebral arteries are codominant. The visualized dural venous sinuses are grossly patent. IMPRESSION: No evidence of large vessel occlusion or flow-limiting stenosis.
[2023-09-30 16:01] VITALS: TEMP 98.1
[2023-09-30 16:18] VITALS: BP 120/74; O2SAT 98
--- OUTSIDE RECORDS SUMMARY | 2023-10-01 13:46 | XMS REPORT | Continuity of Care Document ---
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 Name Role Phone Dariusz Villanueva MD Attending Clinician [phone] Ayesha Springer MD Attending Clinician + [phone] Darnell Gagnon MD Attending Clinician [phone] AYESHA SPRINGER Attending Clinician Unavailable Raj Morillo Attending Clinician Unavail able DARNELL GAGNON Admitting Clinician Unavailab le Payers Payer Name Policy Type Policy Number Effective Date Expirati on Date Source Problems Condition Name Condition Details Condition Category Status Onset Date Resolution Date Last Treatment Date Treating Clinician Comments Source Hydrocepha katiuska Hydrocepha katiuska Disease Active 09-29 00:00: 00 [facility] Allergies, Adverse Reactions, Alerts Allergy Name Allergy Type Status Severity Reaction(s) Onset Date Inactive Date Treating Clinician Comments Source LORAZEPA M Allergy Active 09-29 00:00: 00 [facility] Lorazepa m Propensi ty to adverse reaction s Active 09-29 00:00: 00 [facility] NO KNOWN ALLERGIE S Allergy Active [facility] Social History Social Habit Start Date Stop Date Quantity Comments Source Sexual orientation C [facility] History of Social function 2023-09-30 00:00:00 2023-09-30 00:00:00 [facility] Tobacco use and exposure 2023-09-30 00:00:00 2023-09-30 00:00:00 Smokeless tobacco non-user [facility] Alcohol intake 2023-09-30 00:00:00 2023-09-30 00:00:00 Lifetime non-drinker (finding) [facility] Sex Assigned At 1935 00:00:00 1935 00:00:00 [facility] Smoking Status Start Date Stop Date Source Never smoked tobacco [facility] Vital Signs Vital Name Observation Time Observation Value Comments S janee WEIGHT 2023-09-30 17:29:15 94.348 kg HEIGHT 2023-09-30 17:29:15 177 cm WEIGHT 2023-09-30 17:29:15 94.348 kg HEIGHT 2023-09-30 17:29:15 177 cm Systolic blood pressure 2023-10-01 07:00:00 150 mm[Hg] [facility] Diastolic blood pressure 2023-10-01 07:00:00 67 mm[Hg] [facility] Heart rate 2023-10-01 07:00:00 59 /min [facility] Body temperature 2023-10-01 07:00:00 35.61 Susu [facility] Respiratory rate 2023-10-01 07:00:00 18 /min [facility] Oxygen saturation in Arterial blood by Pulse oximetry 2023-10-01 07:00:00 95 /min [facility] Body height 2023-09-30 17:29:15 177 cm [facility] Body weight 2023-09-30 17:29:15 94.348 kg [facility] BMI 2023-09-30 17:29:15 30.12 kg/m2 [facility] Procedures Procedure Date / Time Performed Performing Clinicia n Source KATH BROCK 2023-10-01 09:17:00 Reyna Angel [facility] PROTHROMBIN TIME/INR 2023-10-01 04:00:00 Christoph Gagnon [facility] MAGNESIUM 2023-10-01 04:00:00 Darnell Gagnon [facility] COMPREHENSIVE METABOLIC PANEL 2023-10-01 04:00:00 Darnell Gagnon [facility] CBC W/PLT COUNT & AUTO DIFFERENTIAL 2023-10-01 04:00:00 Darnell Gagnon [facility] TSH/FREE T4 IF INDICATED 2023-10-01 04:00:00 Darnell Gagnon [facility] TYPE AND SCREEN, AUTOMATED 2023-10-01 04:00:00 Darnell Gagnon [facility] CBC W/PLT COUNT & AUTO DIFFERENTIAL 2023-10-01 04:00:00 MargarethDarnell matthews [facility] XR CHEST 1 VIEW PORTABLE / BEDSIDE 2023-10-01 00:03:00 Cas Peacock [facility] SARS-COV2/RT-PCR ([facility]) 2023-09-30 18:54:00 Darnell Gagnon [facility] Encounters Start Date/Time End Date/Time Encounter Type Admission Type Attending Clinicians Care Facility Care Department Encounter ID Source 2023-09-30 16:45:00 Hospital Encounter Dariusz Villanueva Sonal M Sunesara, Rahana K [facility] [id number] [facility] 2023-09-30 16:45:00 Inpatient ER AYESHA SPRINGER [facility] Neurology [id number] [facility] 2021-11-03 06:44:29 Outpatient [facility] [id number] [facility] 2021-03-08 12:52:10 Outpatient Raj Morillo [facility] [id number] [facility] 2023-09-30 23:52:45 2023-09-30 23:52:45 Outpatient [facility] [id number] [facility] 2023-09-30 00:00:00 2023-09-30 00:00:00 Travel [facility] [id number] [facility] Results Test Description Test Time Test Comments Results Resul t Comments Source XR chest 1 view portable / bedside 2023-10-01 07:17:24 XR CHEST 1 VIEW PORTABLE / BEDSIDE INDICATION: suspect COVID contact COMPARISON: None FINDINGS: Portable frontal view of the chest. [facility] XR CHEST 1 VIEW PORTABLE / BEDSIDE 2023-10-01 07:17:24 [facility] 1935 Sex: M XR CHEST 1 VIEW PORTABLE / BEDSIDEINDICATION: suspect COVID contactCOMPARISON: NoneFINDINGS: Portable frontal view of the chest. IMPRESSION:Support Lines: Prior sternotomy. Lungs and pleura: Mild retrocardiac atelectasis. No significantpneumoth orax.Heart and mediastinum: Normal contours.Additional findings: None.Electronically Signed By: Eda Roger10/01/2023 07:19 CDTWorkstation Name: [id number] COMPREHENSIVE METABOLIC [id number] 06:26:01* Test Item Value Reference Range Interpretation Comme nts TOTAL PROTEIN (BEAKER) (test code = 770) 6.4 gm/dL 6.4-8.3 ALBUMIN (BEAKER) (test code = 1145) 3.5 g/dL 3.5-5.0 ALKALINE PHOSPHATASE (BEAKER) (test code = 346) 77 U/L 40-150 BILIRUBIN TOTAL (BEAKER) (test code = 377) 1.7 mg/dL 0.2-1.2 H SODIUM (BEAKER) (test code = 381) 145 meq/L 136-145 POTASSIUM (BEAKER) (test code = 379) 3.6 meq/L 3.5-5.1 CHLORIDE (BEAKER) (test code = 382) 113 meq/L 98-107 H CO2 (BEAKER) (test code = 355) 20 meq/L 22-29 L BLOOD UREA NITROGEN (BEAKER) (test code = 354) 14 mg/dL 8-26 CREATININE (BEAKER) (test code = 358) 0.94 mg/dL 0.72-1.25 GLUCOSE RANDOM (BEAKER) (test code = 652) 96 mg/dL 70-105 CALCIUM (BEAKER) (test code = 697) 8.8 mg/dL 8.4-10.2 AST (SGOT) (BEAKER) (test code = 353) 23 U/L 5-34 ALT (SGPT) (BEAKER) (test code = 347) 16 U/L <55 EGFR (BEAKER) (test code = 1092) 80 mL/min/1.73 sq m Interpretation of eG FR values Stage Description Result G1 Normal or high >=90 G2 Mildly decreased 60-89 G3a Mildly to moderately 45-59 G3b Moderately to severely 30-44 G4 Severly decreased 15-29 G5 Kidney failure <15Reported eGFR is based on the CKD-EPI 2020 equation that does not use a race coefficientEstimated GFR is not as accurate as Creatinine Clearance in predicting glomerular filtration rate. Estimated GFR is not applicable for dialysis patients [id number] 06:26:01* Test Item Value Reference Range Interpretation Comme nts MAGNESIUM (BEAKER) (test cod e = 627) 2.3 mg/dL 1.6-2.6 CBC W/PLT COUNT & AUTO [id number] 06:05:03* Test Item Value Reference Range Interpretation Comme nts WHITE BLOOD CELL COUNT (BEAK ER) (test code = 775) 7.6 K/ L 3.5-10.5 RED BLOOD CELL COUNT (BEAKER ) (test code = 761) 4.74 M/ L 4.63-6.08 HEMOGLOBIN (BEAKER) (test co de = 410) 14.5 GM/DL 13.7-17.5 HEMATOCRIT (BEAKER) (test co de = 411) 44.9 % 40.1-51.0 MEAN CORPUSCULAR VOLUME (ALFREDO KER) (test code = 753) 95 fL 79-92 H MEAN CORPUSCULAR HEMOGLOBIN (BEAKER) (test code = 751) 30.6 pg 25.7-32.2 MEAN CORPUSCULAR HEMOGLOBIN CONC (BEAKER) (test code = 752) 32.3 GM/DL 32.3-36.5 RED CELL DISTRIBUTION WIDTH (BEAKER) (test code = 412) 13.8 % 11.6-14.4 PLATELET COUNT (BEAKER) (esther t code = 756) 135 K/CU MM 150-450 L MEAN PLATELET VOLUME (BEAKER ) (test code = 754) 12.5 fL 9.4-12.4 H NUCLEATED RED BLOOD CELLS (BEAKER) (test code = 413) 0 /100 WBC 0-0 NEUTROPHILS RELATIVE PERCENT (BEAKER) (test code = 429) 66 % LYMPHOCYTES RELATIVE PERCENT (BEAKER) (test code = 430) 22 % MONOCYTES RELATIVE PERCENT (BEAKER) (test code = 431) 11 % EOSINOPHILS RELATIVE PERCENT (BEAKER) (test code = 432) 1 % BASOPHILS RELATIVE PERCENT (BEAKER) (test code = 437) 0 % NEUTROPHILS ABSOLUTE COUNT (BEAKER) (test code = 670) 5.00 K/ L 1.78-5.38 LYMPHOCYTES ABSOLUTE COUNT (BEAKER) (test code = 414) 1.68 K/ L 1.32-3.57 MONOCYTES ABSOLUTE COUNT (BE WENDY) (test code = 415) 0.82 K/ L 0.30-0.82 EOSINOPHILS ABSOLUTE COUNT (BEAKER) (test code = 416) 0.09 K/ L 0.04-0.54 BASOPHILS ABSOLUTE COUNT (BE WENDY) (test code = 417) 0.03 K/ L 0.01-0.08 IMMATURE GRANULOCYTES-RELATI VE PERCENT (BEAKER) (test code = 2801) 0.10 % 0.00-1.00 PROTHROMBIN [id number] 06:01:01* Test Item Value Reference Range Interpretation Comme nts PROTIME (BEAKER) (test code = 759) 13.9 seconds 11.9-14.2 INR (BEAKER) (test code = 370) 1.07 <=5.90 RECOMMENDED COUMADIN/WARFARIN INR THERAPY RANGESSTANDARD DOSE: 2.0 - 3.0 Includes: PROPHYLAXIS for venous thrombosis, systemic embolization; TREATMENT for venous thrombosis and/or pulmonary embolus.HIGH RISK: Target INR is 2.5-3.5 for patients with mechanical heart valves.SARS-CoV2/RT-PCR (Asymptomatic ONLY) 2023-09-30 20:29:32* Test Item Value Reference Range Interpretation Comments SARS-COV2/RT-PCR (test code = 76936-1) Negative Negative The SARS-CoV-2 target nucleic acids are not detected in this specimen. Negative results do not preclude SARS-CoV-2 infection and should not be used as the sole basis for patient management decisions. Negative results must be combined with clinical observations, patient history, and epidemiological information. A false negative result may occur if a specimen is improperly collected, transported or handled. This SARS CoV-2 test is a rapid, real-time RT-PCR test intended for the qualitative detection of nucleic acid from SARS-CoV-2 in a nasopharyngeal swab specimen collected from individuals suspected of COVID-19 by their healthcare provider. RICHA (test code = RICHA) This test has been authorized by FDA under an EUA for use by authorized laboratories. This test is only authorized for the duration of the declaration that circumstances exist justifying the authorization of emergency use of in vitro diagnostic tests for detection and/or diagnosis of COVID-19 under Section 564(b)(1) of the Federal Food, Drug and Cosmetic Act, 21 U.S.C. 360bbb-3(b)(1), unless the authorization is terminated or revoked sooner. Fact Sheet for Healthcare Providers: https://www.[employer]/Documents/Xp ert%20Xpress%20SAR S%20CoV-2/Fact%20S heets/302-3802%20S ARS-COV-2%20HEALTH CARE%20PROVIDERS%2 0FACT%20SHEET.pdf Fact Sheet for Healthcare Patients: https://www.[employer]/Documents/Xp ert%20Xpress%20SAR S%20CoV-2/Fact%20S heets/302-3801%20S ARS-COV-2%20PATIEN T%20FACT%20SHEET.p df Lab Interpretation (test code = 61257-9) [facility])2023-09-30 20:29:32 * Test Item Value Reference Range Interpretation Comme nts SARS-COV2/RT-PCR (test code = 9480705) Negative Negative The SARS-CoV-2 t arget nucleic acids are not detected in this specimen. Negative results do not preclude SARS-CoV-2 infection and should not be used as the sole basis for patient management decisions. Negative results must be combined with clinical observations, patient history, and epidemiological information. A false negative result may occur if a specimen is improperly collected, transported or handled. This SARS CoV-2 test is a rapid, real-time RT-PCR test intended for the qualitative detection of nucleic acid from SARS-CoV-2 in a nasopharyngeal swab specimen collected from individuals suspected of COVID-19 by their healthcare provider. This test has been authorized by FDA under an EUA for use by authorized laboratories. This test is only authorized for the duration of the declaration that circumstances exist justifying the authorization of emergency use of in vitro diagnostic tests for detection and/or diagnosis of COVID-19 underSection 564(b)(1) of the Federal Food, Drug and Cosmetic Act, 21 U.S.C. 360bbb-3(b)(1), unless the authorization is terminated or revoked sooner. Fact Sheet for Healthcare Providers: https://www.[employer]/Documents/Xpert%20Xpress%20SARS%20CoV-2/Fact%20Sheets/302-6602%20SARS-COV -2%20HEALTHCARE%20PROVIDERS%20FACT%20SHEET.pdf Fact Sheet for Healthcare Patients: https://www.[employer]/Documents/Xpe rt%20Xpress%20SARS%20CoV-2/Fact%20Sheets/855-3801%86EWAC-QDO-9%20PATIENT%20FACT% 20SHEET.pdf
== END 2023-09-30 15:45 | disposition short-term general hospital (02) ==
LOC: ER 09:43
DX: G91.9 Hydrocephalus, unspecified (principal); W18.30XA Fall on same level, unspecified, initial encounter; F03.90 Unspecified dementia, unspecified severity, without behavioral disturbance, psychotic disturbance, mood disturbance, and anxiety; I50.9 Heart failure, unspecified; I48.91 Unspecified atrial fibrillation
CPT/HCPCS: 85025; 36415; 80053; 70450; 72125; 70496; 70498; 99285; Q9967

== ENCOUNTER 2023-11-16 11:50 | Inpatient (IN) | payer OTHER ==
[2023-11-16 12:27] LABS: Absolute Lymphocytes (CBC) 0.7 K/uL (0.7-4.9); Absolute Neutrophil 9.5 K/uL (1.8-8.0); Basophils % 0.1 % (0-1.3); Hematocrit 40.4 % (39.6-49.0); Hemoglobin 13.5 g/dL (13.6-17.9); Lymphocytes % 6.6 % (15.3-44.8); MCH 31.2 pg (27.0-35.0); MCHC 33.4 g/dL (32.0-36.0); MCV 93.4 fL (80-100); MPV 11.6 fL (7.6-11.3); Monocytes % 8.9 % (3.3-12.3); Neutrophils % 84.4 % (41.7-73.7); Platelets 109 thou/uL (152-406); RBC Red Blood Cell Count 4.33 M/uL (4.33-5.43); Red Cell Distribution Width 14.5 % (12.1-15.2)
[2023-11-16 12:28] LABS: PT Prothrombin Time 15.8 SECONDS (9.4-12.5); PTT, Activated Partial Thromb 32.3 SECONDS (24.3-36.9); Protime INR 1.43
[2023-11-16 12:44] LABS: Albumin 2.5 g/dL (3.4-5.0); Albumin/Globulin Ratio 0.7 (1.1-1.8); Anion Gap 11.9 mEq/L (5.0-15.0); Bilirubin Total 2.4 mg/dL (0.2-1.0); Globulin 3.4 g/dL (2.3-3.5); Potassium 2.9 mEq/L (3.5-5.1); Protein, Total 5.9 g/dL (6.4-8.2)
[2023-11-16 12:48] LABS: Troponin High Sensitivity 74.4 pg/mL (<58.9)
[2023-11-16 12:50] LABS: Blood Morphology Comment NOT SEEN (NOT SEEN); Platelet Estimate ADEQ; White Blood Cell Scan OK (OK)
[2023-11-16] MEDS ORDERED: CEFEPIME 2 GM VIAL ONE (13:04)
[2023-11-16] MEDS ORDERED: NA CHLORIDE 0.9% 100 ML ONE (13:04)
[2023-11-16 13:05] LABS: Specific Gravity 1.021 (1.005-1.030); Sqamous Epithelial <5 /HPF (None Seen); Urine Bacteria >50 /HPF (<20); Urine Bilirubin NEGATIVE (Negative); Urine Blood 1+ (Negative); Urine Clarity Extremely Turbid (Clear); Urine Color Yellow (Yellow); Urine Culture Reflex Order REFLEXED; Urine Glucose NEGATIVE (Negative); Urine Ketones NEGATIVE (Negative); Urine Microscopic Reflex YN ORDER UMIC; Urine Mucus Slight /HPF (None Seen); Urine Nitrite NEGATIVE (Negative); Urine Protein 1+ (Negative); Urine RBC <5 /HPF (None Seen); Urine Urobilinogen 1+ (Normal); Urine WBC >50 /HPF (<5); Urine pH 5.5 (5.0-7.0)
[2023-11-16] MEDS ORDERED: Ringers Lactate 1,000 ML IV ONE (13:29)
[2023-11-16] MEDS ORDERED: NA CHLORIDE 0.9% 250 ML ONE (13:29)
[2023-11-16] MEDS ORDERED: VANCOMYCIN 1 GM/VIAL ONE (13:29)
--- NOTE | 2023-11-16 13:32 | RAD REPORT ---
EXAMINATION: ONE VIEW CHEST XR CLINICAL INDICATION: Male, 87 years old.DYSPNEA TECHNIQUE: 1 View, AP supine, X-ray of the chest was performed. [id number]. COMPARISON: 06/24/20 FINDINGS: Lungs and pleura: Basilar airspace disease Small to moderate left pleural effusion. A small right ple ural effusion difficult to exclude. Heart and mediastinum: Cardiomegaly. Unremarkable mediastinal contours. Osseous structures: No acute abnormality. Tubes/lines: None Other: None. IMPRESSION: Small to moderate left pleural effusion. Basilar airspace disease also present which may reflect atel ectasis and/or pneumonia. Probable background of interstitial edema.
--- NOTE | 2023-11-16 14:16 | ER ---
Nurse's Notes [facility] Name: Sudarshan Rao Age: 87 yrs Sex: Male : 1935 Arrival Date: 11/16/2023 Time: 11:50 Bed 7 Private MD: Diagnosis: Pneumonia;Congestive heart failure;Hypoxic respiratory failure;Septic shock;Hypernatremia;Hypokalemia Presentation: 11/15 11:56 Chief complaint: EMS states: Toned out for SOB. BP 97/52, 98.9T, HR 95, SPO2 82% on jl7 room air. Coronavirus screen: Client presents with at least one sign or symptom that may indicate coronavirus-19. Ebola Screen: No symptoms or risks identified at this time. 11:56 Method Of Arrival: EMS: [facility] 11:56 Initial Sepsis Screen: Does the patient meet any 2 criteria? RR > 20 per min. HR > 90 7 bpm. Yes Does the patient have a suspected source of infection? No. Patient's initial sepsis screen is negative. Risk Assessment: Do you want to hurt yourself or someone else? Patient reports no desire to harm self or others. Onset of symptoms is unknown. Care prior to arrival: IV initiated. 22 GA, in the right hand. 11:56 Acuity: STACEY 3 jl7 Historical: - Allergies: 12:19 sedatives; causes agitation; jl7 - PMHx: 12:19 Atrial Fib; CHF; Dementia; enlarged prostate; Myocardial infarction; organic dementia; jl7 Pneumonia; Sepsis; Sleep Apnea; - Immunization history:: Adult Immunizations up to date. - Infectious Disease History:: Denies. - Family history:: not pertinent. - Social history:: Smoking status: unknown. Screenin:35 [facility] ED Fall Risk Assessment (Adult) History of falling in the last 3 months, ko1 including since admission No falls in past 3 months (0 pts) Confusion or Disorientation Yes (5 pts) Intoxicated or Sedated No (0 pts) Impaired Gait Yes (1 pt) Mobility Assist Device Used Yes (1 pt) Altered Elimination Yes (1 pt) Score/Fall Risk Level 3 or more points = High Risk Oriented to surroundings, Maintained a safe environment, Educated pt \T\ family on fall prevention, incl call for assistance when getting out of bed, Assessed \T\ reinforced patient's understanding of fall precautions, Provided non-skid footwear, Hourly rounding (assess needs \T\ fall precautionary measures) done, Implemented a Fall Risk Plan of Care, Apply high fall risk patient identification: yellow non skid footwear/ fall signage, Offered frequent toileting (1:1 observation), Remained with patient while ambulating, Utilized family, sitter, or virtual law firm partner as indicated. Abuse screen: Denies threats or abuse. Denies injuries from another. Nutritional screening: No deficits noted. Tuberculosis screening: No symptoms or risk factors identified. Assessment: 12:00 General: Appears in no apparent distress. uncomfortable, ill, Behavior is cooperative, jl7 appropriate for age, restless. Pain: Denies pain. Neuro: Level of Consciousness is awake, alert, Oriented to person, baseline. Cardiovascular: Patient's skin is warm and dry. Rhythm is atrial fibrillation. Respiratory: Airway is patent Respiratory effort is even, unlabored, Respiratory pattern is symmetrical, tachypnea Breath sounds with rales bilaterally. Derm: Skin is dry, Skin is flushed, Skin temperature is warm Decubitus located on sacrum approximately 7.6 cm to 20 cm is stage I skin is reddened and unblanchable. 12:00 Derm: Bruising that is dark purple, on anterior aspect of left lateral abdomen, jl7 posterior aspect of left lateral abdomen and left lower quadrant. 13:00 Reassessment: Patient appears in no apparent distress at this time. No changes from jl7 previously documented assessment. Patient and/or family updated on plan of care and expected duration. Pain level reassessed. 14:19 Reassessment: Pt's reports pt is a DNR. jl7 14:20 Reassessment: Hospitalist at bedside assessing pt for admission. jl7 15:00 Reassessment: Patient appears in no apparent distress at this time. No changes from jl7 previously documented assessment. Patient and/or family updated on plan of care and expected duration. Pain level reassessed. remains at bedside. 16:04 Reassessment: Patient appears in no apparent distress at this time. Patient and/or jl7 family updated on plan of care and expected duration. Pain level reassessed. Pt laying in bed with eyes closed, respirations even and unlabored, no signs of distress noted at this time. will return soon. Respiratory: Airway is patent Respiratory effort is even, unlabored, Respiratory pattern is symmetrical, tachypnea. Vital Signs: 11:56 BP 101 / 68; Pulse 97; Resp 31; Temp 100.6(A); Pulse Ox 96% ; jl7 12:30 BP 92 / 72; Pulse 108; Resp 22; Pulse Ox 94% ; jl7 12:57 BP 104 / 81; Pulse 97; Resp 25; Pulse Ox 91% on NC; Weight 90.72 kg (R); Height 5 ft. 9 jl7 in. ; 13:00 BP 91 / 69; Pulse 104; Resp 26; Pulse Ox 92% on 4 lpm NC; jl7 13:30 BP 106 / 64; Pulse 104; Resp 22; Pulse Ox 93% ; jl7 14:00 BP 105 / 73; Pulse 97; Resp 24; Temp 99.8(R); Pulse Ox 89% on 4 lpm NC; jl7 14:30 BP 123 / 62; Pulse 96; Resp 24; Pulse Ox 90% ; jl7 15:15 BP 139 / 62; Pulse 95; Resp 29; Pulse Ox 95% ; jl7 15:58 BP 107 / 62; Pulse 85; Resp 25; Pulse Ox 90% ; jl7 16:18 BP 105 / 61; Pulse 83; Resp 29; Pulse Ox 94% on 4 lpm NC; jl7 16:45 BP 124 / 66; Pulse 91; Resp 24; Pulse Ox 90% ; jl7 17:00 BP 116 / 90; Pulse 94; Resp 24; Pulse Ox 90% ; jl7 12:57 Body Mass Index 29.54 (90.72 kg, 175.26 cm) jl7 ED Course: 11:56 Patient arrived in ED. eb 11:56 Jose Elias Fitch MD is Attending Physician. rt 11:56 Arm band placed on right wrist. Patient placed in an exam room, on a stretcher, on jl7 oxygen, on monitor car operator, on pulse oximetry. 12:06 Yang Sunshine RN is Primary Nurse. jl7 12:14 Troponin High Sensitivity Sent. ko1 12:14 BNP Sent. ko1 12:14 CBC with Diff Sent. ko1 12:14 CMP Sent. ko1 12:14 Lactate w/ 2H reflex if indic. Sent. ko1 12:14 Protime (+inr) Sent. ko1 12:14 Ptt, Activated Sent. ko1 12:19 Triage completed. jl7 12:35 Blood Culture Adult (2) Sent. ko1 12:35 Initial lab(s) drawn, by me, sent to lab. First set of blood cultures drawn by me, ko1 Second set of blood cultures drawn by me, Urine collected: straight cath specimen, lali colored, Amount Returned: 30mL. Coud inserted, using sterile technique, 14 Fr. Returned cloudy urine. To gravity drainage. Urine specimen collected. Patient tolerated well. Inserted saline lock: 20 gauge in right forearm, using aseptic technique. Blood collected. Flushed with 10 mL NS Maintain EMS IV. Dressing intact. Good blood return noted. Site clean \T\ dry. Gauge \T\ site: 22g right wrist. Flushed with 10 mL NS. Oxygen administration via nasal cannula in mouth due to being mouth breather. 12:35 Patient has correct armband on for positive identification. Allergy band placed. Fall ko1 risk band placed. Placed in gown. Bed in low position. Call light in reach. Side rails up X2. Valuables Left with patient. Provided Education on: labs, meds, call light. Client placed on continuous cardiac and pulse oximetry monitoring. NIBP monitoring applied. manager monitoring on. Door closed. Noise minimized. Lights dimmed. Warm blanket given. Pillow given. 12:57 Urinalysis w/ reflexes Sent. ko1 12:57 Blood Culture Adult (2) Sent. ko1 13:18 Chest Single View XRAY In Process Unspecified. EDMS 14:13 No provider procedures requiring assistance completed. jl7 14:15 Pradeep Sylvester is Hospitalizing Provider. rt 14:20 Patient admitted, IV remains in place. intact, No redness/swelling at site. jl7 15:03 Repeat lab(s) drawn. by me, sent to lab. jl7 15:21 CT Head Brain wo Cont In Process Unspecified. EDMS Administered Medications: 13:05 Drug: Cefepime IVPB 2 grams IVPB at 200 ml/hr once over 30 mins; (mix in NS 100 mL) jl7 Route: IVPB; Rate: 200 ml/hr; Infused Over: 30 mins; Site: right forearm; 13:35 Follow up: Response: No adverse reaction; IV Status: Completed infusion; IV Intake: jl7 100ml 13:45 Drug: vancoMYCIN IVPB 1 grams IVPB once over 2 hrs Route: IVPB; Infused Over: 2 hrs; jl7 Site: right forearm; 15:45 Follow up: Response: No adverse reaction; IV Status: Completed infusion; IV Intake: jl7 250ml 14:05 Drug: Lactated Ringers Solution IV 1000 ml IV at 100 bolus bolus Route: IV; Rate: 500 jl7 bolus; Site: right forearm; 16:30 Follow up: Response: No adverse reaction; IV Status: Completed infusion; IV Intake: jl7 1000ml 14:30 CANCELLED (Physician Discretion): potassium meq PO once jl7 14:30 Drug: Potassium Chloride IV 40 mEq IV at calculated rate once; administer over 1-2 jl7 hours Route: IV; Rate: calculated rate; Site: right forearm; 17:07 Follow up: IV Status: Infusion continued upon admission jl7 Medication: 12:30 VIS not applicable for this client. jl7 Intake: 13:35 IV: 100ml; Total: 100ml. jl7 15:45 IV: 250ml; Total: 350ml. jl7 16:30 IV: 1000ml; Total: 1350ml. jl7 Outcome: 14:16 Decision to Hospitalize by Provider. rt 17:10 Admitted to Med/surg accompanied by tech, family with patient, via stretcher, room 402, jl7 with oxygen, with chart, Report called to Faxed and spoke to Anum 17:10 Condition: stable 17:10 Discharge instructions given to family, Instructed on the need for admit, Demonstrated understanding of instructions, 17:11 Patient left the ED. jl7 Signatures: Dispatcher [employer] EDYang Gleason RN RN jl7 Marie Jordan Kathy, KENRICK RN ko1 Jose Elias Fitch MD MD rt Corrections: (The following items were deleted from the chart) 16:06 15:58 BP 107 / 62; Pulse 85bpm; Resp 15bpm; Pulse Ox 90%; jl7 jl7 17:07 14:00 BP 123 / 62; Pulse 96bpm; Resp 26bpm; Pulse Ox 89% 4 lpm Nasal Cannula; Temp jl7 99.8F Rectal; jl7 17:07 16:18 BP 107 / 62; Pulse 83bpm; Resp 29bpm; Pulse Ox 94% 4 lpm Nasal Cannula; jl7 jl7
--- NOTE | 2023-11-16 14:16 | EDPHYS ---
Physician Documentation [facility] Name: Sudarshan Rao Age: 87 yrs Sex: Male : 1935 Arrival Date: 11/16/2023 Time: 11:50 Bed 7 Private MD: ED Physician Jose Elias Fitch HPI: 11/15 11:59 This 87 yrs old Unknown Male presents to ER via Unassigned with complaints of ams, rt shortness of breath. 11:59 History limited due to patient with altered mental status, baseline dementia, patient rt presents to the ED from [facility] for reported low oxygen levels, difficulty breathing. EMS noted that the oxygen saturation was in the low 80s on room air. Patient has been receiving subcutaneous fluids at the [facility]. Denies other acute complaints at this time, symptoms are moderate in severity, no other aggravating or alleviating factors.. Historical: - Allergies: 12:19 sedatives; causes agitation; jl7 - PMHx: 12:19 Atrial Fib; CHF; Dementia; enlarged prostate; Myocardial infarction; organic dementia; jl7 Pneumonia; Sepsis; Sleep Apnea; - Immunization history:: Adult Immunizations up to date. - Infectious Disease History:: Denies. - Family history:: not pertinent. - Social history:: Smoking status: unknown. ROS: 11:59 Unable to obtain ROS due to baseline dementia, rt Exam: 11:59 Chest/axilla: Normal chest wall appearance and motion. Nontender with no deformity. rt No lesions are appreciated. Cardiovascular: Regular rate and rhythm with a normal S1 and S2. No gallops, murmurs, or rubs. Normal PMI, no JVD. No pulse deficits. Abdomen/GI: Soft, non-tender, with normal bowel sounds. No distension or tympany. No guarding or rebound. No evidence of tenderness throughout. Skin: Warm, dry with normal turgor. Normal color with no rashes, no lesions, and no evidence of cellulitis. 11:59 ENT: Dry mucous membranes. 11:59 Respiratory: Bibasilar crackles, mild respiratory distress, 11:59 Musculoskeletal/extremity: 2+ lower extremity edema. 14:12 ECG was reviewed by the Attending Physician. rt Vital Signs: 11:56 BP 101 / 68; Pulse 97; Resp 31; Temp 100.6(A); Pulse Ox 96% ; jl7 12:30 BP 92 / 72; Pulse 108; Resp 22; Pulse Ox 94% ; jl7 12:57 BP 104 / 81; Pulse 97; Resp 25; Pulse Ox 91% on NC; Weight 90.72 kg (R); Height 5 ft. 9 jl7 in. ; 13:00 BP 91 / 69; Pulse 104; Resp 26; Pulse Ox 92% on 4 lpm NC; jl7 13:30 BP 106 / 64; Pulse 104; Resp 22; Pulse Ox 93% ; jl7 14:00 BP 105 / 73; Pulse 97; Resp 24; Temp 99.8(R); Pulse Ox 89% on 4 lpm NC; jl7 14:30 BP 123 / 62; Pulse 96; Resp 24; Pulse Ox 90% ; jl7 15:15 BP 139 / 62; Pulse 95; Resp 29; Pulse Ox 95% ; jl7 15:58 BP 107 / 62; Pulse 85; Resp 25; Pulse Ox 90% ; jl7 16:18 BP 105 / 61; Pulse 83; Resp 29; Pulse Ox 94% on 4 lpm NC; jl7 16:45 BP 124 / 66; Pulse 91; Resp 24; Pulse Ox 90% ; jl7 17:00 BP 116 / 90; Pulse 94; Resp 24; Pulse Ox 90% ; jl7 12:57 Body Mass Index 29.54 (90.72 kg, 175.26 cm) 7 MDM: 11:56 Patient medically screened. rt 14:12 Differential Diagnosis Sepsis, CHF, pneumonia, UTI, dehydration. Data reviewed: vital rt signs, nurses notes, lab test result(s), EKG, radiologic studies. Consideration of Admission/Observation Patient was admitted/placed on observation. Management of patient was discussed with the following: Hospitalist: Agrees to admit. I considered the following discharge prescriptions or medication management in the emergency department Medications were administered in the Emergency Department. See MAR Patient has CHF, is hypoxic in the emergency department. Chest x-ray appears a mixed appearance of pneumonia versus CHF. I believe the patient requires some fluids, however, I believe that 30 cc/kg is very likely to acutely worsen the patient's respiration and therefore harm the patient. Will give patient 1000 mL of lactated Ringer's by bolus and reassess.. Independent interpretation of the following test(s) in the Emergency Department X-Ray: My interpretation is Pulmonary edema seen on interpretation of x-ray images. Test considered but Not performed: CT: No trauma, CT scan indicated. Care significantly affected by the following chronic conditions: Congestive Heart Failure. Post IV fluid administration reassessment for Sepsis: Client not prescribed the 30 mL/kg IVF due to: concern for fluid overload. concern related to heart failure. Amount of IVF prescribed: 1000 Sepsis focused reassessment complete. Focused assessment performed: November 16, 2023 at 14:15 Lungs: Crackles noted. Current patient vital signs reviewed: Yes. Cardio: Cardiovascular exam improved from previous exam. Heart rate and blood pressure have improved. Respiratory: Unchanged. Counseling: I had a detailed discussion with the patient and/or guardian regarding the historical points, exam findings, and any diagnostic results supporting the discharge/admit diagnosis, lab results, radiology results, the need for further work-up and treatment in the hospital. Response to treatment: the patient's symptoms have mildly improved after treatment. 11/15 11:56 Order name: Blood Culture Adult (2) rt 11/15 11:56 Order name: CBC with Diff; Complete Time: 12:56 rt 11/15 11:56 Order name: CMP; Complete Time: 12:50 rt 11/15 11:56 Order name: Lactate w/ 2H reflex if indic.; Complete Time: 12:50 rt 11/15 11:56 Order name: Protime (+inr); Complete Time: 12:50 rt 11/15 11:56 Order name: Ptt, Activated; Complete Time: 12:50 rt 11/15 11:56 Order name: Urinalysis w/ reflexes; Complete Time: 13:08 rt 11/15 11:56 Order name: Troponin High Sensitivity; Complete Time: 12:50 rt 11/15 11:56 Order name: BNP; Complete Time: 12:50 rt 11/15 12:50 Order name: CBC Smear Scan; Complete Time: 12:56 EDMS 11/15 13:10 Order name: Urine Culture EDMS 11/15 14:45 Order name: Ghost Lactate-NO COLLECT Timer; Complete Time: 15:27 EDMS 11/15 15:34 Order name: Lactate Sepsis 2 HR Follow-up EDMS 11/15 15:53 Order name: Basic Metabolic Panel EDMS 11/15 15:53 Order name: Lactate w/ 2H reflex if indic. EDMS 11/15 15:53 Order name: T4 Free EDMS 11/15 15:53 Order name: Thyroid Stimulating Hormone EDMS 11/15 15:53 Order name: CBC with Automated Diff EDMS 11/15 15:53 Order name: CBC with Automated Diff EDMS 11/15 15:53 Order name: CBC with Automated Diff EDMS 11/15 15:53 Order name: CBC with Automated Diff EDMS 11/15 15:53 Order name: CBC with Automated Diff EDMS 11/15 15:53 Order name: CBC with Automated Diff EDMS 11/15 15:53 Order name: CBC with Automated Diff EDMS 11/15 15:53 Order name: CBC with Automated Diff EDMS 11/15 15:53 Order name: Comprehensive Metabolic Panel EDMS 11/15 15:53 Order name: Comprehensive Metabolic Panel EDMS 11/15 15:53 Order name: Comprehensive Metabolic Panel EDMS 11/15 15:53 Order name: Comprehensive Metabolic Panel EDMS 11/15 15:53 Order name: Comprehensive Metabolic Panel EDMS 11/15 15:53 Order name: Comprehensive Metabolic Panel EDMS 11/15 15:53 Order name: Comprehensive Metabolic Panel EDMS 11/15 15:53 Order name: Comprehensive Metabolic Panel EDMS 11/15 15:53 Order name: Hemoglobin A1c EDMS 11/15 15:53 Order name: Hemoglobin A1c EDMS 11/15 15:53 Order name: Lipid Profile EDMS 11/15 15:53 Order name: Lipid Profile EDMS 11/15 15:53 Order name: Magnesium EDMS 11/15 15:53 Order name: Magnesium EDMS 11/15 15:53 Order name: Magnesium EDMS 11/15 15:53 Order name: Magnesium EDMS 11/15 15:53 Order name: Magnesium EDMS 11/15 15:53 Order name: Magnesium EDMS 11/15 15:53 Order name: Magnesium EDMS 11/15 15:53 Order name: Magnesium EDMS 11/15 15:53 Order name: Phosphorus EDMS 11/15 15:53 Order name: Phosphorus EDMS 11/15 15:53 Order name: Phosphorus EDMS 11/15 15:53 Order name: Phosphorus EDMS 11/15 15:53 Order name: Phosphorus EDMS 11/15 15:53 Order name: Phosphorus EDMS 11/15 15:53 Order name: Phosphorus EDMS 11/15 15:53 Order name: Phosphorus EDMS 11/15 15:53 Order name: Troponin High Sensitivity EDMS 11/15 15:53 Order name: Troponin High Sensitivity EDMS 11/15 15:53 Order name: Troponin High Sensitivity EDMS 11/15 11:56 Order name: Chest Single View XRAY; Complete Time: 13:36 rt 11/15 14:52 Order name: CT Head Brain wo Cont; Complete Time: 15:27 rt 11/15 15:59 Order name: Speech Therapy Consult EDAL 11/15 11:56 Order name: Accucheck; Complete Time: 12:57 rt 11/15 11:56 Order name: Cardiac monitoring; Complete Time: 12:14 rt 11/15 11:56 Order name: EKG - Nurse/Tech; Complete Time: 12:14 rt 11/15 11:56 Order name: IV Saline Lock - Large Bore; Complete Time: 12:14 rt 11/15 11:56 Order name: Labs collected and sent; Complete Time: 12:14 rt 11/15 11:56 Order name: O2 Per Protocol; Complete Time: 12:14 rt 11/15 11:56 Order name: O2 Sat Monitoring; Complete Time: 12:14 rt 11/15 11:56 Order name: Vital Signs; Complete Time: 12:14 rt EC:12 Rate is 107 beats/min. Rhythm is regular, A fib with No ectopy. QRS [place] is Normal. QRS rt interval is normal. QT interval is normal. No Q waves. Administered Medications: 13:05 Drug: Cefepime IVPB 2 grams IVPB at 200 ml/hr once over 30 mins; (mix in NS 100 mL) jl7 Route: IVPB; Rate: 200 ml/hr; Infused Over: 30 mins; Site: right forearm; 13:35 Follow up: Response: No adverse reaction; IV Status: Completed infusion; IV Intake: jl7 100ml 13:45 Drug: vancoMYCIN IVPB 1 grams IVPB once over 2 hrs Route: IVPB; Infused Over: 2 hrs; jl7 Site: right forearm; 15:45 Follow up: Response: No adverse reaction; IV Status: Completed infusion; IV Intake: jl7 250ml 14:05 Drug: Lactated Ringers Solution IV 1000 ml IV at 100 bolus bolus Route: IV; Rate: 500 jl7 bolus; Site: right forearm; 16:30 Follow up: Response: No adverse reaction; IV Status: Completed infusion; IV Intake: jl7 1000ml 14:30 CANCELLED (Physician Discretion): potassium [id number] meq PO once jl7 14:30 Drug: Potassium Chloride IV 40 mEq IV at calculated rate once; administer over 1-2 jl7 hours Route: IV; Rate: calculated rate; Site: right forearm; 17:07 Follow up: IV Status: Infusion continued upon admission jl7 Disposition Summary: 11/16/23 14:16 Hospitalization Ordered Notes: Hospitalization Status: Inpatient Admission rt Provider: Pradeep Sylvester rt [facility] rt Condition: Guarded rt Problem: new rt Symptoms: have improved rt Bed/Room Type: Standard rt Room Assignment: 402(11/16/23 16:15) eb Diagnosis - Pneumonia rt - Congestive heart failure rt - Hypoxic respiratory failure rt - Septic shock rt - Hypernatremia rt - Hypokalemia rt Forms: - Medication Reconciliation Form rt - SBAR form rt - Leadership Thank You Letter rt Critical care time excluding procedures: 14:12 Critical care time: Bedside Care: 30 minutes, Consultation: 5 minutes. Total time: 35 rt minutes Signatures: Dispatcher [employer] EDYang Gleason RN RN jl7 Marie Jordan Kathy RN RN ko1 Jose Elias Fitch MD MD rt Osbaldo Kay, LINUX PROGRAMMER-C LINUX [id number] Corrections: (The following items were deleted from the chart) 14:30 13:59 Potassium Chloride PO 40 mEq PO once ordered. rt jl7 16:15 14:16 rt eb
[2023-11-16] MEDS ORDERED: KCL 20 MEQ/100 mL IVPB 200 ML IV ONE (14:24)
--- NOTE | 2023-11-16 15:26 | RAD REPORT ---
EXAMINATION: CT HEAD WITHOUT CONTRAST CLINICAL INDICATION: Male, 87 years old.ams TECHNIQUE: Axial CT images from the skull base to the vertex without intravenous contrast. Coronal an d sagittal reformatted images were created from the data set. One or more of the following dose reduction techniques were used: Automated exposure control, adjustment of the mA and/or kV according to patient size, and/or iterative reconstruction. Unless otherwise specified, incidental findings do not require dedicated imaging follow-up. [id number]. COMPARISON: 06/24/20 FINDINGS: INTRACRANIAL: No acute intracranial hemorrhage. No hydrocephalus. No mass effect or midline shift. 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 Severe age advanced cerebral atrophy with ex vacuo dilatation of the ventricular system. VASCULATURE: No visualized abnormalities in the arteries or dural venous sinuses. SCALP/SKULL: No significant soft tissue or osseous abnormalities. SINUSES: The visualized paranasal sinuses and mastoid air cells are predominantly clear. IMPRESSION: No acute intracranial abnormality.
[2023-11-16] MEDS: VANCOMYCIN 2 GM in NA CHLORIDE 0.9% 500 ML IVPB SCH (16:00)
--- NOTE | 2023-11-16 16:10 | P.HP ---
Certification for Inpatient Patient admitted to: Inpatient With expected LOS: >2 Midnights Patient will require the following post-hospital care: Rehabilitation Practitioner: I am a practitioner with admitting privileges, knowledge of patient current condition, hospital course, and medical plan of care. Services: Services provided to patient in accordance with Admission requirements found in Title 42 Section 412.3 of the Code of Federal Regulations Patient History Date of Service: 11/16/23 Reason for admission: Hypernatremia, hypokalemia, altered History of Present Illness: Sudarshan Rao is an 87 year old male with Pmhx hydrocephalus, Afib, CHF, dementia, enlarged prostate, AL, dementia, pneumonia, sepsis, sleep apnea who presented to the ED from the detention with low oxygen levels and difficulty breathing. EMS reports oxygen saturation in the low 80s on room air. Family at the bedside reports Sudarshan was given sedatives at his [facility] care [facility]. He is allergic to all sedatives and became aggitated causing him to be brought to the ED where hydrocephalus was seen in September. He was flown to [facility] where they determined the sedatives were the cause for his altered aggitation. Family reports he has not been the same since that September episode. He has had multiple rehab placements. On examination, he is nonverbal, eyes closed and arms flailing, he is unaware of his surroundings, unable to obtain ROS. Initial vitals BP 101 / 68; Pulse 97; Resp 31; Temp 100.6(A); Pulse Ox 96% Laboratory evaluation WBC 11.3, sodium 154, potassium 2.9, BUN/creatinine 32/1.60, GFR 42, glucose serum glucose 201, lactic acid 4.6/3.7, total bili 2.4, troponin 74.4, BNP 2902, UA with leukocyte esterase 500, WBC >50, bacteria >50. CT head reports "No acute intracranial abnormality." Chest xray reports "Small to moderate left pleural effusion. Basilar airspace disease also present which may reflect atelectasis and/or pneumonia. Probable background of interstitial edema." Sudarshan will be admitted to hospitalist service for further treatment of Severe sepsis and severe dehydration. Allergies sedatives Allergy (Uncoded 06/13/16 04:46) Unknown Home Medications: Ascorbic Acid [Vitamin C with Neyda Hips] 1 tab PO DAILY 04/24/18 Aspirin [Aspirin EC 81 MG] 81 mg PO DAILY 04/24/18 Donepezil [Aricept*] 5 mg PO DAILY 04/24/18 Memantine HCl [Namenda*] 10 mg PO BID 04/24/18 B-Complex with Vitamin C [Super B Complex-Vitamin C] 1 tab PO DAILY 10/20/18 Atorvastatin Calcium [Lipitor] 40 mg PO BEDTIME #30 tab 10/22/18 Nitroglycerin [Nitrostat*] 0.4 mg SL UD PRN #20 tab 10/22/18 Ensure Enlive 237 ml PO BID #60 can 07/15/20 Metoprolol Tartrate [Lopressor*] 12.5 mg PO DAILY #30 tab 07/15/20 - Past Medical/Surgical History Diabetic: No -: Chronic atrial fibrillation not on chronic anti coagulation therapy -: 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 He lives with the who takes care of him. - Family History Father -: Heart disease Brother -: Heart disease Mother -: Stroke - Social History Smoking Status: Unknown if ever smoked Alcohol use: No CD- Drugs: No Caffeine use: Yes Review of Systems is unable to be obtained Physical Examination - Physical Exam General: Delirious HEENT: Atraumatic, Normocephalic Neck: 2+ carotid pulse no bruit, JVD not distended Respiratory: Clear to auscultation bilaterally, Normal air movement Cardiovascular: Normal pulses, Normal S1 S2, Irregular heart rate/rhythm Capillary refill: <2 Seconds Gastrointestinal: Soft and benign Musculoskeletal: No clubbing Integumentary: No rashes Neurological: Dementia - Studies Laboratory Data (last 24 hrs) 11/16/23 11/16/23 11/16/23 12:10 12:10 12:10 WBC 11.30 H Hgb 13.5 L Hct 40.4 Plt Count 109 L PT 15.8 H INR 1.43 APTT 32.3 Sodium 154 H* Potassium 2.9 L BUN 32 H Creatinine 1.60 H Glucose 201 H Total Bilirubin 2.4 H AST 23 ALT 24 Alkaline Phosphatase 70 Assessment and Plan - Plan Assessment and plan Severe sepsis secondary to urinary tract infection and pneumonia Lactic acidosis -Sepsis criteria temp 100.6, respiration rates 31, lactic acid 4.6/repeat 3.7 -Chest xray reports "Small to moderate left pleural effusion. Basilar airspace disease also present which may reflect atelectasis and/or pneumonia. Probable background of interstitial edema." -Cefepime and vanc -Follow blood and urine culture -gentle IVF History of congestive heart failure Afib History of AL CAD with Stents NSTEMI -BNP 3902, 74.4/serial pending -continue home medications when taking PO -not on anticoagulant -continuous telemetry Organic dementia History of hyrocephalus Altered mental status likely secondary to hyponatremia Severe Dehydration Decreased p.o. intake -Na 154 -CT head reports "No acute intracranial abnormality." -Gentle IV fluids -Recheck BMP at 8 PM -TICKET SORTER consulted -N.p.o. for now -PT consult when appropriate Hypokalemia -K2.9 -Replaced in the ED -Recheck BMP 8 PM Elevated bilirubin -2.4 -IVF -Monitoring daily labs Hyperglycemia -Serum glucose 201 -monitor BMP/A1C in AM -Gentle IVF DVT ppx heparin DNR LOS 3-4 days Plan to discharge in: 72 Hours - Advance Directives Does patient have a Living Will: No Does patient have a Durable POA for Healthcare: No
[2023-11-16] MEDS: VANCOMYCIN 1 GM in NA CHLORIDE 0.9% 250 ML IVPB SCH (18:18)
[2023-11-16] MEDS: HEPARIN 5000 UNIT/ML 1 ML VIAL SQ SCH (18:18)
[2023-11-16] MEDS: D5W 1,000 ML IV SCH ×2 (18:18→18:22)
[2023-11-16 19:43] LABS: Anion Gap 8.3 mEq/L (5.0-15.0); Potassium 3.3 mEq/L (3.5-5.1); Troponin High Sensitivity 63.3 pg/mL (<58.9)
[2023-11-16] MEDS: CEFEPIME 1 GM in NA CHLORIDE 0.9% 100 ML IV SCH (19:59)
[2023-11-16 20:00] VITALS: BMI 29.5
[2023-11-17 06:03] LABS: Absolute Lymphocytes (CBC) 0.9 K/uL (0.7-4.9); Absolute Monocytes 0.9 K/uL (0.1-1.3); Absolute Neutrophil 11.1 K/uL (1.8-8.0); Basophils % 0.1 % (0-1.3); Hematocrit 34.8 % (39.6-49.0); Hemoglobin 11.8 g/dL (13.6-17.9); Lymphocytes % 6.7 % (15.3-44.8); MCH 31.6 pg (27.0-35.0); MCHC 33.9 g/dL (32.0-36.0); MCV 93.2 fL (80-100); MPV 11.6 fL (7.6-11.3); Monocytes % 6.9 % (3.3-12.3); Neutrophils % 86.3 % (41.7-73.7); Platelets 103 thou/uL (152-406); RBC Red Blood Cell Count 3.74 M/uL (4.33-5.43); Red Cell Distribution Width 14.5 % (12.1-15.2)
[2023-11-17 06:26] LABS: Blood Morphology Comment NOT SEEN (NOT SEEN); Platelet Estimate DECR; White Blood Cell Scan OK (OK)
[2023-11-17 06:37] LABS: Albumin 1.9 g/dL (3.4-5.0); Albumin/Globulin Ratio 0.6 (1.1-1.8); Anion Gap 7.1 mEq/L (5.0-15.0); Bilirubin Total 1.3 mg/dL (0.2-1.0); Globulin 3.2 g/dL (2.3-3.5); Magnesium 2.2 mg/dL (1.6-2.4); Potassium 3.1 mEq/L (3.5-5.1); Protein, Total 5.1 g/dL (6.4-8.2); Thyroid Stimulating Hormone 1.09 uIU/mL (0.358-3.740)
[2023-11-17] MEDS: D5W 1,000 ML IV SCH (06:42)
[2023-11-17] MEDS: POTASSIUM PHOS IN 0.9 % NACL 15 MMOL/250 ML BAG IV ONE (07:57)
[2023-11-17] MEDS: CEFEPIME 1 GM in D5W 100 ML IV SCH (09:16)
[2023-11-17] MEDS: POTASSIUM 25 MEQ EFFERV TAB PO ONE (13:00)
[2023-11-17 18:29] LABS: Anion Gap 6.1 mEq/L (5.0-15.0); Potassium 3.1 mEq/L (3.5-5.1)
--- NOTE | 2023-11-17 19:15 | P.PN ---
Date of Service: 11/17/23 Subjective More alert, conversing physically better this AM Sodium response is slow ROS 10 point ROS as noted above, otherwise negative Physical Exam General: Awake and alert, oriented x1, NAD, confused HEENT: Atraumatic, Normocephalic Neck: 2+ carotid pulse no bruit, JVD not distended Respiratory: Clear to auscultation bilaterally, Normal air movement, 4 LNC Cardiovascular: Normal pulses, Normal S1 S2, Afib with mild tachycardia Capillary refill: <2 Seconds Gastrointestinal: Soft and benign on palpation, NT/ND, bowel sounds present Musculoskeletal: No clubbing, peripheral pulse present Integumentary: No rashes Neurological: Dementia Vitals Reviewed Problem list Severe sepsis secondary to urinary tract infection and pneumonia Lactic acidosis History of congestive heart failure Afib History of PA CAD with Stents NSTEMI Organic dementia History of hyrocephalus Altered mental status likely secondary to hyponatremia Severe Dehydration Decreased p.o. intake Hypokalemia Elevated bilirubin Hyperglycemia Assessment and Plan Severe sepsis secondary to urinary tract infection and pneumonia Lactic acidosis -Sepsis criteria temp 100.6, respiration rates 31, lactic acid 4.6/repeat 3.7 -Chest xray reports "Small to moderate left pleural effusion. Basilar airspace disease also present which may reflect atelectasis and/or pneumonia. Probable background of interstitial edema." -continue Cefepime - blood culture Anaerobic gram positive cocci in clusters and urine culture gram negative rods -gentle IVF History of congestive heart failure Afib History of PA CAD with Stents NSTEMI -BNP 3902, 74.4/63.3/58.7- trend flat -continue home medications -hold antihypertensives today -not on anticoagulant -continuous telemetry Organic dementia History of hyrocephalus Altered mental status likely secondary to hyponatremia Severe Dehydration Decreased p.o. intake -Na 154 -CT head reports "No acute intracranial abnormality." -D5W -TOOLS ADMINISTRATOR consulted -pureed texture, thin consistency -PT consult when appropriate Hypokalemia Hypophosphatemia -K3.1, Phos 2.0 -monitor and replete PRN Elevated bilirubin -T bili 1.3-improved -IVF -Monitoring daily labs Hyperglycemia -Serum glucose 173 -A1C result pending -Gentle IVF DVT ppx heparin DNR LOS 3-4 days
[2023-11-17] MEDS: MEMANTINE HCL 10 MG TABLET PO SCH (19:53)
[2023-11-17] MEDS: TAMSULOSIN 0.4 MG SR CAP PO SCH (19:53)
[2023-11-17] MEDS: D5.45NS W/KCL 40MEQ 40 MEQ/1,000 ML BAG IV SCH (22:48)
[2023-11-17] MEDS: KCL 20 MEQ/100 mL IVPB 20 MEQ/100 ML BAG IV SCH (22:48)
[2023-11-18 07:13] LABS: Absolute Lymphocytes (CBC) 1.5 K/uL (0.7-4.9); Absolute Monocytes 0.7 K/uL (0.1-1.3); Absolute Neutrophil 9.4 K/uL (1.8-8.0); Basophils % 0.2 % (0-1.3); Eosinophils % 0.1 % (0-4.4); Hematocrit 35.3 % (39.6-49.0); MCH 31.6 pg (27.0-35.0); MCHC 34.1 g/dL (32.0-36.0); MCV 92.7 fL (80-100); MPV 11.6 fL (7.6-11.3); Monocytes % 5.7 % (3.3-12.3); Platelets 114 thou/uL (152-406); RBC Red Blood Cell Count 3.81 M/uL (4.33-5.43); Red Cell Distribution Width 14.3 % (12.1-15.2)
[2023-11-18 07:38] LABS: Albumin/Globulin Ratio 0.6 (1.1-1.8); Anion Gap 8.7 mEq/L (5.0-15.0); Bilirubin Total 0.8 mg/dL (0.2-1.0); Globulin 3.2 g/dL (2.3-3.5); Magnesium 2.1 mg/dL (1.6-2.4); Phosphorus 2.2 mg/dL (2.5-4.9); Potassium 2.7 mEq/L (3.5-5.1); Protein, Total 5.2 g/dL (6.4-8.2)
[2023-11-18] MEDS: FINASTERIDE 5 MG TAB PO SCH (08:38)
[2023-11-18] MEDS: ASPIRIN EC 81 MG TAB PO SCH (08:38)
--- NOTE | 2023-11-18 10:49 | P.CNS ---
Date of Consult: 11/18/23 Chief Complaint: Hypernatremia, hypokalemia, altered History of Present Illness: Patient with PMH of CAD s/p CABG, Heart failure, no recent echo, stroke, dementia, lives in snf, presented with AMS, wekaness, found to have UTI with sepsis, cardiology were consulted for NSTEMI, patient got advanced dementia and will not answer questions correctly, so hard to assess his cardiac symptoms. Allergies sedatives Allergy (Uncoded 06/13/16 04:46) Unknown Home medications list reviewed: Yes Home Medications: Aspirin [Aspirin EC 81 MG] 81 mg PO DAILY 04/24/18 Memantine HCl [Namenda*] 10 mg PO BEDTIME 04/24/18 Atorvastatin Calcium [Lipitor] 40 mg PO BEDTIME #30 tab 10/22/18 Acetaminophen [Pain Relief] 650 mg PO Q4H PRN 11/17/23 Amlodipine [Norvasc] 10 mg PO DAILY 11/17/23 Cyanocobalamin [Vitamin B-12] 1,000 mcg PO DAILY 11/17/23 Finasteride [Proscar] 5 mg PO DAILY 11/17/23 Furosemide 40 mg PO BID 11/17/23 Metoprolol Tartrate [Lopressor*] 12.5 mg PO BID 11/17/23 Potassium Chloride 20 meq PO BID 11/17/23 Tamsulosin [Flomax] 0.4 mg PO BEDTIME 11/17/23 - Past Medical/Surgical History Diabetic: No -: Chronic atrial fibrillation not on chronic anti coagulation therapy -: 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 He lives with the who takes care of him. - Family History Father Medical History: Heart disease Brother Medical History: Heart disease Mother Medical History: Stroke - Social History Smoking Status: Unknown if ever smoked Alcohol use: No CD- Drugs: No Caffeine use: Yes Place of Residence: [facility] Term Review of Systems is unable to be obtained (advanced dementia) Physical Examination Temp Pulse Resp BP Pulse Ox 96.9 F 80 18 131/61 96 11/18/23 04:00 11/18/23 04:00 11/18/23 04:00 11/18/23 04:00 11/18/23 04:00 General: Alert, In no apparent distress HEENT: Atraumatic, PERRLA, Mucous membr. moist/pink, EOMI, Sclerae nonicteric Neck: Supple, 2+ carotid pulse no bruit, No LAD, Without JVD or thyroid abnormality Respiratory: Diminished, Crackles/rales Cardiovascular: Regular rate/rhythm, Normal S1 S2 Gastrointestinal: Normal bowel sounds, No tenderness Musculoskeletal: No tenderness Integumentary: No rashes Neurological: Normal gait, Normal speech, Normal tone, Normal affect Lymphatics: No axilla or inguinal lymphadenopathy - Problems (1) Congestive heart failure Current Visit: Yes Status: Acute Plan: Patient looks euvolemic on exam, labs shows hypernatremia, continue to monitor volume status as patient will need D5W to correct Na. continue lopressor 12.5 mg po BID get Echo (2) NSTEMI (non-ST elevated myocardial infarction) Current Visit: No Status: Acute Plan: Troponin mild elevated and down trended, most likely Type 2 IN secondary to Sepsis continue ASA 81 mg daily continue lipitor 40 mg daily get Echo
--- NOTE | 2023-11-18 11:58 | EKG ---
Test Date: 2023-11-16 Test Time: 12:26:18 Ironing Pleater: SEYMOUR MEASUREMENT RESULTS: Intervals: Rate: 107 [place]: QRSD: 96 QT: 422 QTc: 563 [place]: P: [place]: QRS: 4 T: 5 INTERPRETIVE STATEMENTS: Atrial fibrillation Nonspecific ST and T wave abnormality, probably digitalis effect Abnormal ECG Compared to ECG 06/24/2020 19:18:14 ST (T wave) deviation now present Myocardial infarct finding no longer present T-wave abnormality no longer present Possible ischemia no longer present Electronically Signed On 11-18-23 11:53:33 CDT by Levar Swanson
--- NOTE | 2023-11-18 12:26 | P.PN ---
Date of Service: 11/18/23 Vital Signs Temp Pulse Resp BP Pulse Ox 96.9 F 80 18 131/61 96 11/18/23 04:00 11/18/23 04:00 11/18/23 04:00 11/18/23 04:00 11/18/23 04:00 Medications Acetaminophen (Acetaminophen 650mg/Rect Supp) 650 mg PA Q4H PRN PRN Reason: Temp> 100F or mild pain Aspirin (Aspirin Ec 81 Mg Tab) 81 mg PO DAILY [facility] Last Admin: 11/18/23 08:38 Dose: 81 mg Finasteride (Finasteride 5 Mg Tab) 5 mg PO DAILY [facility] Last Admin: 11/18/23 08:38 Dose: 5 mg Heparin Sodium (Porcine) (Heparin 5000 Unit/Ml 1 Ml Vial) 5,000 unit SQ Q8HR [facility] Last Admin: 11/18/23 08:38 Dose: 5,000 unit Dextrose/Water (Dextrose In Water (1-Liter)) 1,000 mls @ 100 mls/hr IV .Q10H [facility] Last Admin: 11/18/23 11:43 Dose: 1,000 mls Cefepime HCl 1 gm/ Dextrose 100 mls @ 200 mls/hr IV Q12HR [facility]; Protocol Last Admin: 11/18/23 08:38 Dose: 100 mls Potassium Chloride 40 meq/ (Dextrose) 520 mls @ 260 mls/hr IV 1X [facility]; Protocol Stop: 11/18/23 14:29 Memantine (Memantine Hcl 10 Mg Tablet) 10 mg PO BEDTIME [facility] Last Admin: 11/17/23 19:53 Dose: 10 mg Tamsulosin HCl (Tamsulosin 0.4 Mg Sr Cap) 0.4 mg PO BEDTIME [facility] Last Admin: 11/17/23 19:53 Dose: 0.4 mg Microbiology Results 11/16/23 12:50 Clean Catch Urine Rossiter Count - Final >100,000 CFU/ML. 11/16/23 12:50 Clean Catch Urine - Final Escherichia Coli 11/16/23 12:35 Blood - Blood Aerobic Blood Culture - Preliminary No growth in 24 hours. 11/16/23 12:35 Blood - Blood Anaerobic Blood Culture - Preliminary 11/16/23 12:35 Blood - Blood Gram Stain - Preliminary 11/16/23 12:20 Blood - Blood Aerobic Blood Culture - Preliminary No growth in 24 hours. 11/16/23 12:20 Blood - Blood Anaerobic Blood Culture - Preliminary No growth in 24 hours. Assessment/ Plan: Nephrology Progress Note Limited IH/ ROS due to mental status No Acute Events Overnight Vital Signs, Medications, Blood Work, and Imaging reviewed in the chart NAD. NCAT. DMM. Neck Supple. Normal Respiratory Effort. RRR. Abd ND. No C/C. LE Edema none. No Rash. Somnolent. NoSpeech. Assessment & Plan Hypernatremia/ Dehydration -Continue IVF with D5W -Hold Lasix Hypokalemia -Replete as ordered -Repeat BMP pending Hypophosphatemia -Replete prn HTN -Hold antihypertensives at this time Hyperglycemia -RISS prn Hypoalbuminemia -Advance nutrition as tolerated Anemia in chronic illness -Monitor H&H BPH with LUTS -Continue tamsulosin and finasteride
[2023-11-18] MEDS ORDERED: VANCOMYCIN 2 GM in NA CHLORIDE 0.9% 500 ML IVPB SCH (13:00)
[2023-11-18] MEDS: DEXTROSE 5% IV SCH (13:02)
[2023-11-18] MEDS: WATER IV SCH (13:02)
[2023-11-18] MEDS: POTASSIUM CL IV SCH (13:02)
--- NOTE | 2023-11-18 13:16 | P.PN ---
Date of Service: 11/18/23 Subjective Awake, remains confused, cooperative Sodium response continues to be slow ROS 10 point ROS as noted above, otherwise negative Physical Exam General: AAO x1,confused, NAD HEENT: Atraumatic, Normocephalic Neck: 2+ carotid pulse no bruit, JVD not distended Respiratory: Clear to auscultation bilaterally, Normal air movement, 3 LNC Cardiovascular: Normal pulses, Normal S1 S2, Afib rate control Capillary refill: <2 Seconds Gastrointestinal: Soft on palpation, NT/ND, normal active bowel sounds Musculoskeletal: No clubbing, peripheral pulse present Integumentary: No rashes Neurological: Dementia Vitals Reviewed Problem list Severe sepsis secondary to urinary tract infection and pneumonia Lactic acidosis History of congestive heart failure Afib History of [place] CAD with Stents NSTEMI Organic dementia History of hyrocephalus Metabolic encephalopathy secondary to hypernatremia Severe Dehydration Decreased p.o. intake Hypokalemia Elevated bilirubin Hyperglycemia Assessment and Plan Severe sepsis secondary to urinary tract infection and pneumonia Lactic acidosis -Sepsis criteria temp 100.6, respiration rates 31, lactic acid 4.6/repeat 3.7 -Chest xray reports "Small to moderate left pleural effusion. Basilar airspace disease also present which may reflect atelectasis and/or pneumonia. Probable background of interstitial edema." -continue Cefepime - blood culture Anaerobic gram positive cocci in clusters and urine culture gram negative rods -gentle IVF History of congestive heart failure Afib History of [place] CAD with Stents NSTEMI -BNP 3902, troponin 74.4/63.3/58.7- trend flat -continue home medications -hold antihypertensives today -not on anticoagulant -continuous telemetry Organic dementia History of hyrocephalus Metabolic encephalopathy secondary to hypernatremia Severe Dehydration Decreased p.o. intake -Na 152 -CT head reports "No acute intracranial abnormality." -D5W -FOREIGN LANGUAGE INSTRUCTOR consulted -pureed texture, thin consistency -PT consult when appropriate Hypokalemia Hypophosphatemia -K2.7, Phos 2.2 -monitor and replete PRN Elevated bilirubin -T bili 0.8-improved -IVF -Monitoring daily labs Hyperglycemia -Serum glucose 128 -A1C 5.7 -Gentle IVF -Accu-Chek with sliding scale insulin DVT ppx heparin DNR LOS 3-4 days <Jaye Barker - Last Filed: 11/18/23 16:06> Patient seen and examined. Plan of care discussed with Kieran Mj. Nurse report patient has been having difficulty with swallowing. Dysphagia diet ordered. Awaiting speech evaluation Continue IV D5 water for hypernatremia Nephrology is assisting with management. <ryan navarrete - Last Filed: 11/18/23 18:18>
[2023-11-18] MEDS: INSULIN REGULAR (HUMAN) 100 UNIT/ML SQ SCH (16:30)
[2023-11-18 19:43] LABS: Anion Gap 7.8 mEq/L (5.0-15.0); Potassium 2.8 mEq/L (3.5-5.1)
[2023-11-18] MEDS: ENSURE ENLIVE 237 ML CAN PO SCH (21:00)
[2023-11-19 07:02] LABS: Absolute Eosinophils 0.1 K/uL (0-0.5); Absolute Lymphocytes (CBC) 1.5 K/uL (0.7-4.9); Absolute Monocytes 0.8 K/uL (0.1-1.3); Absolute Neutrophil 7.8 K/uL (1.8-8.0); Basophils % 0.3 % (0-1.3); Eosinophils % 0.8 % (0-4.4); Hematocrit 38.1 % (39.6-49.0); Lymphocytes % 14.2 % (15.3-44.8); MCH 31.5 pg (27.0-35.0); MCHC 34.2 g/dL (32.0-36.0); MCV 92.1 fL (80-100); MPV 11.7 fL (7.6-11.3); Monocytes % 8.1 % (3.3-12.3); Neutrophils % 76.6 % (41.7-73.7); Nucleated Red Blood Cells % 0.1 % (0-0); Platelets 114 thou/uL (152-406); RBC Red Blood Cell Count 4.14 M/uL (4.33-5.43); Red Cell Distribution Width 14.4 % (12.1-15.2)
[2023-11-19 07:19] LABS: Albumin 1.9 g/dL (3.4-5.0); Albumin/Globulin Ratio 0.5 (1.1-1.8); Anion Gap 7.9 mEq/L (5.0-15.0); Bilirubin Total 1.1 mg/dL (0.2-1.0); Globulin 3.5 g/dL (2.3-3.5); Magnesium 1.9 mg/dL (1.6-2.4); Phosphorus 2.2 mg/dL (2.5-4.9); Potassium 2.9 mEq/L (3.5-5.1); Protein, Total 5.4 g/dL (6.4-8.2)
[2023-11-19] MEDS ORDERED: POTASSIUM PHOS IN 0.9 % NACL 15 MMOL/250 ML BAG IV ONE (10:00)
[2023-11-19] MEDS: POTASSIUM CL 40 MEQ in NA CHLORIDE 0.9% 500 ML IV SCH (10:00)
[2023-11-19] MEDS: Mupirocin NASAL 2 APPL/1 GM TUBE NAS SCH (10:03)
--- NOTE | 2023-11-19 10:04 | RAD REPORT ---
Procedure: Chest Single View History: Device placement PICC line placement Comparison: none Findings: PICC line has its tip in the superior vena cava
[2023-11-19] MEDS: POTASSIUM PHOS IN 0.9 % NACL 15 MMOL/250 ML BAG IV SCH (11:38)
--- NOTE | 2023-11-19 12:32 | ECHO ---
HEIGHT: 5 ft 9 in WEIGHT: 200 lb 0 oz DATE OF STUDY: 11/18/[address]: Jaye Barker NP 2-DIMENSIONAL: YES M.MODE: YES DOPPLER: YES COLOR FLOW: YES TDS: PORTABLE: YES DEFINITY: BUBBLE STUDY: DIAGNOSIS: ELEVATED TROPONIN CARDIAC HISTORY: CATHERIZATION: YES SURGERY: YES PROSTHETIC VALVE: NO PACEMAKER: NO MEASUREMENTS (cm) DIASTOLIC (NORMALS) SYSTOLIC (NORMALS) IVSd 1.4 (0.6-1.2) LA Diam 4.8 (1.9-4.0) LVEF 60% LVIDd 6.0 (3.5-5.7) LVIDs 4.6 (2.0-3.5) %FS LVPWd 1.4 (0.6-1.2) Ao Diam 3.3 (2.0-3.7) 2 DIMENSIONAL ASSESSMENT: RIGHT ATRIUM: NORMAL LEFT ATRIUM: MODERATELY DILATED RIGHT VENTRICLE: NORMAL LEFT VENTRICLE: NORMAL TRICUSPID VALVE: MILD TRICUSPID REGURGITATION MITRAL VALVE: NORMAL PULMONIC VALVE: NORMAL AORTIC VALVE: NORMAL PERICARDIAL EFFUSION: NONE AORTIC ROOT: NORMAL LEFT VENTRICULAR WALL MOTION: NORMAL DOPPLER/COLOR FLOW: GRADE III DIASTOLIC DYSFUNCTION COMMENTS: 1. NORMAL LEFT VENTRICULAR SYSTOLIC FUCNTION, EJECTION FRACTION 60%, NORMAL WALL MOTION 2. GRADE III DIASTOLIC DYSFUNCTION TECHNOLOGIST: AYLIN AUGUST
--- NOTE | 2023-11-19 12:48 | P.PN ---
Date of Service: 11/19/23 Subjective Patient drowsy/confused No acute events overnight ROS 10 point ROS as noted above, otherwise negative Physical Exam General: AAO x1,confused, NAD HEENT: Atraumatic, Normocephalic Neck: 2+ carotid pulse no bruit, JVD not distended Respiratory: Clear to auscultation bilaterally, Normal air movement, 3 LNC Cardiovascular: Normal pulses, Normal S1 S2, Afib rate control Capillary refill: <2 Seconds Gastrointestinal: Soft on palpation, NT/ND, normal active bowel sounds Musculoskeletal: No clubbing, peripheral pulse present Integumentary: No rashes Neurological: Dementia Vitals Reviewed Problem list Septic shock secondary to urinary tract infection and pneumonia Bacteremia-Staphylococcus Schleiferi History of congestive heart failure Afib History of [place] CAD with Stents NSTEMI Organic dementia History of hyrocephalus Metabolic encephalopathy secondary to hypernatremia Severe Dehydration Decreased p.o. intake Hypokalemia Elevated bilirubin Hyperglycemia Plan Septic shock secondary to urinary tract infection and pneumonia Bacteremia-Staphylococcus Schleiferi -Sepsis criteria temp 100.6, respiration rates 31, lactic acid 4.6/repeat 3.7 -Chest xray reports "Small to moderate left pleural effusion. Basilar airspace disease also present which may reflect atelectasis and/or pneumonia. Probable background of interstitial edema." -continue Cefepime -blood culture 2/4 grew Staphylococcus Schleiferi -ID consulted -Will obtain echo -gentle IVF History of congestive heart failure Afib History of [place] CAD with Stents NSTEMI -BNP 3902, troponin 74.4/63.3/58.7- trend flat -continue home medications -hold antihypertensives today -not on anticoagulant -continuous telemetry Organic dementia History of hyrocephalus Metabolic encephalopathy secondary to hypernatremia Severe Dehydration Decreased p.o. intake -Na improving -CT head reports "No acute intracranial abnormality." -D5W -FRONT FACER consulted -pureed texture, thin consistency -PT consult when appropriate Hypokalemia Hypophosphatemia -monitor and replete PRN Elevated bilirubin -T bili 0.8-improved -IVF -Monitoring daily labs Hyperglycemia -Serum glucose 128 -A1C 5.7 -Gentle IVF -Accu-Chek with sliding scale insulin DVT ppx heparin DNR LOS 3-4 days
[2023-11-19 18:56] LABS: Anion Gap 8.6 mEq/L (5.0-15.0); Potassium 3.6 mEq/L (3.5-5.1)
--- NOTE | 2023-11-19 20:24 | P.PN ---
Date of Service: 11/19/23 Vital Signs Temp Pulse Resp BP Pulse Ox 97.1 F 71 22 H 129/63 93 11/19/23 20:00 11/19/23 20:00 11/19/23 20:00 11/19/23 20:00 11/19/23 20:00 Medications Acetaminophen (Acetaminophen 650mg/Rect Supp) 650 mg IN Q4H PRN PRN Reason: Temp> 100F or mild pain Aspirin (Aspirin Ec 81 Mg Tab) 81 mg PO DAILY [facility] Last Admin: 11/19/23 10:01 Dose: 81 mg Finasteride (Finasteride 5 Mg Tab) 5 mg PO DAILY [facility] Last Admin: 11/19/23 10:01 Dose: 5 mg Heparin Sodium (Porcine) (Heparin 5000 Unit/Ml 1 Ml Vial) 5,000 unit SQ Q8HR [facility] Last Admin: 11/19/23 17:00 Dose: Not Given Dextrose/Water (Dextrose In Water (1-Liter)) 1,000 mls @ 100 mls/hr IV .Q10H [facility] Last Admin: 11/19/23 08:42 Dose: Not Given Cefazolin Sodium 2 gm/ (Dextrose) 100 mls @ 200 mls/hr IVPB Q8H [facility]; Protocol Last Admin: 11/19/23 15:00 Dose: 100 mls Potassium Chloride (Kcl 20 Meq/100 Ml Ivpb (Premix)) 20 meq in 100 mls @ 50 mls/hr IV 1X [facility]; Protocol Stop: 11/19/23 22:59 Insulin Human Regular (Insulin Regular (Human) 100 Unit/Ml) 0 unit SQ ACHS [facility]; Protocol Last Admin: 11/19/23 16:30 Dose: Not Given Memantine (Memantine Hcl 10 Mg Tablet) 10 mg PO BEDTIME [facility] Last Admin: 11/18/23 21:06 Dose: 10 mg Mupirocin (Mupirocin Nasal 2 Appl/1 Gm Tube) 1 appl KEZIA BID [facility] Stop: 11/23/23 21:01 Last Admin: 11/19/23 10:03 Dose: 1 appl Nutritional Formula (Ensure Enlive 237 Ml Can) 237 ml PO BID [facility] Last Admin: 11/19/23 10:03 Dose: 237 ml Tamsulosin HCl (Tamsulosin 0.4 Mg Sr Cap) 0.4 mg PO BEDTIME [facility] Last Admin: 11/18/23 21:06 Dose: 0.4 mg Microbiology Results 11/16/23 12:35 Blood - Blood Aerobic Blood Culture - Preliminary Staphylococcus Schleiferi 11/16/23 12:35 Blood - Blood Anaerobic Blood Culture - Final Staphylococcus Schleiferi 11/16/23 12:35 Blood - Blood Gram Stain - Final 11/16/23 12:50 Clean Catch Urine [place]unction Count - Final >100,000 CFU/ML. 11/16/23 12:50 Clean Catch Urine - Final Escherichia Coli 11/16/23 12:20 Blood - Blood Aerobic Blood Culture - Preliminary No growth in 24 hours. 11/16/23 12:20 Blood - Blood Anaerobic Blood Culture - Preliminary No growth in 24 hours. Assessment/ Plan: Nephrology Progress Note Limited IH/ ROS due to mental status No Acute Events Overnight Vital Signs, Medications, Blood Work, and Imaging reviewed in the chart NAD. NCAT. DMM. Neck Supple. Normal Respiratory Effort. RRR. Abd ND. No C/C. LE Edema none. No Rash. Somnolent. NoSpeech. Assessment & Plan Hypernatremia/ Dehydration -Continue IVF with D5W -Hold Lasix Hypokalemia -Replete as ordered -Repeat BMP Hypophosphatemia -Replete as ordered HTN -Hold antihypertensives at this time Hyperglycemia -RISS prn Hypoalbuminemia -Advance nutrition as tolerated Anemia in chronic illness -Monitor H&H BPH with LUTS -Continue tamsulosin and finasteride Case reviewed with Dr. Berrios
[2023-11-19] MEDS: KCL 20 MEQ/100 mL IVPB 20 MEQ/100 ML BAG IV SCH (21:00)
--- NOTE | 2023-11-19 23:29 | RAD REPORT ---
CLINICAL HISTORY: Change in mental status, more altered. TECHNIQUE: Noncontrast CT through the head was performed. Axial, coronal, and sagittal reconstructions were crea gio and sent to PACS. This exam was performed according to our departmental dose-optimization program which includes use of Automated Exposure Control, adjustment of the mA and/or kV according to patient size and/or use of iterative reconstruction technique. COMPARISON: CT head from November 16, 2023. FINDINGS: There is diffuse atrophy throughout the brain parenchyma. Mild chronic periventricular white matter c hanges. Unchanged moderate ex vacuo dilatation of the ventricular system. There is no intra-axial or extra-axial bleed. There is no mass or mass effect. The visualized paranasal sinuses and mastoid air cells are patent. No acute fracture is identified. IMPRESSION: No acute intracranial abnormality identified. Electronically signed by: Cindy Mckoy MD 11/19/2023 11:10 PM CDT RP Due to temporary technical issues with the PACS/[employer] reporting system, reports are being kay d by the in-house radiologist without review as a courtesy to ensure prompt reporting the interpreting radiologist is fully responsible for the content of the report. Transcribed Date/Time: 11/19/2023 11:29 PM
[2023-11-20 07:01] LABS: Absolute Eosinophils 0.1 K/uL (0-0.5); Absolute Lymphocytes (CBC) 1.2 K/uL (0.7-4.9); Absolute Monocytes 0.8 K/uL (0.1-1.3); Absolute Neutrophil 7.6 K/uL (1.8-8.0); Basophils % 0.3 % (0-1.3); Eosinophils % 1.2 % (0-4.4); Hematocrit 34.5 % (39.6-49.0); Hemoglobin 11.9 g/dL (13.6-17.9); Lymphocytes % 12.8 % (15.3-44.8); MCH 31.8 pg (27.0-35.0); MCHC 34.4 g/dL (32.0-36.0); MCV 92.4 fL (80-100); MPV 11.3 fL (7.6-11.3); Monocytes % 7.8 % (3.3-12.3); Neutrophils % 77.9 % (41.7-73.7); Nucleated Red Blood Cells % 0.1 % (0-0); Platelets 106 thou/uL (152-406); RBC Red Blood Cell Count 3.73 M/uL (4.33-5.43)
[2023-11-20 07:06] LABS: Albumin 1.8 g/dL (3.4-5.0); Albumin/Globulin Ratio 0.5 (1.1-1.8); Anion Gap 10.8 mEq/L (5.0-15.0); Bilirubin Total 0.8 mg/dL (0.2-1.0); Globulin 3.5 g/dL (2.3-3.5); Magnesium 2.1 mg/dL (1.6-2.4); Potassium 2.8 mEq/L (3.5-5.1); Protein, Total 5.3 g/dL (6.4-8.2)
[2023-11-20] MEDS: POTASSIUM PHOS IN 0.9 % NACL 15 MMOL/250 ML BAG IV SCH (09:22)
--- NOTE | 2023-11-20 12:56 | RAD REPORT ---
EXAMINATION: ONE VIEW CHEST XR CLINICAL INDICATION: Male, 87 years old.,Eval for pneumonia/aspiration TECHNIQUE: Frontal chest projection is submitted. Examination is limited by patient positioning and t echnique. COMPARISON: 11/19/2023 on 11/16/2023 radiographs FINDINGS: Right arm PICC unchanged in position with catheter tip at the mid to distal SVC. Hazy bibasilar airsp earl opacities, stable, with possible trace effusions. The left basilar pleural-parenchymal process has partially improved since 11/16/2023. No pneumothorax or sizable effusion. The heart is stable in s ize with sequelae of CABG. IMPRESSION: Stable bibasilar opacities and trace effusions, findings may reflect atelectasis or pneumonia.
[2023-11-20] MEDS: D5W 1,000 ML with POTASSIUM CL 20 MEQ IV SCH (13:00)
[2023-11-20] MEDS: POTASSIUM CL 40 MEQ in NA CHLORIDE 0.9% 500 ML IV SCH (13:01)
--- NOTE | 2023-11-20 13:43 | P.PN ---
Date of Service: 11/20/23 Subjective Patient drowsy/confused No acute events overnight Tolerated small amounts of pureed diet today Slightly improved mentation from yesterday ROS 10 point ROS as noted above, otherwise negative Physical Exam General: AAO x1,confused, NAD HEENT: Atraumatic, Normocephalic Neck: 2+ carotid pulse no bruit, JVD not distended Respiratory: Clear to auscultation bilaterally, Normal air movement, 3 LNC Cardiovascular: Normal pulses, Normal S1 S2, Afib rate control Capillary refill: <2 Seconds Gastrointestinal: Soft on palpation, NT/ND, normal active bowel sounds Musculoskeletal: No clubbing, peripheral pulse present Integumentary: No rashes Neurological: Dementia Vitals Reviewed Problem list Septic shock secondary to urinary tract infection and pneumonia Bacteremia-Staphylococcus Schleiferi History of congestive heart failure Afib History of [place] CAD with Stents NSTEMI Organic dementia History of hyrocephalus Metabolic encephalopathy secondary to hypernatremia Severe Dehydration Decreased p.o. intake Hypokalemia Elevated bilirubin Hyperglycemia Plan Septic shock secondary to urinary tract infection and pneumonia Metabolic encephalopathy secondary to sepsis/hyponatremia Bacteremia-Staphylococcus Schleiferi -Sepsis criteria temp 100.6, respiration rates 31, lactic acid 4.6/repeat 3.7 -Chest xray reports "Small to moderate left pleural effusion. Basilar airspace disease also present which may reflect atelectasis and/or pneumonia. Probable background of interstitial edema." -continue ancef -Was noted to have worsening mental condition 11/17, 11/18 per family at bedside. CT head was repeated and negative for acute findings Considering possibility of encephalopathy due to cefepime as well, patient was switched to Ancef and is doing slightly better today -blood culture 02/14 grew Staphylococcus Schleiferi -ID consulted -Echo shows diastolic dysfunction, normal systolic function, no vegetations noted -gentle IVF D5W/KCl History of congestive heart failure Afib History of [place] CAD with Stents NSTEMI -BNP 3902, troponin 74.4/63.3/58.7- trend flat -continue home medications -not on anticoagulant -continuous telemetry Dementia History of hyrocephalus Metabolic encephalopathy secondary to hypernatremia Severe Dehydration Decreased p.o. intake -Na improving -CT head reports, repeat CT head 11/18 negative for acute findings -D5W with KCl -CELL LINER consulted -pureed texture, thin consistency -PT consult when appropriate Hypokalemia Hypophosphatemia -monitor and replete PRN Elevated bilirubin -T bili 0.8-improved -IVF -Monitoring daily labs Hyperglycemia -Serum glucose 128 -A1C 5.7 -Gentle IVF -Accu-Chek with sliding scale insulin DVT ppx heparin DNR LOS 3-4 days
--- NOTE | 2023-11-20 15:42 | CON ---
History Of Present Illness: This is an 87-year-old male I was consulted for bacteremia secondary to Staph schleiferi and urinary tract infection secondary to E coli. The patient is being treated by cefazolin. The patient is unable to communicate. Most of the history was obtained through medical record and by the bedside. Past Medical History: Patient has atrial fibrillation, Alzheimer's dementia, coronary artery disease with CABG x3 vessel, hypertension, hyperlipidemia, stent placement in 2012. Social History: Nonsmoker. Nondrinker. Family History: Noncontributory. Medications: Cefazolin. See MARs for other medications. Allergies: NO KNOWN DRUG ALLERGIES. Review of Systems: Unable to obtain. Physical Examination: General: This is an 87-year-old male, lying in bed, not in any acute cardiopulmonary distress. Vital Signs: Temperature 98, pulse 78, respirations 20, blood pressure 104/59. HEENT: Unremarkable. Neck: Supple. Lungs: Basal crackles. Heart: S1, S2. Regular. Abdomen: Soft, nontender. Bowel sounds present. Extremity: No edema. Wound is noted with small scab lesions on the left leg also noted. PICC line is in place. Laboratory Data: WBC 9.7 down from 11.3, hemoglobin 11.9, platelets are 106. Chemistry shows BUN of 9, creatinine 0.8, albumin level of 1.8. Assessment And Plan: Bacteremia secondary to Staph schleiferi. We will continue cefazolin for 2 weeks, after 2 weeks of negative blood culture. Urinary tract infection secondary to Escherichia coli. Continue antibiotic for 5 more days for that infection and monitor UA. Continue monitoring CBC, BMP twice weekly while the patient is on antibiotic. Thrombocytopenia. Anemia of chronic disease. Leukocytosis has improved. Moderate protein-calorie malnourishment. We will follow the patient as needed. NF/MODL Voice ID: [id number] Report ID: [id number] [place]
--- NOTE | 2023-11-20 20:38 | P.PN ---
Date of Service: 11/20/23 Vital Signs Temp Pulse Resp BP Pulse Ox 98.1 F 84 14 96/55 L 94 11/20/23 20:00 11/20/23 20:00 11/20/23 20:00 11/20/23 20:00 11/20/23 20:00 Medications Acetaminophen (Acetaminophen 650mg/Rect Supp) 650 mg MT Q4H PRN PRN Reason: Temp> 100F or mild pain Aspirin (Aspirin Ec 81 Mg Tab) 81 mg PO DAILY [facility] Last Admin: 11/20/23 09:20 Dose: 81 mg Finasteride (Finasteride 5 Mg Tab) 5 mg PO DAILY [facility] Last Admin: 11/20/23 09:20 Dose: 5 mg Heparin Sodium (Porcine) (Heparin 5000 Unit/Ml 1 Ml Vial) 5,000 unit SQ Q8HR [facility] Last Admin: 11/20/23 16:13 Dose: 5,000 unit Cefazolin Sodium 2 gm/ (Dextrose) 100 mls @ 200 mls/hr IVPB Q8H [facility]; Protocol Last Admin: 11/20/23 13:01 Dose: 100 mls Potassium Chloride 20 meq/ (Dextrose/Water) 1,010 mls @ 100 mls/hr IV .Q10H6M [facility] Last Admin: 11/20/23 13:00 Dose: 1,010 mls Insulin Human Regular (Insulin Regular (Human) 100 Unit/Ml) 0 unit SQ ACHS [facility]; Protocol Last Admin: 11/20/23 20:28 Dose: Not Given Memantine (Memantine Hcl 10 Mg Tablet) 10 mg PO BEDTIME [facility] Last Admin: 11/19/23 20:47 Dose: Not Given Mupirocin (Mupirocin Nasal 2 Appl/1 Gm Tube) 1 appl KEZIA BID [facility] Stop: 11/23/23 21:01 Last Admin: 11/20/23 09:20 Dose: 1 appl Nutritional Formula (Ensure Enlive 237 Ml Can) 237 ml PO BID [facility] Last Admin: 11/20/23 09:21 Dose: 237 ml Tamsulosin HCl (Tamsulosin 0.4 Mg Sr Cap) 0.4 mg PO BEDTIME [facility] Last Admin: 11/19/23 21:00 Dose: Not Given Microbiology Results 11/16/23 12:35 Blood - Blood Aerobic Blood Culture - Preliminary No growth in 24 hours. 11/16/23 12:35 Blood - Blood Anaerobic Blood Culture - Final Staphylococcus Schleiferi 11/16/23 12:35 Blood - Blood Gram Stain - Final 11/16/23 12:50 Clean Catch Urine Alexander Count - Final >100,000 CFU/ML. 11/16/23 12:50 Clean Catch Urine - Final Escherichia Coli 11/16/23 12:20 Blood - Blood Aerobic Blood Culture - Preliminary No growth in 24 hours. 11/16/23 12:20 Blood - Blood Anaerobic Blood Culture - Preliminary No growth in 24 hours. Assessment/ Plan: Nephrology Progress Note Limited IH/ ROS due to mental status No Acute Events Overnight Vital Signs, Medications, Blood Work, and Imaging reviewed in the chart NAD. NCAT. DMM. Neck Supple. Normal Respiratory Effort. RRR. Abd ND. No C/C. LE Edema none. No Rash. Somnolent. No Speech. Rao med Assessment & Plan Hypernatremia/ Dehydration -Continue IVF with D5W -Hold Lasix Hypokalemia -Replete as ordered Hypophosphatemia -Replete as ordered HTN -Hold antihypertensives at this time Hyperglycemia -RISS prn Hypoalbuminemia -Advance nutrition as tolerated Anemia in chronic illness -Monitor H&H BPH with LUTS -Continue tamsulosin and finasteride Case reviewed with Dr. Berrios
[2023-11-21 06:49] LABS: Absolute Eosinophils 0.2 K/uL (0-0.5); Absolute Lymphocytes (CBC) 1.4 K/uL (0.7-4.9); Absolute Monocytes 0.8 K/uL (0.1-1.3); Absolute Neutrophil 7.4 K/uL (1.8-8.0); Basophils % 0.3 % (0-1.3); Eosinophils % 2.1 % (0-4.4); Hematocrit 35.9 % (39.6-49.0); Hemoglobin 12.5 g/dL (13.6-17.9); Lymphocytes % 14.3 % (15.3-44.8); MCH 31.9 pg (27.0-35.0); MCHC 34.7 g/dL (32.0-36.0); MPV 10.7 fL (7.6-11.3); Monocytes % 8.3 % (3.3-12.3); Nucleated Red Blood Cells % 0.1 % (0-0); Platelets 146 thou/uL (152-406); Red Cell Distribution Width 14.3 % (12.1-15.2)
[2023-11-21 07:06] LABS: Albumin 1.8 g/dL (3.4-5.0); Albumin/Globulin Ratio 0.5 (1.1-1.8); Anion Gap 10.4 mEq/L (5.0-15.0); Bilirubin Total 0.9 mg/dL (0.2-1.0); Globulin 3.7 g/dL (2.3-3.5); Magnesium 2.1 mg/dL (1.6-2.4); Phosphorus 1.7 mg/dL (2.5-4.9); Potassium 3.4 mEq/L (3.5-5.1); Protein, Total 5.5 g/dL (6.4-8.2)
[2023-11-21] MEDS: KCL 20 MEQ/100 mL IVPB 20 MEQ/100 ML BAG IV SCH (07:42)
--- NOTE | 2023-11-21 08:29 | P.CNS ---
Date of Consult: 11/21/23 Reason for Consult: Painful toenails Chief Complaint: Hypernatremia, hypokalemia, altered Allergies sedatives Allergy (Uncoded 06/13/16 04:46) Unknown Home Medications: Aspirin [Aspirin EC 81 MG] 81 mg PO DAILY 04/24/18 Memantine HCl [Namenda*] 10 mg PO BEDTIME 04/24/18 Atorvastatin Calcium [Lipitor] 40 mg PO BEDTIME #30 tab 10/22/18 Acetaminophen [Pain Relief] 650 mg PO Q4H PRN 11/17/23 Amlodipine [Norvasc] 10 mg PO DAILY 11/17/23 Cyanocobalamin [Vitamin B-12] 1,000 mcg PO DAILY 11/17/23 Finasteride [Proscar] 5 mg PO DAILY 11/17/23 Furosemide 40 mg PO BID 11/17/23 Metoprolol Tartrate [Lopressor*] 12.5 mg PO BID 11/17/23 Potassium Chloride 20 meq PO BID 11/17/23 Tamsulosin [Flomax] 0.4 mg PO BEDTIME 11/17/23 - Past Medical/Surgical History Diabetic: No -: Chronic atrial fibrillation not on chronic anti coagulation therapy -: 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 He lives with the who takes care of him. - Family History Father Medical History: Heart disease Brother Medical History: Heart disease Mother Medical History: Stroke - Social History Smoking Status: Unknown if ever smoked Alcohol use: No CD- Drugs: No Caffeine use: Yes Place of Residence: Retirement Review of Systems 10-point ROS is otherwise unremarkable Physical Examination Temp Pulse Resp BP Pulse Ox 98.5 F 82 14 131/65 90 L 11/21/23 04:00 11/21/23 04:00 11/21/23 04:00 11/21/23 04:00 11/21/23 04:00 General: Oriented x2 Cardiovascular: No edema, Abnormal pulses (0/4 dp and pt pulses bilateral) Capillary refill: >2 Seconds Musculoskeletal: No clubbing, No swelling, No contractures, No erythema, No tenderness, No warmth Integumentary: No rashes, No breakdown, No significant lesion, No tenderness/swelling, No erythema, No warmth, No cyanosis, Other (Thickened hypertrophic nails with subungual debris x 10, absent hair growth, pallor to skin, multiple varicosities) Neurological: Sensation intact - Problems (1) Tinea unguium Current Visit: Yes Status: Acute (2) Generalized atherosclerosis Current Visit: Yes Status: Acute Conclusions/Impression: Mechanical debridement of nails at bedside x 10
[2023-11-21] MEDS: POTASSIUM PHOS IN 0.9 % NACL 15 MMOL/250 ML BAG IV ONE (13:53)
--- NOTE | 2023-11-21 14:21 | P.PN ---
Date of Service: 11/21/23 Subjective Patient drowsy/confused No acute events overnight Currently attempting to assist with oral intake but patient appears to be aspirating Discussed Dobbhoff/TPN with family members at bedside ROS 10 point ROS as noted above, otherwise negative Physical Exam General: AAO x1,confused, NAD HEENT: Atraumatic, Normocephalic Neck: 2+ carotid pulse no bruit, JVD not distended Respiratory: Clear to auscultation bilaterally, Normal air movement, 3 LNC Cardiovascular: Normal pulses, Normal S1 S2, Afib rate control Capillary refill: <2 Seconds Gastrointestinal: Soft on palpation, NT/ND, normal active bowel sounds Musculoskeletal: No clubbing, peripheral pulse present Integumentary: No rashes Neurological: Dementia Vitals Reviewed Problem list Septic shock secondary to urinary tract infection and pneumonia Bacteremia-Staphylococcus Schleiferi History of congestive heart failure Afib History of [place] CAD with Stents NSTEMI Organic dementia History of hyrocephalus Metabolic encephalopathy secondary to hypernatremia Severe Dehydration Decreased p.o. intake Hypokalemia Elevated bilirubin Hyperglycemia Plan Septic shock secondary to urinary tract infection and pneumonia Metabolic encephalopathy secondary to sepsis/hypernatremia Bacteremia-Staphylococcus Schleiferi -Sepsis criteria temp 100.6, respiration rates 31, lactic acid 4.6/repeat 3.7 -Chest xray reports "Small to moderate left pleural effusion. Basilar airspace disease also present which may reflect atelectasis and/or pneumonia. Probable background of interstitial edema." -continue ancef -Was noted to have worsening mental condition 11/17, 11/18 per family at bedside. CT head was repeated and negative for acute findings Considering possibility of encephalopathy due to cefepime as well, patient was switched to Ancef and is doing slightly better today -blood culture 02/14 grew Staphylococcus Schleiferi -ID consulted -Echo shows diastolic dysfunction, normal systolic function, no vegetations noted -gentle IVF D5W/KCl -Now tolerating p.o., too lethargic/confused to follow commands -Will proceed with Dobbhoff/tube feeds to try to maximize nutrition -May need TPN if cannot tolerate Dobbhoff History of congestive heart failure Afib History of [place] CAD with Stents NSTEMI -BNP 3902, troponin 74.4/63.3/58.7- trend flat -continue home medications -not on anticoagulant -continuous telemetry Dementia History of hyrocephalus Severe Dehydration Decreased p.o. intake -Na improving -CT head reports, repeat CT head 11/18 negative for acute findings -D5W with KCl -SIGNAL MECHANIC consulted -pureed texture, thin consistency -PT consult when appropriate Hypokalemia Hypophosphatemia -monitor and replete PRN Elevated bilirubin -T bili 0.8-improved -IVF -Monitoring daily labs Hyperglycemia -Serum glucose 128 -A1C 5.7 -Gentle IVF -Accu-Chek with sliding scale insulin DVT ppx heparin DNR LOS 3-4 days <Esvin Riddle - Last Filed: 11/21/23 14:19> Date of service (11/21/2023): Patient seen and examined on rounds this morning with MANAGER TELEMETRY Janessa. I performed a substantial part of the MDM during this patient's care today as noted above in the plan of care. I agree with plan of care as noted above with the following additions / corrections: Patient with high aspiration risk tolerating oral intake Discussed with at bedside Proceed with trial of Dobbhoff and tube feeds If unable to tolerate or place, will do TPN at bedside states that during the brief periods he seems to be more awake she has been placing Jell-O/pudding in the patient's mouth to try to get to nutrition She reports she has been noticing that he has noticed improvement awake during this process and was concerned that he was choking/aspirating Recommended to maintain strict n.p.o. to which she agreed with <Brennan Berrios - Last Filed: 11/23/23 14:33>
[2023-11-21] MEDS ORDERED: JEVITY 1.5 CAL LIQUID 1,000 ML BOT RTH SCH (15:00)
--- NOTE | 2023-11-21 18:09 | PN ---
Subjective: The patient is lying in bed. No new acute event. Chart reviewed. Objective: Vital Signs: Reviewed. Lungs: Basal crackles. Heart: S1, S2. Regular. Abdomen: Soft, nontender. Bowel sounds present. Extremities: No edema. Laboratory Data: Shows WBC 9.9, hemoglobin 12.5, platelets are 146. Chemistry shows BUN of 7, creat inine 0.7. Micro Data: Urine cultures, E coli. Blood cultures, Staphylococcus schleiferi. The patient is curr ently on cefazolin. Assessment And Plan: Bacteremia secondary to Staphylococcus schleiferi and urinary tract infection w ith Escherichia coli. Continue cefazolin for 2 weeks. Monitor signs of infection. The patient has poor nutritional status. Recommend PEG tube or Dobbhoff tube for nutritional management. We will fo llow the patient as needed. NF/MODL Voice ID: [id number] Report ID: [id number]
--- NOTE | 2023-11-21 20:20 | P.PN ---
Date of Service: 11/21/23 Vital Signs Temp Pulse Resp BP Pulse Ox 97.7 F 80 18 98/56 L 92 11/21/23 19:58 11/21/23 19:58 11/21/23 19:58 11/21/23 19:58 11/21/23 19:58 Medications Acetaminophen (Acetaminophen 650mg/Rect Supp) 650 mg [place] Q4H PRN PRN Reason: Temp> 100F or mild pain Aspirin (Aspirin Ec 81 Mg Tab) 81 mg PO DAILY [facility] Last Admin: 11/21/23 09:35 Dose: 81 mg Finasteride (Finasteride 5 Mg Tab) 5 mg PO DAILY [facility] Last Admin: 11/21/23 09:35 Dose: 5 mg Heparin Sodium (Porcine) (Heparin 5000 Unit/Ml 1 Ml Vial) 5,000 unit SQ Q8HR [facility] Last Admin: 11/21/23 16:35 Dose: 5,000 unit Cefazolin Sodium 2 gm/ (Dextrose) 100 mls @ 200 mls/hr IVPB Q8H [facility]; Protocol Last Admin: 11/21/23 20:12 Dose: 100 mls Potassium Chloride 20 meq/ (Dextrose/Water) 1,010 mls @ 100 mls/hr IV .Q10H6M [facility] Last Admin: 11/21/23 11:40 Dose: 1,010 mls Insulin Human Regular (Insulin Regular (Human) 100 Unit/Ml) 0 unit SQ ACHS [facility]; Protocol Last Admin: 11/21/23 20:04 Dose: Not Given Memantine (Memantine Hcl 10 Mg Tablet) 10 mg PO BEDTIME [facility] Last Admin: 11/21/23 20:01 Dose: Not Given Mupirocin (Mupirocin Nasal 2 Appl/1 Gm Tube) 1 appl KEZIA BID [facility] Stop: 11/23/23 21:01 Last Admin: 11/21/23 20:11 Dose: 1 appl Tamsulosin HCl (Tamsulosin 0.4 Mg Sr Cap) 0.4 mg PO BEDTIME [facility] Last Admin: 11/21/23 20:01 Dose: Not Given Microbiology Results 11/16/23 12:20 Blood - Blood Aerobic Blood Culture - Final No growth in 5 days. 11/16/23 12:20 Blood - Blood Anaerobic Blood Culture - Final No growth in 5 days. 11/16/23 12:35 Blood - Blood Aerobic Blood Culture - Preliminary No growth in 24 hours. 11/16/23 12:35 Blood - Blood Anaerobic Blood Culture - Final Staphylococcus Schleiferi 11/16/23 12:35 Blood - Blood Gram Stain - Final 11/16/23 12:50 Clean Catch Urine Pettibone Count - Final >100,000 CFU/ML. 11/16/23 12:50 Clean Catch Urine - Final Escherichia Coli Assessment/ Plan: Nephrology Progress Note Limited IH/ ROS due to mental status No Acute Events Overnight Vital Signs, Medications, Blood Work, and Imaging reviewed in the chart NAD. NCAT. DMM. Neck Supple. Normal Respiratory Effort. RRR. Abd ND. No C/C. LE Edema none. No Rash. Somnolent. No Speech. Rao med Assessment & Plan Hypernatremia/ Dehydration -Continue IVF with D5W; many need to increase rate if the sodium worsens Hypokalemia -Replete as ordered Hypophosphatemia -Replete as ordered HTN -Hold antihypertensives at this time Hyperglycemia -RISS prn Hypoalbuminemia -Advance nutrition as tolerated -Plan for tube feeds Anemia in chronic illness -Monitor H&H BPH with LUTS -Continue tamsulosin and finasteride Case reviewed with Dr. Berrios
--- NOTE | 2023-11-21 23:00 | PN ---
Date of Progress Note: 11/21/2023 Diagnosis: Inability to eat. Subjective: This is a case of an 87-year-old patient, who was admitted to the [facility], but they are trying to see if they can help him with oral intake, but appears to be not succ essful, so a nasogastric feeding tube was requested and a surgical consult was obtained for placement of it. Most of the information of this patient is obtained from the patient's , who is at [facility] who let me know the story on him. He is sometimes combative and so we discussed with her that thi s option although successful placement may require the patient to be compliant and asked him not to p ull the catheter. She think there is a chance that he might do so and she wants to try Dobhoff [address] ter. Review of Systems: Unable to be obtained. Physical Examination: General: The patient is awake, confused, although sometimes following commands and he did follow the command when we asked him to take a sip of water through the straw. HEENT: Pupils are equal and reactive. Chest: Clear. Abdomen: Soft and depressible. There are previous signs of the patient having a gastrostomy tube we ll-healed area of scar. Extremities: Good capillary refill. Laboratory Data: Blood work reviewed with WBC count of 9 and hemoglobin of 12.5. Assessment: Inability of oral intake and request for Dobhoff tube feed placement. The benefits, alt ernatives, and risks were discussed with the , which include, but not limited to infection, bleed ing, damage to adjacent structures, aspiration, esophageal injury. Procedure: Under clean conditions with the patient straight to diminish the chance of aspiration, we asked the to ask him to swallow and he did. We also gave him a small little straw with a littl e sip of water to help us put this Dobhoff in place. We measured for proper placement, then put that in the right nostril after lubrication. Once again, the patient was straight to avoid the chance of aspiration. We were able to put it in the nasopharynx, but then after that, he cannot swallow anymo re. He cannot cooperate. He got his hands. He pulls everything off. We stopped. We tried once ag ain and the patient once again was not successful to tolerate this procedure, so we abandoned this pr ocedure and the patient's will try to listen to the primary doctor for some other alternative an d they will re-consult p.[email or web address] PASTOR/JAY Voice ID: [id number] Report ID: [id number]
[2023-11-22 05:47] LABS: Absolute Eosinophils 0.1 K/uL (0-0.5); Absolute Lymphocytes (CBC) 1.3 K/uL (0.7-4.9); Absolute Monocytes 0.8 K/uL (0.1-1.3); Absolute Neutrophil 5.2 K/uL (1.8-8.0); Basophils % 0.5 % (0-1.3); Hemoglobin 11.9 g/dL (13.6-17.9); MCH 31.4 pg (27.0-35.0); MCHC 33.9 g/dL (32.0-36.0); MCV 92.7 fL (80-100); MPV 9.9 fL (7.6-11.3); Monocytes % 10.5 % (3.3-12.3); Platelets 155 thou/uL (152-406); RBC Red Blood Cell Count 3.78 M/uL (4.33-5.43); Red Cell Distribution Width 14.1 % (12.1-15.2)
[2023-11-22 06:08] LABS: Albumin 1.8 g/dL (3.4-5.0); Albumin/Globulin Ratio 0.5 (1.1-1.8); Anion Gap 7.7 mEq/L (5.0-15.0); Bilirubin Total 0.6 mg/dL (0.2-1.0); Globulin 3.8 g/dL (2.3-3.5); Magnesium 2.1 mg/dL (1.6-2.4); Phosphorus 2.2 mg/dL (2.5-4.9); Potassium 3.7 mEq/L (3.5-5.1); Protein, Total 5.6 g/dL (6.4-8.2)
[2023-11-22] MEDS: POTASSIUM PHOS IN 0.9 % NACL 15 MMOL/250 ML BAG IV ONE (06:34)
--- NOTE | 2023-11-22 14:55 | P.PN ---
Date of Service: 11/22/23 Subjective Patient drowsy/confused No acute events overnight Currently NPO, PICC in place Unable to tolerate Dobhoff placement ROS 10 point ROS as noted above, otherwise negative Physical Exam General: AAO x1,confused, NAD HEENT: Atraumatic, Normocephalic Neck: 2+ carotid pulse no bruit, JVD not distended Respiratory: Clear to auscultation bilaterally, Normal air movement, 3 LNC Cardiovascular: Normal pulses, Normal S1 S2, Afib rate control Capillary refill: <2 Seconds Gastrointestinal: Soft on palpation, NT/ND, normal active bowel sounds Musculoskeletal: No clubbing, peripheral pulse present Integumentary: No rashes Neurological: Dementia Vitals Reviewed Problem list Septic shock secondary to urinary tract infection and pneumonia Bacteremia-Staphylococcus Schleiferi History of congestive heart failure Afib History of [place] CAD with Stents NSTEMI Organic dementia History of hyrocephalus Metabolic encephalopathy secondary to hypernatremia Severe Dehydration Decreased p.o. intake Hypokalemia Elevated bilirubin Hyperglycemia Plan Septic shock secondary to urinary tract infection and pneumonia Metabolic encephalopathy secondary to sepsis/hypernatremia Bacteremia-Staphylococcus Schleiferi -continue ancef for total of 2 weeks -Was noted to have worsening mental condition 11/17, 11/18 per family at bedside. CT head was repeated and negative for acute findings Considering possibility of encephalopathy due to cefepime as well, patient was switched to Ancef and is doing slightly better today -blood culture 02/14 grew Staphylococcus Schleiferi -Echo shows diastolic dysfunction, normal systolic function, no vegetations noted -gentle IVF D5W/KCl-we will just after starting TPN, n.p.o. -Not, n.p.o. tolerating p.o., too lethargic/confused to follow commands -Was unable to tolerate Dobbhoff placement -Will start TPN today History of congestive heart failure Afib History of [place] CAD with Stents NSTEMI -BNP 3902, troponin 74.4/63.3/58.7- trend flat -continue home medications -not on anticoagulant -continuous telemetry Dementia History of hyrocephalus Severe Dehydration Decreased p.o. intake -Na improving -CT head reports, repeat CT head 11/18 negative for acute findings -D5W with KCl -DIRECTOR OF SUSTAINABILITY consulted -pureed texture, thin consistency -PT consult when appropriate Hypokalemia Hypophosphatemia -monitor and replete PRN -Monitor electrolytes closely while starting TPN Elevated bilirubin -T bili 0.8-improved -IVF -Monitoring daily labs Hyperglycemia -Serum glucose 128 -A1C 5.7 -Gentle IVF -Accu-Chek with sliding scale insulin DVT ppx heparin DNR LOS 3-4 days <Esvin Riddle - Last Filed: 11/22/23 14:53> Date of service: 11/22/2023) Patient seen and examined on rounds this morning with OUTSIDE INDUSTRIAL SALES REPRESENTATIVE Janessa. I performed a substantial part of the MDM during this patient's care today as noted above in the plan of care. I agree with plan of care as noted above with the following additions / corrections: Slight improvement of his mentation, but still confused and drowsy, really to follow commands, continues to be aspiration risk Unable to place Dobbhoff yesterday appreciate for TPN updated at bedside Reiterated avoidance of any oral intake until patient more alert/awake/following commands Hyponatremia/electrolyte abnormalities improving Unclear the exact etiology of the patient's worsening mentation/encephalopathy persists delirium after some initial improvement Possibly from medication adverse effect- cefepime Did not receive any new sedating medications He does have significant brain atrophy,, 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
[2023-11-22] MEDS: AMINO ACIDS 5 %/DEXTROSE 20 % 2,000 ML, Lipids 20% 250 ML with MULTIVITAMINS INJ 10 ML IV SCH (17:33)
[2023-11-23 05:54] LABS: Absolute Eosinophils 0.2 K/uL (0-0.5); Absolute Lymphocytes (CBC) 1.2 K/uL (0.7-4.9); Absolute Monocytes 0.8 K/uL (0.1-1.3); Absolute Neutrophil 5.9 K/uL (1.8-8.0); Basophils % 0.6 % (0-1.3); Eosinophils % 1.9 % (0-4.4); Hematocrit 35.8 % (39.6-49.0); Hemoglobin 12.3 g/dL (13.6-17.9); Lymphocytes % 14.5 % (15.3-44.8); MCH 31.8 pg (27.0-35.0); MCHC 34.5 g/dL (32.0-36.0); MCV 92.3 fL (80-100); MPV 9.5 fL (7.6-11.3); Monocytes % 10.4 % (3.3-12.3); Neutrophils % 72.6 % (41.7-73.7); Nucleated Red Blood Cells % 0.1 % (0-0); Platelets 194 thou/uL (152-406); RBC Red Blood Cell Count 3.88 M/uL (4.33-5.43); Red Cell Distribution Width 14.3 % (12.1-15.2)
[2023-11-23 06:10] LABS: Albumin/Globulin Ratio 0.5 (1.1-1.8); Anion Gap 10.5 mEq/L (5.0-15.0); Bilirubin Total 0.7 mg/dL (0.2-1.0); Globulin 3.9 g/dL (2.3-3.5); Magnesium 2.2 mg/dL (1.6-2.4); Phosphorus 2.6 mg/dL (2.5-4.9); Potassium 3.5 mEq/L (3.5-5.1); Protein, Total 5.9 g/dL (6.4-8.2)
[2023-11-23] MEDS: KCL 20 MEQ/100 mL IVPB 20 MEQ/100 ML BAG IV SCH (07:59)
--- NOTE | 2023-11-23 10:32 | RAD REPORT ---
EXAMINATION: ONE VIEW CHEST XR CLINICAL INDICATION: dyspnea TECHNIQUE: Frontal chest projection is submitted. Examination is limited by patient positioning and t echnique. COMPARISON: 11/20/2023 FINDINGS: Mild interstitial opacities in both lung bases appear mildly improved. Right PICC line tip in SVC. Th e heart is moderately enlarged in size. Sternotomy wires. IMPRESSION: Mild improvement in basilar lung opacities since comparison study.
[2023-11-23] MEDS ORDERED: GLUCAGON 1 MG/VIAL IM PRN (12:17)
[2023-11-23] MEDS ORDERED: D10W 125 ML IV PRN (12:17)
[2023-11-23] MEDS: INSULIN REGULAR (HUMAN) 100 UNIT/ML SQ SCH (12:26)
--- NOTE | 2023-11-23 13:25 | P.PN ---
Date of Service: 11/23/23 Subjective Patient drowsy/confused No acute events overnight Currently NPO, PICC in place Unable to tolerate Dobhoff placement ROS 10 point ROS as noted above, otherwise negative Physical Exam General: AAO x1,confused, NAD HEENT: Atraumatic, Normocephalic Neck: 2+ carotid pulse no bruit, JVD not distended Respiratory: Clear to auscultation bilaterally, Normal air movement, 3 LNC Cardiovascular: Normal pulses, Normal S1 S2, Afib rate control Capillary refill: <2 Seconds Gastrointestinal: Soft on palpation, NT/ND, normal active bowel sounds Musculoskeletal: No clubbing, peripheral pulse present Integumentary: No rashes Neurological: Dementia Vitals Reviewed Problem list Septic shock secondary to urinary tract infection and pneumonia Bacteremia-Staphylococcus Schleiferi History of congestive heart failure Afib History of [place] CAD with Stents NSTEMI Organic dementia History of hyrocephalus Metabolic encephalopathy secondary to hypernatremia Severe Dehydration Decreased p.o. intake Hypokalemia Elevated bilirubin Hyperglycemia Plan Septic shock secondary to urinary tract infection and pneumonia Metabolic encephalopathy secondary to sepsis/hypernatremia Bacteremia-Staphylococcus Schleiferi -continue ancef for total of 2 weeks -Was noted to have worsening mental condition 11/17, 11/18 per family at bedside. CT head was repeated and negative for acute findings Considering possibility of encephalopathy due to cefepime as well, patient was switched to Ancef and is doing slightly better today -blood culture 02/14 grew Staphylococcus Schleiferi -Repeat cultures with no growth -Echo shows diastolic dysfunction, normal systolic function, no vegetations noted -Started on TPN evening of 11/21 -Not, n.p.o. tolerating p.o., too lethargic/confused to follow commands -Was unable to tolerate Dobbhoff placement History of congestive heart failure Afib History of [place] CAD with Stents NSTEMI -BNP 3902, troponin 74.4/63.3/58.7- trend flat -continue home medications -not on anticoagulant -continuous telemetry Dementia History of hyrocephalus Severe Dehydration Decreased p.o. intake -Na improving -CT head reports, repeat CT head 11/18 negative for acute findings -CURRICULUM ADVISORY TEACHER consulted -PT consult when appropriate Hypokalemia Hypophosphatemia -monitor and replete PRN -Monitor electrolytes closely while starting TPN Elevated bilirubin -T bili 0.8-improved -IVF -Monitoring daily labs Hyperglycemia -Serum glucose 128 -A1C 5.7 -Accu-Chek with sliding scale insulin DVT ppx heparin DNR LOS 3-4 days <Esvin Riddle - Last Filed: 11/23/23 13:23> Patient seen and examined on rounds this morning with FOOD ASSEMBLER COMMISSARY KITCHEN Janessa. I performed a substantial part of the MDM during this patient's care today as noted above in the plan of care. I agree with plan of care as noted above with the following additions / corrections: Slow improvement of patient's mentation, still risk of aspiration, not fully able to follow commands, he is opening his eyes more, more movements, more seemingly attempts to interact to surrounding Continue TPN Continue antibiotics <Brennan Berrios - Last Filed: 11/23/23 14:35>
--- NOTE | 2023-11-23 16:14 | P.PN ---
Nephrology Progress Note Off D5W IVF as now on TPN, remains altered, NPO, some gurgling breathing sounds, family at bedside, case discussed Vital Signs, Medications, Blood Work, and Imaging reviewed in the chart Elderly, frail, on LFNC, mild tachypnea, no rhonchi anteriorly or wheezing, non tachy, abd soft, NT, no guarding, no LE edema, muscle mass loss noted. Rao present. Awake, eyes closed, non verbal, mildly restless Assessment & Plan Hypernatremia/ Dehydration -Improved but with Na level remaining closer to ULN, monitor for any hyperalimentation assoc free water diuresis while on TPN and now off D5W Hypokalemia -Replete as needed Abnormal findings in urine, pyuria, bacteruria POA -Should have completed Abc course/remains on Cefazolin Hypotension, resolved Labile BP at times, trend AMS, unspecified -Unclear etiology, w/u/monitoring per IM
[2023-11-23 16:25] LABS: Anion Gap 9.5 mEq/L (5.0-15.0); Phosphorus 2.3 mg/dL (2.5-4.9); Potassium 3.5 mEq/L (3.5-5.1)
[2023-11-23] MEDS: AMINO ACIDS 5 %/DEXTROSE 20 % 2,000 ML IV SCH (17:00)
[2023-11-23] MEDS ORDERED: AMINO ACIDS 5 %/DEXTROSE 20 % 2,000 ML IV SCH (17:00)
[2023-11-24 04:25] LABS: Hematocrit 35.8 % (39.6-49.0); Hemoglobin 11.6 g/dL (13.6-17.9); MCH 32.4 pg (27.0-35.0); MCHC 32.5 g/dL (32.0-36.0); MCV 99.6 fL (80-100); MPV 9.2 fL (7.6-11.3); Platelets 196 thou/uL (152-406); Red Cell Distribution Width 14.8 % (12.1-15.2)
[2023-11-24 06:31] LABS: Anion Gap 9.4 mEq/L (5.0-15.0); Magnesium 2.2 mg/dL (1.6-2.4); Phosphorus 2.1 mg/dL (2.5-4.9); Potassium 3.4 mEq/L (3.5-5.1)
[2023-11-24] MEDS: POTASSIUM PHOS IN 0.9 % NACL 15 MMOL/250 ML BAG IV ONE (09:24)
--- NOTE | 2023-11-24 13:25 | P.PN ---
Date of Service: 11/24/23 Subjective Patient drowsy/confused No acute events overnight Currently NPO, PICC in place Unable to tolerate Dobhoff placement On TPN now Moving all extremities Was more alert yesterday afternoon per family ROS 10 point ROS as noted above, otherwise negative Physical Exam General: AAO x1,confused, NAD HEENT: Atraumatic, Normocephalic Neck: 2+ carotid pulse no bruit, JVD not distended Respiratory: Clear to auscultation bilaterally, Normal air movement, 3 LNC Cardiovascular: Normal pulses, Normal S1 S2, Afib rate control Capillary refill: <2 Seconds Gastrointestinal: Soft on palpation, NT/ND, normal active bowel sounds Musculoskeletal: No clubbing, peripheral pulse present Integumentary: No rashes Neurological: Dementia Vitals Reviewed Problem list Septic shock secondary to urinary tract infection and pneumonia Bacteremia-Staphylococcus Schleiferi History of congestive heart failure Afib History of [place] CAD with Stents NSTEMI Organic dementia History of hyrocephalus Metabolic encephalopathy secondary to hypernatremia Severe Dehydration Decreased p.o. intake Hypokalemia Elevated bilirubin Hyperglycemia Plan Septic shock secondary to urinary tract infection and pneumonia Metabolic encephalopathy secondary to sepsis/hypernatremia Bacteremia-Staphylococcus Schleiferi -continue ancef for total of 2 weeks -Was noted to have worsening mental condition 11/17, 11/18 per family at bedside. CT head was repeated and negative for acute findings Considering possibility of encephalopathy due to cefepime as well, patient was switched to Ancef and is doing slightly better today -blood culture 02/14 grew Staphylococcus Schleiferi -Repeat cultures with no growth -Echo shows diastolic dysfunction, normal systolic function, no vegetations noted -Started on TPN evening of 11/21 -Not, n.p.o. tolerating p.o., too lethargic/confused to follow commands -Was unable to tolerate Dobbhoff placement -Neurology to evaluate, will need to decide between PEG Vs hospice care History of congestive heart failure Afib History of [place] CAD with Stents NSTEMI -BNP 3902, troponin 74.4/63.3/58.7- trend flat -continue home medications -not on anticoagulant -continuous telemetry Dementia History of hyrocephalus Severe Dehydration Decreased p.o. intake -Na improved -CT head reports, repeat CT head 11/18 negative for acute findings -DEBONER consulted -PT consult when appropriate Hypokalemia Hypophosphatemia -monitor and replete PRN -Monitor electrolytes closely while starting TPN Elevated bilirubin -T bili 0.8-improved -IVF -Monitoring daily labs Hyperglycemia -Serum glucose 128 -A1C 5.7 -Accu-Chek with sliding scale insulin DVT ppx heparin DNR LOS 3-4 days
[2023-11-24] MEDS: ACETAMINOPHEN 650MG/RECT SUPP PR PRN (16:52)
[2023-11-25 04:30] LABS: Hematocrit 36.2 % (39.6-49.0); Hemoglobin 12.2 g/dL (13.6-17.9); MCH 31.1 pg (27.0-35.0); MCHC 33.5 g/dL (32.0-36.0); MCV 92.7 fL (80-100); MPV 9.2 fL (7.6-11.3); Platelets 234 thou/uL (152-406); RBC Red Blood Cell Count 3.91 M/uL (4.33-5.43)
[2023-11-25 04:49] LABS: Albumin 1.8 g/dL (3.4-5.0); Albumin/Globulin Ratio 0.4 (1.1-1.8); Anion Gap 9.1 mEq/L (5.0-15.0); Bilirubin Direct 0.2 mg/dL (0-0.2); Bilirubin Indirect, Calculated 0.3 mg/dL (0.2-0.8); Bilirubin Total 0.5 mg/dL (0.2-1.0); Globulin 4.3 g/dL (2.3-3.5); Magnesium 1.9 mg/dL (1.6-2.4); Phosphorus 2.3 mg/dL (2.5-4.9); Potassium 3.1 mEq/L (3.5-5.1); Protein, Total 6.1 g/dL (6.4-8.2)
[2023-11-25] MEDS: POTASSIUM PHOS 30 MM in NA CHLORIDE 0.9% 500 ML IV ONE (09:07)
--- NOTE | 2023-11-25 10:02 | P.PN ---
Date of Service: 11/25/23 Subjective Patient drowsy/confused No acute events overnight Currently NPO, PICC in place Unable to tolerate Dobhoff placement On TPN Moving all extremities More alert today, eyes opening spontaneously ROS 10 point ROS as noted above, otherwise negative Physical Exam General: AAO x1,confused, NAD HEENT: Atraumatic, Normocephalic Neck: 2+ carotid pulse no bruit, JVD not distended Respiratory: Clear to auscultation bilaterally, Normal air movement, 3 LNC Cardiovascular: Normal pulses, Normal S1 S2, Afib rate control Capillary refill: <2 Seconds Gastrointestinal: Soft on palpation, NT/ND, normal active bowel sounds Musculoskeletal: No clubbing, peripheral pulse present Integumentary: No rashes Neurological: Dementia Vitals Reviewed Problem list Septic shock secondary to urinary tract infection and pneumonia Bacteremia-Staphylococcus Schleiferi History of congestive heart failure Afib History of [place] CAD with Stents NSTEMI Organic dementia History of hyrocephalus Metabolic encephalopathy secondary to hypernatremia Severe Dehydration Decreased p.o. intake Hypokalemia Elevated bilirubin Hyperglycemia Plan Septic shock secondary to urinary tract infection and pneumonia Metabolic encephalopathy secondary to sepsis/hypernatremia Bacteremia-Staphylococcus Schleiferi -continue ancef for total of 2 weeks -Was noted to have worsening mental condition 11/17, 11/18 per family at bedside. CT head was repeated and negative for acute findings Considering possibility of encephalopathy due to cefepime as well, patient was switched to Ancef and is doing slightly better today -blood culture 02/14 grew Staphylococcus Schleiferi -Repeat cultures with no growth -Echo shows diastolic dysfunction, normal systolic function, no vegetations noted -Started on TPN evening of 11/21 -Not, n.p.o. tolerating p.o., too lethargic/confused to follow commands -Unclear to what degree dementia is contributing or what patients baseline will be -Was unable to tolerate Dobbhoff placement -Neurology to evaluate, will need to decide between PEG Vs hospice care -EEG ordered for today as well History of congestive heart failure Afib History of [place] CAD with Stents NSTEMI -BNP 3902, troponin 74.4/63.3/58.7- trend flat -continue home medications -not on anticoagulant -continuous telemetry Dementia History of hyrocephalus Severe Dehydration Decreased p.o. intake -Na improved -CT head reports, repeat CT head 11/18 negative for acute findings -STATISTICIAN MATHEMATICAL consulted -PT consult when appropriate Hypokalemia Hypophosphatemia -monitor and replete PRN -Monitor electrolytes closely while starting TPN Elevated bilirubin -T bili 0.8-improved -IVF -Monitoring daily labs Hyperglycemia -Serum glucose 128 -A1C 5.7 -Accu-Chek with sliding scale insulin DVT ppx heparin DNR LOS 3-4 days
[2023-11-25] MEDS: ALTEPLASE 2 MG/VIAL IV ONE (10:17)
--- NOTE | 2023-11-25 20:47 | P.PN ---
Date of Service: 11/25/23 Vital Signs Temp Pulse Resp BP Pulse Ox 97.2 F 67 20 126/71 97 11/25/23 20:00 11/25/23 20:00 11/25/23 20:00 11/25/23 20:00 11/25/23 20:00 Medications Acetaminophen (Acetaminophen 650mg/Rect Supp) 650 mg OR Q4H PRN PRN Reason: Temp> 100F or mild pain Last Admin: 11/25/23 13:09 Dose: 650 mg Aspirin (Aspirin Ec 81 Mg Tab) 81 mg PO DAILY [facility] Last Admin: 11/25/23 09:00 Dose: Not Given Finasteride (Finasteride 5 Mg Tab) 5 mg PO DAILY [facility] Last Admin: 11/25/23 09:00 Dose: Not Given Glucagon (Glucagon 1 Mg/Vial) 1 mg IM 1X PRN PRN Reason: HYPOGLYCEMIA Heparin Sodium (Porcine) (Heparin 5000 Unit/Ml 1 Ml Vial) 5,000 unit SQ Q8HR [facility] Last Admin: 11/25/23 16:37 Dose: 5,000 unit Cefazolin Sodium 2 gm/ (Dextrose) 100 mls @ 200 mls/hr IVPB Q8H [facility]; Protocol Last Admin: 11/25/23 20:27 Dose: 100 mls Multivitamins 10 ml/ AMINO ACIDS 5 %/DEXTROSE 20 %/ Fat Emulsion Intravenous 2,260 mls @ 70 mls/hr IV [id number] [facility] Last Admin: 11/25/23 16:37 Dose: 2,260 mls AMINO ACIDS 5 %/DEXTROSE 20 % (Clinimix 5%-20% Solution) 2,000 mls @ 70 mls/hr IV [id number] [facility] Last Admin: 11/24/23 16:59 Dose: 2,000 mls Dextrose (Dextrose 10% Water Iv Soln.) 125 mls @ 0 mls/hr IV PRN PRN; Protocol PRN Reason: HYPOGLYCEMIA Insulin Human Regular (Insulin Regular (Human) 100 Unit/Ml) 0 unit SQ Q6HR [facility]; Protocol Last Admin: 11/25/23 18:00 Dose: Not Given Memantine (Memantine Hcl 10 Mg Tablet) 10 mg PO BEDTIME [facility] Last Admin: 11/25/23 20:01 Dose: Not Given Tamsulosin HCl (Tamsulosin 0.4 Mg Sr Cap) 0.4 mg PO BEDTIME [facility] Last Admin: 11/25/23 20:01 Dose: Not Given Microbiology Results 11/16/23 12:35 Blood - Blood Aerobic Blood Culture - Final No growth in 5 days. 11/16/23 12:35 Blood - Blood Anaerobic Blood Culture - Final Staphylococcus Schleiferi 11/16/23 12:35 Blood - Blood Gram Stain - Final 11/16/23 12:20 Blood - Blood Aerobic Blood Culture - Final No growth in 5 days. 11/16/23 12:20 Blood - Blood Anaerobic Blood Culture - Final No growth in 5 days. 11/16/23 12:50 Clean Catch Urine [place] Count - Final >100,000 CFU/ML. 11/16/23 12:50 Clean Catch Urine - Final Escherichia Coli Assessment/ Plan: Nephrology Progress Note Limited IH/ ROS due to mental status Case reviewed with his No Acute Events Overnight Vital Signs, Medications, Blood Work, and Imaging reviewed in the chart NAD. NCAT. DMM. Neck Supple. Normal Respiratory Effort. RRR. Abd ND. No C/C. LE Edema none. No Rash. Awake. No Speech. 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
[2023-11-25 23:57] LABS: Phosphorus 2.8 mg/dL (2.5-4.9); Potassium 3.1 mEq/L (3.5-5.1)
[2023-11-26 05:29] LABS: Hematocrit 35.7 % (39.6-49.0); Hemoglobin 12.6 g/dL (13.6-17.9); MCH 31.9 pg (27.0-35.0); MCHC 35.1 g/dL (32.0-36.0); MCV 90.9 fL (80-100); MPV 8.8 fL (7.6-11.3); Platelets 284 thou/uL (152-406); RBC Red Blood Cell Count 3.93 M/uL (4.33-5.43); Red Cell Distribution Width 13.8 % (12.1-15.2)
[2023-11-26 05:48] LABS: Phosphorus 2.4 mg/dL (2.5-4.9)
[2023-11-26] MEDS: POTASSIUM CL 40 MEQ in NA CHLORIDE 0.9% 500 ML IV SCH (06:00)
[2023-11-26] MEDS: KCL 20 MEQ/100 mL IVPB 100 ML IV SCH (06:36)
[2023-11-26] MEDS: POTASSIUM PHOS IN 0.9 % NACL 15 MMOL/250 ML BAG IV SCH (11:31)
--- NOTE | 2023-11-26 12:59 | PN ---
Subjective: The patient lying in bed, opens eyes spontaneously, not in any acute distress. Objective: Vital Signs: Reviewed. Lungs: Basal crackles. Heart: S1, S2. Regular. Abdomen: Soft, nontender. Bowel sounds present. Extremity: Trace edema. Laboratory Data: Reviewed. Assessment And Plan: Bacteremia secondary to Staphylococcus schleiferi, urinary tract infection seco ndary to Escherichia coli. Patient currently on cefazolin for 2 weeks. Repeat blood cultures have b een negative since 11/15. Continue the antibiotics for at least 14 days after the negative blood cul tures. From November 18, blood culture have been negative. We will recommend to continue till 02 of December. Follow the patient as needed. NF/MODL Voice ID: [id number] Report ID: [id number]
--- NOTE | 2023-11-26 18:36 | P.PN ---
Date of Service: 11/26/23 Subjective Sleeping Speech re-evaluated and saw a decline since yesterday Hospice recommended ROS 10 point ROS as noted above, otherwise negative Physical Exam General: AAO x1,confused, NAD HEENT: Atraumatic, Normocephalic Neck: 2+ carotid pulse no bruit, JVD not distended Respiratory: Clear to auscultation bilaterally, Normal air movement, 2 LNC Cardiovascular: Normal pulses, Normal S1 S2, Afib rate control Capillary refill: <2 Seconds Gastrointestinal: Soft, NT/ND, normal active bowel sounds Musculoskeletal: No clubbing, peripheral pulse present Integumentary: No rashes Neurological: Dementia Vitals Reviewed Problem list Septic shock secondary to urinary tract infection and pneumonia Bacteremia-Staphylococcus Schleiferi History of congestive heart failure Afib History of [place] CAD with Stents NSTEMI Organic dementia History of hyrocephalus Metabolic encephalopathy secondary to hypernatremia Severe Dehydration Decreased p.o. intake Hypokalemia Elevated bilirubin Hyperglycemia Plan Septic shock secondary to urinary tract infection and pneumonia Metabolic encephalopathy secondary to sepsis/hypernatremia Bacteremia-Staphylococcus Schleiferi -continue ancef for total of 2 weeks -Was noted to have worsening mental condition 11/17, 11/18 per family at bedside. CT head was repeated and negative for acute findings Considering possibility of encephalopathy due to cefepime as well, patient was switched to Ancef and is doing slightly better today -blood culture 02/14 grew Staphylococcus Schleiferi -Repeat cultures with no growth -Echo shows diastolic dysfunction, normal systolic function, no vegetations noted -Started on TPN evening of 11/21 -Not, n.p.o. tolerating p.o., too lethargic/confused to follow commands -Unclear to what degree dementia is contributing or what patients baseline will be -Was unable to tolerate Dobbhoff placement, on TPN -Neurology to evaluate, will need to decide between PEG Vs hospice care -EEG on 09/[address] [facility] shows an abnormal awake and drowsy EEG due to the presence of diffuse background slowing, delta/theta range, reactive. This study finds evidence for a moderate degree of encephalopathy of nonspecific etiology. No epileptiform discharges or electrographic seizures were seen. During the maximally alert state, no posterior dominant rhythm was seen. The waking background consisted predominantly of mixed theta and delta activities. Drowsiness was characterized by decreased eye blinks and reduced myogenic artifact. Stage II sleep structures were not present History of congestive heart failure Afib History of [place] CAD with Stents NSTEMI -BNP 3902, troponin 74.4/63.3/58.7- trend flat -continue home medications -not on anticoagulant -continuous telemetry Dementia History of hyrocephalus Severe Dehydration Decreased p.o. intake -Na improved -CT head reports, repeat CT head 11/18 negative for acute findings -HISTOLOGICAL ILLUSTRATOR following -PT consult when appropriate Hypokalemia Hypophosphatemia -monitor and replete PRN -Monitor electrolytes closely while starting TPN Elevated bilirubin -T bili 0.8-improved -IVF -Monitoring daily labs Hyperglycemia -Serum glucose 139 -A1C 5.7 -Accu-Chek with sliding scale insulin DVT ppx heparin DNR LOS 3-4 days
[2023-11-26] MEDS: KCL 20 MEQ/100 mL IVPB 20 MEQ/100 ML BAG IV SCH ×2 (19:00→19:57)
[2023-11-26] MEDS: KCL 20 MEQ/100 mL IVPB 100 ML IV ONE (19:48)
--- NOTE | 2023-11-26 19:58 | P.PN ---
Date of Service: 11/26/23 Vital Signs Temp Pulse Resp BP Pulse Ox 97.7 F 83 24 H 114/66 94 11/26/23 16:00 11/26/23 16:00 11/26/23 16:00 11/26/23 16:00 11/26/23 16:00 Medications Acetaminophen (Acetaminophen 650mg/Rect Supp) 650 mg DE Q4H PRN PRN Reason: Temp> 100F or mild pain Last Admin: 11/25/23 13:09 Dose: 650 mg Aspirin (Aspirin Ec 81 Mg Tab) 81 mg PO DAILY [facility] Last Admin: 11/26/23 07:27 Dose: Not Given Finasteride (Finasteride 5 Mg Tab) 5 mg PO DAILY [facility] Last Admin: 11/26/23 07:27 Dose: Not Given Glucagon (Glucagon 1 Mg/Vial) 1 mg IM 1X PRN PRN Reason: HYPOGLYCEMIA Heparin Sodium (Porcine) (Heparin 5000 Unit/Ml 1 Ml Vial) 5,000 unit SQ Q8HR [facility] Last Admin: 11/26/23 17:05 Dose: 5,000 unit Cefazolin Sodium 2 gm/ (Dextrose) 100 mls @ 200 mls/hr IVPB Q8H [facility]; Protocol Last Admin: 11/26/23 19:26 Dose: 100 mls Multivitamins 10 ml/ AMINO ACIDS 5 %/DEXTROSE 20 %/ Fat Emulsion Intravenous 2,260 mls @ 70 mls/hr IV [id number] [facility] Last Admin: 11/25/23 16:37 Dose: 2,260 mls AMINO ACIDS 5 %/DEXTROSE 20 % (Clinimix 5%-20% Solution) 2,000 mls @ 70 mls/hr IV [id number] [facility] Last Admin: 11/26/23 17:08 Dose: 2,000 mls Dextrose (Dextrose 10% Water Iv Soln.) 125 mls @ 0 mls/hr IV PRN PRN; Protocol PRN Reason: HYPOGLYCEMIA Potassium Chloride (Kcl 20 Meq/100 Ml Ivpb (Premix)) 20 meq in 100 mls @ 50 mls/hr IV 1X [facility]; Protocol Stop: 11/26/23 20:59 Insulin Human Regular (Insulin Regular (Human) 100 Unit/Ml) 0 unit SQ Q6HR [facility]; Protocol Last Admin: 11/26/23 18:00 Dose: Not Given Memantine (Memantine Hcl 10 Mg Tablet) 10 mg PO BEDTIME [facility] Last Admin: 11/25/23 20:01 Dose: Not Given Tamsulosin HCl (Tamsulosin 0.4 Mg Sr Cap) 0.4 mg PO BEDTIME [facility] Last Admin: 11/25/23 20:01 Dose: Not Given Microbiology Results 11/16/23 12:35 Blood - Blood Aerobic Blood Culture - Final No growth in 5 days. 11/16/23 12:35 Blood - Blood Anaerobic Blood Culture - Final Staphylococcus Schleiferi 11/16/23 12:35 Blood - Blood Gram Stain - Final 11/16/23 12:20 Blood - Blood Aerobic Blood Culture - Final No growth in 5 days. 11/16/23 12:20 Blood - Blood Anaerobic Blood Culture - Final No growth in 5 days. 11/16/23 12:50 Clean Catch Urine [place] Count - Final >100,000 CFU/ML. 11/16/23 12:50 Clean Catch Urine - Final Escherichia Coli Assessment/ Plan: Nephrology Progress Note Limited IH/ ROS due to mental status No Acute Events Overnight Vital Signs, Medications, Blood Work, and Imaging reviewed in the chart NAD. NCAT. DMM. Neck Supple. Normal Respiratory Effort. RRR. Abd ND. No C/C. LE Edema none. No Rash. Awake. No Speech. Jamison med Assessment & Plan Hypernatremia/ Dehydration -Continue TPN Hypokalemia -Replete as ordered Hypophosphatemia -Replete as ordered HTN -Hold antihypertensives at this time Hyperglycemia -RISS prn Hypoalbuminemia -Advance nutrition as tolerated -Continue TPN Anemia in chronic illness -Monitor H&H BPH with LUTS -Continue tamsulosin and finasteride -Continue jamison Hospitalist note reviewed
[2023-11-27] MEDS: ALBUTEROL 2.5 MG/3 ML NEB SOL NEB SCH (00:20)
[2023-11-27 05:47] LABS: Anion Gap 9.1 mEq/L (5.0-15.0); Magnesium 1.9 mg/dL (1.6-2.4); Phosphorus 2.3 mg/dL (2.5-4.9); Potassium 3.1 mEq/L (3.5-5.1)
[2023-11-27] MEDS: ACETYLCYST 20% 4 ML VIAL IH SCH (07:00)
[2023-11-27] MEDS: KCL 20 MEQ/100 mL IVPB 20 MEQ/100 ML BAG IV SCH (07:11)
[2023-11-27] MEDS ORDERED: KCL 20 MEQ/100 mL IVPB 100 ML IV SCH (10:00)
[2023-11-27] MEDS: POTASSIUM PHOS IN 0.9 % NACL 15 MMOL/250 ML BAG IV SCH (13:04)
--- NOTE | 2023-11-27 18:29 | P.PN ---
Date of Service: 11/27/23 Subjective Confused, eyes open, does not track or follow commands at the bedside and reports suctioning his mouth and throat to help him not choke Offered scopalamine for help with his secretions and she refused reporting his agitation when given sedative type medications would prefer to suction, she reports she would rather suction him and giving him a chance to stay awake ROS 10 point ROS as noted above, otherwise negative Physical Exam General: Awake,confused, NAD HEENT: Atraumatic, Normocephalic Neck: 2+ carotid pulse no bruit, JVD not distended Respiratory: Clear to auscultation bilaterally, rhonchi, 3 LNC Cardiovascular: Normal pulses, Normal S1 S2, Afib mild tachycardia Capillary refill: <2 Seconds Gastrointestinal: Soft on palpation, NT/ND, normal active bowel sounds Musculoskeletal: No clubbing, peripheral pulse present Integumentary: No rashes Neurological: Dementia Vitals Reviewed Problem list Septic shock secondary to urinary tract infection and pneumonia Bacteremia-Staphylococcus Schleiferi History of congestive heart failure Afib History of [place] CAD with Stents NSTEMI Organic dementia History of hyrocephalus Metabolic encephalopathy secondary to hypernatremia Severe Dehydration Decreased p.o. intake Hypokalemia Elevated bilirubin Hyperglycemia Plan Septic shock secondary to urinary tract infection and pneumonia Metabolic encephalopathy secondary to sepsis/hypernatremia Bacteremia-Staphylococcus Schleiferi -continue ancef for total of 2 weeks -Was noted to have worsening mental condition 11/17, 11/18 per family at bedside. CT head was repeated and negative for acute findings Considering possibility of encephalopathy due to cefepime as well, patient was switched to Ancef and is doing slightly better today -blood culture 02/14 grew Staphylococcus Schleiferi -Repeat cultures with no growth -Echo shows diastolic dysfunction, normal systolic function, no vegetations noted -Started on TPN evening of 11/21 -Not, n.p.o. tolerating p.o., too lethargic/confused to follow commands -Unclear to what degree dementia is contributing or what patients baseline will be -Was unable to tolerate Dobbhoff placement, on TPN -Neurology to evaluate, will need to decide between PEG Vs hospice care -EEG on 09/29 at [facility] shows an abnormal awake and drowsy EEG due to the presence of diffuse background slowing, delta/theta range, reactive. This study finds evidence for a moderate degree of encephalopathy of nonspecific etiology. No epileptiform discharges or electrographic seizures were seen. During the maximally alert state, no posterior dominant rhythm was seen. The waking background consisted predominantly of mixed theta and delta activities. Drowsiness was characterized by decreased eye blinks and reduced myogenic artifact. Stage II sleep structures were not present History of congestive heart failure Afib History of [place] CAD with Stents NSTEMI -BNP 3902, troponin 74.4/63.3/58.7- trend flat -continue home medications -not on anticoagulant -continuous telemetry Dementia History of hyrocephalus Severe Dehydration Decreased p.o. intake -Na improved -CT head reports, repeat CT head 11/18 negative for acute findings -HOTEL HOUSEMAN following -PT consult when appropriate Hypokalemia Hypophosphatemia -monitor and replete PRN -Monitor electrolytes closely while starting TPN Elevated bilirubin -T bili 0.8-improved -IVF -Monitoring daily labs Hyperglycemia -Serum glucose 160 -A1C 5.7 -Accu-Chek with sliding scale insulin DVT ppx heparin DNR LOS 3-4 days
--- NOTE | 2023-11-27 20:17 | RAD REPORT ---
EXAMINATION: ONE VIEW CHEST XR CLINICAL INDICATION: Cough TECHNIQUE: Frontal chest projection is submitted. Examination is limited by patient positioning and t echnique. COMPARISON: 11/23/2023 FINDINGS: Right-sided PICC line has tip in the SVC. Moderate bilateral pulmonary opacities may represent pulmon nehemiah edema or pneumonia. The heart is moderately enlarged. Sternotomy wires. IMPRESSION: Right-sided PICC line has tip in the SVC.
--- NOTE | 2023-11-27 20:46 | P.PN ---
Date of Service: 11/27/23 Vital Signs Temp Pulse Resp BP Pulse Ox 98.9 F 83 20 110/69 95 11/27/23 12:00 11/27/23 12:00 11/27/23 12:00 11/27/23 12:00 11/27/23 12:00 Medications Acetaminophen (Acetaminophen 650mg/Rect Supp) 650 mg IN Q4H PRN PRN Reason: Temp> 100F or mild pain Last Admin: 11/26/23 22:12 Dose: 650 mg Acetylcysteine (Acetylcyst 20% 4 Ml Vial) 4 ml IH BIDRESP [facility] Last Admin: 11/27/23 07:00 Dose: 4 ml Albuterol Sulfate (Albuterol 2.5 Mg/3 Ml Neb Merary) 2.5 mg NEB [id number] [facility] Last Admin: 11/27/23 13:26 Dose: 2.5 mg Aspirin (Aspirin Ec 81 Mg Tab) 81 mg PO DAILY [facility] Last Admin: 11/27/23 09:00 Dose: Not Given Finasteride (Finasteride 5 Mg Tab) 5 mg PO DAILY [facility] Last Admin: 11/27/23 09:00 Dose: Not Given Glucagon (Glucagon 1 Mg/Vial) 1 mg IM 1X PRN PRN Reason: HYPOGLYCEMIA Heparin Sodium (Porcine) (Heparin 5000 Unit/Ml 1 Ml Vial) 5,000 unit SQ Q8HR [facility] Cefazolin Sodium 2 gm/ (Dextrose) 100 mls @ 200 mls/hr IVPB Q8H [facility]; Protocol Last Admin: 11/27/23 13:04 Dose: 100 mls Multivitamins 10 ml/ AMINO ACIDS 5 %/DEXTROSE 20 %/ Fat Emulsion Intravenous 2,260 mls @ 70 mls/hr IV [id number] [facility] Last Admin: 11/27/23 17:18 Dose: 2,260 mls AMINO ACIDS 5 %/DEXTROSE 20 % (Clinimix 5%-20% Solution) 2,000 mls @ 70 mls/hr IV [id number] [facility] Last Admin: 11/26/23 17:08 Dose: 2,000 mls Dextrose (Dextrose 10% Water Iv Soln.) 125 mls @ 0 mls/hr IV PRN PRN; Protocol PRN Reason: HYPOGLYCEMIA Insulin Human Regular (Insulin Regular (Human) 100 Unit/Ml) 0 unit SQ Q6HR [facility]; Protocol Last Admin: 11/27/23 12:30 Dose: 2 unit Memantine (Memantine Hcl 10 Mg Tablet) 10 mg PO BEDTIME [facility] Last Admin: 11/27/23 20:36 Dose: Not Given Tamsulosin HCl (Tamsulosin 0.4 Mg Sr Cap) 0.4 mg PO BEDTIME [facility] Last Admin: 11/27/23 20:36 Dose: Not Given Microbiology Results 11/16/23 12:35 Blood - Blood Aerobic Blood Culture - Final No growth in 5 days. 11/16/23 12:35 Blood - Blood Anaerobic Blood Culture - Final Staphylococcus Schleiferi 11/16/23 12:35 Blood - Blood Gram Stain - Final 11/16/23 12:20 Blood - Blood Aerobic Blood Culture - Final No growth in 5 days. 11/16/23 12:20 Blood - Blood Anaerobic Blood Culture - Final No growth in 5 days. 11/16/23 12:50 Clean Catch Urine [place] Count - Final >100,000 CFU/ML. 11/16/23 12:50 Clean Catch Urine - Final Escherichia Coli Assessment/ Plan: Nephrology Progress Note Limited IH/ ROS due to mental status Case reviewed with his No Acute Events Overnight Vital Signs, Medications, Blood Work, and Imaging reviewed in the chart NAD. NCAT. DMM. Neck Supple. Normal Respiratory Effort. RRR. Abd ND. No C/C. LE Edema none. No Rash. Awake. No Speech. Jamison med Assessment & Plan Hypernatremia/ Dehydration -Continue TPN Hypokalemia -Replete as ordered Hypophosphatemia -Replete as ordered HTN -Hold antihypertensives at this time Hyperglycemia -RISS prn Hypoalbuminemia -Advance nutrition as tolerated -Continue TPN Anemia in chronic illness -Monitor H&H BPH with LUTS -Continue tamsulosin and finasteride -Continue jamison Hospitalist note reviewed
[2023-11-28] MEDS: HEPARIN 5000 UNIT/ML 1 ML VIAL SQ SCH (00:46)
[2023-11-28] MEDS: KCL 20 MEQ/100 mL IVPB 20 MEQ/100 ML BAG IV SCH ×2 (01:09→15:21)
--- NOTE | 2023-11-28 11:59 | P.PN ---
Date of Service: 11/28/23 Subjective Dementia, confusion, agitated movement in bed Cannot follow commands He did not wake up for ADAPTIVE PHYSICAL EDUCATION SPECIALIST evaluation today ROS 10 point ROS as noted above, otherwise negative Physical Exam General: Sleeping,confused, NAD HEENT: Atraumatic, Normocephalic Neck: 2+ carotid pulse no bruit, JVD not distended Respiratory: Clear to auscultation bilaterally, rhonchi, 3 LNC Cardiovascular: Normal S1 S2, Afib mild tachycardia Capillary refill: <2 Seconds Gastrointestinal: Soft and benign on palpation, nontender, normal active bowel sounds Musculoskeletal: No clubbing, peripheral pulse present Integumentary: No rashes Neurological: Dementia Vitals Reviewed Problem list Septic shock secondary to urinary tract infection and pneumonia Bacteremia-Staphylococcus Schleiferi History of congestive heart failure Afib History of [place] CAD with Stents NSTEMI Organic dementia History of hyrocephalus Metabolic encephalopathy secondary to hypernatremia Severe Dehydration Decreased p.o. intake Hypokalemia Elevated bilirubin Hyperglycemia Plan Septic shock secondary to urinary tract infection and pneumonia Metabolic encephalopathy secondary to sepsis/hypernatremia Bacteremia-Staphylococcus Schleiferi -continue ancef for total of 2 weeks -Dr Alanis recommends ancef Q8h to end December 02. PICC line placed 11/26 -Was noted to have worsening mental condition 11/17, 11/18 per family at bedside. CT head was repeated and negative for acute findings Considering possibility of encephalopathy due to cefepime as well, patient was switched to Ancef and is doing slightly better today -blood culture 02/14 grew Staphylococcus Schleiferi -Repeat cultures with no growth -Echo shows diastolic dysfunction, normal systolic function, no vegetations noted -Started on TPN evening of 11/21 -Not, n.p.o. tolerating p.o., too lethargic/confused to follow commands -Unclear to what degree dementia is contributing or what patients baseline will be -Was unable to tolerate Dobbhoff placement, on TPN -Neurology to evaluate, will need to decide between PEG Vs hospice care -EEG on 09/29 at [facility] shows an abnormal awake and drowsy EEG due to the presence of diffuse background slowing, delta/theta range, reactive. This study finds evidence for a moderate degree of encephalopathy of nonspecific etiology. No epileptiform discharges or electrographic seizures were seen. During the maximally alert state, no posterior dominant rhythm was seen. The waking background consisted predominantly of mixed theta and delta activities. Drowsiness was characterized by decreased eye blinks and reduced myogenic artifact. Stage II sleep structures were not present History of congestive heart failure Afib History of [place] CAD with Stents NSTEMI -BNP 3902, troponin 74.4/63.3/58.7- trend flat -continue home medications -not on anticoagulant -continuous telemetry Dementia History of hyrocephalus Severe Dehydration Decreased p.o. intake -Na improved -CT head reports, repeat CT head 11/18 negative for acute findings -ADAPTIVE PHYSICAL EDUCATION SPECIALIST following -PT consult when appropriate Hypokalemia Hypophosphatemia -monitor and replete PRN -Monitor electrolytes closely while starting TPN Elevated bilirubin -T bili 0.8-improved -IVF -Monitoring daily labs Hyperglycemia -Serum glucose 160 -A1C 5.7 -Accu-Chek with sliding scale insulin DVT ppx heparin DNR LOS 3-4 days
[2023-11-28 12:11] LABS: Anion Gap 11.2 mEq/L (5.0-15.0); Magnesium 1.6 mg/dL (1.6-2.4); Phosphorus 1.9 mg/dL (2.5-4.9); Potassium 3.2 mEq/L (3.5-5.1)
[2023-11-28] MEDS: MAGNESIUM SULFATE 1 gm IVPB 1 GM/100 ML BAG IV SCH (15:21)
--- NOTE | 2023-11-28 16:51 | PN ---
Date of Progress Note: 11/28/2023 Subjective: Patient lying in bed. No new acute event. Chart reviewed. Denied any headache, nausea , vomiting, chest pain, abdominal pain, constipation, or diarrhea. Objective: Vital Signs: Reviewed. Temperature 99, pulse 100, respirations 20, blood pressure 160/6 1. Lungs: Basal crackles. Heart: S1, S2. Regular. Abdomen: Soft, nontender. Bowel sounds present. Extremities: No edema. Laboratory Data: Reviewed. Assessment And Plan: Bacteremia secondary to Staph schleiferi. The patient to finish antibiotic on 12/02. Urinary tract infection secondary to Escherichia coli. The patient is doing well, on cefazol in. Continue supportive care. We will follow the patient as needed. NF/MODL Voice ID: [id number] Report ID: [id number]
--- NOTE | 2023-11-28 16:54 | PN ---
Date of Progress Note: 11/27/2023 Subjective: The patient is lying in bed. No new acute event, chart reviewed. Objective: Vital Signs: Temperature 98, pulse 80, respiration 24, blood pressure 122/59. Lungs: Basal crackles. Heart: S1, S2. Regular. Abdomen: Soft, nontender. Bowel sounds present. Extremities: Trace edema. Laboratory Data: Reviewed. Micro Data: Shows Staphylococcus schleiferi in blood from 11/15 and E coli from 11/15 in the urine. The patient is currently on cefazolin. Assessment And Plan: Bacteremia secondary to Staphylococcus schleiferi and urinary tract infection s econdary to Escherichia coli, doing well. Continue cefazolin to finish 2 weeks of antibiotic. End o f treatment should be 12/02. We will follow the patient as needed. NF/MODL Voice ID: [id number] Report ID: [id number]
[2023-11-28] MEDS: POTASSIUM PHOS IN 0.9 % NACL 15 MMOL/250 ML BAG IV SCH (17:09)
[2023-11-28] MEDS: EPINEPHRINE INH 0.5 ML VIAL IH STA (20:05)
[2023-11-28] MEDS: FUROSEMIDE 40 MG/4 ML VIAL IV ONE (20:14)
[2023-11-28] MEDS: POTASSIUM PHOS 30 MM in NA CHLORIDE 0.9% 500 ML IV ONE (21:04)
--- NOTE | 2023-11-28 21:07 | P.PN ---
Date of Service: 11/28/23 Vital Signs Temp Pulse Resp BP Pulse Ox 98.1 F 92 H 24 H 148/68 H 92 11/28/23 20:00 11/28/23 20:14 11/28/23 20:00 11/28/23 20:14 11/28/23 20:00 Medications Acetaminophen (Acetaminophen 650mg/Rect Supp) 650 mg UT Q4H PRN PRN Reason: Temp> 100F or mild pain Last Admin: 11/28/23 17:09 Dose: 650 mg Acetylcysteine (Acetylcyst 20% 4 Ml Vial) 4 ml IH BIDRESP [facility] Last Admin: 11/28/23 19:00 Dose: Not Given Albuterol Sulfate (Albuterol 2.5 Mg/3 Ml Neb Merary) 2.5 mg NEB [id number] [facility] Last Admin: 11/28/23 20:49 Dose: 2.5 mg Aspirin (Aspirin Ec 81 Mg Tab) 81 mg PO DAILY [facility] Last Admin: 11/28/23 09:00 Dose: Not Given Finasteride (Finasteride 5 Mg Tab) 5 mg PO DAILY [facility] Last Admin: 11/28/23 09:00 Dose: Not Given Glucagon (Glucagon 1 Mg/Vial) 1 mg IM 1X PRN PRN Reason: HYPOGLYCEMIA Heparin Sodium (Porcine) (Heparin 5000 Unit/Ml 1 Ml Vial) 5,000 unit SQ Q8HR [facility] Last Admin: 11/28/23 17:11 Dose: 5,000 unit Cefazolin Sodium 2 gm/ (Dextrose) 100 mls @ 200 mls/hr IVPB Q8H [facility]; Protocol Last Admin: 11/28/23 20:13 Dose: 100 mls Multivitamins 10 ml/ AMINO ACIDS 5 %/DEXTROSE 20 %/ Fat Emulsion Intravenous 2,260 mls @ 70 mls/hr IV [id number] [facility] Last Admin: 11/27/23 17:18 Dose: 2,260 mls AMINO ACIDS 5 %/DEXTROSE 20 % (Clinimix 5%-20% Solution) 2,000 mls @ 70 mls/hr IV [id number] [facility] Last Admin: 11/28/23 18:19 Dose: 2,000 mls Dextrose (Dextrose 10% Water Iv Soln.) 125 mls @ 0 mls/hr IV PRN PRN; Protocol PRN Reason: HYPOGLYCEMIA Potassium Phosphate 30 mm/ (Sodium Chloride) 500 mls @ 100 mls/hr IV 1X ONE; Protocol Stop: 11/29/23 02:03 Insulin Human Regular (Insulin Regular (Human) 100 Unit/Ml) 0 unit SQ Q6HR [facility]; Protocol Last Admin: 11/28/23 18:00 Dose: Not Given Memantine (Memantine Hcl 10 Mg Tablet) 10 mg PO BEDTIME [facility] Last Admin: 11/27/23 20:36 Dose: Not Given Morphine Sulfate (Morphine 2 Mg/Ml Syr) 1 mg IV Q4H PRN PRN Reason: Pain scale 8-10 (Severe) Tamsulosin HCl (Tamsulosin 0.4 Mg Sr Cap) 0.4 mg PO BEDTIME [facility] Last Admin: 11/27/23 20:36 Dose: Not Given Microbiology Results 11/16/23 12:35 Blood - Blood Aerobic Blood Culture - Final No growth in 5 days. 11/16/23 12:35 Blood - Blood Anaerobic Blood Culture - Final Staphylococcus Schleiferi 11/16/23 12:35 Blood - Blood Gram Stain - Final 11/16/23 12:20 Blood - Blood Aerobic Blood Culture - Final No growth in 5 days. 11/16/23 12:20 Blood - Blood Anaerobic Blood Culture - Final No growth in 5 days. 11/16/23 12:50 Clean Catch Urine [place] Count - Final >100,000 CFU/ML. 11/16/23 12:50 Clean Catch Urine - Final Escherichia Coli Assessment/ Plan: Nephrology Progress Note Limited IH/ ROS due to mental status No Acute Events Overnight Vital Signs, Medications, Blood Work, and Imaging reviewed in the chart NAD. NCAT. DMM. Neck Supple. Normal Respiratory Effort. RRR. Abd ND. No C/C. LE Edema none. No Rash. Awake. No Speech. Jamison med Assessment & Plan Hypernatremia/ Dehydration -Continue TPN Hypokalemia -Replete as ordered Hypophosphatemia -Replete as ordered HTN -Hold antihypertensives at this time Hyperglycemia -RISS prn Hypoalbuminemia -Advance nutrition as tolerated -Continue TPN Anemia in chronic illness -Monitor H&H BPH with LUTS -Continue tamsulosin and finasteride -Continue jamison Hospitalist note reviewed
[2023-11-28] MEDS: MORPHINE 2 MG/ML SYR IV PRN (21:24)
[2023-11-29] MEDS: SCOPOLAMINE HYDROBROMIDE PATCH TD ONE (02:52)
[2023-11-29 05:35] LABS: Anion Gap 11.3 mEq/L (5.0-15.0); Magnesium 1.9 mg/dL (1.6-2.4); Phosphorus 2.6 mg/dL (2.5-4.9); Potassium 3.3 mEq/L (3.5-5.1)
[2023-11-29] MEDS: KCL 20 MEQ/100 mL IVPB 20 MEQ/100 ML BAG IV SCH (06:31)
[2023-11-29] MEDS: METOPROLOL TARTRATE 5 MG/5 ML INJ IV PRN (14:15)
--- NOTE | 2023-11-29 15:10 | P.PN ---
Date of Service: 11/29/23 Subjective Eyes closed agonal breathing Swabbing his mouth and suctioning HR elevated, lopressor PRN, EKG ROS 10 point ROS as noted above, otherwise negative Physical Exam General: Sleeping, NAD HEENT: Atraumatic, Normocephalic Neck: 2+ carotid pulse no bruit, JVD not distended Respiratory: Agonal breathing, rhonchi, 6 LNC Cardiovascular: Normal S1 S2, Afib, tachycardic Capillary refill: <2 Seconds Gastrointestinal: Soft on palpation, nontender, normal active bowel sounds Musculoskeletal: No clubbing, peripheral pulse present Integumentary: No rashes Neurological: Dementia Vitals Reviewed Problem list Septic shock secondary to urinary tract infection and pneumonia Bacteremia-Staphylococcus Schleiferi History of congestive heart failure Afib with tachycardia History of [place] CAD with Stents NSTEMI Organic dementia History of hyrocephalus Metabolic encephalopathy secondary to hypernatremia Severe Dehydration Decreased p.o. intake Hypokalemia Elevated bilirubin Hyperglycemia Plan Septic shock secondary to urinary tract infection and pneumonia Metabolic encephalopathy secondary to sepsis/hypernatremia Bacteremia-Staphylococcus Schleiferi -continue ancef for total of 2 weeks -Dr Alanis recommends ancef Q8h to end December 02. PICC line placed 11/26 -Was noted to have worsening mental condition 11/17, 11/18 per family at bedside. CT head was repeated and negative for acute findings Considering possibility of encephalopathy due to cefepime as well, patient was switched to Ancef and is doing slightly better today -blood culture 02/14 grew Staphylococcus Schleiferi -Repeat cultures with no growth -Echo shows diastolic dysfunction, normal systolic function, no vegetations noted -Started on TPN evening of 11/21 -Not, n.p.o. tolerating p.o., too lethargic/confused to follow commands -Unclear to what degree dementia is contributing or what patients baseline will be -Was unable to tolerate Dobbhoff placement, on TPN -Neurology to evaluate, will need to decide between PEG Vs hospice care -EEG on 09/29 at [facility] shows an abnormal awake and drowsy EEG due to the presence of diffuse background slowing, delta/theta range, reactive. This study finds evidence for a moderate degree of encephalopathy of nonspecific etiology. No epileptiform discharges or electrographic seizures were seen. During the maxi vance alert state, no posterior dominant rhythm was seen. The waking background consisted predominantly of mixed theta and delta activities. Drowsiness was characterized by decreased eye blinks and reduced myogenic artifact. Stage II sleep structures were not present History of congestive heart failure Afib wtih tachycardia History of [place] CAD with Stents NSTEMI -BNP 3902, troponin 74.4/63.3/58.7- trend flat -continue home medications -not on anticoagulant -continuous telemetry -EKG (11/28) Dementia History of hyrocephalus Severe Dehydration Decreased p.o. intake -Na improved -CT head reports, repeat CT head 11/18 negative for acute findings -TOE STAPLER following -PT consult when appropriate Hypokalemia Hypophosphatemia -monitor and replete PRN -Monitor electrolytes closely while starting TPN Elevated bilirubin -T bili 0.8-improved -IVF -Monitoring daily labs Hyperglycemia -Serum glucose 176 -A1C 5.7 -Accu-Chek with sliding scale insulin DVT ppx heparin DNR LOS 3-4 days <Jaye Barker - Last Filed: 11/29/23 15:01> Patient seen and examined, plan of care discussed with Kieran Mj. I had a lengthy conversation with patient's spouse regarding patient declining condition and prognosis. Patient has no means of feeding except TPN. Patient has been on TPN for several days. He has been treated for pulmonary edema. He was initially treated for sepsis with aggressive antibiotic therapy which was later transitioned to cefazolin and has been on antibiotics throughout the hospital stay. Antibiotic treatment did not change patient's clinical condition. No clinical improvement after 2 weeks of hospitalization and treatment with aggressive measures. Patient is DNR. Spouse has refused PEG tube or NG tube feeding. Patient's prognosis is considered poor. Hospice discussed, however spouse is yet to make a decision. For the meantime she wants to continue aggressive measures. She kept mentioning that her goal is for patient's mental status to improve, participate in therapy, get stronger, be able to eat by mouth which appears to to be unattainable given patient nonresponse to treatment and progressive decline. Neurology Dr. Santos was informed to follow-up with patient and discussed patient with neurology prognosis. Antibiotics broadened to include meropenem and vancomycin. Supplemental oxygen therapy. Frequent airway suctioning as possible. Chest x-ray repeated. Spouse has refused any form of sedatives. <ryan navarrete - Last Filed: 12/01/23 17:59>
[2023-11-29] MEDS: Meropenem 500 MG in NA CHLORIDE 0.9% 100 ML IV SCH (16:12)
[2023-11-29] MEDS: FUROSEMIDE 40 MG/4 ML VIAL IV ONE (16:12)
[2023-11-29 16:57] LABS: Absolute Lymphocytes (CBC) 0.7 K/uL (0.7-4.9); Absolute Monocytes 2.3 K/uL (0.1-1.3); Absolute Neutrophil 18.8 K/uL (1.8-8.0); Basophils % 0.1 % (0-1.3); Hematocrit 37.9 % (39.6-49.0); Hemoglobin 12.4 g/dL (13.6-17.9); Lymphocytes % 3.3 % (15.3-44.8); MCH 30.6 pg (27.0-35.0); MCHC 32.6 g/dL (32.0-36.0); MPV 9.4 fL (7.6-11.3); Monocytes % 10.7 % (3.3-12.3); Neutrophils % 85.9 % (41.7-73.7); Platelets 361 thou/uL (152-406); RBC Red Blood Cell Count 4.04 M/uL (4.33-5.43); Red Cell Distribution Width 14.9 % (12.1-15.2)
[2023-11-29 17:13] LABS: Anion Gap 15.4 mEq/L (5.0-15.0); Magnesium 1.9 mg/dL (1.6-2.4); Phosphorus 3.8 mg/dL (2.5-4.9); Potassium 4.4 mEq/L (3.5-5.1)
[2023-11-29] MEDS: VANCOMYCIN 2.25 GM in NA CHLORIDE 0.9% 500 ML IVPB ONE (17:27)
[2023-11-29 18:01] LABS: Band Neutrophils 2 % (0-1); Blood Morphology Comment NOT SEEN (NOT SEEN); Differential Total Cells Count 100; Lymphocytes 3 % (15-42); Monocytes 11 % (0-10); Platelet Estimate ADEQ; Segmented Neutrophils 84 % (40-80)
--- NOTE | 2023-11-29 19:18 | RAD REPORT ---
Procedure: Chest Single View HISTORY: Hypoxia COMPARISON: November 27, 2023 FINDINGS: Mild bilateral pulmonary opacities without significant change No significant pleural effusion noted. The heart is mildly to moderately enlarged Post surgical changes involving the chest. PICC line in place. IMPRESSION: These findings probably represent CHF
--- NOTE | 2023-11-29 19:21 | CON ---
Reason For Consultation: Consultation called because of mental status. History Of Present Illness: The patient's family member in the room provided information and informa tion from chart review. Mr. Rao was the patient seen in clinic since 2015. He was seen for cognitive impairment. At the time of the visit on March 26, 2016, his mini-mental status test was 15/30, which places him at a moderate to severe level of dementia. An EEG done on January 10, 2016 , showed moderately slow background without focal findings such as spikes, sharp waves, or any latera lization. His last clinic visit was on December 05, 2021, where his clock draw test was 0/4. He did recognize his , but not many other family members and had difficulty following simple instruction s. Regarding his hospitalization, this visit which began on 11/16/2023, he was reportedly more confu sed, had become agitated and was brought to hospital and found to have electrolyte abnormalities incl uding hypokalemia, hypernatremia, mildly elevated white count of 11.3 with neutrophils 84.4. He had significant hypernatremia of 154, hypokalemia of 2.9, elevated lactic acid of 4.6, elevated troponin 1 high sensitivity of 74.4. He was managed for his significant electrolyte abnormalities, however, r emained confused, disoriented, and poorly interactive. By the next 2 hospital days, review of chart noted he was more alert and conversive, seem to be more appropriate, however, only oriented towards 1 . He was treated for pneumonia, for sepsis, for lactic acidosis, and his atrial fibrillation address ed. His myocardial infarction addressed. Severe dehydration and decreased oral intake also was addr essed. CT scan of the head done on 11/15 showed no acute ischemic or hemorrhagic findings. The stud y was remarkable for small remote left basal ganglia lacunar infarct and there was severe age advance d cerebral atrophy with ex vacuo dilatation of the ventricles. This findings is consistent with a va scular dementia. A repeat head CT scan on 11/19/2023 is unchanged, moderate to severe ex vacuo dilat ation of the ventricular system without acute ischemic or hemorrhagic findings. The most recent ches t x-ray done 2 days ago shows moderate bilateral pulmonary opacities may represent pulmonary edema or pneumonia. He is on multiple IV antibiotics and has been so since hospitalization. Antibiotics hav e been addressed to now be on meropenem. He has 500 mg q.8 hours had also vancomycin 2.25 g daily al jose guadalupe with parenteral nutrition. EEG which was done 2 days ago showed a moderately slow background including frontal slow activity and no epileptiform discharges. This EEG is very similar to the study done on December 05, 2021. 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 Allergies: LISTED SEDATIVES. Current Medications: Tylenol 650 mg every 4 hours as needed, Mucomyst 20% 4 mL inhaled twice daily a s scheduled, albuterol 2.5 mg every 6 hours as scheduled. He has parenteral nutrition scheduled, asp irin 81 mg daily, Proscar 5 mg daily, heparin 5000 units subcutaneously every 8 hours, Namenda 10 mg at bedtime, meropenem 500 mg every 8 hours, Lopressor 5 mg IV every 6 hours as needed for systolic bl ood pressure greater than 130, morphine sulfate 1 mg every 4 hours as needed for severe pain, Flomax 0.4 mg at bedtime, vancomycin 2.25 mg daily with the protocol being adjusted by the pharmacy and base d on renal function. Family History: Noncontributory. Social History: The patient is living in a local senior living. His family members are considering h ospice care at this point. He is a do not resuscitate in terms of his code status. Review of Systems: Direct review of systems is not possible as the patient is moan and groan. He does however move the arms equally well to hold his head on the right side. Family members indicate potentially he is tryi ng to communicate a headache and he is actually receiving Tylenol for that. Otherwise, very unable a nd unreliable review of systems from the patient. He is not able to give any meaningful communicatio n through 06/15 review of systems. Physical Examination: Vital Signs: Blood pressure is 144/59, pulse up to 130, respiratory rate of 20 to 22, oxygen saturat ion 89% on 6 L, temperature 100.5, weight 200 pounds, height 5 feet 9 inches, BMI 29.5. General: Mr. Rao is resting in bed. He does move the arms. Right arm does hold the head ev wanda so often. He has a very high respiratory rate and loud and some gurgling heard. He does withdra w the upper and lower extremities to stimulation and is not following commands to do directed purpose ful activity. However, spontaneously moves the arms to the face and does move legs. He is lying dominic ewhat on his left side and IVs are going in place. Does have paratonia in the words as you move his arm. He resists in the opposite direction, whichever direction the arms were moved, but he voluntari ly will move his arms and is noted to reach his head and reach to the other side, so 1 left to right and right to left. Again, increased tone in upper and lower extremities. Laboratory Data: Most recent laboratory studies, his white blood cell count is now elevated at 21.9, neutrophils 85.9, hemoglobin 12.5. He has sodium now 138, potassium 4.4, chloride 111, BUN is 26, c reatinine 1.26, glucose 299, calcium 8.8, phosphorus 3.9, magnesium 1.9. Assessment: Mr. Rao is an 87-year-old patient with meeting criteria for sepsis with elevated white blood cell count, elevated heart rate, respiratory rate, fever, and with chest x-ray suggestiv e also of pneumonia. He has a baseline advanced cognitive dysfunction, which is likely of mixed etio logy including advanced vascular dementia with possibly superimposed Alzheimer disease. A clock draw test done in 2021 was 0/4 indicating an end-stage cognitive functioning. At this point, the patient is a do not resuscitate. Family is rightfully considering hospice care. He is receiving multiple a ntibiotics for sepsis. He is in serious condition and it is a possibility that he may not carry on a t this current rate for an extended period of time. Plan: Continue supportive care. Continue with IV hydration, nutrition. Continue antibiotics. Agre e with do not resuscitate status and hospice care once the patient has no sign of an obvious ongoing infection. LB/MODL Voice ID: [id number] Report ID: [id number]
[2023-11-29 19:43] VITALS: BP 121/74
[2023-11-29 20:07] VITALS: O2SAT 91
[2023-11-29] MEDS ORDERED: Meropenem 1,000 MG in NA CHLORIDE 0.9% 100 ML IV SCH (21:00)
[2023-11-29 21:42] VITALS: TEMP 97.5
--- NOTE | 2023-11-29 21:54 | P.PN ---
Date of Service: 11/29/23 Vital Signs Temp Pulse Resp BP Pulse Ox 97.5 F 142 H 40 H 121/74 91 11/29/23 20:00 11/29/23 20:00 11/29/23 20:00 11/29/23 20:00 11/29/23 16:00 Medications Acetaminophen (Acetaminophen 650mg/Rect Supp) 650 mg LA Q4H PRN PRN Reason: Temp> 100F or mild pain Last Admin: 11/29/23 15:43 Dose: 650 mg Acetylcysteine (Acetylcyst 20% 4 Ml Vial) 4 ml IH BIDRESP [facility] Last Admin: 11/29/23 19:00 Dose: Not Given Albuterol Sulfate (Albuterol 2.5 Mg/3 Ml Neb Merary) 2.5 mg NEB [id number] [facility] Last Admin: 11/29/23 19:59 Dose: 2.5 mg Aspirin (Aspirin Ec 81 Mg Tab) 81 mg PO DAILY [facility] Last Admin: 11/29/23 08:41 Dose: Not Given Finasteride (Finasteride 5 Mg Tab) 5 mg PO DAILY [facility] Last Admin: 11/29/23 08:41 Dose: Not Given Glucagon (Glucagon 1 Mg/Vial) 1 mg IM 1X PRN PRN Reason: HYPOGLYCEMIA Heparin Sodium (Porcine) (Heparin 5000 Unit/Ml 1 Ml Vial) 5,000 unit SQ Q8HR [facility] Last Admin: 11/29/23 16:12 Dose: 5,000 unit Multivitamins 10 ml/ AMINO ACIDS 5 %/DEXTROSE 20 %/ Fat Emulsion Intravenous 2,260 mls @ 70 mls/hr IV [id number] [facility] Last Admin: 11/29/23 17:27 Dose: 2,260 mls AMINO ACIDS 5 %/DEXTROSE 20 % (Clinimix 5%-20% Solution) 2,000 mls @ 70 mls/hr IV [id number] [facility] Last Admin: 11/28/23 18:19 Dose: 2,000 mls Dextrose (Dextrose 10% Water Iv Soln.) 125 mls @ 0 mls/hr IV PRN PRN; Protocol PRN Reason: HYPOGLYCEMIA Meropenem 500 mg/ Sodium (Chloride) 100 mls @ 200 mls/hr IV Q8HR [facility] Last Admin: 11/29/23 16:12 Dose: 100 mls Vancomycin HCl 1.75 gm/ Sodium (Chloride) 500 mls @ 250 mls/hr IVPB Q18H ALON[facility]; Protocol Insulin Human Regular (Insulin Regular (Human) 100 Unit/Ml) 0 unit SQ Q6HR ALON[facility]; Protocol Last Admin: 11/29/23 18:00 Dose: Not Given Memantine (Memantine Hcl 10 Mg Tablet) 10 mg PO BEDTIME ALON[facility] Last Admin: 11/29/23 21:00 Dose: Not Given Metoprolol Tartrate (Metoprolol Tartrate 5 Mg/5 Ml Inj) 5 mg IV Q6H PRN PRN Reason: HR > 130 Last Admin: 11/29/23 19:42 Dose: 5 mg Morphine Sulfate (Morphine 2 Mg/Ml Syr) 1 mg IV Q4H PRN PRN Reason: Pain scale 8-10 (Severe) Last Admin: 11/29/23 15:43 Dose: 1 mg Tamsulosin HCl (Tamsulosin 0.4 Mg Sr Cap) 0.4 mg PO BEDTIME ALONZO Last Admin: 11/29/23 21:00 Dose: Not Given Microbiology Results 11/16/23 12:35 Blood - Blood Aerobic Blood Culture - Final No growth in 5 days. 11/16/23 12:35 Blood - Blood Anaerobic Blood Culture - Final Staphylococcus Schleiferi 11/16/23 12:35 Blood - Blood Gram Stain - Final 11/16/23 12:20 Blood - Blood Aerobic Blood Culture - Final No growth in 5 days. 11/16/23 12:20 Blood - Blood Anaerobic Blood Culture - Final No growth in 5 days. 11/16/23 12:50 Clean Catch Urine [place] Count - Final >100,000 CFU/ML. 11/16/23 12:50 Clean Catch Urine - Final Escherichia Coli Assessment/ Plan: Nephrology Progress Note Limited IH/ ROS due to mental status No Acute Events Overnight Vital Signs, Medications, Blood Work, and Imaging reviewed in the chart NAD. NCAT. DMM. Neck Supple. Normal Respiratory Effort. RRR. Abd ND. No C/C. LE Edema none. No Rash. Awake. No Speech. [place]ison med Assessment & Plan Hypernatremia/ Dehydration -Continue TPN Hypokalemia -Replete prn AG Metabolic Acidosis -Check Lactate Hypophosphatemia -Replete prn HTN -Hold antihypertensives at this time Hyperglycemia -RISS prn Hypoalbuminemia -Advance nutrition as tolerated -Continue TPN Anemia in chronic illness -Monitor H&H BPH with LUTS -Continue tamsulosin and finasteride -Continue jamison Hospitalist note reviewed Case reviewed with the hospitalist team Prognosis poor
--- NOTE | 2023-11-30 00:56 | P.PN ---
Date of Service: 11/30/23 Called to see the patient Patient was examined Not arousable Stuporous No respiratory movements noted Heart sounds could not be auscultated Pupils not reacting to light Patient is clinically Condolences offered to the family
[2023-11-30] MEDS ORDERED: VANCOMYCIN 2 GM in NA CHLORIDE 0.9% 500 ML IVPB SCH (11:00)
[2023-11-30] MEDS ORDERED: VANCOMYCIN 1.75 GM in NA CHLORIDE 0.9% 500 ML IVPB SCH (11:00)
--- NOTE | 2023-12-02 08:32 | EEG ---
CHART: [id number] TEST ID#: [id number] DATE OF STUDY: 11/25/2023 THE EEG WAS RECORDED PORTABLE IN THE PATIENT'S ROOM ON A 17 CHANNEL MACHINE. ELECTRODES WERE APPLIED IN THE USUAL MANNER USING THE INTERNATIONAL 10-20 SYSTEM. THE WAKING BACKGROUND RHYTHM IN THIS RECORD CONSISTS OF FAIRLY WELL DEVELOPED AND FAIRLY WELL ORGANIZED WAVES OF 6-7 HZ., IN A WIDE DISTRIBUTION WHICH ATTENUATE NORMALLY WITH EYE OPENING. MODERATE VOLTAGE 6-7 HZ ACTIVITY IS DIFFUSELY EXPRESSED. THERE ARE NO FOCAL OR LATERALIZING FEATURES. NO EPILEPTIFORM ACTIVITY APPEARS. SLEEP DID NOT OCCUR. HYPERVENTILATION WAS NOT PERFORMED. PHOTIC STIMULATION PRODUCED NO DRIVING BILATERALLY. IMPRESSION: THIS IS AN ABNORMAL AWAKE ROUTINE EEG DUE TO A MODERATELY SLOW BACKGROUND. THIS FINDING INDICATES THE PRESENCE OF A DIFFUSE NON-SPECIFIC DISTURBANCE IN CEREBRAL FUNCTION.
== END 2023-11-30 04:04 | disposition expired | DRG 871 ==
LOC: ER 11:50 → ERHOLD 15:40 → 4TH 16:56 → 2ND 11-27 17:40
PROVIDERS: ADMIT Nurse Practitioner; ATTEND Internal Medicine
PROC: 02HV33Z Insertion of Infusion Device into Superior Vena Cava, Percutaneous Approach (ICD-10-PCS; principal; 2023-11-19)
PROC: 3E0436Z Introduction of Nutritional Substance into Central Vein, Percutaneous Approach (ICD-10-PCS; 2023-11-19)
PROC: 0HBRXZZ Excision of Toe Nail, External Approach (ICD-10-PCS; 2023-11-21)
PROC: 0DH67UZ Insertion of Feeding Device into Stomach, Via Natural or Artificial Opening (ICD-10-PCS; 2023-11-21)
DX: A41.1 Sepsis due to other specified staphylococcus (principal); G93.41 Metabolic encephalopathy; J18.9 Pneumonia, unspecified organism; R65.21 Severe sepsis with septic shock; I21.A1 Myocardial infarction type 2; J96.91 Respiratory failure, unspecified with hypoxia; E87.0 Hyperosmolality and hypernatremia; N39.0 Urinary tract infection, site not specified; E87.20 Acidosis, unspecified; E87.1 Hypo-osmolality and hyponatremia; F02.C11 Dementia in other diseases classified elsewhere, severe, with agitation; E44.0 Moderate protein-calorie malnutrition; F05 Delirium due to known physiological condition; A41.51 Sepsis due to Escherichia coli [E. coli]; G30.9 Alzheimer's disease, unspecified; E86.0 Dehydration; E78.5 Hyperlipidemia, unspecified; I48.91 Unspecified atrial fibrillation; D69.6 Thrombocytopenia, unspecified; E83.39 Other disorders of phosphorus metabolism; E88.09 Other disorders of plasma-protein metabolism, not elsewhere classified; N40.1 Benign prostatic hyperplasia with lower urinary tract symptoms; E87.6 Hypokalemia; D63.8 Anemia in other chronic diseases classified elsewhere; I25.10 Atherosclerotic heart disease of native coronary artery without angina pectoris; I25.2 Old myocardial infarction; B35.1 Tinea unguium; R73.9 Hyperglycemia, unspecified; Z66 Do not resuscitate; Z51.5 Encounter for palliative care; Z95.1 Presence of aortocoronary bypass graft; Z95.5 Presence of coronary angioplasty implant and graft; Z88.8 Allergy status to other drugs, medicaments and biological substances; Z79.82 Long term (current) use of aspirin; Z68.29 Body mass index [BMI] 29.0-29.9, adult; Z79.899 Other long term (current) drug therapy
CPT/HCPCS: 36415; 36569; 70450; 71045; 80048; 80053; 80061; 80076; 81001; 82947; 83036; 83605; 83735; 83880; 84100; 84132; 84439; 84443; 84484; 85025; 85027; 85610; 85730; 87040; 87077; 87086; 87088; 87186; 87205; 92526; 92610; 93005; 93306; 94640; 95816; 96365; 96366; 96367; 96368; 97161; 99285; J0692; J1644; J1940; J2270; J2997; J3475; J3480; J7040; J7050; J7060; J7120; J7608; J7613